=== PATIENT | female | born 1990 | race Caucasian/White ===

== ENCOUNTER 2016-10-22 15:38 | Inpatient (IN) | payer OTHER ==
[2016-10-22 16:39] VITALS: BMI 18.2
--- NOTE | 2016-10-22 18:35 | HP ---
COWS - Scale Resting Pulse: 2= MI 101-120 Sweatin= Chills/Flushing Restless Observation: 3= Extraneous Movement Pupil Size: 1= Pupils >than Normal Bone or Joint Aches: 2= Severe Diffuse Aches Runny Nose/ Eye Tearin= Runny Nose/Eyes GI Upset > 30mins: 3= Vomiting/Diarrhea Tremor Observation: 2= Slight Tremor Visible Yawning Observation: 1= 1-2x During Session Anxiety or Irritability: 2=Irritable/Anxious Goose Flesh Skin: 0=Smooth Skin COWS Score: 19 Admission [facility] Chief Complaint: withdrawal sx Allergies/Adverse Reactions: Allergies Allergy/AdvReac Type Severity Reaction Status Date / Time No Known Allergies Allergy Verified 10/22/16 16:56 History of Present Illness: 26 years old female with long history of opiate, nicotine dependence, denies medical issue has bipolar ii is admitted to detox Exam Limitations: No Limitations - Ebola screening Have you traveled outside of the country in the last 21 days: No Have you had contact with anyone from an Ebola affected area: No Have you been sick,other than usual withdrawal symptoms: No Do you have a fever: No - Review of Systems Constitutional: Chills, Changes in sleep, Weight Stable EENT: reports: No Symptoms Reported Respiratory: reports: No Symptoms reported Cardiac: reports: No Symptoms Reported GI: reports: Diarrhea, Nausea, Poor Appetite, Poor Fluid Intake, Vomiting, Abdominal cramping : reports: No Symptoms Reported Musculoskeletal: reports: Back Pain, Joint Pain, Muscle Pain, Neck Pain Integumentary: reports: Change in Color (both hands dorsum) Neuro: reports: Tremors Endocrine: reports: No Symptoms Reported Hematology: reports: No Symptoms Reported Psychiatric: reports: Judgement Intact, Orientated x3, Anxious, Depressed Other Systems: Reviewed and Negative Patient History - Patient Medical History Hx Anemia: No Hx Asthma: No Hx Chronic Obstructive Pulmonary Disease (COPD): No Hx Cancer: No Hx Cardiac Disorders: No Hx Congestive Heart Failure: No Hx Hypertension: No Hx Hypercholesterolemia: No Hx Pacemaker: No HX Cerebrovascular Accident: No Hx Seizures: No Hx Dementia: No Hx Diabetes: No Hx Gastrointestinal Disorders: No Hx Liver Disease: No Hx Genitourinary Disorders: No Hx Sexually Transmitted Disorders: No Hx Renal Disease (ESRD): No Hx Thyroid Disease: No Hx Human Immunodeficiency Virus (HIV): No Hx Hepatitis C: Yes (in 2012,TREATED) Hx Depression: No Hx Suicide Attempt: No Hx Bipolar Disorder: Yes Hx Schizophrenia: No - Patient Surgical History Past Surgical History: Yes Hx Neurologic Surgery: No Hx Cataract Extraction: No Hx Cardiac Surgery: No Hx Lung Surgery: No Hx Breast Surgery: No Hx Breast Biopsy: No Hx Abdominal Surgery: No Hx Appendectomy: No Hx Cholecystectomy: No Hx Genitourinary Surgery: No Hx Orthopedic Surgery: No Other Surgical History: Tonsillectomy at age 13 yrs. Anesthesia Reaction: No - PPD History Previous Implant?: Yes Documented Results: Negative w/o proof Implanted On Prior R Admission?: Yes Date: 09/02/14 Results: 0 MM PPD to be Administered?: Yes - Reproductive History Patient is a Female of Child Bearing Age (11 -55 yrs old): Yes Last Menstrual Period: 10/15/16 Patient : No - Smoking Cessation Smoking history: Current every day smoker Have you smoked in the past 12 months: Yes Aproximately how many cigarettes per day: 30 Cigars Per Day: 0 Hx Chewing Tobacco Use: No Initiated information on smoking cessation: Yes 'Breaking Loose' booklet given: 10/22/16 - Substance & Tx. History Hx Alcohol Use: No Hx Substance Use: Yes Substance Use Type: Cocaine, Marijuana, Opiates Hx Substance Use Treatment: Yes - Substances Abused Heroin Route: Injection Frequency: Daily Amount used: 10 BAGS Age of first use: 15 Date of Last Use: 10/19/16 Crack Route: Smoking Frequency: Daily Amount used: $200 Age of first use: 16 Date of Last Use: 10/22/16 Alprazolam (Xanax) Route: Oral Frequency: 3-6 times per week Amount used: 6MG Age of first use: 14 Date of Last Use: 10/22/16 Marijuana/Hashish Route: Smoking Frequency: Daily Amount used: 3.5GRAMS Age of first use: 12 Date of Last Use: 10/21/16 PERCOCETS Route: Oral Frequency: 1-3 times last 30 days Amount used: 2 10MG PILLS Age of first use: 13 Date of Last Use: 10/21/16 Family Disease History - Family Disease History Family History: Unremarkable Admission Physical Exam BHS - Vital Signs Vital Signs: Vital Signs - 24 hr 10/22/16 16:36 Temperature 96.4 F L Pulse Rate 105 H Respiratory 18 Rate Blood Pressure 144/93 - Physical General Appearance: Yes: Appropriately Dressed, Moderate Distress, Thin, Tremorous, Irritable, Sweating, Anxious HEENTM: Yes: Hearing grossly Normal, Normal ENT Inspection, Normocephalic, Normal Voice Respiratory: Yes: Chest Non-Tender, Lungs Clear, Normal Breath Sounds, No Respiratory Distress, No Accessory Muscle Use Neck: Yes: Supple, Trachea in good position Breast: Yes: Breasts Symetrical Cardiology: Yes: Regular Rhythm, S1, S2, Tachycardia Abdominal: Yes: Non Tender, Soft Genitourinary: Yes: Within Normal Limits Back: Yes: Normal Inspection Musculoskeletal: Yes: full range of Motion, Gait Steady, Back pain, Muscle Pain Extremities: Yes: Normal Range of Motion, Non-Tender, Tremors, Erythema (dorsum of both hands) Neurological: Yes: Fully Oriented, Alert, Motor Strength 5/5, Normal Response, Depressed Affect Integumentary: Yes: Warm, Track Martell (abscess) Lymphatic: Yes: Within Normal Limits - Diagnostic (1) Bipolar II disorder Current Visit: Yes Status: Suspected (2) Hepatitis C carrier Current Visit: Yes Status: Resolved Comment: treated (3) Nicotine dependence Current Visit: Yes Status: Acute Qualifiers: Nicotine product type: cigarettes Substance use status: in withdrawal Qualified Code(s): F17.213 - Nicotine dependence, cigarettes, with withdrawal (4) Opioid dependence with withdrawal Current Visit: Yes Status: Acute (5) Abscess Current Visit: Yes Status: Acute Cleared for Admission [facility] - Detox or Rehab [facility] Level of Care: Medically Managed Detox Regimen/Protocol: Methadone [facility] Breath Alcohol Content Breath Alcohol Content: 0 Urine Pregancy Test - Result Urine Test Results: Negative- NO Line Present Urine Drug Screen - Results Drug Screen Negative: No Urine Drug Screen Results: THC-Marijuana, TAHIR-Cocaine, OPI-Opiates, TCA- Tricyclic Antidepress, OXY-Oxycodone
[2016-10-22] MEDS ORDERED: guaiFENesin/D-METHORPHAN HB 10 ML UNIT-DOSE CUPS PO PRN (18:37)
[2016-10-22] MEDS ORDERED: MAGNESIUM CITRATE 300 ML BOTTLE PO PRN (18:37)
[2016-10-22] MEDS ORDERED: MAG HYDROX/AL HYDROX/SIMETH 30 ML UNIT-DOSE CUP PO PRN (18:37)
[2016-10-22] MEDS ORDERED: ACETAMINOPHEN 325 MG TABLET (FP) PO PRN (18:37)
[2016-10-22] MEDS ORDERED: METHADONE HCL 10 MG TABLET (FOR DETOX USE ONLY) PO ONE ×2 (18:37→23:00)
[2016-10-22] MEDS ORDERED: LOPERAMIDE HCL 2 MG CAPSULE PO PRN (18:37)
[2016-10-22] MEDS ORDERED: MENTHOL/PHENOL 1 EACH UD MM PRN (18:37)
[2016-10-22] MEDS ORDERED: IBUPROFEN 400 MG TABLET (FP) PO PRN (18:37)
[2016-10-22] MEDS ORDERED: P-EPHED 60MG/TRIPROLIDI 2.5MG TABLET PO PRN (18:37)
[2016-10-22] MEDS: CYCLOBENZAPRINE HCL 10 MG TABLET (FP) PO PRN (19:30)
[2016-10-22] MEDS: diazePAM 5 MG TABLET PO PRN (19:31)
[2016-10-22 22:34] LABS: URINE APPEARANCE CLEAR; URINE BILIRUBIN NEGATIVE (NEGATIVE); URINE BLOOD NEGATIVE (NEGATIVE); URINE COLOR YELLOW; URINE GLUCOSE (UA) NEGATIVE (NEGATIVE); URINE KETONE NEGATIVE (NEGATIVE); URINE LEUK ESTERASE NEGATIVE (NEGATIVE); URINE NITRITE NEGATIVE (NEGATIVE); URINE PROTEIN NEGATIVE (NEGATIVE); URINE UROBILINOGEN NEGATIVE E.U./dl (0.2-1.0)
[2016-10-22] MEDS: CLINDAMYCIN HCL 150 MG CAPSULE (FP) PO SCH (22:35)
[2016-10-22] MEDS: THIAMINE HCL 100 MG TABLET (FP) PO SCH (22:36)
[2016-10-22] MEDS: diphenhydrAMINE HCL 50 MG CAPSULE PO PRN (22:36)
[2016-10-23] MEDS: diphenhydrAMINE HCL 50 MG CAPSULE PO PRN (00:28)
[2016-10-23] MEDS: diazePAM 5 MG TABLET PO PRN ×5 (00:28→19:42)
[2016-10-23] MEDS: CYCLOBENZAPRINE HCL 10 MG TABLET (FP) PO PRN ×4 (04:14→22:31)
[2016-10-23] MEDS: CLINDAMYCIN HCL 150 MG CAPSULE (FP) PO SCH ×3 (07:55→22:33)
[2016-10-23] MEDS ORDERED: METHADONE HCL 10 MG TABLET (FOR DETOX USE ONLY) PO ONE (10:00)
--- NOTE | 2016-10-23 10:20 | CONSULT ---
[facility] Psychiatric Consult - Data Date of interview: 10/23/16 Admission source: [facility] Identifying data: Readmission to [facility] for this 26 y/o female seeking detox treatment on for heroin,cocaine (crack),benzodiazepine ( xanax) and marijuana dependence.Patient is single without children,domiciled, unemployed and supported on food stamps. Substance Abuse History: - Smoking Cessation. Smoking history: Current every day smoker. Have you smoked in the past 12 months: Yes. Aproximately how many cigarettes per day: 30. Cigars Per Day: 0. Hx Chewing Tobacco Use: No. Initiated information on smoking cessation: Yes. 'Breaking Loose' booklet given : 10/22/16. - Substance & Tx. History. Hx Alcohol Use: No. Hx Substance Use: Yes. Substance Use Type: Cocaine, Marijuana, Opiates. Hx Substance Use Treatment: Yes. - Substances Abused. Heroin. Route: Injection. Frequency : Daily. Amount used: 10 BAGS. Age of first use: 15. Date of Last Use: . Crack. Route: Smoking. Frequency: Daily. Amount used: $200. Age of first use: 16. Date of Last Use: 10/22/16. Alprazolam (Xanax). Route: Oral. Frequency: 3-6 times per week. Amount used: 6MG. Age of first use: 14. Date of Last Use: 10/22/16. Marijuana/Hashish. Route: Smoking. Frequency : Daily. Amount used: 3.5GRAMS. Age of first use: 12. Date of Last Use: 10/21. PERCOCETS. Route: Oral. Frequency: 1-3 times last 30 days. Amount used: 2 10MG PILLS. Age of first use: 13. Date of Last Use: 10/21/16. Confirmed by patient in this interview. Medical History: Hepatitis C and a history of tonsillectomy (age 13). Psychiatric History: No reported history of psychiatric hospitalizations.Diagnosed with Bipolar Disorder (age 15).Patient used to see a private psychiatrist,Dr Reyes,for medication management (last seen in 2014 as per self-report).Medications consisted of celexa 20 mg/day + seroquel 300 mg/hs + xanax 4 mg/day + ambien 10 mg/hs.Ms Hebert reports that she had relocated to [place] after her last visit to [facility].She indicates that she has sporadically continued OPD care until June 2016.Regimen was slightly modified to include seroquel,lexapro,klonopin and zolpidem (doses not recalled) .Patient requests these medications in this hospital course.Patient denies history of suicide attempts. Physical/Sexual Abuse/Trauma History: Patient denies. Additional Comment: Urine Drug Screen Results: THC-Marijuana, TAHIR-Cocaine, OPI- Opiates, TCA-Tricyclic Antidepressant, OXY-Oxycodone.Noted. Mental Status Exam - Mental Status Exam Alert and Oriented to: Time, Place, Person Cognitive Function: Good Patient Appearance: Well Groomed Mood: Anxious, Apprehensive, Hopeful Affect: Appropriate, Normal Range Patient Behavior: Fatigued, Appropriate, Cooperative Speech Pattern: Clear Voice Loudness: Normal Thought Process: Goal Oriented Thought Disorder: Not Present Hallucinations: Denies Suicidal Ideation: Denies Homicidal Ideation: Denies Insight/Judgement: Poor Sleep: Poorly, Difficulty falling asleep Appetite: Good Muscle strength/Tone: Normal Gait/Station: Normal Psychiatric Findings - Problem List (Guin 1, 2,3) (1) Opioid dependence with withdrawal Current Visit: Yes Status: Acute (2) Cocaine dependence, uncomplicated Current Visit: No Status: Chronic (3) Uncomplicated sedative, hypnotic or anxiolytic withdrawal Current Visit: No Status: Chronic (4) Nicotine dependence Current Visit: Yes Status: Acute Qualifiers: Nicotine product type: cigarettes Substance use status: in withdrawal Qualified Code(s): F17.213 - Nicotine dependence, cigarettes, with withdrawal (5) Cannabis dependence Current Visit: Yes Status: Acute (6) Substance induced mood disorder Current Visit: Yes Status: Acute (7) Bipolar II disorder Current Visit: Yes Status: Suspected Comment: History. (8) Hepatitis C carrier Current Visit: Yes Status: Resolved Comment: treated (9) Insomnia Current Visit: Yes Status: Acute - Initial Treatment Plan Initial Treatment Plan: Psychoeducation.Detoxification.Medications : lexapro 5 mg po daily + seroquel 50 mg po hs + zolpidem 5 mg po hs prn.Side effects/ benefits of these drugs are discussed with the patient.She is agreement with this careplan.Observation.
[2016-10-23 10:28] LABS: MCH 28.9 pg (25.7-33.7); MCHC 32.9 g/dl (32.0-36.0); MEAN CELL VOLUME 88.1 fl (80-96); MEAN PLT VOLUME 8.8 fl (7.5-11.1); PLATELET COUNT 373 K/MM3 (134-434); WHITE BLOOD COUNT 9.4 K/mm3 (4.0-10.0)
[2016-10-23 10:39] LABS: ALBUMIN 4.1 g/dl (3.4-5.0); ANION GAP 11 (8-16); CO2 24 mmol/L (21-32); GLUCOSE,RANDOM 73 mg/dL (74-106); SGOT/AST 10 U/L (15-37); SGPT/ALT 16 U/L (12-78)
[2016-10-23 10:42] LABS: ALK PHOS 61 U/L (45-117); BILIRUBIN,TOTAL 0.7 mg/dL (0.2-1.0); CALCIUM 9.7 mg/dL (8.5-10.1); TOT PROT 7.5 g/dl (6.4-8.2)
[2016-10-23] MEDS: NICOTINE 21 MG/24 HOURS TOPICAL PATCH TD SCH (10:52)
[2016-10-23] MEDS: PRENATAL VITAMINS W/ FOLIC ACID TABLET (FP) PO SCH (10:52)
[2016-10-23] MEDS: NICOTINE POLACRILEX 4 MG GUM BC PRN (10:53)
--- NOTE | 2016-10-23 12:49 | PN ---
BHS COWS - Scale Resting Pulse: 1= SD 81-100 Sweatin= Chills/Flushing Restless Observation: 3= Extraneous Movement Pupil Size: 1= Pupils >than Normal Bone or Joint Aches: 2= Severe Diffuse Aches Runny Nose/ Eye Tearin= Runny Nose/Eyes GI Upset > 30mins: 3= Vomiting/Diarrhea Tremor Observation of Outstretched Hands: 2= Slight Tremor Visible Yawning Observation: 1= 1-2x During Session Anxiety or Irritability: 2=Irritable/Anxious Goose Flesh Skin: 0=Smooth Skin COWS Score: 18 BHS Progress Note (SOAP) Subjective: ALERT,IRRITABLE,ANXIOUS,INTERRUPTED SLEEP,TREMOR,PAIN IN THE BODY AND BACK Objective: 10/23/16 12:46 Vital Signs Temperature 97.2 F L 10/23/16 10:30 Pulse Rate 91 H 10/23/16 10:30 Respiratory Rate 18 10/23/16 10:30 Blood Pressure 109/70 10/23/16 10:30 O2 Sat by Pulse Oximetry (%) EKG NSR 84/MIN Laboratory Last Values WBC 9.4 K/mm3 (4.0-10.0) 10/23/16 07:15 RBC 4.65 M/mm3 (3.60-5.2) 10/23/16 07:15 Hgb 13.5 GM/dL (10.7-15.3) 10/23/16 07:15 Hct 41.0 % (32.4-45.2) 10/23/16 07:15 MCV 88.1 fl (80-96) 10/23/16 07:15 MCHC 32.9 g/dl (32.0-36.0) 10/23/16 07:15 RDW 16.0 % (11.6-15.6) H 10/23/16 07:15 Plt Count 373 K/MM3 (134-434) 10/23/16 07:15 MPV 8.8 fl (7.5-11.1) 10/23/16 07:15 Sodium 137 mmol/L (136-145) 10/23/16 07:15 Potassium 4.3 mmol/L (3.5-5.1) 10/23/16 07:15 Chloride 102 mmol/L (98-107) 10/23/16 07:15 Carbon Dioxide 24 mmol/L (21-32) D 10/23/16 07:15 Anion Gap 11 (8-16) 10/23/16 07:15 BUN 12 mg/dL (7-18) D 10/23/16 07:15 Creatinine 1.0 mg/dL (0.55-1.02) D 10/23/16 07:15 Creat Clearance w eGFR > 60 (>60) 10/23/16 07:15 Random Glucose 73 mg/dL (74-106) L D 10/23/16 07:15 Calcium 9.7 mg/dL (8.5-10.1) 10/23/16 07:15 Total Bilirubin 0.7 mg/dL (0.2-1.0) D 10/23/16 07:15 AST 10 U/L (15-37) L 10/23/16 07:15 ALT 16 U/L (12-78) 10/23/16 07:15 Alkaline Phosphatase 61 U/L (45-117) 10/23/16 07:15 Total Protein 7.5 g/dl (6.4-8.2) 10/23/16 07:15 Albumin 4.1 g/dl (3.4-5.0) 10/23/16 07:15 Urine Color Yellow 10/22/16 22:00 Urine Appearance Clear 10/22/16 22:00 Urine pH 5.0 (5.0-8.0) 10/22/16 22:00 Ur Specific [place] 1.023 (1.001-1.035) 10/22/16 22:00 Urine Protein Negative (NEGATIVE) 10/22/16 22:00 Urine Glucose (UA) Negative (NEGATIVE) 10/22/16 22:00 Urine Ketones Negative (NEGATIVE) 10/22/16 22:00 Urine Blood Negative (NEGATIVE) 10/22/16 22:00 Urine Nitrite Negative (NEGATIVE) 10/22/16 22:00 Urine Bilirubin Negative (NEGATIVE) 10/22/16 22:00 Urine Urobilinogen Negative E.U./dl (0.2-1.0) 10/22/16 22:00 Ur Leukocyte Esterase Negative (NEGATIVE) 10/22/16 22:00 RPR Titer Nonreactive (NONREACTIVE) 10/23/16 07:15 Assessment: 10/23/16 12:48 WITHDRAWAL SYMPTOM Plan: CONTINUE DETOX
--- NOTE | 2016-10-23 13:23 | EKG ---
Test Reason : Blood Pressure : / mmHG Vent. Rate : 084 BPM Atrial Rate : 084 BPM P-R Int : 136 ms QRS Dur : 084 ms QT Int : 376 ms P-R-T Axes : 063 085 060 degrees QTc Int : 444 ms NORMAL SINUS RHYTHM BIATRIAL ENLARGEMENT ABNORMAL ECG WHEN COMPARED WITH ECG OF 23-AUG-2008 17:54, NO SIGNIFICANT CHANGE WAS FOUND Confirmed by BEN NOLAND MD ([id number]) on 10/23/2016 1:23:28 PM Referred By: Confirmed By:BEN NOLAND MD
[2016-10-23] MEDS: cloNIDine HCL 0.1 MG TABLET PO PRN (22:31)
[2016-10-23] MEDS: QUEtiapine FUMARATE 50 MG TABLET PO SCH (22:31)
[2016-10-23] MEDS: ZOLPIDEM TARTRATE 5 MG TABLET PO PRN (22:31)
[2016-10-23] MEDS: THIAMINE HCL 100 MG TABLET (FP) PO SCH (22:31)
[2016-10-24] MEDS: diazePAM 5 MG TABLET PO PRN ×4 (03:12→19:48)
[2016-10-24] MEDS: CLINDAMYCIN HCL 150 MG CAPSULE (FP) PO SCH ×3 (05:46→22:24)
[2016-10-24] MEDS: CYCLOBENZAPRINE HCL 10 MG TABLET (FP) PO PRN ×3 (05:47→22:24)
[2016-10-24] MEDS ORDERED: METHADONE HCL 5 MG TABLET (FOR DETOX USE ONLY) PO ONE (10:00)
[2016-10-24] MEDS: ESCITALOPRAM OXALATE 10 MG TABLET (FP) PO SCH (10:31)
[2016-10-24] MEDS: NICOTINE 21 MG/24 HOURS TOPICAL PATCH TD SCH (10:32)
[2016-10-24] MEDS: PRENATAL VITAMINS W/ FOLIC ACID TABLET (FP) PO SCH (10:32)
--- NOTE | 2016-10-24 12:40 | PN ---
BHS COWS - Scale Resting Pulse: 1= RI 81-100 Sweatin= Chills/Flushing Restless Observation: 3= Extraneous Movement Pupil Size: 1= Pupils >than Normal Bone or Joint Aches: 2= Severe Diffuse Aches Runny Nose/ Eye Tearin= Runny Nose/Eyes GI Upset > 30mins: 2= Nausea/Diarrhea Tremor Observation of Outstretched Hands: 2= Slight Tremor Visible Yawning Observation: 1= 1-2x During Session Anxiety or Irritability: 2=Irritable/Anxious Goose Flesh Skin: 0=Smooth Skin COWS Score: 17 BHS Progress Note (SOAP) Subjective: alert,irritable,anxious,tremor,pain in the body and back Objective: 10/24/16 12:39 Vital Signs Temperature 98.2 F 10/24/16 09:36 Pulse Rate 84 10/24/16 09:36 Respiratory Rate 18 10/24/16 09:36 Blood Pressure 120/64 10/24/16 09:36 O2 Sat by Pulse Oximetry (%) Assessment: 10/24/16 12:40 withdrawal symptom Plan: continue detox
[2016-10-24 14:07] LABS: HIV 1 & 2 AB NEGATIVE; HIV 1 AGp24 NEGATIVE
[2016-10-24] MEDS: MAGNESIUM HYDROX 2400MG/30ML ORAL SUSPENSION 30 ML CUP PO PRN (17:31)
[2016-10-24] MEDS: NICOTINE POLACRILEX 4 MG GUM BC PRN ×2 (17:31→22:26)
[2016-10-24] MEDS: ZOLPIDEM TARTRATE 5 MG TABLET PO PRN (22:24)
[2016-10-24] MEDS: QUEtiapine FUMARATE 50 MG TABLET PO SCH (22:24)
[2016-10-24] MEDS: THIAMINE HCL 100 MG TABLET (FP) PO SCH (22:24)
[2016-10-24] MEDS: cloNIDine HCL 0.1 MG TABLET PO PRN (22:24)
[2016-10-25] MEDS: diazePAM 5 MG TABLET PO PRN ×2 (05:08→14:00)
[2016-10-25] MEDS: CLINDAMYCIN HCL 150 MG CAPSULE (FP) PO SCH ×2 (06:08→14:42)
[2016-10-25] MEDS: CYCLOBENZAPRINE HCL 10 MG TABLET (FP) PO PRN ×2 (06:11→22:21)
[2016-10-25] MEDS: MAGNESIUM HYDROX 2400MG/30ML ORAL SUSPENSION 30 ML CUP PO PRN (06:14)
[2016-10-25] MEDS ORDERED: METHADONE HCL 5 MG TABLET (FOR DETOX USE ONLY) PO ONE (10:00)
[2016-10-25] MEDS: ESCITALOPRAM OXALATE 10 MG TABLET (FP) PO SCH (10:18)
[2016-10-25] MEDS: PRENATAL VITAMINS W/ FOLIC ACID TABLET (FP) PO SCH (10:19)
[2016-10-25] MEDS: NICOTINE 21 MG/24 HOURS TOPICAL PATCH TD SCH (10:21)
[2016-10-25] MEDS: NICOTINE POLACRILEX 4 MG GUM BC PRN ×2 (10:23→19:44)
--- NOTE | 2016-10-25 12:26 | PN ---
S Progress Note (SOAP) Subjective: ALERT,IRRITABLE,ANXIOUS,INTERRUPTED SLEEP,PAIN IN THE BODY AND BACK Objective: 10/25/16 12:25 Vital Signs Temperature 97.3 F L 10/25/16 10:00 Pulse Rate 83 10/25/16 10:00 Respiratory Rate 18 10/25/16 10:00 Blood Pressure 108/58 10/25/16 10:00 O2 Sat by Pulse Oximetry (%) Assessment: 10/25/16 12:25 WITHDRAWAL SYMPTOM Plan: CONTINUE DETOX
[2016-10-25 14:53] LABS: HIV 1 & 2 AB NEGATIVE; HIV 1 AGp24 NEGATIVE
[2016-10-25] MEDS: THIAMINE HCL 100 MG TABLET (FP) PO SCH (22:21)
[2016-10-25] MEDS: cloNIDine HCL 0.1 MG TABLET PO PRN (22:21)
[2016-10-25] MEDS: ZOLPIDEM TARTRATE 5 MG TABLET PO PRN (22:21)
[2016-10-25] MEDS: QUEtiapine FUMARATE 50 MG TABLET PO SCH (22:21)
[2016-10-26] MEDS: CYCLOBENZAPRINE HCL 10 MG TABLET (FP) PO PRN ×4 (04:36→22:26)
[2016-10-26] MEDS ORDERED: METHADONE HCL 10 MG TABLET (FOR DETOX USE ONLY) PO ONE (10:00)
[2016-10-26] MEDS: PRENATAL VITAMINS W/ FOLIC ACID TABLET (FP) PO SCH (10:41)
[2016-10-26] MEDS: ESCITALOPRAM OXALATE 10 MG TABLET (FP) PO SCH (10:41)
[2016-10-26] MEDS: NICOTINE 21 MG/24 HOURS TOPICAL PATCH TD SCH (10:43)
[2016-10-26] MEDS: cloNIDine HCL 0.1 MG TABLET PO PRN ×2 (10:45→22:26)
--- NOTE | 2016-10-26 13:09 | PN ---
BHS Progress Note (SOAP) Subjective: interrupted sleep, sweats Objective: 10/26/16 13:08 Vital Signs Temperature 96.2 F L 10/26/16 10:12 Pulse Rate 81 10/26/16 10:12 Respiratory Rate 18 10/26/16 10:12 Blood Pressure 106/61 10/26/16 10:12 O2 Sat by Pulse Oximetry (%) Laboratory Tests 10/22/16 10/23/16 10/23/16 22:00 07:15 07:15 WBC 9.4 RBC 4.65 Hgb 13.5 Hct 41.0 MCV 88.1 MCHC 32.9 RDW 16.0 H Plt Count 373 MPV 8.8 Sodium 137 Potassium 4.3 Chloride 102 Carbon Dioxide 24 D Anion Gap 11 BUN 12 D Creatinine 1.0 D Creat Clearance w eGFR > 60 Random Glucose 73 L D Calcium 9.7 Total Bilirubin 0.7 D AST 10 L ALT 16 Alkaline Phosphatase 61 Total Protein 7.5 Albumin 4.1 Urine Color Yellow Urine Appearance Clear Urine pH 5.0 Ur Specific [place] 1.023 Urine Protein Negative Urine Glucose (UA) Negative Urine Ketones Negative Urine Blood Negative Urine Nitrite Negative Urine Bilirubin Negative Urine Urobilinogen Negative Ur Leukocyte Esterase Negative RPR Titer HIV 1&2 Antibody Screen HIV P24 Antigen 10/23/16 10/24/16 07:15 06:00 WBC RBC Hgb Hct MCV MCHC RDW Plt Count MPV Sodium Potassium Chloride Carbon Dioxide Anion Gap BUN Creatinine Creat Clearance w eGFR Random Glucose Calcium Total Bilirubin AST ALT Alkaline Phosphatase Total Protein Albumin Urine Color Urine Appearance Urine pH Ur Specific [place] Urine Protein Urine Glucose (UA) Urine Ketones Urine Blood Urine Nitrite Urine Bilirubin Urine Urobilinogen Ur Leukocyte Esterase RPR Titer Nonreactive HIV 1&2 Antibody Screen Negative Negative HIV P24 Antigen Negative Negative pt aox3 in nad ambulating Assessment: 10/26/16 13:09 withdrawl sx's Plan: cont. detox increase fluids d/c in am
[2016-10-26] MEDS: NICOTINE POLACRILEX 4 MG GUM BC PRN (17:12)
[2016-10-26] MEDS: QUEtiapine FUMARATE 50 MG TABLET PO SCH (22:26)
[2016-10-26] MEDS: ZOLPIDEM TARTRATE 5 MG TABLET PO PRN (22:26)
[2016-10-26] MEDS: THIAMINE HCL 100 MG TABLET (FP) PO SCH (22:27)
[2016-10-27] MEDS: CYCLOBENZAPRINE HCL 10 MG TABLET (FP) PO PRN (05:48)
[2016-10-27] MEDS ORDERED: METHADONE HCL 5 MG TABLET (FOR DETOX USE ONLY) PO ONE (06:00)
[2016-10-27 06:13] VITALS: TEMP 97.7
--- NOTE | 2016-10-27 09:01 | DS ---
[facility] Detox Discharge Summary Admission Date: 10/22/16 Discharge Date: 10/27/16 - History Present History: Alcohol Dependence, Cocaine Dependence, Opioid Dependence, Sedative Dependence - Physical Exam Results Vital Signs: Vital Signs Temperature 97.7 F 10/27/16 06:00 Pulse Rate 64 10/27/16 06:00 Respiratory Rate 16 10/27/16 06:00 Blood Pressure 93/57 10/27/16 06:00 O2 Sat by Pulse Oximetry (%) - Treatment Hospital Course: Detox Protocol Followed, Detoxed Safely, Responded well, Discharged Condition Good, Rehab Referral Accepted - Medication Discharge Medications: Ambulatory Orders Escitalopram Oxalate [Lexapro -] 5 mg PO DAILY #30 tablet 10/23/16 Quetiapine Fumarate [Seroquel -] 50 mg PO HS #30 tablet 10/23/16 - Diagnosis (1) Abscess Current Visit: Yes Status: Acute (2) Cannabis dependence Current Visit: Yes Status: Chronic (3) Insomnia Current Visit: Yes Status: Acute (4) Nicotine dependence Current Visit: Yes Status: Chronic Qualifiers: Nicotine product type: cigarettes Substance use status: uncomplicated Qualified Code(s): F17.210 - Nicotine dependence, cigarettes, uncomplicated (5) Opioid dependence with withdrawal Current Visit: Yes Status: Chronic (6) Substance induced mood disorder Current Visit: Yes Status: Chronic (7) Bipolar II disorder Current Visit: Yes Status: Suspected (8) Hepatitis C carrier Current Visit: Yes Status: Resolved (9) Alcohol dependence with uncomplicated withdrawal Current Visit: Yes Status: Chronic (10) Cocaine dependence, uncomplicated Current Visit: Yes Status: Chronic (11) Uncomplicated sedative, hypnotic or anxiolytic withdrawal Current Visit: Yes Status: Chronic (12) Weight decreased Current Visit: No Status: Chronic (13) anxiety and depression Current Visit: No Status: Chronic - AMA Did Patient Leave Against Medical Advice: No
[2016-10-27] MEDS: PRENATAL VITAMINS W/ FOLIC ACID TABLET (FP) PO SCH (09:28)
[2016-10-27] MEDS: ESCITALOPRAM OXALATE 10 MG TABLET (FP) PO SCH (09:28)
[2016-10-27] MEDS: cloNIDine HCL 0.1 MG TABLET PO PRN (09:29)
[2016-10-27 10:24] VITALS: BP 128/72; PULSE 91
== END 2016-10-27 09:35 | disposition home or self-care (01) | DRG 773 ==
LOC: YASAS 15:38 → Y6N 17:52
PROVIDERS: ADMIT Internal Medicine; ATTEND Internal Medicine
PROC: HZ2ZZZZ Detoxification Services for Substance Abuse Treatment (ICD-10-PCS; principal; 2016-10-22)
DX: F11.23 Opioid dependence with withdrawal (principal); F13.230 Sedative, hypnotic or anxiolytic dependence with withdrawal, uncomplicated; F10.230 Alcohol dependence with withdrawal, uncomplicated; F14.20 Cocaine dependence, uncomplicated; F12.20 Cannabis dependence, uncomplicated; F17.210 Nicotine dependence, cigarettes, uncomplicated; F19.24 Other psychoactive substance dependence with psychoactive substance-induced mood disorder; F31.81 Bipolar II disorder; F41.8 Other specified anxiety disorders; G47.00 Insomnia, unspecified; B18.2 Chronic viral hepatitis C; R00.0 Tachycardia, unspecified; L02.91 Cutaneous abscess, unspecified; Z87.898 Personal history of other specified conditions
CPT/HCPCS: 36415; 80053; 81003; 85027; 86593; 87389; 93005; 93010

== ENCOUNTER 2017-06-29 13:59 | Inpatient (IN) | payer OTHER ==
[2017-06-29 17:30] VITALS: BMI 18.2
--- NOTE | 2017-06-29 18:56 | HP ---
COWS - Scale Resting Pulse: 2= [place] 101-120 Sweatin= Chills/Flushing Restless Observation: 3= Extraneous Movement Pupil Size: 0= Normal to Room Light Bone or Joint Aches: 2= Severe Diffuse Aches Runny Nose/ Eye Tearin= Runny Nose/Eyes GI Upset > 30mins: 2= Nausea/Diarrhea Tremor Observation: 2= Slight Tremor Visible Yawning Observation: 0= None Anxiety or Irritability: 2=Irritable/Anxious Goose Flesh Skin: 0=Smooth Skin COWS Score: 16 CIWA Score - CIWA Score Nausea/Vomitin-Mild Nausea/No Vomiting Muscle Tremors: 4-Moderate,w/Arms Extend Anxiety: 4-Mod. Anxious/Guarded Agitation: 4-Moderately Restless Paroxysmal Sweats: 1-Minimal Palms Moist Orientation: 0-Oriented Tacttile Disturbances: 0-None Auditory Disturbances: 0-None Visual Disturbances: 0-None Headache: 0-None Present CIWA-Ar Total Score: 14 Admission ROS S - HPI Chief Complaint: withdrawal sx Allergies/Adverse Reactions: Allergies Allergy/AdvReac Type Severity Reaction Status Date / Time No Known Allergies Allergy Verified 10/22/16 16:56 History of Present Illness: 26 years old female with long history of heroin xanax nicotine dependence has hypertension and bipolar ii is admitted to detox Exam Limitations: No Limitations - Ebola screening Have you traveled outside of the country in the last 21 days: No Have you had contact with anyone from an Ebola affected area: No Have you been sick,other than usual withdrawal symptoms: No Do you have a fever: No - Review of Systems Constitutional: Changes in sleep, Weight Stable EENT: reports: No Symptoms Reported Respiratory: reports: No Symptoms reported Cardiac: reports: No Symptoms Reported GI: reports: Nausea, Poor Fluid Intake, Abdominal cramping : reports: No Symptoms Reported Musculoskeletal: reports: Back Pain, Joint Pain, Muscle Pain, Neck Pain Integumentary: reports: Change in Color (both inner elbows iv heroin) Neuro: reports: Tremors Endocrine: reports: No Symptoms Reported Hematology: reports: No Symptoms Reported Psychiatric: reports: Judgement Intact, Orientated x3, Anxious, Depressed Other Systems: Reviewed and Negative Patient History - Patient Medical History Hx Anemia: No Hx Asthma: No Hx Chronic Obstructive Pulmonary Disease (COPD): No Hx Cancer: No Hx Cardiac Disorders: No Hx Congestive Heart Failure: No Hx Hypertension: No Hx Hypercholesterolemia: No Hx Pacemaker: No HX Cerebrovascular Accident: No Hx Seizures: No Hx Dementia: No Hx Diabetes: No Hx Gastrointestinal Disorders: No Hx Liver Disease: No Hx Genitourinary Disorders: No Hx Sexually Transmitted Disorders: No Hx Renal Disease (ESRD): No Hx Thyroid Disease: No Hx Human Immunodeficiency Virus (HIV): No Hx Hepatitis C: Yes (in 2011,TREATED) Hx Depression: No Hx Suicide Attempt: No Hx Bipolar Disorder: Yes Hx Schizophrenia: No - Patient Surgical History Past Surgical History: Yes Hx Neurologic Surgery: No Hx Cataract Extraction: No Hx Cardiac Surgery: No Hx Lung Surgery: No Hx Breast Surgery: No Hx Breast Biopsy: No Hx Abdominal Surgery: No Hx Appendectomy: No Hx Cholecystectomy: No Hx Genitourinary Surgery: No Hx Section: No Hx Orthopedic Surgery: No Hx Hysterectomy: No Other Surgical History: Tonsillectomy at age 13 yrs. Anesthesia Reaction: No - PPD History Previous Implant?: Yes Documented Results: Negative w/proof Implanted On Prior [facility] Admission?: Yes Date: 10/24/16 Results: 0 MM PPD to be Administered?: No - Reproductive History Patient is a Female of Child Bearing Age (11 -55 yrs old): Yes Last Menstrual Period: 01/27/17 Patient : No - Smoking Cessation Smoking history: Current every day smoker Have you smoked in the past 12 months: Yes Aproximately how many cigarettes per day: 30 Cigars Per Day: 0 Hx Chewing Tobacco Use: No Initiated information on smoking cessation: Yes 'Breaking Loose' booklet given: 06/29/17 - Substance & Tx. History Hx Alcohol Use: No Hx Substance Use: Yes Substance Use Type: Cocaine, Heroin, Marijuana, Tranquilizers Hx Substance Use Treatment: Yes (10/2016 [facility]) - Substances Abused Heroin Route: Injection Frequency: Daily Amount used: 40 bags Age of first use: 16 Date of Last Use: 06/29/17 Alprazolam (Xanax) Route: Oral Frequency: Daily Amount used: 10 mg Age of first use: 14 Date of Last Use: 06/29/17 Family Disease History - Family Disease History Family Disease History: Other: Mother (anxiety) Admission Physical Exam [facility] - Vital Signs Vital Signs: Vital Signs - 24 hr 06/29/17 17:19 Temperature 97.1 F L Pulse Rate 108 H Respiratory 18 Rate Blood Pressure 115/74 - Physical General Appearance: Yes: Appropriately Dressed, Mild Distress, Thin, Tremorous, Irritable, Sweating, Anxious HEENTM: Yes: Hearing grossly Normal, Normal ENT Inspection, Normocephalic, Normal Voice Respiratory: Yes: Chest Non-Tender, Lungs Clear, Normal Breath Sounds, No Respiratory Distress, No Accessory Muscle Use Neck: Yes: Supple, Trachea in good position Breast: Yes: Breasts Symetrical Cardiology: Yes: Regular Rhythm, S1, S2, Tachycardia Abdominal: Yes: Non Tender, Soft Genitourinary: Yes: Within Normal Limits Back: Yes: Normal Inspection Musculoskeletal: Yes: full range of Motion, Gait Steady, Back pain, Muscle Pain Extremities: Yes: Normal Inspection, Normal Range of Motion, Non-Tender, Tremors Neurological: Yes: Fully Oriented, Alert, Motor Strength 5/5, Normal Response, Depressed Affect Integumentary: Yes: Warm, Track Martell Lymphatic: Yes: Within Normal Limits - Diagnostic (1) Nicotine dependence Current Visit: Yes Status: Acute Qualifiers: Nicotine product type: cigarettes Substance use status: in withdrawal Qualified Code(s): F17.213 - Nicotine dependence, cigarettes, with withdrawal; F17.213 - Nicotine dependence, cigarettes, with withdrawal (2) Opioid dependence with withdrawal Current Visit: Yes Status: Acute (3) Bipolar II disorder Current Visit: Yes Status: Suspected Comment: History. (4) Sedative, hypnotic or anxiolytic dependence with withdrawal, uncomplicated Current Visit: Yes Status: Acute (5) Hepatitis C carrier Current Visit: Yes Status: Resolved Comment: treated Cleared for Admission [facility] - Detox or Rehab [facility] Level of Care: Medically Managed Detox Regimen/Protocol: Methadone/Valium [facility] Breath Alcohol Content Breath Alcohol Content: 0 Urine Pregancy Test - Result Urine Test Results: Negative- NO Line Present Urine Drug Screen - Results Drug Screen Negative: No Urine Drug Screen Results: THC-Marijuana, TAHIR-Cocaine, OPI-Opiates, BZO- Benzodiazepines
[2017-06-29] MEDS ORDERED: guaiFENesin/D-METHORPHAN HB 10 ML UNIT-DOSE CUPS PO PRN (19:06)
[2017-06-29] MEDS ORDERED: P-EPHED 60MG/TRIPROLIDI 2.5MG TABLET PO PRN (19:06)
[2017-06-29] MEDS ORDERED: LOPERAMIDE HCL 2 MG CAPSULE PO PRN (19:06)
[2017-06-29] MEDS ORDERED: MAGNESIUM CITRATE 300 ML BOTTLE PO PRN (19:06)
[2017-06-29] MEDS ORDERED: MAG HYDROX/AL HYDROX/SIMETH 30 ML UNIT-DOSE CUP PO PRN (19:06)
[2017-06-29] MEDS ORDERED: METHADONE HCL 10 MG TABLET (FOR DETOX USE ONLY) PO ONE ×2 (19:06→23:00)
[2017-06-29] MEDS ORDERED: diazePAM 5 MG TABLET PO ONE (19:06)
[2017-06-29] MEDS ORDERED: MENTHOL/PHENOL 1 EACH UD MM PRN (19:06)
[2017-06-29] MEDS ORDERED: IBUPROFEN 400 MG TABLET (FP) PO PRN (19:06)
[2017-06-29] MEDS ORDERED: ACETAMINOPHEN 325 MG TABLET (FP) PO PRN (19:06)
[2017-06-29] MEDS ORDERED: METHYL SALICYLATE/MENTHOL OINT 30 GM TUBE TP PRN (19:09)
[2017-06-29] MEDS ORDERED: cloNIDine HCL 0.1 MG TABLET PO PRN (19:10)
[2017-06-29] MEDS ORDERED: METHADONE HCL 10 MG TABLET (FOR DETOX USE ONLY) ONE (21:55)
[2017-06-29] MEDS: BACLOFEN 10 MG TABLET (FP) PO SCH (22:14)
[2017-06-29] MEDS: THIAMINE HCL 100 MG TABLET (FP) PO SCH (22:15)
[2017-06-29] MEDS: NICOTINE POLACRILEX 4 MG GUM BC PRN (22:19)
[2017-06-29] MEDS: diazePAM 5 MG TABLET PO SCH (23:12)
[2017-06-30 01:21] LABS: URINE APPEARANCE CLEAR; URINE BILIRUBIN NEGATIVE (NEGATIVE); URINE BLOOD NEGATIVE (NEGATIVE); URINE COLOR STRAW; URINE GLUCOSE (UA) NEGATIVE (NEGATIVE); URINE KETONE NEGATIVE (NEGATIVE); URINE NITRITE NEGATIVE (NEGATIVE); URINE PROTEIN NEGATIVE (NEGATIVE); URINE UROBILINOGEN NEGATIVE mg/dL (0.2-1.0)
[2017-06-30] MEDS: diazePAM 5 MG TABLET PO SCH ×3 (05:37→22:39)
[2017-06-30] MEDS: BACLOFEN 10 MG TABLET (FP) PO SCH ×3 (05:37→22:41)
[2017-06-30] MEDS: NICOTINE POLACRILEX 4 MG GUM BC PRN ×4 (05:38→22:42)
--- NOTE | 2017-06-30 08:29 | CONSULT ---
[facility] Psychiatric Consult - Data Date of interview: 06/30/17 Admission source: [facility] Identifying data: This is 26 years old female with no psychiatric hospitalization history intoxicated with: Alcohol, Opioids, Cocaine, Xanax and Nicotine. Patient carries Bipolar Disorder -II as per computer Substance Abuse History: Smoking history: Current every day smoker. Have you smoked in the past 12 months: Yes. Aproximately how many cigarettes per day: 30. Cigars Per Day: 0. Hx Chewing Tobacco Use: No. Initiated information on smoking cessation: Yes. 'Breaking Loose' booklet given: 06/29/17. - Substance & Tx. History. Hx Alcohol Use: No. Hx Substance Use: Yes. Substance Use Type : Cocaine, Heroin, Marijuana, Tranquilizers. Hx Substance Use Treatment: Yes ( [facility]). - Substances Abused. Heroin. Route: Injection. Frequency: Daily. Amount used: 40 bags. Age of first use: 16. Date of Last Use: 06/29/17. Alprazolam (Xanax). Route: Oral. Frequency: Daily. Amount used: 10 mg. Age of first use: 14. Date of Last Use: 06/29/17 Medical History: HepC+, Weight loss history, Abscess history Psychiatric History: Patiebt reporets history of anxiety and insomnia, reports taking prior to admission: Seroquel 300mg po bid. Lexapro 20mg poqd Physical/Sexual Abuse/Trauma History: Denies Additional Comment: Seroquel 300mg po bid. Lexapro 20mg poqd Mental Status Exam - Mental Status Exam Alert and Oriented to: Person Cognitive Function: Fair Patient Appearance: Well Groomed Mood: Anxious Affect: Mood Congruent Patient Behavior: Talkative, Cooperative Speech Pattern: Appropriate Voice Loudness: Normal Thought Process: Goal Oriented Thought Disorder: Being Controlled Hallucinations: Denies Suicidal Ideation: Denies Homicidal Ideation: Denies Insight/Judgement: Fair Sleep: Difficulty falling asleep Appetite: Weight loss Gait/Station: Normal Additional Comments: Seroquel 300mg po bid. Lexapro 20mg poqd Psychiatric Findings - Problem List ([place] 1, 2,3) (1) Nicotine dependence Current Visit: Yes Status: Acute Qualifiers: Nicotine product type: cigarettes Substance use status: in withdrawal Qualified Code(s): F17.213 - Nicotine dependence, cigarettes, with withdrawal; F17.213 - Nicotine dependence, cigarettes, with withdrawal (2) Opioid dependence with withdrawal Current Visit: Yes Status: Acute (3) Sedative, hypnotic or anxiolytic dependence with withdrawal, uncomplicated Current Visit: Yes Status: Acute (4) Bipolar II disorder Current Visit: Yes Status: Suspected Comment: History. (5) Alcohol dependence with uncomplicated withdrawal Current Visit: No Status: Chronic (6) Cannabis dependence Current Visit: No Status: Chronic (7) Cocaine dependence, uncomplicated Current Visit: No Status: Chronic (8) Substance induced mood disorder Current Visit: No Status: Chronic (9) Uncomplicated sedative, hypnotic or anxiolytic withdrawal Current Visit: No Status: Chronic (10) anxiety and depression Current Visit: No Status: Chronic - Initial Treatment Plan Initial Treatment Plan: Seroquel 200mg po bid. Lexapro 20mg poqd
[2017-06-30 09:36] LABS: URINE LEUK ESTERASE Negative (NEGATIVE)
[2017-06-30] MEDS ORDERED: METHADONE HCL 10 MG TABLET (FOR DETOX USE ONLY) PO SCH (10:00)
--- NOTE | 2017-06-30 10:10 | PN ---
[facility] CIWA - CIWA Score Nausea/Vomitin-No Nausea/No Vomiting Muscle Tremors: 4-Moderate,w/Arms Extend Anxiety: 3 Agitation: 4-Moderately Restless Paroxysmal Sweats: 3 Orientation: 0-Oriented Tacttile Disturbances: 0-None Auditory Disturbances: 0-None Visual Disturbances: 0-None Headache: 1-Very Mild CIWA-Ar Total Score: 15 [facility]HS COWS - Scale Resting Pulse: 0= [place] 80 or Below Sweatin=Flushed/Facial Moisture Restless Observation: 1= Difficult to Sit Still Pupil Size: 0= Normal to Room Light Bone or Joint Aches: 2= Severe Diffuse Aches Runny Nose/ Eye Tearin= Nasal Congestion GI Upset > 30mins: 1= Stomach Cramp Tremor Observation of Outstretched Hands: 2= Slight Tremor Visible Yawning Observation: 2= >3x During Session Anxiety or Irritability: 2=Irritable/Anxious Goose Flesh Skin: 3=Piloerection COWS Score: 16 S Progress Note (SOAP) Subjective: sweats chills agitation body aches interrupted sleep restless nausea muscle cramps Objective: 06/30/17 10:09 Vital Signs Temperature 97.5 F L 06/30/17 10:09 Pulse Rate 73 06/30/17 10:09 Respiratory Rate 18 06/30/17 10:09 Blood Pressure 105/79 06/30/17 10:09 O2 Sat by Pulse Oximetry (%) Laboratory Tests 06/29/17 22:43 Urine Color Straw Urine Appearance Clear Urine pH 8.0 D Ur Specific [place] 1.015 Urine Protein Negative Urine Glucose (UA) Negative Urine Ketones Negative Urine Blood Negative Urine Nitrite Negative Urine Bilirubin Negative Urine Urobilinogen Negative Ur Leukocyte Esterase Negative labs pending aaox3 ambulating no acute distress Assessment: 06/30/17 10:10 withdrawal sx Plan: continue detox increase fluids labs pending
[2017-06-30 10:11] LABS: MCH 28.4 pg (25.7-33.7); MEAN CELL VOLUME 86.1 fl (80-96); MEAN PLT VOLUME 8.7 fl (7.5-11.1); PLATELET COUNT 359 K/MM3 (134-434); RDW 16.1 % (11.6-15.6); WHITE BLOOD COUNT 8.8 K/mm3 (4.0-10.0)
[2017-06-30] MEDS: ESCITALOPRAM OXALATE 20 MG TABLET (FP) PO SCH (10:31)
[2017-06-30] MEDS: NICOTINE 21 MG/24 HOURS TOPICAL PATCH TD SCH (10:31)
[2017-06-30] MEDS: diazePAM 5 MG TABLET PO PRN ×3 (10:31→20:19)
[2017-06-30] MEDS: QUEtiapine FUMARATE 200 MG TABLET PO SCH ×2 (10:31→22:40)
[2017-06-30] MEDS: PRENATAL VITAMINS W/ FOLIC ACID TABLET (FP) PO SCH (10:31)
[2017-06-30 10:43] LABS: ALBUMIN 3.9 g/dl (3.4-5.0); ALK PHOS 71 U/L (45-117); ANION GAP 7 (8-16); BILIRUBIN,TOTAL 0.8 mg/dL (0.2-1.0); CALCIUM 9.2 mg/dL (8.5-10.1); CO2 26 mmol/L (21-32); CREATININE 0.8 mg/dL (0.55-1.02); GLUCOSE,RANDOM 88 mg/dL (74-106); SGOT/AST 10 U/L (15-37); SGPT/ALT 15 U/L (12-78); TOT PROT 7.6 g/dl (6.4-8.2)
--- NOTE | 2017-06-30 10:45 | EKG ---
Test Reason : Blood Pressure : / mmHG Vent. Rate : 062 BPM Atrial Rate : 062 BPM P-R Int : 154 ms QRS Dur : 094 ms QT Int : 426 ms P-R-T Axes : 059 080 061 degrees QTc Int : 432 ms SINUS RHYTHM WITH MARKED SINUS ARRHYTHMIA POSSIBLE LEFT ATRIAL ENLARGEMENT RSR' OR QR PATTERN IN V1 SUGGESTS RIGHT VENTRICULAR CONDUCTION DELAY BORDERLINE ECG WHEN COMPARED WITH ECG OF 22-OCT-2016 19:05, NO SIGNIFICANT CHANGE WAS FOUND Confirmed by BERNADINE CAPELLAN MD ([id number]) on 06/30/2017 10:44:56 AM Referred By: Larry Negron Confirmed By:BERNADINE CAPELLAN MD
[2017-06-30] MEDS: hydrOXYzine PAMOATE 50 MG CAPSULE (FP) PO PRN (12:14)
[2017-06-30 15:16] LABS: HIV 1 & 2 AB NEGATIVE; HIV 1 AGp24 NEGATIVE
[2017-06-30] MEDS: THIAMINE HCL 100 MG TABLET (FP) PO SCH (22:40)
[2017-06-30] MEDS: cloNIDine HCL 0.1 MG TABLET PO SCH (22:40)
[2017-06-30] MEDS: diphenhydrAMINE HCL 50 MG CAPSULE PO PRN (22:44)
[2017-06-30] MEDS: MAGNESIUM HYDROX 2400MG/30ML ORAL SUSPENSION 30 ML CUP PO PRN (23:36)
[2017-07-01] MEDS: diazePAM 5 MG TABLET PO PRN ×5 (00:51→19:14)
[2017-07-01] MEDS: BACLOFEN 10 MG TABLET (FP) PO SCH ×3 (05:28→22:12)
[2017-07-01] MEDS: NICOTINE POLACRILEX 4 MG GUM BC PRN ×5 (05:30→22:13)
[2017-07-01] MEDS: MAGNESIUM HYDROX 2400MG/30ML ORAL SUSPENSION 30 ML CUP PO PRN (05:49)
[2017-07-01] MEDS: hydrOXYzine PAMOATE 50 MG CAPSULE (FP) PO PRN ×2 (08:38→17:37)
[2017-07-01] MEDS: ESCITALOPRAM OXALATE 20 MG TABLET (FP) PO SCH (10:38)
[2017-07-01] MEDS: PRENATAL VITAMINS W/ FOLIC ACID TABLET (FP) PO SCH (10:38)
[2017-07-01] MEDS: QUEtiapine FUMARATE 200 MG TABLET PO SCH ×2 (10:38→22:11)
[2017-07-01] MEDS: METHADONE HCL 5 MG TABLET (FOR DETOX USE ONLY) PO SCH (10:39)
[2017-07-01] MEDS: NICOTINE 21 MG/24 HOURS TOPICAL PATCH TD SCH (10:40)
[2017-07-01] MEDS: cloNIDine HCL 0.1 MG TABLET PO SCH ×2 (10:40→22:12)
[2017-07-01] MEDS: POLYETHYLENE GLYCOL 3350 119 GM BTL PO SCH (10:40)
[2017-07-01] MEDS: diazePAM 5 MG TABLET PO SCH ×2 (10:41→22:11)
--- NOTE | 2017-07-01 10:59 | PN ---
[facility] CIWA - CIWA Score Nausea/Vomitin-Mild Nausea/No Vomiting Muscle Tremors: 3 Anxiety: 3 Agitation: 3 Paroxysmal Sweats: 3 Orientation: 0-Oriented Tacttile Disturbances: 1-Very Mild Itch/Numbness Auditory Disturbances: 0-None Visual Disturbances: 0-None Headache: 0-None Present CIWA-Ar Total Score: 14 S COWS - Scale Resting Pulse: 0= [place] 80 or Below Sweatin=Flushed/Facial Moisture Restless Observation: 1= Difficult to Sit Still Pupil Size: 1= Pupils >than Normal Bone or Joint Aches: 1= Mild Discomfort Runny Nose/ Eye Tearin= Nasal Congestion GI Upset > 30mins: 1= Stomach Cramp Tremor Observation of Outstretched Hands: 2= Slight Tremor Visible Yawning Observation: 0= None Anxiety or Irritability: 2=Irritable/Anxious Goose Flesh Skin: 0=Smooth Skin COWS Score: 11 S Progress Note (SOAP) Subjective: sweats, shakes, interrupted sleep, constipation Objective: 07/01/17 10:57 Vital Signs Temperature 97.5 F L 07/01/17 06:00 Pulse Rate 63 07/01/17 06:00 Respiratory Rate 16 07/01/17 06:00 Blood Pressure 104/68 07/01/17 06:00 O2 Sat by Pulse Oximetry (%) Laboratory Tests 06/29/17 06/30/17 06/30/17 22:43 07:00 07:00 WBC 8.8 RBC 4.63 Hgb 13.2 Hct 39.9 MCV 86.1 MCH 28.4 MCHC 33.0 RDW 16.1 H Plt Count 359 MPV 8.7 Sodium 140 Potassium 4.1 Chloride 107 Carbon Dioxide 26 Anion Gap 7 L BUN 10 Creatinine 0.8 Creat Clearance w eGFR > 60 Random Glucose 88 D Calcium 9.2 Total Bilirubin 0.8 AST 10 L ALT 15 Alkaline Phosphatase 71 Total Protein 7.6 Albumin 3.9 Urine Color Straw Urine Appearance Clear Urine pH 8.0 D Ur Specific [place] 1.015 Urine Protein Negative Urine Glucose (UA) Negative Urine Ketones Negative Urine Blood Negative Urine Nitrite Negative Urine Bilirubin Negative Urine Urobilinogen Negative Ur Leukocyte Esterase Negative RPR Titer HIV 1&2 Antibody Screen HIV P24 Antigen 06/30/17 06/30/17 07:00 07:00 WBC RBC Hgb Hct MCV MCH MCHC RDW Plt Count MPV Sodium Potassium Chloride Carbon Dioxide Anion Gap BUN Creatinine Creat Clearance w eGFR Random Glucose Calcium Total Bilirubin AST ALT Alkaline Phosphatase Total Protein Albumin Urine Color Urine Appearance Urine pH Ur Specific [place] Urine Protein Urine Glucose (UA) Urine Ketones Urine Blood Urine Nitrite Urine Bilirubin Urine Urobilinogen Ur Leukocyte Esterase RPR Titer Nonreactive HIV 1&2 Antibody Screen Negative HIV P24 Antigen Negative pt aox3 covered up in bed in nad Assessment: 07/01/17 10:58 withdrawal sx's Plan: cont. detox increase fluids miralax daily
[2017-07-01] MEDS: THIAMINE HCL 100 MG TABLET (FP) PO SCH (22:11)
[2017-07-01] MEDS: diphenhydrAMINE HCL 50 MG CAPSULE PO PRN (22:13)
[2017-07-02] MEDS: BACLOFEN 10 MG TABLET (FP) PO SCH ×3 (05:39→22:37)
[2017-07-02] MEDS: diazePAM 5 MG TABLET PO PRN ×4 (05:39→18:40)
[2017-07-02] MEDS: NICOTINE POLACRILEX 4 MG GUM BC PRN ×5 (05:41→22:40)
[2017-07-02] MEDS: hydrOXYzine PAMOATE 50 MG CAPSULE (FP) PO PRN ×2 (08:43→16:49)
[2017-07-02] MEDS: diazePAM 5 MG TABLET PO SCH ×2 (09:41→22:37)
[2017-07-02] MEDS: PRENATAL VITAMINS W/ FOLIC ACID TABLET (FP) PO SCH (10:23)
[2017-07-02] MEDS: ESCITALOPRAM OXALATE 20 MG TABLET (FP) PO SCH (10:23)
[2017-07-02] MEDS: QUEtiapine FUMARATE 200 MG TABLET PO SCH ×2 (10:23→22:37)
[2017-07-02] MEDS: cloNIDine HCL 0.1 MG TABLET PO SCH ×2 (10:23→22:37)
[2017-07-02] MEDS: METHADONE HCL 5 MG TABLET (FOR DETOX USE ONLY) PO SCH (10:23)
[2017-07-02] MEDS: POLYETHYLENE GLYCOL 3350 119 GM BTL PO SCH (10:24)
[2017-07-02] MEDS: NICOTINE 21 MG/24 HOURS TOPICAL PATCH TD SCH (10:24)
--- NOTE | 2017-07-02 13:32 | PN ---
[facility] Progress Note (SOAP) Subjective: ALERT,IRRITABLE,ANXIOUS,INTERRUPTED SLEEP,PAIN IN THE BODY Objective: 07/02/17 13:31 Vital Signs Temperature 96.6 F L 07/02/17 10:34 Pulse Rate 108 H 07/02/17 10:34 Respiratory Rate 16 07/02/17 10:34 Blood Pressure 143/79 07/02/17 10:34 O2 Sat by Pulse Oximetry (%) Laboratory Last Values WBC 8.8 K/mm3 (4.0-10.0) 06/30/17 07:00 RBC 4.63 M/mm3 (3.60-5.2) 06/30/17 07:00 Hgb 13.2 GM/dL (10.7-15.3) 06/30/17 07:00 Hct 39.9 % (32.4-45.2) 06/30/17 07:00 MCV 86.1 fl (80-96) 06/30/17 07:00 MCH 28.4 pg (25.7-33.7) 06/30/17 07:00 MCHC 33.0 g/dl (32.0-36.0) 06/30/17 07:00 RDW 16.1 % (11.6-15.6) H 06/30/17 07:00 Plt Count 359 K/MM3 (134-434) 06/30/17 07:00 MPV 8.7 fl (7.5-11.1) 06/30/17 07:00 Sodium 140 mmol/L (136-145) 06/30/17 07:00 Potassium 4.1 mmol/L (3.5-5.1) 06/30/17 07:00 Chloride 107 mmol/L (98-107) 06/30/17 07:00 Carbon Dioxide 26 mmol/L (21-32) 06/30/17 07:00 Anion Gap 7 (8-16) L 06/30/17 07:00 BUN 10 mg/dL (7-18) 06/30/17 07:00 Creatinine 0.8 mg/dL (0.55-1.02) 06/30/17 07:00 Creat Clearance w eGFR > 60 (>60) 06/30/17 07:00 Random Glucose 88 mg/dL (74-106) D 06/30/17 07:00 Calcium 9.2 mg/dL (8.5-10.1) 06/30/17 07:00 Total Bilirubin 0.8 mg/dL (0.2-1.0) 06/30/17 07:00 AST 10 U/L (15-37) L 06/30/17 07:00 ALT 15 U/L (12-78) 06/30/17 07:00 Alkaline Phosphatase 71 U/L (45-117) 06/30/17 07:00 Total Protein 7.6 g/dl (6.4-8.2) 06/30/17 07:00 Albumin 3.9 g/dl (3.4-5.0) 06/30/17 07:00 Urine Color Straw 06/29/17 22:43 Urine Appearance Clear 06/29/17 22:43 Urine pH 8.0 (5.0-8.0) D 06/29/17 22:43 Ur Specific [place] 1.015 (1.005-1.025) 06/29/17 22:43 Urine Protein Negative (NEGATIVE) 06/29/17 22:43 Urine Glucose (UA) Negative (NEGATIVE) 06/29/17 22:43 Urine Ketones Negative (NEGATIVE) 06/29/17 22:43 Urine Blood Negative (NEGATIVE) 06/29/17 22:43 Urine Nitrite Negative (NEGATIVE) 06/29/17 22:43 Urine Bilirubin Negative (NEGATIVE) 06/29/17 22:43 Urine Urobilinogen Negative mg/dL (0.2-1.0) 06/29/17 22:43 Ur Leukocyte Esterase Negative (NEGATIVE) 06/29/17 22:43 RPR Titer Nonreactive (NONREACTIVE) 06/30/17 07:00 HIV 1&2 Antibody Screen Negative 06/30/17 07:00 HIV P24 Antigen Negative 06/30/17 07:00 Assessment: 07/02/17 13:32 WITHDRAWAL SYMPTOM Plan: CONTINUE DETOX
--- NOTE | 2017-07-02 16:33 | PN ---
[facility] Progress Note Note: Psychiatry Attending's note : Approached by patient. Issue : insomnia. Ms Hebert is requesting ambien. Chart reviewed.Medications revisited. Dr Gonzalez's note : appreciated. Patient is perseverative,medication-seeking. Needy and self-entitled.Oblivious to boundaries. Expects immediate/constant attention from MD. Indirectly inquisitive about scripts for benzodiazepines. Firm limit setting : patient redirected. Informed of benefits of sleep hygiene. Ambien 5 mg po hs prn.Ordered. Risk of parasomnias : explained to patient. Discussed with nursing staff.
[2017-07-02] MEDS ORDERED: ZOLPIDEM TARTRATE 5 MG TABLET PO PRN (16:35)
[2017-07-02] MEDS: THIAMINE HCL 100 MG TABLET (FP) PO SCH (22:37)
[2017-07-02] MEDS ORDERED: SODIUM PHOSPHATE/NA BIPHOS 133 ML ENEMA PR ONE (23:36)
[2017-07-03] MEDS: hydrOXYzine PAMOATE 50 MG CAPSULE (FP) PO PRN ×4 (05:47→22:17)
[2017-07-03] MEDS: BACLOFEN 10 MG TABLET (FP) PO SCH ×3 (05:48→22:17)
[2017-07-03] MEDS: NICOTINE POLACRILEX 4 MG GUM BC PRN ×3 (05:48→17:00)
[2017-07-03] MEDS ORDERED: METHADONE HCL 10 MG TABLET (FOR DETOX USE ONLY) PO SCH (10:00)
[2017-07-03] MEDS ORDERED: diazePAM 5 MG TABLET PO SCH (10:00)
[2017-07-03] MEDS: cloNIDine HCL 0.1 MG TABLET PO SCH ×2 (10:18→22:17)
[2017-07-03] MEDS: QUEtiapine FUMARATE 200 MG TABLET PO SCH ×2 (10:18→22:17)
[2017-07-03] MEDS: ESCITALOPRAM OXALATE 20 MG TABLET (FP) PO SCH (10:18)
[2017-07-03] MEDS: PRENATAL VITAMINS W/ FOLIC ACID TABLET (FP) PO SCH (10:18)
[2017-07-03] MEDS: POLYETHYLENE GLYCOL 3350 119 GM BTL PO SCH (10:19)
[2017-07-03] MEDS: NICOTINE 21 MG/24 HOURS TOPICAL PATCH TD SCH (10:19)
[2017-07-03] MEDS ORDERED: SODIUM PHOSPHATE/NA BIPHOS 133 ML ENEMA PR ONE (12:15)
--- NOTE | 2017-07-03 13:42 | PN ---
S Progress Note (SOAP) Subjective: ALERT,IRRITABLE,ANXIOUS,INTERRUPTED SLEEP,CONSTIPATED Objective: 07/03/17 13:41 Vital Signs Temperature 97.0 F L 07/03/17 10:00 Pulse Rate 80 07/03/17 10:00 Respiratory Rate 18 07/03/17 10:00 Blood Pressure 106/76 07/03/17 10:00 O2 Sat by Pulse Oximetry (%) 07/03/17 13:41 Assessment: 07/03/17 13:41 WITHDRAWAL SYMPTOM Plan: CONTINUE DETOX,FLEET ENEMA,DISCHARGE IN AM AT 0700
[2017-07-03] MEDS ORDERED: BISACODYL 10 MG SUPP.RECT PR ONE (14:52)
[2017-07-03] MEDS: THIAMINE HCL 100 MG TABLET (FP) PO SCH (22:17)
[2017-07-04] MEDS: diphenhydrAMINE HCL 50 MG CAPSULE PO PRN (00:41)
[2017-07-04] MEDS: NICOTINE POLACRILEX 4 MG GUM BC PRN (00:42)
[2017-07-04] MEDS ORDERED: METHADONE HCL 5 MG TABLET (FOR DETOX USE ONLY) PO SCH (06:00)
[2017-07-04 06:18] VITALS: BP 100/54; PULSE 54; TEMP 97.2
[2017-07-04] MEDS: BACLOFEN 10 MG TABLET (FP) PO SCH (06:28)
[2017-07-04] MEDS: hydrOXYzine PAMOATE 50 MG CAPSULE (FP) PO PRN (06:31)
[2017-07-04] MEDS ORDERED: QUEtiapine FUMARATE 200 MG TABLET PO ONE (06:48)
[2017-07-04] MEDS ORDERED: ESCITALOPRAM OXALATE 20 MG TABLET (FP) PO ONE (06:49)
--- NOTE | 2017-07-04 08:11 | DS ---
[facility] Detox Discharge Summary Admission Date: 06/29/17 Discharge Date: 07/04/17 - History Present History: Opioid Dependence, Sedative Dependence Additional Comments: follow up with after care program as arrangement Pertinent Past History: hepatitis c nicotine dependence bipolar disorder - Physical Exam Results Vital Signs: Vital Signs Temperature 97.2 F L 07/04/17 06:17 Pulse Rate 54 L 07/04/17 06:17 Respiratory Rate 16 07/04/17 06:17 Blood Pressure 100/54 07/04/17 06:17 O2 Sat by Pulse Oximetry (%) Pertinent Admission Physical Exam Findings: withdrawal symptom - Treatment Hospital Course: Detox Protocol Followed, Detoxed Safely, Responded well, Discharged Condition Good Patient has Accepted a Rehab Referral to: declined - Medication Discharge Medications: Ambulatory Orders Escitalopram Oxalate [Lexapro -] 5 mg PO DAILY #30 tablet 10/23/16 Quetiapine Fumarate [Seroquel -] 50 mg PO HS #30 tablet 10/23/16 Escitalopram Oxalate [Lexapro -] 5 mg PO DAILY #30 tablet 10/27/16 Quetiapine Fumarate [Seroquel -] 50 mg PO HS #30 tablet 10/27/16 Escitalopram Oxalate [Lexapro -] 20 mg PO DAILY #30 tablet 06/30/17 Quetiapine Fumarate [Seroquel -] 200 mg PO BID #60 tab 06/30/17 - Diagnosis (1) Opioid dependence with withdrawal Status: Chronic (2) Cocaine dependence, uncomplicated Status: Chronic (3) Sedative, hypnotic or anxiolytic dependence with withdrawal, uncomplicated Status: Chronic (4) Hepatitis C Status: Acute (5) Bipolar disorder Status: Acute - AMA Did Patient Leave Against Medical Advice: No
== END 2017-07-04 07:10 | disposition home or self-care (01) | DRG 773 ==
LOC: YASAS 13:59 → Y6N 20:25
PROVIDERS: ADMIT Internal Medicine; ATTEND Internal Medicine
PROC: HZ2ZZZZ Detoxification Services for Substance Abuse Treatment (ICD-10-PCS; principal; 2017-06-29)
DX: F11.23 Opioid dependence with withdrawal (principal); F13.230 Sedative, hypnotic or anxiolytic dependence with withdrawal, uncomplicated; F10.230 Alcohol dependence with withdrawal, uncomplicated; F14.20 Cocaine dependence, uncomplicated; F17.210 Nicotine dependence, cigarettes, uncomplicated; F31.81 Bipolar II disorder; F19.24 Other psychoactive substance dependence with psychoactive substance-induced mood disorder; F41.8 Other specified anxiety disorders; B18.2 Chronic viral hepatitis C
CPT/HCPCS: 36415; 80053; 81003; 85027; 86593; 87389; 93005; 93010; J0475

== ENCOUNTER 2017-08-23 08:27 | Inpatient (IN) | payer OTHER ==
[2017-08-23 08:50] VITALS: BMI 18.2
--- NOTE | 2017-08-23 13:10 | HP ---
CIWA Score - CIWA Score Nausea/Vomitin-No Nausea/No Vomiting Muscle Tremors: 4-Moderate,w/Arms Extend Anxiety: 3 Agitation: 2 Paroxysmal Sweats: 3 Orientation: 0-Oriented Tacttile Disturbances: 0-None Auditory Disturbances: 0-None Visual Disturbances: 2-Mild Sensitivity Headache: 3-Moderate CIWA-Ar Total Score: 17 Admission ROS S - HPI Chief Complaint: "I need to get off of Xanax. I am going to stay for Detox and then for Rehab." Patient is here to Detox from Xanax. Allergies/Adverse Reactions: Allergies Allergy/AdvReac Type Severity Reaction Status Date / Time No Known Allergies Allergy Verified 08/23/17 10:42 History of Present Illness: Patient is a 27 YO female here to Detox from Xanax. Patient has been using Xanax since age 14; initially, Xanax was prescribed, but then stopped and then she began obtaining form the street. Patient is a client at [facility] Opioid Treatment Program MMTP Program (80 mg PO daily, Last Day medicated: today, 08/23). Exam Limitations: No Limitations - Ebola screening Have you traveled outside of the country in the last 21 days: No (N) Have you had contact with anyone from an Ebola affected area: No Have you been sick,other than usual withdrawal symptoms: No Do you have a fever: No - Review of Systems Constitutional: Chills, Diaphoresis, Fever, Malaise, Night Sweats, Changes in sleep EENT: reports: Nose Congestion, Sinus Pressure Respiratory: reports: No Symptoms reported Cardiac: reports: Palpitations GI: reports: Abdominal Distended, Constipated, Nausea, Vomiting : reports: No Symptoms Reported Musculoskeletal: reports: Back Pain, Joint Pain, Muscle Pain, Neck Pain, Joint Stiffness Integumentary: reports: No Symptoms Reported Neuro: reports: Headache, Tremors Endocrine: reports: No Symptoms Reported Hematology: reports: Anemia (Iron-Deficiency type (no current meds.).) Psychiatric: reports: Judgement Intact, Mood/Affect Appropiate, Orientated x3, Anxious (On meds.), Depressed (On meds.) Other Systems: Reviewed and Negative Patient History - Patient Medical History Hx Anemia: Yes (Iron-Deficiency type (no current meds.).) Hx Asthma: No Hx Chronic Obstructive Pulmonary Disease (COPD): No Hx Cancer: No Hx Cardiac Disorders: No Hx Congestive Heart Failure: No Hx Hypertension: No Hx Hypercholesterolemia: No Hx Pacemaker: No HX Cerebrovascular Accident: No Hx Seizures: No Hx Dementia: No Hx Diabetes: No Hx Gastrointestinal Disorders: No Hx Liver Disease: No Hx Genitourinary Disorders: No Hx Sexually Transmitted Disorders: No Hx Renal Disease (ESRD): No Hx Thyroid Disease: No Hx Human Immunodeficiency Virus (HIV): No (Last tested: 06/2017: NEGATIVE.) Hx Hepatitis C: Yes (in 2011,TREATED.) Hx Depression: Yes (On meds.) Hx Suicide Attempt: No (PATIENT DENIES CURRENT SI / HI.) Hx Bipolar Disorder: Yes (On meds.) Hx Schizophrenia: No Other Medical History: DENIES. - Patient Surgical History Past Surgical History: Yes Hx Neurologic Surgery: No Hx Cataract Extraction: No Hx Cardiac Surgery: No Hx Lung Surgery: No Hx Breast Surgery: No Hx Breast Biopsy: No Hx Abdominal Surgery: No Hx Appendectomy: No Hx Cholecystectomy: No Hx Genitourinary Surgery: No Hx Section: No Hx Orthopedic Surgery: No Hx Hysterectomy: No Other Surgical History: Tonsillectomy at age 13 yrs. Anesthesia Reaction: No - PPD History Previous Implant?: Yes Documented Results: Negative w/proof Implanted On Prior [facility] Admission?: Yes Date: 10/24/16 Results: 0 MM PPD to be Administered?: No - Reproductive History Patient is a Female of Child Bearing Age (11 -55 yrs old): Yes Last Menstrual Period: 01/17/17 LMP comment: Patient believes that Substance Use has caused Menses to temporarily cease. Patient : No - Smoking Cessation Smoking history: Current every day smoker Have you smoked in the past 12 months: Yes Aproximately how many cigarettes per day: 20 Cigars Per Day: 0 Hx Chewing Tobacco Use: No Initiated information on smoking cessation: Yes 'Breaking Loose' booklet given: 08/23/17 (GIVE ON UNIT.) - Substance & Tx. History Hx Alcohol Use: No Hx Substance Use: Yes Substance Use Type: Cocaine, Heroin, Marijuana, Opiates, Prescribed (MMTP, 80 MG PO DAILY.), Tranquilizers Hx Substance Use Treatment: Yes (Previous Detox admissions at [facility] (Last: 2016).) - Substances Abused Alprazolam (Xanax) Route: Oral Frequency: Daily Amount used: 12 MG Age of first use: 14 Date of Last Use: 08/23/17 Cocaine Route: Injection Frequency: Daily Amount used: 2 GRAMS Age of first use: 13 Date of Last Use: 08/22/17 Heroin Route: Injection Frequency: 3-6 times per week Amount used: 10 BAGS Age of first use: 15 Date of Last Use: 08/21/17 Marijuana/Hashish Route: Smoking Frequency: Daily Amount used: 3.5 GRAMS. Age of first use: 12 Date of Last Use: 08/23/17 Family Disease History - Family Disease History Family Disease History: CA: Grandparent (Uncertain about type.), Other: Mother ( anxiety) Admission Physical Exam S - Vital Signs Vital Signs: Vital Signs - 24 hr 08/23/17 08:47 Temperature 97.8 F Pulse Rate 90 Respiratory 18 Rate Blood Pressure 120/82 - Physical General Appearance: Yes: No Apparent Distress, Nourished, Appropriately Dressed , Tremorous, Anxious HEENTM: Yes: Hearing grossly Normal, Normocephalic, Normal Voice, BLANCA, Pharynx Normal Respiratory: Yes: Chest Non-Tender, Lungs Clear, No Respiratory Distress, No Accessory Muscle Use Neck: Yes: No masses,lesions,Nodules, Supple, Trachea in good position Breast: Yes: Breast Exam Deferred Cardiology: Yes: Regular Rhythm, Regular Rate, S1, S2 Abdominal: Yes: Normal Bowel Sounds, Non Tender, Flat, Soft Genitourinary: Yes: Within Normal Limits Back: Yes: Decreased Range of Motion Musculoskeletal: Yes: Gait Steady, Back pain, Joint Stiffness, Muscle Pain Extremities: Yes: Normal Capillary Refill, Tremors Neurological: Yes: Fully Oriented, Alert, Normal Mood/Affect, Normal Response Integumentary: Yes: Normal Color, Dry, Warm, Track Martell (Noted on Bilateral Forearms. No signs of infection noted at affected sites.) Lymphatic: Yes: Within Normal Limits - Diagnostic (1) History of hepatitis C Current Visit: Yes Status: Resolved Comment: Completed Treatment, 2011. (2) Cannabis dependence, uncomplicated Current Visit: Yes Status: Acute (3) Uncomplicated opioid dependence Current Visit: Yes Status: Chronic (4) Methadone maintenance therapy patient Current Visit: Yes Status: Chronic (5) Opioid dependence on agonist therapy Current Visit: Yes Status: Chronic (6) Bipolar disorder Current Visit: Yes Status: Chronic Qualifiers: Active/Remission status: remission status unspecified Qualified Code(s): F31.9 - Bipolar disorder, unspecified (7) Cocaine dependence, uncomplicated Current Visit: Yes Status: Acute (8) Nicotine dependence Current Visit: Yes Status: Chronic Qualifiers: Nicotine product type: cigarettes Substance use status: uncomplicated Qualified Code(s): F17.210 - Nicotine dependence, cigarettes, uncomplicated (9) Anxiety Current Visit: Yes Status: Chronic (10) Sedative, hypnotic or anxiolytic dependence with withdrawal, uncomplicated Current Visit: Yes Status: Acute (11) anxiety and depression Current Visit: Yes Status: Chronic Cleared for Admission S - Detox or Rehab [facility] Level of Care: Medically Managed Detox Regimen/Protocol: Valium S Breath Alcohol Content Breath Alcohol Content: 0 Urine Pregancy Test - Result Urine Test Results: Negative- NO Line Present Urine Drug Screen - Results Drug Screen Negative: No Urine Drug Screen Results: THC-Marijuana, TAHIR-Cocaine, OPI-Opiates, BZO- Benzodiazepines, MTD-Methadone, TCA-Tricyclic Antidepress
[2017-08-23] MEDS ORDERED: guaiFENesin/D-METHORPHAN HB 10 ML UNIT-DOSE CUPS PO PRN (13:48)
[2017-08-23] MEDS ORDERED: ACETAMINOPHEN 325 MG TABLET (FP) PO PRN (13:48)
[2017-08-23] MEDS ORDERED: MAG HYDROX/AL HYDROX/SIMETH 30 ML UNIT-DOSE CUP PO PRN (13:48)
[2017-08-23] MEDS ORDERED: MAGNESIUM CITRATE 300 ML BOTTLE PO PRN (13:48)
[2017-08-23] MEDS ORDERED: P-EPHED 60MG/TRIPROLIDI 2.5MG TABLET PO PRN (13:48)
[2017-08-23] MEDS ORDERED: LOPERAMIDE HCL 2 MG CAPSULE PO PRN (13:48)
[2017-08-23] MEDS ORDERED: IBUPROFEN 400 MG TABLET (FP) PO PRN (13:48)
[2017-08-23] MEDS ORDERED: diazePAM 5 MG TABLET PO ONE (15:00)
[2017-08-23] MEDS: cloNIDine HCL 0.1 MG TABLET PO PRN (15:17)
[2017-08-23] MEDS: BACITRACIN 0.9 GM PACKET TP SCH ×2 (15:18→22:04)
[2017-08-23] MEDS: BACLOFEN 10 MG TABLET (FP) PO PRN ×2 (15:24→22:09)
[2017-08-23] MEDS: NICOTINE 21 MG/24 HOURS TOPICAL PATCH TD SCH (15:45)
[2017-08-23 17:11] LABS: MCH 29.1 pg (25.7-33.7); MCHC 33.1 g/dl (32.0-36.0); MEAN CELL VOLUME 87.8 fl (80-96); MEAN PLT VOLUME 9.3 fl (7.5-11.1); PLATELET COUNT 372 K/MM3 (134-434); RDW 15.3 % (11.6-15.6); WHITE BLOOD COUNT 12.1 K/mm3 (4.0-10.0)
[2017-08-23] MEDS: NICOTINE POLACRILEX 2 MG GUM BC PRN ×2 (17:43→20:46)
[2017-08-23 18:06] LABS: ALBUMIN 4.5 g/dl (3.4-5.0); ANION GAP 11 (8-16); CALCIUM 9.8 mg/dL (8.5-10.1); CO2 27 mmol/L (21-32); GLUCOSE,RANDOM 66 mg/dL (74-106)
[2017-08-23 18:09] LABS: ALK PHOS 87 U/L (45-117); BILIRUBIN,TOTAL 0.5 mg/dL (0.2-1.0); CREATININE 0.8 mg/dL (0.55-1.02); SGOT/AST 16 U/L (15-37); SGPT/ALT 15 U/L (12-78); TOT PROT 8.5 g/dl (6.4-8.2)
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
[2017-08-23 19:17] LABS: URINE APPEARANCE CLOUDY; URINE BLOOD NEGATIVE (NEGATIVE); URINE COLOR AMBER; URINE GLUCOSE (UA) NEGATIVE (NEGATIVE); URINE KETONE NEGATIVE (NEGATIVE); URINE NITRITE NEGATIVE (NEGATIVE); URINE UROBILINOGEN NEGATIVE mg/dL (0.2-1.0)
[2017-08-23] MEDS: diazePAM 5 MG TABLET PO PRN (19:18)
[2017-08-23 19:55] LABS: URINE LEUK ESTERASE 1+ (NEGATIVE); URINE PROTEIN 1+ (NEGATIVE)
[2017-08-23] MEDS: GABAPENTIN 100 MG CAPSULE (FP) PO SCH (22:05)
[2017-08-23] MEDS: QUEtiapine FUMARATE 100 MG TABLET (FP) PO SCH (22:05)
[2017-08-23] MEDS: THIAMINE HCL 100 MG TABLET (FP) PO SCH (22:05)
[2017-08-23] MEDS: diazePAM 5 MG TABLET PO SCH (22:05)
[2017-08-23 22:53] LABS: URINE LEUK ESTERASE Negative (NEGATIVE)
[2017-08-23 23:10] LABS: URINE BACTERIA RARE /hpf (NONE SEEN); URINE MUCUS MANY; URINE RBC 5 /hpf (0-3); URINE WBC 4 /hpf (3-5)
[2017-08-24] MEDS: METHADONE HCL 40 MG DISPERSABLE TABLET PO SCH (06:01)
[2017-08-24] MEDS: GABAPENTIN 100 MG CAPSULE (FP) PO SCH ×3 (06:01→22:12)
[2017-08-24] MEDS: diazePAM 5 MG TABLET PO SCH ×3 (06:01→22:12)
[2017-08-24] MEDS: NICOTINE POLACRILEX 2 MG GUM BC PRN ×5 (06:05→22:15)
[2017-08-24] MEDS: BACLOFEN 10 MG TABLET (FP) PO PRN ×2 (06:05→18:45)
[2017-08-24] MEDS: MENTHOL/PHENOL 1 EACH UD MM PRN ×2 (06:11→10:27)
--- NOTE | 2017-08-24 09:57 | PN ---
S CIWA - CIWA Score Nausea/Vomitin Muscle Tremors: 2 Anxiety: 3 Agitation: 2 Paroxysmal Sweats: 3 Orientation: 0-Oriented Tacttile Disturbances: 2-Mild Itch/Numbness/Burn Auditory Disturbances: 0-None Visual Disturbances: 0-None Headache: 0-None Present CIWA-Ar Total Score: 14 [facility] Progress Note (SOAP) Subjective: interrupted sleep, sweats, shakes Objective: 08/24/17 09:57 Vital Signs Temperature 98.6 F 08/24/17 06:04 Pulse Rate 90 08/24/17 06:04 Respiratory Rate 20 08/24/17 06:04 Blood Pressure 102/56 08/24/17 06:04 O2 Sat by Pulse Oximetry (%) Laboratory Tests 08/23/17 08/23/17 08/23/17 14:30 14:30 16:00 WBC 12.1 H D RBC 4.51 Hgb 13.1 Hct 39.6 MCV 87.8 MCH 29.1 MCHC 33.1 RDW 15.3 Plt Count 372 MPV 9.3 Sodium 137 Potassium 4.2 Chloride 99 Carbon Dioxide 27 Anion Gap 11 BUN 11 Creatinine 0.8 Creat Clearance w eGFR > 60 Random Glucose 66 L D Calcium 9.8 Total Bilirubin 0.5 D AST 16 D ALT 15 Alkaline Phosphatase 87 D Total Protein 8.5 H Albumin 4.5 Urine Color Mer Urine Appearance Cloudy Urine pH 5.0 D Ur Specific [place] 1.043 H Urine Protein 1+ H Urine Glucose (UA) Negative Urine Ketones Negative Urine Blood Negative Urine Nitrite Negative Urine Bilirubin 2.0 Urine Urobilinogen Negative Ur Leukocyte Esterase Negative Urine WBC (Auto) 4 Urine RBC (Auto) 5 Ur Epithelial Cells Many Urine Bacteria Rare Urine Mucus Many pt aox3 in nad ambulating well Assessment: 08/24/17 09:57 withdrawal sx's abn wbc Plan: cont. detox increase fluids repeat cbc
--- NOTE | 2017-08-24 10:09 | EKG ---
Test Reason : Blood Pressure : / mmHG Vent. Rate : 072 BPM Atrial Rate : 072 BPM P-R Int : 156 ms QRS Dur : 092 ms QT Int : 408 ms P-R-T Axes : 061 079 065 degrees QTc Int : 446 ms NORMAL SINUS RHYTHM POSSIBLE LEFT ATRIAL ENLARGEMENT BORDERLINE ECG WHEN COMPARED WITH ECG OF 29-JUN-2017 21:22, NO SIGNIFICANT CHANGE WAS FOUND Confirmed by STEFANY BLACK, DARLIN ([id number]) on 08/24/2017 10:08:41 AM Referred By: Confirmed By:DARLIN MCCALL MD
[2017-08-24] MEDS: PRENATAL VITAMINS W/ FOLIC ACID TABLET (FP) PO SCH (10:22)
[2017-08-24] MEDS: diazePAM 5 MG TABLET PO PRN ×3 (10:22→18:45)
[2017-08-24] MEDS: cloNIDine HCL 0.1 MG TABLET PO PRN ×2 (10:23→22:13)
[2017-08-24] MEDS: NICOTINE 21 MG/24 HOURS TOPICAL PATCH TD SCH (10:23)
[2017-08-24] MEDS: ESCITALOPRAM OXALATE 20 MG TABLET (FP) PO SCH (10:23)
[2017-08-24] MEDS: BACITRACIN 0.9 GM PACKET TP SCH ×2 (10:23→22:11)
[2017-08-24] MEDS: QUEtiapine FUMARATE 100 MG TABLET (FP) PO SCH ×2 (10:24→22:12)
[2017-08-24 12:19] LABS: HIV 1 & 2 AB NEGATIVE; HIV 1 AGp24 NEGATIVE
[2017-08-24] MEDS: THIAMINE HCL 100 MG TABLET (FP) PO SCH (22:12)
[2017-08-25] MEDS: diazePAM 5 MG TABLET PO PRN ×4 (04:13→18:48)
[2017-08-25] MEDS: METHADONE HCL 40 MG DISPERSABLE TABLET PO SCH (05:12)
[2017-08-25] MEDS: GABAPENTIN 100 MG CAPSULE (FP) PO SCH ×3 (05:12→22:16)
[2017-08-25] MEDS: BACLOFEN 10 MG TABLET (FP) PO PRN ×3 (05:13→22:19)
[2017-08-25] MEDS: NICOTINE POLACRILEX 2 MG GUM BC PRN ×4 (07:04→22:19)
[2017-08-25 10:01] LABS: BASO % 0.8 % (0-2.0); EOS % 2.8 % (0-4.5); MCH 28.9 pg (25.7-33.7); MCHC 32.8 g/dl (32.0-36.0); MEAN CELL VOLUME 88.1 fl (80-96); MEAN PLT VOLUME 8.5 fl (7.5-11.1); NEUT % 42.7 % (42.8-82.8); PLATELET COUNT 304 K/MM3 (134-434); RDW 14.7 % (11.6-15.6); WHITE BLOOD COUNT 10.5 K/mm3 (4.0-10.0)
[2017-08-25] MEDS: QUEtiapine FUMARATE 100 MG TABLET (FP) PO SCH ×2 (10:04→22:16)
[2017-08-25] MEDS: ESCITALOPRAM OXALATE 20 MG TABLET (FP) PO SCH (10:04)
[2017-08-25] MEDS: PRENATAL VITAMINS W/ FOLIC ACID TABLET (FP) PO SCH (10:04)
[2017-08-25] MEDS: NICOTINE 21 MG/24 HOURS TOPICAL PATCH TD SCH (10:05)
[2017-08-25] MEDS: BACITRACIN 0.9 GM PACKET TP SCH ×2 (10:05→22:17)
[2017-08-25] MEDS: diazePAM 5 MG TABLET PO SCH ×2 (10:05→22:16)
[2017-08-25] MEDS: cloNIDine HCL 0.1 MG TABLET PO PRN ×2 (10:06→22:19)
--- NOTE | 2017-08-25 10:48 | PN ---
S CIWA - CIWA Score Nausea/Vomitin Muscle Tremors: 3 Anxiety: 3 Agitation: 3 Paroxysmal Sweats: 3 Orientation: 0-Oriented Tacttile Disturbances: 0-None Auditory Disturbances: 0-None Visual Disturbances: 0-None Headache: 0-None Present CIWA-Ar Total Score: 15 [facility] Progress Note (SOAP) Subjective: nausea, sweats, interrupted sleep, anxiety, tremors Objective: 08/25/17 10:47 Vital Signs - 24 hr 08/24/17 08/24/17 08/24/17 11:02 13:05 16:50 Temperature 97.9 F 98 F 98.2 F Pulse Rate 94 H 77 77 Respiratory 18 16 18 Rate Blood Pressure 128/78 97/60 135/72 08/24/17 08/25/17 08/25/17 22:03 00:30 03:30 Temperature 97.8 F Pulse Rate 57 L Respiratory 20 18 18 Rate Blood Pressure 124/67 08/25/17 08/25/17 06:18 09:20 Temperature 98.1 F 97.7 F Pulse Rate 78 95 H Respiratory 16 18 Rate Blood Pressure 105/53 143/78 Laboratory Tests 08/23/17 08/23/17 08/23/17 14:30 14:30 14:30 WBC 12.1 H D RBC 4.51 Hgb 13.1 Hct 39.6 MCV 87.8 MCH 29.1 MCHC 33.1 RDW 15.3 Plt Count 372 MPV 9.3 Neutrophils % Lymphocytes % Monocytes % Eosinophils % Basophils % Sodium 137 Potassium 4.2 Chloride 99 Carbon Dioxide 27 Anion Gap 11 BUN 11 Creatinine 0.8 Creat Clearance w eGFR > 60 Random Glucose 66 L D Calcium 9.8 Total Bilirubin 0.5 D AST 16 D ALT 15 Alkaline Phosphatase 87 D Total Protein 8.5 H Albumin 4.5 Urine Color Urine Appearance Urine pH Ur Specific [place] Urine Protein Urine Glucose (UA) Urine Ketones Urine Blood Urine Nitrite Urine Bilirubin Urine Urobilinogen Ur Leukocyte Esterase Urine WBC (Auto) Urine RBC (Auto) Ur Epithelial Cells Urine Bacteria Urine Mucus RPR Titer Nonreactive HIV 1&2 Antibody Screen HIV P24 Antigen 08/23/17 08/23/17 08/25/17 14:30 16:00 07:00 WBC 10.5 H RBC 3.95 Hgb 11.4 D Hct 34.8 MCV 88.1 MCH 28.9 MCHC 32.8 RDW 14.7 Plt Count 304 MPV 8.5 Neutrophils % 42.7 L Lymphocytes % 42.2 H Monocytes % 11.5 H Eosinophils % 2.8 Basophils % 0.8 Sodium Potassium Chloride Carbon Dioxide Anion Gap BUN Creatinine Creat Clearance w eGFR Random Glucose Calcium Total Bilirubin AST ALT Alkaline Phosphatase Total Protein Albumin Urine Color Mer Urine Appearance Cloudy Urine pH 5.0 D Ur Specific [place] 1.043 H Urine Protein 1+ H Urine Glucose (UA) Negative Urine Ketones Negative Urine Blood Negative Urine Nitrite Negative Urine Bilirubin 2.0 Urine Urobilinogen Negative Ur Leukocyte Esterase Negative Urine WBC (Auto) 4 Urine RBC (Auto) 5 Ur Epithelial Cells Many Urine Bacteria Rare Urine Mucus Many RPR Titer HIV 1&2 Antibody Screen Negative HIV P24 Antigen Negative Assessment: 08/25/17 10:48 withvenu sx - cont detox, fluids, encourage ambualtion
[2017-08-25] MEDS: MAGNESIUM HYDROX 2400MG/30ML ORAL SUSPENSION 30 ML CUP PO PRN (17:43)
[2017-08-25] MEDS: THIAMINE HCL 100 MG TABLET (FP) PO SCH (22:17)
[2017-08-26] MEDS: METHADONE HCL 40 MG DISPERSABLE TABLET PO SCH (05:06)
[2017-08-26] MEDS: GABAPENTIN 100 MG CAPSULE (FP) PO SCH ×3 (05:06→22:16)
[2017-08-26] MEDS: NICOTINE POLACRILEX 2 MG GUM BC PRN ×6 (06:12→22:18)
[2017-08-26] MEDS: BACLOFEN 10 MG TABLET (FP) PO PRN ×2 (06:19→22:16)
[2017-08-26] MEDS: diazePAM 5 MG TABLET PO PRN ×2 (06:19→10:22)
--- NOTE | 2017-08-26 08:42 | DS ---
[facility] Detox Discharge Summary Admission Date: 08/23/17 Discharge Date: 08/26/17 - History Present History: Alcohol Dependence, Cannabis Dependence, Cocaine Dependence, Opioid Dependence, Sedative Dependence, MMTP - Physical Exam Results Vital Signs: Vital Signs Temperature 97.7 F 08/26/17 06:00 Pulse Rate 69 08/26/17 06:00 Respiratory Rate 18 08/26/17 06:00 Blood Pressure 100/57 08/26/17 06:00 O2 Sat by Pulse Oximetry (%) - Treatment Hospital Course: Detox Protocol Followed, Detoxed Safely, Responded well, Discharged Condition Good, Rehab Referral Accepted - Medication Discharge Medications: Ambulatory Orders Escitalopram Oxalate [Lexapro -] 20 mg PO DAILY #30 tablet 06/30/17 Quetiapine Fumarate [Seroquel -] 200 mg PO BID #60 tab 06/30/17 Escitalopram Oxalate [Lexapro -] 20 mg PO DAILY #30 tablet 08/24/17 Gabapentin 100 mg PO TID #90 capsule 08/24/17 Quetiapine Fumarate [Seroquel] 100 mg PO BID #60 tablet 08/24/17 - Diagnosis (1) Anxiety Current Visit: Yes Status: Chronic (2) Cocaine dependence, uncomplicated Current Visit: Yes Status: Chronic (3) MDD (major depressive disorder) Current Visit: Yes Status: Acute (4) Methadone maintenance therapy patient Current Visit: Yes Status: Chronic (5) Opioid dependence on agonist therapy Current Visit: Yes Status: Acute (6) Sedative, hypnotic or anxiolytic dependence with withdrawal, uncomplicated Current Visit: Yes Status: Chronic (7) Substance induced mood disorder Current Visit: Yes Status: Acute (8) anxiety and depression Current Visit: Yes Status: Acute (9) Bipolar disorder Current Visit: Yes Status: Chronic Qualifiers: Active/Remission status: remission status unspecified Qualified Code(s): F31.9 - Bipolar disorder, unspecified (10) Nicotine dependence Current Visit: Yes Status: Chronic Qualifiers: Nicotine product type: cigarettes Substance use status: uncomplicated Qualified Code(s): F17.210 - Nicotine dependence, cigarettes, uncomplicated (11) Opioid dependence with withdrawal Current Visit: Yes Status: Chronic (12) History of hepatitis C Current Visit: Yes Status: Resolved (13) Hepatitis C Current Visit: No Status: Acute (14) Insomnia Current Visit: No Status: Acute (15) Alcohol dependence with uncomplicated withdrawal Current Visit: No Status: Chronic (16) Cannabis dependence Current Visit: No Status: Chronic (17) Cannabis dependence, uncomplicated Current Visit: No Status: Chronic (18) Weight decreased Current Visit: No Status: Chronic (19) Bipolar II disorder Current Visit: No Status: Suspected - AMA Did Patient Leave Against Medical Advice: No
--- NOTE | 2017-08-26 09:45 | PN ---
[facility] Progress Note Note: Psychiatric nurse practitioner: Seroquel to be titrated to patient's current medication dosage of 200mg BID. Pharmacy claims reviewed. Pt. is alert, visible and ambulating effectively and has not reported episodes of dizziness or syncope. Pt. has tolerated the detox protocol well in addition to the seroquel 100mg BID she has been receiving since admission. Medication to be increased this morning. Verbal consent given and patient agreeable with plan. Will continue to monitor patient.
[2017-08-26] MEDS: PRENATAL VITAMINS W/ FOLIC ACID TABLET (FP) PO SCH (10:22)
[2017-08-26] MEDS: ESCITALOPRAM OXALATE 20 MG TABLET (FP) PO SCH (10:22)
[2017-08-26] MEDS: NICOTINE 21 MG/24 HOURS TOPICAL PATCH TD SCH (10:22)
[2017-08-26] MEDS: cloNIDine HCL 0.1 MG TABLET PO PRN ×2 (10:22→22:16)
[2017-08-26] MEDS: QUEtiapine FUMARATE 200 MG TABLET PO SCH ×2 (10:22→22:16)
[2017-08-26] MEDS: diazePAM 5 MG TABLET PO SCH ×2 (10:23→22:16)
[2017-08-26] MEDS: BACITRACIN 0.9 GM PACKET TP SCH ×2 (10:24→22:16)
--- NOTE | 2017-08-26 10:30 | PN ---
[facility] Progress Note Note: pt was scheduled to go to [facility] today as an early discharge, however the bed was no longer available for this patient. pt will remain in our detox facility and will complete her detox regimen and if a bed is available today she will be going today other than that pt will have a scheduled discharge tomorrow.
--- NOTE | 2017-08-26 10:31 | PN ---
[facility] Progress Note (SOAP) Subjective: anxiety Objective: 08/26/17 10:30 Vital Signs Temperature 97.5 F L 08/26/17 09:56 Pulse Rate 62 08/26/17 09:56 Respiratory Rate 18 08/26/17 09:56 Blood Pressure 102/70 08/26/17 09:56 O2 Sat by Pulse Oximetry (%) aaox3 ambulating no acute distress Assessment: 08/26/17 10:31 mild withdrawal sx Plan: continue detox d/c in am
[2017-08-26] MEDS: MENTHOL/PHENOL 1 EACH UD MM PRN (14:33)
[2017-08-26] MEDS: MAGNESIUM HYDROX 2400MG/30ML ORAL SUSPENSION 30 ML CUP PO PRN (14:35)
[2017-08-26] MEDS: THIAMINE HCL 100 MG TABLET (FP) PO SCH (22:16)
[2017-08-27] MEDS: METHADONE HCL 40 MG DISPERSABLE TABLET PO SCH (05:06)
[2017-08-27] MEDS: GABAPENTIN 100 MG CAPSULE (FP) PO SCH (05:06)
[2017-08-27] MEDS: BACLOFEN 10 MG TABLET (FP) PO PRN (05:09)
[2017-08-27] MEDS: QUEtiapine FUMARATE 200 MG TABLET PO SCH (09:13)
[2017-08-27] MEDS: BACITRACIN 0.9 GM PACKET TP SCH (09:13)
[2017-08-27] MEDS: ESCITALOPRAM OXALATE 20 MG TABLET (FP) PO SCH (09:13)
[2017-08-27] MEDS: PRENATAL VITAMINS W/ FOLIC ACID TABLET (FP) PO SCH (09:13)
--- NOTE | 2017-08-27 09:46 | DS ---
[facility] Detox Discharge Summary Admission Date: 08/23/17 Discharge Date: 08/27/17 - History Present History: Sedative Dependence, MMTP Pertinent Past History: Mood disorder Hep C - Physical Exam Results Vital Signs: Vital Signs Temperature 97.7 F 08/27/17 05:59 Pulse Rate 68 08/27/17 05:59 Respiratory Rate 16 08/27/17 05:59 Blood Pressure 99/63 08/27/17 05:59 O2 Sat by Pulse Oximetry (%) Pertinent Admission Physical Exam Findings: Withdrawal sx, Laboratory Tests 08/23/17 08/23/17 08/23/17 14:30 14:30 14:30 WBC 12.1 H D RBC 4.51 Hgb 13.1 Hct 39.6 MCV 87.8 MCH 29.1 MCHC 33.1 RDW 15.3 Plt Count 372 MPV 9.3 Neutrophils % Lymphocytes % Monocytes % Eosinophils % Basophils % Sodium 137 Potassium 4.2 Chloride 99 Carbon Dioxide 27 Anion Gap 11 BUN 11 Creatinine 0.8 Creat Clearance w eGFR > 60 Random Glucose 66 L D Calcium 9.8 Total Bilirubin 0.5 D AST 16 D ALT 15 Alkaline Phosphatase 87 D Total Protein 8.5 H Albumin 4.5 Urine Color Urine Appearance Urine pH Ur Specific [place] Urine Protein Urine Glucose (UA) Urine Ketones Urine Blood Urine Nitrite Urine Bilirubin Urine Urobilinogen Ur Leukocyte Esterase Urine WBC (Auto) Urine RBC (Auto) Ur Epithelial Cells Urine Bacteria Urine Mucus RPR Titer Nonreactive HIV 1&2 Antibody Screen HIV P24 Antigen 08/23/17 08/23/17 08/25/17 14:30 16:00 07:00 WBC 10.5 H RBC 3.95 Hgb 11.4 D Hct 34.8 MCV 88.1 MCH 28.9 MCHC 32.8 RDW 14.7 Plt Count 304 MPV 8.5 Neutrophils % 42.7 L Lymphocytes % 42.2 H Monocytes % 11.5 H Eosinophils % 2.8 Basophils % 0.8 Sodium Potassium Chloride Carbon Dioxide Anion Gap BUN Creatinine Creat Clearance w eGFR Random Glucose Calcium Total Bilirubin AST ALT Alkaline Phosphatase Total Protein Albumin Urine Color Mer Urine Appearance Cloudy Urine pH 5.0 D Ur Specific [place] 1.043 H Urine Protein 1+ H Urine Glucose (UA) Negative Urine Ketones Negative Urine Blood Negative Urine Nitrite Negative Urine Bilirubin 2.0 Urine Urobilinogen Negative Ur Leukocyte Esterase Negative Urine WBC (Auto) 4 Urine RBC (Auto) 5 Ur Epithelial Cells Many Urine Bacteria Rare Urine Mucus Many RPR Titer HIV 1&2 Antibody Screen Negative HIV P24 Antigen Negative labs noted - Treatment Hospital Course: Detox Protocol Followed, Detoxed Safely, Responded well, Discharged Condition Good, Rehab Referral Accepted Patient has Accepted a Rehab Referral to: [facility] rehab 08/30/17 - Medication Discharge Medications: Ambulatory Orders Escitalopram Oxalate [Lexapro -] 20 mg PO DAILY #30 tablet 06/30/17 Quetiapine Fumarate [Seroquel -] 200 mg PO BID #60 tab 06/30/17 Escitalopram Oxalate [Lexapro -] 20 mg PO DAILY #30 tablet 08/26/17 Gabapentin 100 mg PO TID #90 capsule 08/26/17 Quetiapine Fumarate [Seroquel -] 200 mg PO BID #60 tablet 08/26/17 - Diagnosis (1) MDD (major depressive disorder) Current Visit: Yes Status: Acute (2) Opioid dependence on agonist therapy Current Visit: Yes Status: Acute (3) Substance induced mood disorder Current Visit: Yes Status: Acute (4) Cocaine dependence, uncomplicated Current Visit: Yes Status: Chronic (5) Nicotine dependence Current Visit: Yes Status: Chronic Qualifiers: Nicotine product type: cigarettes Substance use status: uncomplicated Qualified Code(s): F17.210 - Nicotine dependence, cigarettes, uncomplicated (6) Sedative, hypnotic or anxiolytic dependence with withdrawal, uncomplicated Current Visit: Yes Status: Chronic (7) Insomnia Current Visit: No Status: Acute - AMA Did Patient Leave Against Medical Advice: No
[2017-08-27] MEDS ORDERED: diazePAM 5 MG TABLET PO SCH (10:00)
[2017-08-27 11:13] VITALS: BP 105/63; PULSE 79; TEMP 98.1
== END 2017-08-27 09:30 | disposition home or self-care (01) | DRG 773 ==
LOC: YASAS 08:27 → Y6N 12:20
PROVIDERS: ADMIT Internal Medicine; ATTEND Internal Medicine
PROC: HZ2ZZZZ Detoxification Services for Substance Abuse Treatment (ICD-10-PCS; principal; 2017-08-23)
DX: F13.230 Sedative, hypnotic or anxiolytic dependence with withdrawal, uncomplicated (principal); F11.20 Opioid dependence, uncomplicated; F14.20 Cocaine dependence, uncomplicated; F17.210 Nicotine dependence, cigarettes, uncomplicated; F33.9 Major depressive disorder, recurrent, unspecified; F19.24 Other psychoactive substance dependence with psychoactive substance-induced mood disorder; F41.9 Anxiety disorder, unspecified; F31.81 Bipolar II disorder; G47.00 Insomnia, unspecified; B18.2 Chronic viral hepatitis C; D72.829 Elevated white blood cell count, unspecified
CPT/HCPCS: 36415; 80053; 81003; 81015; 85025; 85027; 86593; 87389; 93005; 93010; J0475

== ENCOUNTER 2018-01-23 20:00 | Inpatient (IN) | payer OTHER ==
--- NOTE | 2018-01-23 20:09 | PDOC ---
Rapid Medical Evaluation Time Seen by Provider: 01/23/18 20:06 Medical Evaluation: Allergies Allergy/AdvReac Type Severity Reaction Status Date / Time No Known Allergies Allergy Verified 08/23/17 10:42 01/23/18 20:06 27 year old female with left forearm abscess for 3 days from IVDU site. +Fevers and chills. History of sepsis from prior abscess requiring 10 day hospitalization in [place] x 3 yrs ago. V/s notable for HR 119. Alert, oriented, no distress. RRR, S1/S2, tachycardic, no murmurs. 3 x 3 cm abscess dorsal aspect left forearm with central necrotic pustule and surrounding erythema. Plan: Sepsis labs and peralta-culture CXR To Main ED for further evaluation
[2018-01-23] MEDS ORDERED: PIPERACILLIN/TAZOBACTAM 4.5 GM VIAL IVPB ONE (23:50)
[2018-01-23] MEDS ORDERED: VANCOMYCIN 1,000 MG in DEXTROSE 5%-WATER - 250 ML IVPB ONE (23:50)
--- NOTE | 2018-01-23 23:57 | PDOC ---
History of Present Illness - General Chief Complaint: Wound Stated Complaint: ABSCESS BOIL Time Seen by Provider: 01/23/18 20:06 History Source: Patient - History of Present Illness Initial Comments: 01/23/18 23:52 27 year old IVDA ( cocaine and methadone) female with left forearm abscess and cellulitis with streaking reports worsening edema and pain to the arm. patient was seen at [facility] yesterday and as per patient, partner tried to drain with " needle". patient reports that she shares her needle with her partner and is part of a needle exchange program. patient denies needle breaking or cracking in the wound. denies fever/. chills, chest pain NVD, abdominal pain. Past History - Past Medical History Allergies/Adverse Reactions: Allergies Allergy/AdvReac Type Severity Reaction Status Date / Time No Known Allergies Allergy Verified 01/23/18 20:07 Home Medications: Ambulatory Orders Dextroamphetamine/Amphetamine [Adderall Xr 30 mg Capsule] 40 mg PO DAILY Alprazolam [Xanax] 1 mg PO HS 01/24/18 Anemia: Yes (Iron-Deficiency type (no current meds.).) Asthma: No Cancer: No Cardiac Disorders: No CVA: No COPD: No CHF: No Dementia: No Diabetes: No GI Disorders: No Disorders: No HTN: No Hypercholesterolemia: No Kidney Stones: No Liver Disease: No Psychiatric Problems: Yes (BIPOLAR) Seizures: No Thyroid Disease: No Other medical history: Hep C, polysubstance abuse - Surgical History Abdominal Surgery: No Appendectomy: No Cardiac Surgery: No Cholecystectomy: No Lung Surgery: No Neurologic Surgery: No Orthopedic Surgery: No - Reproductive History PID: No - Suicide/Smoking/Psychosocial Hx Smoking Status: Yes Smoking History: Current every day smoker Have you smoked in the past 12 months: Yes Number of Cigarettes Smoked Daily: 20 Cigars Per Day: 0 Information on smoking cessation initiated: No 'Breaking Loose' booklet given: 08/23/17 (GIVE ON UNIT.) Hx Alcohol Use: No Drug/Substance Use Hx: Yes Substance Use Type: Cocaine, Heroin, Marijuana, Opiates, Prescribed (MMTP, 80 MG PO DAILY.), Tranquilizers Hx Substance Use Treatment: Yes (Previous Detox admissions at [facility] (Last: 2016).) Review of Systems - Review of Systems Able to Perform ROS?: Yes Is the patient limited Slovak proficient: No Constitutional: No: Symptoms Reported, See HPI, Chills, Diaphoresis, Fever, Loss of Appetite, Malaise, Night Sweats, Weakness, Weight Stable, Unintentional Wgt. Loss, Unexplained wgt Loss, Other Respiratory: No: Symptoms reported, See HPI, Cough, Orthopnea, Shortness of Breath, SOB with Exertion, SOB at Rest, Stridor, Wheezing, Productive cough, Hemoptysis, Other Cardiac (ROS): No: Symptoms Reported, See HPI, Chest Pain, Edema, Irregular Heart Rate, Lightheadedness, Palpitations, Syncope, Chest Tightness, Other Integumentary: Yes: Erythema (abscess to left forearm) *Physical Exam - Vital Signs Last Vital Signs Temp Pulse Resp BP Pulse Ox 98.6 F 122 H 24 114/76 96 01/23/18 20:07 01/23/18 20:07 01/23/18 20:07 01/23/18 20:07 01/23/18 20:07 - Physical Exam General Appearance: Yes: Mild Distress Extremity: positive: Other (Left forearm 3x 3 cm abscess with surrounding erythema and streaking, track torres to both arms. ) Moderate Sedation - Procedure Monitoring Vital Signs: Vital Signs Temp Pulse Resp BP Pulse Ox 98.6 F 122 H 24 114/76 96 01/23/18 20:07 01/23/18 20:07 01/23/18 20:07 01/23/18 20:07 01/23/18 20:07 ED Treatment Course - LABORATORY CBC & Chemistry Diagram: 01/25/18 06:26 01/25/18 06:26 - RADIOLOGY Radiology Studies Ordered: Category Date Time Status FOREARM- LEFT [RAD] Stat Radiology 01/23/18 23:48 Ordered Radiograph Interpretation: 01/24/18 02:03 no foreign body CHest xray : no infiltrate Progress Note - Progress Note Progress Note: A: cellulitis and abscess P: cbc cmp blood culture lactic acid IV antibiotics Medical Decision Making - Medical Decision Making 01/24/18 02:04 patient is not at bedside, no belongings noted. patient is without an IV. 01/24/18 02:28 patient returned requesting methadone. Strong Marijuana scent noted. 01/24/18 03:41 patient admitted under hospitalist service for further management of care. *DC/Admit/Observation/Transfer Diagnosis at time of Disposition: Cellulitis and abscess of upper arm and forearm - Discharge Dispostion Decision to Admit order: Yes - Referrals - Patient Instructions - Post Discharge Activity
[2018-01-24 00:54] LABS: URINE APPEARANCE CLOUDY; URINE BILIRUBIN NEGATIVE (<2.0 mg/dL); URINE COLOR AMBER; URINE GLUCOSE (UA) 3+ (NEGATIVE); URINE KETONE TRACE (NEGATIVE); URINE LEUK ESTERASE NEGATIVE (NEGATIVE); URINE NITRITE NEGATIVE (NEGATIVE)
[2018-01-24 00:56] LABS: URINE PROTEIN 1+ (NEGATIVE)
[2018-01-24 00:57] LABS: EPI CELLS MANY /HPF (FEW); URINE BACTERIA FEW /hpf (NONE SEEN); URINE HYALINE CAST 10 /lpf; URINE MUCUS MANY
[2018-01-24 01:23] LABS: BASO % 0.1 % (0-2.0); HEMATOCRIT 37.4 % (32.4-45.2); HEMOGLOBIN 12.6 GM/dL (10.7-15.3); MCHC 33.6 g/dl (32.0-36.0); MEAN CELL VOLUME 86.3 fl (80-96); MEAN PLT VOLUME 9.3 fl (7.5-11.1); MONO % 5.8 % (3.8-10.2); NEUT % 87.1 % (42.8-82.8); PLATELET COUNT 306 K/MM3 (134-434); RBC 4.33 M/mm3 (3.60-5.2); RDW 13.3 % (11.6-15.6)
[2018-01-24 01:42] LABS: INR 1.3 (0.82-1.09); PROTHROMBIN TIME (PATIENT) 14.7 SEC (9.7-13.0)
[2018-01-24 01:45] LABS: ACTIVATED PTT 38.1 SECONDS (26.9-34.4)
[2018-01-24 01:52] LABS: ALBUMIN 3.8 g/dl (3.4-5.0); ANION GAP 6 (8-16); BILIRUBIN,TOTAL 0.5 mg/dL (0.2-1.0); BLOOD UREA NITROGEN 13 mg/dL (7-18); CALCIUM 9.4 mg/dL (8.5-10.1); CHLORIDE 101 mmol/L (98-107); CO2 27 mmol/L (21-32); CREATININE 0.7 mg/dL (0.55-1.02); GLUCOSE,RANDOM 150 mg/dL (74-106); POTASSIUM 4.2 mmol/L (3.5-5.1); SGOT/AST 13 U/L (15-37); SGPT/ALT 16 U/L (12-78); SODIUM 134 mmol/L (136-145); TOT PROT 7.5 g/dl (6.4-8.2)
[2018-01-24 01:53] LABS: ALK PHOS 78 U/L (45-117)
[2018-01-24 01:55] LABS: VENOUS PC02 39.3 mmHg (38-52); VENOUS PH 7.44 (7.32-7.42)
[2018-01-24 02:03] LABS: PHENCYCLIDINE,URINE NEGATIVE ng/ml (CUTOFF=25); URINE BARBITURATES NEGATIVE ng/ml (CUTOFF=200)
[2018-01-24 02:04] LABS: COCAINE, UR POSITIVE ng/ml (CUTOFF=300); METHADONE, UR POSITIVE ng/ml (CUTOFF=300); OPIATES, URI POSITIVE ng/ml (CUTOFF=300); URINE AMPHETAMINES POSITIVE ng/ml (CUTOFF=500); URINE BENZODIAZEPINES POSITIVE ng/ml (CUTOFF=200)
[2018-01-24] MEDS ORDERED: PIPERACILLIN/TAZOB 4.5 GM 4.5 GM/100 ML BAG IVPB ONE (03:02)
[2018-01-24] MEDS ORDERED: VANCOMYCIN 1 GRAM (PRE-DOCKED) 1,000 MG/250 ML BAG IVPB ONE (03:42)
[2018-01-24] MEDS ORDERED: ACETAMINOPHEN 325 MG TABLET (FP) PO PRN (04:10)
--- NOTE | 2018-01-24 04:36 | HP ---
CHIEF COMPLAINT: redness and swelling left arm PCP: Janice Beal HISTORY OF PRESENT ILLNESS: This is a 27 year old female with past medical history of IVDA-cocaine and heroin, bipolar disorder who presented to the ED with redness and swelling to left arm. Pt reports she noticed the redness a few days ago. She went to [place] ED yesterday but left because she was waiting for 7 hours. She then went home and she and her partner attempted to pop the abscess with a needle. She reports a little dark colored fluid came out but not much. She states that she has been unable to make it to her methadone program due to the pain for the past 3 days ER course was notable for: (1) WBC 15.0 Recent Travel: pt denies PAST MEDICAL HISTORY: Hep C tx with interferon age 18, bipolar disorder, IVDA, methadone maintenance at [facility] PAST SURGICAL HISTORY: tonsillectomy age 13 Social History: Smokinppd x 10 years Alcohol: pt denies Drugs: marijuana; cocaine, last use 4 days ago; heroin, last use 2 days ago Family History: mother, father, brother and sister all alive and well Allergies No Known Allergies Allergy (Verified 01/23/18 20:07) HOME MEDICATIONS: 3 Medication Instructions Recorded Dextroamphetamine/Amphetamine 40 mg PO DAILY 01/23/18 [Adderall Xr 30 mg Capsule] Alprazolam [Xanax] 1 mg PO HS 01/24/18 REVIEW OF SYSTEMS CONSTITUTIONAL: Absent: fever, chills, diaphoresis, generalized weakness, malaise, loss of appetite, weight change HEENT: Absent: rhinorrhea, nasal congestion, throat pain, throat swelling, difficulty swallowing, mouth swelling, ear pain, eye pain, visual changes CARDIOVASCULAR: Absent: chest pain, syncope, palpitations, irregular heart rate, lightheadedness , peripheral edema RESPIRATORY: Absent: cough, shortness of breath, dyspnea with exertion, orthopnea, wheezing, stridor, hemoptysis GASTROINTESTINAL: Absent: abdominal pain, abdominal distension, nausea, vomiting, diarrhea, constipation, melena, hematochezia GENITOURINARY: Absent: dysuria, frequency, urgency, hesitancy, hematuria, flank pain, genital pain MUSCULOSKELETAL: Absent: myalgia, arthralgia, joint swelling, back pain, neck pain SKIN: Present: swelling and redness to left arm Absent: rash, itching, pallor HEMATOLOGIC/IMMUNOLOGIC: Absent: easy bleeding, easy bruising, lymphadenopathy, frequent infections ENDOCRINE: Absent: unexplained weight gain, unexplained weight loss, heat intolerance, cold intolerance NEUROLOGIC: Absent: headache, focal weakness or paresthesias, dizziness, unsteady gait, seizure, mental status changes, bladder or bowel incontinence PSYCHIATRIC: Absent: anxiety, depression, suicidal or homicidal ideation, hallucinations. PHYSICAL EXAMINATION Vital Signs - 24 hr 3 01/23/18 01/24/18 20:07 03:53 Temperature 98.6 F 97.8 F Pulse Rate 122 H Pulse Rate [ 69 Apical] Respiratory 24 18 Rate Blood Pressure 114/76 Blood Pressure 104/58 [Left Arm] O2 Sat by Pulse 96 99 Oximetry (%) GENERAL: Awake, alert, and fully oriented, in no acute distress. HEAD: Normal with no signs of trauma. EYES: Pupils equal, round and reactive to light, extraocular movements intact, sclera anicteric, conjunctiva clear. No lid lag. EARS, NOSE, THROAT: Ears normal, nares patent, oropharynx clear without exudates. Moist mucous membranes. NECK: Normal range of motion, supple without lymphadenopathy, JVD, or masses. LUNGS: Breath sounds equal, clear to auscultation bilaterally. No wheezes, and no crackles. No accessory muscle use. HEART: Regular rate and rhythm, normal S1 and S2 without murmur, rub or gallop. ABDOMEN: Soft, nontender, not distended, normoactive bowel sounds, no guarding, no rebound, no masses. No hepatomegaly or splenomegaly. MUSCULOSKELETAL: Normal range of motion at all joints. No bony deformities or tenderness. No CVA tenderness. UPPER EXTREMITIES: 2+ pulses, warm, well-perfused. No cyanosis. No clubbing. No peripheral edema. LOWER EXTREMITIES: 2+ pulses, warm, well-perfused. No calf tenderness. No peripheral edema. NEUROLOGICAL: Cranial nerves II-XII intact. Normal speech. Normal gait. PSYCHIATRIC: Cooperative. Good eye contact. Appropriate mood and affect. SKIN: Warm, dry, normal turgor, no rashes noted, normal capillary refill. swelling and erythema to left arm from mid upper arm distally to fingers. + abscess noted left forearm. Laboratory Results - last 24 hr 3 01/24/18 01/24/18 01/24/18 00:30 00:30 00:30 WBC 15.0 H D RBC 4.33 Hgb 12.6 D Hct 37.4 MCV 86.3 MCH 29.0 MCHC 33.6 RDW 13.3 Plt Count 306 MPV 9.3 Neutrophils % 87.1 H D Lymphocytes % 7.0 L D Monocytes % 5.8 Eosinophils % 0.0 D Basophils % 0.1 Nucleated RBC % 0 PT with INR 14.70 H INR 1.30 H PTT (Actin FS) 38.1 H VBG pH 7.44 H POC VBG pCO2 39.3 POC VBG pO2 173.0 H* Mixed VBG HCO3 26.3 H Sodium Potassium Chloride Carbon Dioxide Anion Gap BUN Creatinine Creat Clearance w eGFR Random Glucose Lactic Acid Calcium Total Bilirubin AST ALT Alkaline Phosphatase Troponin I Total Protein Albumin Urine Color Urine Appearance Urine pH Ur Specific [place] Urine Protein Urine Glucose (UA) Urine Ketones Urine Blood Urine Nitrite Urine Bilirubin Urine Urobilinogen Ur Leukocyte Esterase Urine WBC (Auto) Urine RBC (Auto) Ur Epithelial Cells Urine Bacteria Hyaline Casts Urine Mucus Urine HCG, Qual Opiates Screen Methadone Screen Barbiturate Screen Phencyclidine Screen Ur Amphetamines Screen MDMA (Ecstasy) Screen Benzodiazepines Screen Cocaine Screen U Marijuana (THC) Screen 3 01/24/18 01/24/18 01/24/18 01/24/18 00:30 00:30 00:30 03:28 WBC RBC Hgb Hct MCV MCH MCHC RDW Plt Count MPV Neutrophils % Lymphocytes % Monocytes % Eosinophils % Basophils % Nucleated RBC % PT with INR INR PTT (Actin FS) VBG pH POC VBG pCO2 POC VBG pO2 Mixed VBG HCO3 Sodium 134 L Potassium 4.2 Chloride 101 Carbon Dioxide 27 Anion Gap 6 L BUN 13 Creatinine 0.7 Creat Clearance w eGFR > 60 Random Glucose 150 H Lactic Acid 1.1 1.1 Calcium 9.4 Total Bilirubin 0.5 AST 13 L ALT 16 Alkaline Phosphatase 78 Troponin I < 0.02 Total Protein 7.5 Albumin 3.8 Urine Color Urine Appearance Urine pH Ur Specific [place] Urine Protein Urine Glucose (UA) Urine Ketones Urine Blood Urine Nitrite Urine Bilirubin Urine Urobilinogen Ur Leukocyte Esterase Urine WBC (Auto) Urine RBC (Auto) Ur Epithelial Cells Urine Bacteria Hyaline Casts Urine Mucus Urine HCG, Qual Opiates Screen Methadone Screen Barbiturate Screen Phencyclidine Screen Ur Amphetamines Screen MDMA (Ecstasy) Screen Benzodiazepines Screen Cocaine Screen U Marijuana (THC) Screen 3 01/24/18 01/24/18 01/24/18 00:42 00:42 00:42 WBC RBC Hgb Hct MCV MCH MCHC RDW Plt Count MPV Neutrophils % Lymphocytes % Monocytes % Eosinophils % Basophils % Nucleated RBC % PT with INR INR PTT (Actin FS) VBG pH POC VBG pCO2 POC VBG pO2 Mixed VBG HCO3 Sodium Potassium Chloride Carbon Dioxide Anion Gap BUN Creatinine Creat Clearance w eGFR Random Glucose Lactic Acid Calcium Total Bilirubin AST ALT Alkaline Phosphatase Troponin I Total Protein Albumin Urine Color Mer Urine Appearance Cloudy Urine pH 5.0 Ur Specific [place] 1.027 Urine Protein 1+ H Urine Glucose (UA) 3+ H Urine Ketones Trace H Urine Blood 1+ H Urine Nitrite Negative Urine Bilirubin Negative Urine Urobilinogen 2.0 H Ur Leukocyte Esterase Negative Urine WBC (Auto) 5 Urine RBC (Auto) 12 Ur Epithelial Cells Many Urine Bacteria Few Hyaline Casts 10 Urine Mucus Many Urine HCG, Qual Negative Opiates Screen Positive Methadone Screen Positive Barbiturate Screen Negative Phencyclidine Screen Negative Ur Amphetamines Screen Positive MDMA (Ecstasy) Screen Negative Benzodiazepines Screen Positive Cocaine Screen Positive U Marijuana (THC) Screen Positive Radiology Reports cxr, no obvious infiltrates or effusions, final read pending Left forearm, no obvious foreign body, final read pending ASSESSMENT/PLAN: 27yF with PMH IVDA, bipolar d/o, Hep C presented to the ED with swelling and redness to left forearm. Abscess/cellulitis to left forearm - given vanc and zosyn in ED - ID consult - surgical consult for possible I&D psych - h/o bipolar but on adderall and xanax, [employer] registry verified, same ordered opioid dependence - will need to verify methadone dose in AM, cont home methadone DVT PPX - heparin 5000u q8h FEN - tolerating po - BMP in am - regular diet as tolerated Dispo: pt currently requires further inpatient management of her emergent condition. Visit type - Emergency Visit Emergency Visit: Yes ED Registration Date: 01/23/18 Care time: The patient presented to the Emergency Department on the above date and was hospitalized for further evaluation of their emergent condition. - New Patient This patient is new to me today: Yes Date on this admission: 01/24/18 - Critical Care Critical Care patient: No Hospitalist Screening - Colonoscopy Questionnaire Colonoscopy Questionnaire: Colonoscopy Questionnaire - Patient: 50 - 75 years old and never had a screening colonoscopy: No History of colon or rectal polyps, or CA: No History of IBD, Crohn's disease or UC: No History of abdominal radiation therapy as a child: No - Relative: 1 with colon or rectal CA, or polyps at age 60 or younger: No Colon or rectal CA diagnosed at age 45 or younger: No Multiple relatives with colon or rectal CA: No - Outcome: Screening Result: Negative Screen
[2018-01-24] MEDS ORDERED: ACETAMINOPHEN 325 MG TABLET (FP) ONE (04:58)
[2018-01-24] MEDS ORDERED: ALPRAZolam 0.25 MG TABLET ONE (04:58)
[2018-01-24] MEDS ORDERED: IBUPROFEN 600 MG TABLET (FP) PO ONE (04:59)
[2018-01-24] MEDS ORDERED: HEPARIN NA (PORCINE) 5,000 UNITS/ML 1ML VIAL ONE (07:01)
[2018-01-24] MEDS: HEPARIN NA (PORCINE) 5,000 UNITS/ML 1ML VIAL SQ SCH ×3 (07:06→21:05)
[2018-01-24] MEDS ORDERED: KETOROLAC TROMETHAMINE 30 MG/1 ML VIAL ONE (09:26)
[2018-01-24] MEDS ORDERED: KETOROLAC TROMETHAMINE 30 MG/1 ML VIAL IVPUSH ONE (09:30)
[2018-01-24] MEDS ORDERED: PT OWN MED DRAWER 7, Y5N ONE (09:34)
--- NOTE | 2018-01-24 09:48 | PROC ---
Incision and Drainage Risks and Benefits Explained: Yes Consent on Chart: Yes Betadine cleansed: Yes Anesthesia: 1% Lidocaine Blade Size: 15 blade Irrigated with Normal Saline: Yes Iodinated Packin/2 in Plain packing: No (iodine) Sterile Dressing Applied: Yes - Remarks Remarks: Pt tolerated the procedure well. The skin was anethesized with 4ml lidociane and a 1.5 cm incision was made. Blunt dissection was completed with a clamp. 20ml purulent material was drained and with irrigation, necrotic fat was flushed out. The wound was placked and a dry dressing, kerlix was placed. A wound culture was sent.
--- NOTE | 2018-01-24 09:53 | PN ---
Progress Note, Physician History of Present Illness: 27 year old female with past medical history of IVDA-cocaine and heroin, bipolar disorder who presented to the ED with redness and swelling to left arm. Pt reports she noticed the redness a few days ago. She went to [place] ED yesterday but left because she was waiting for 7 hours. She then went home and she and her partner attempted to pop the abscess with a needle. She reports a little dark colored fluid came out but not much. She states that she has been unable to make it to her methadone program due to the pain for the past 3 days - Current Medication List Current Medications: Active Medications Acetaminophen (Tylenol -) 650 mg PO Q6H PRN PRN Reason: PAIN LEVEL 1-5 Alprazolam (Xanax -) 1 mg PO HS YUNIEL Heparin Sodium (Porcine) (Heparin -) 5,000 unit SQ TID [facility] Last Admin: 01/24/18 07:06 Dose: 5,000 unit Ibuprofen (Motrin -) 600 mg PO Q8H PRN PRN Reason: PAIN LEVEL 6-10 Non-Formulary Medication (Dextroamphetamine/Amphetamine [Adderall Xr 30 Mg Capsule]) 40 mg PO DAILY [facility] - Objective Vital Signs: Vital Signs Temperature 97.9 F 01/24/18 07:01 Pulse Rate 69 01/24/18 07:01 Respiratory Rate 18 01/24/18 07:01 Blood Pressure 131/45 01/24/18 07:01 O2 Sat by Pulse Oximetry (%) 97 01/24/18 07:01 Labs: CBC, BMP 01/24/18 00:30 01/24/18 00:30 INR, PTT INR 1.30 (0.82-1.09) H 01/24/18 00:30 Problem List - Problems (1) Cellulitis and abscess of upper arm and forearm Assessment/Plan: - given vanc and zosyn in ED - ID consult - surgical consult for possible I&D - tolerating po - BMP and cbcd in am - regular diet as tolerated Code(s): ILG0581 - (2) Opioid dependence on agonist therapy Assessment/Plan: opioid dependence - will need to verify methadone dose in AM, cont home methadone Code(s): F11.20 - OPIOID DEPENDENCE, UNCOMPLICATED (3) Bipolar disorder Assessment/Plan: - h/o bipolar but on adderall and xanax, [employer] registry verified, same ordered Code(s): F31.9 - BIPOLAR DISORDER, UNSPECIFIED Qualifiers: Active/Remission status: remission status unspecified Qualified Code(s): F31.9 - Bipolar disorder, unspecified
[2018-01-24] MEDS ORDERED: PATIENT'S OWN MEDICATION (NON-FORMULARY) (Dextroamphetamine/Amphetamine [Adderall Xr 30 Mg PO SCH (10:00)
--- NOTE | 2018-01-24 10:11 | CON.ID ---
Consult Consult Specialty:: infectious disease Referred by:: gerry Reason for Consultation:: arm abscess - History of Present Illness Chief Complaint: arm abscess History of Present Illness: 27 year old female active IVDU, does not share needles on methadone, active cocaine injuection use injects in arm and neck- missed in her arm and developed swelling and pain denies fevers and chills went to [facility] but left due to long wait time prior history of arm abscess many years ago given vancomycin and zosyn in ED abscess drained in ED by SUrgery and cultures sent - History Source History Provided By: Patient, Medical Record Limitations to Obtaining History: Clinical Condition (quite sleepy) - Past Medical History Hepatobiliary: Yes: Hepatitis C (reports treated in the past with interferon) ...LMP: 01/17/17 Additional Medical History: substance use- heroine and cocaine- on methodone - Past Surgical History Past Surgical History: Yes: Tonsillectomy - Alcohol/Substance Use Hx Alcohol Use: No - Smoking History Smoking history: Current every day smoker Have you smoked in the past 12 months: Yes Aproximately how many cigarettes per day: 20 - Social History Usual Living Arrangement: With Parent ADL: Independent Place of : [facility] Home Medications - Allergies Allergies/Adverse Reactions: Allergies Allergy/AdvReac Type Severity Reaction Status Date / Time No Known Allergies Allergy Verified 01/23/18 20:07 - Home Medications Home Medications: Ambulatory Orders Dextroamphetamine/Amphetamine [Adderall Xr 30 mg Capsule] 40 mg PO DAILY Alprazolam [Xanax] 1 mg PO HS 01/24/18 Family Disease History - Family Disease History Family Disease History: CA: Grandparent (Uncertain about type.), Other: Mother ( anxiety) Review of Systems - Review of Systems Constitutional: reports: No Symptoms Eyes: reports: No Symptoms HENT: reports: No Symptoms Neck: reports: No Symptoms Cardiovascular: reports: No Symptoms. denies: Chest Pain Respiratory: reports: No Symptoms. denies: Cough Gastrointestinal: reports: No Symptoms. denies: Abdominal Pain Physical Exam Vital Signs: Vital Signs Temperature 97.9 F 01/24/18 07:01 Pulse Rate 69 01/24/18 07:01 Respiratory Rate 18 01/24/18 07:01 Blood Pressure 131/45 01/24/18 07:01 O2 Sat by Pulse Oximetry (%) 97 01/24/18 07:01 Constitutional: Yes: Well Nourished, No Distress, Calm Eyes: Yes: Conjunctiva Clear HENT: No: Thrush Neck: Yes: Supple, Trachea Midline Cardiovascular: Yes: Regular Rate and Rhythm Respiratory: Yes: Regular, CTA Bilaterally Gastrointestinal: Yes: Normal Bowel Sounds, Soft Extremities: Yes: Other (dressing left arm) Psychiatric: Yes: Alert Labs: CBC, BMP 01/24/18 00:30 01/24/18 00:30 cultures pending Imaging - Results Chest X-ray: Report Reviewed, Image Reviewed Problem List - Problems (1) Cellulitis and abscess of upper arm and forearm Code(s): HAC1107 - (2) Hepatitis C Code(s): B19.20 - UNSPECIFIED VIRAL HEPATITIS C WITHOUT HEPATIC COMA (3) Injection of illicit drug within last 12 months Code(s): F19.90 - OTHER PSYCHOACTIVE SUBSTANCE USE, UNSPECIFIED, UNCOMPLICATED Assessment/Plan active IVDU abscess at injection site treated hep c (per patient) vancomycin/zosyn f/u cultures hiv testing (she is agreeable)
[2018-01-24] MEDS: PIPERACILLIN/TAZOB 3.375 GM 3.375 GM in DEXTROSE 5%-WATER - 50 ML IVPB SCH ×2 (12:34→18:00)
--- NOTE | 2018-01-24 13:35 | CONSULT ---
- Consultation REQUESTING PROVIDER: CONSULT REQUEST: We have been asked to surgically evaluate this patient for left FA abscess. PCP:Olivia Ho HISTORY OF PRESENT ILLNESS: The patient is a 27 yo female who presented to the ER for infection to her left forearm. She was using IV drugs and the area became infected. She is involved in a methadone program. She has noted the redness for approximately 4 days. She denies any fever/chills is having pain to the area. She went to the ER at [place] yesterday but left without being seen. She has had a similar abscess in the past on her right FA which has healed but she was admitted to the hospital with sepsis. PMHx: h/o Hep c, treated 9 years ago, IV drug abuse. PSHx: tonsillectomy Home Medications Medication Instructions Recorded Dextroamphetamine/Amphetamine 40 mg PO DAILY 01/23/18 [Adderall Xr 30 mg Capsule] Alprazolam [Xanax] 1 mg PO HS 01/24/18 Allergies Allergy/AdvReac Type Severity Reaction Status Date / Time No Known Allergies Allergy Verified 01/23/18 20:07 REVIEW OF SYSTEMS: CONSTITUTIONAL: Absent: fever, chills CARDIOVASCULAR: Absent: chest pain, syncope, palpitations, irregular heart rate RESPIRATORY: Absent: cough, shortness of breath SKIN: left forearm/hand swelling pain PHYSICAL EXAM: GENERAL: arousable, lethargic HEAD: Normal with no signs of trauma. EYES: sclera anicteric, conjunctiva clear. UE: left FA with swelling, mild erythema to the hand(palmar surface) extending on the dorsal/medial aspect to the elbow. 2x3 cm abscess, fluctuant 6 cm above the wrist. 1/2 cm eschar area in the middle of the abscess. Manager Global strength/ flexion/extension 4/5 limited due to pain symptoms. Vital Signs Temperature 97.9 F 01/24/18 07:01 Pulse Rate 69 01/24/18 07:01 Respiratory Rate 18 01/24/18 07:01 Blood Pressure 131/45 01/24/18 07:01 O2 Sat by Pulse Oximetry (%) 97 01/24/18 07:01 Lab Results WBC 15.0 K/mm3 (4.0-10.0) H D 01/24/18 00:30 RBC 4.33 M/mm3 (3.60-5.2) 01/24/18 00:30 Hgb 12.6 GM/dL (10.7-15.3) D 01/24/18 00:30 Hct 37.4 % (32.4-45.2) 01/24/18 00:30 MCV 86.3 fl (80-96) 01/24/18 00:30 MCHC 33.6 g/dl (32.0-36.0) 01/24/18 00:30 RDW 13.3 % (11.6-15.6) 01/24/18 00:30 Plt Count 306 K/MM3 (134-434) 01/24/18 00:30 Sodium 134 mmol/L (136-145) L 01/24/18 00:30 Potassium 4.2 mmol/L (3.5-5.1) 01/24/18 00:30 Chloride 101 mmol/L (98-107) 01/24/18 00:30 Carbon Dioxide 27 mmol/L (21-32) 01/24/18 00:30 Anion Gap 6 (8-16) L 01/24/18 00:30 BUN 13 mg/dL (7-18) 01/24/18 00:30 Creatinine 0.7 mg/dL (0.55-1.02) 01/24/18 00:30 Random Glucose 150 mg/dL (74-106) H 01/24/18 00:30 Calcium 9.4 mg/dL (8.5-10.1) 01/24/18 00:30 INR 1.30 (0.82-1.09) H 01/24/18 00:30 Microbiology blood cultre/urine culture pending. wound culture pending. Laboratory Tests 01/24/18 01/24/18 00:42 00:42 Urine HCG, Qual Negative Opiates Screen Positive Methadone Screen Positive Barbiturate Screen Negative Phencyclidine Screen Negative Ur Amphetamines Screen Positive MDMA (Ecstasy) Screen Negative Benzodiazepines Screen Positive Cocaine Screen Positive U Marijuana (THC) Screen Positive Problem List - Problems (1) Cellulitis and abscess of upper arm and forearm Assessment/Plan: Left FA abscess from IV drug abuse, s/p I&D today in the ER. See procedure note. Pt awaiting admission to the medical service. IV abx Zosyn/Vanco given. ID consult completed. Will await culture from abscess. Daily dressing changes and elevate left forearm to improve swelling. Tylenol/motrin for pain D/w Dr. Woods Code(s): [id number] -
[2018-01-24] MEDS: VANCOMYCIN 750 MG in DEXTROSE 5%-WATER - 250 ML IVPB SCH (14:48)
[2018-01-24] MEDS ORDERED: METHADONE HCL 5 MG TABLET (FOR DETOX USE ONLY) PO SCH (15:45)
--- NOTE | 2018-01-24 16:15 | EKG ---
Test Reason : Blood Pressure : / mmHG Vent. Rate : 070 BPM Atrial Rate : 070 BPM P-R Int : 148 ms QRS Dur : 098 ms QT Int : 408 ms P-R-T Axes : 071 083 068 degrees QTc Int : 440 ms NORMAL SINUS RHYTHM WITH SINUS ARRHYTHMIA BIATRIAL ENLARGEMENT RSR' patrtern in V1 and V2. ABNORMAL ECG WHEN COMPARED WITH ECG OF 23-AUG-2017 15:29, NO SIGNIFICANT CHANGE WAS FOUND Confirmed by MD Granger Daniel ([id number]) on 01/24/2018 4:15:17 PM Referred By: Confirmed By:Randal Granger MD
[2018-01-24] MEDS ORDERED: PIPERACILLIN/TAZOBACTAM 3.375 GM VIAL IVPB ONE (16:39)
[2018-01-24] MEDS ORDERED: METHADONE HCL 40 MG DISPERSABLE TABLET ONE (16:39)
[2018-01-24] MEDS ORDERED: DEXTROSE 5%-WATER - 50 ML IVPB ONE (16:39)
[2018-01-24] MEDS ORDERED: METHADONE HCL 10 MG TABLET ONE (16:39)
[2018-01-24] MEDS: METHADONE 80 MG, METHADONE 10 MG PO SCH (16:41)
[2018-01-24] MEDS: IBUPROFEN 600 MG TABLET (FP) PO PRN (17:59)
[2018-01-24] MEDS: NICOTINE 21 MG/24 HOURS TOPICAL PATCH TD SCH (18:44)
[2018-01-24] MEDS: ALPRAZolam 0.25 MG TABLET PO SCH (21:05)
[2018-01-25] MEDS ORDERED: DEXTROSE 5%-WATER - 50 ML IVPB ONE ×2 (03:14→08:45)
[2018-01-25] MEDS ORDERED: PIPERACILLIN/TAZOBACTAM 3.375 GM VIAL IVPB ONE ×2 (03:14→08:45)
[2018-01-25] MEDS: PIPERACILLIN/TAZOB 3.375 GM 3.375 GM in DEXTROSE 5%-WATER - 50 ML IVPB SCH ×2 (03:29→09:52)
[2018-01-25] MEDS: VANCOMYCIN 750 MG in DEXTROSE 5%-WATER - 250 ML IVPB SCH ×3 (04:05→18:18)
[2018-01-25] MEDS: IBUPROFEN 600 MG TABLET (FP) PO PRN (05:50)
[2018-01-25] MEDS ORDERED: METHADONE HCL 40 MG DISPERSABLE TABLET ONE (06:06)
[2018-01-25] MEDS ORDERED: METHADONE HCL 10 MG TABLET ONE (06:06)
[2018-01-25] MEDS: HEPARIN NA (PORCINE) 5,000 UNITS/ML 1ML VIAL SQ SCH ×3 (07:03→22:51)
[2018-01-25] MEDS: METHADONE 80 MG, METHADONE 10 MG PO SCH (07:03)
[2018-01-25 07:45] LABS: BASO % 0.3 % (0-2.0); EOS % 2.6 % (0-4.5); HEMATOCRIT 38.5 % (32.4-45.2); HEMOGLOBIN 12.9 GM/dL (10.7-15.3); LYMPH % 45.2 % (8-40); MCH 29.4 pg (25.7-33.7); MCHC 33.4 g/dl (32.0-36.0); MEAN PLT VOLUME 9.2 fl (7.5-11.1); MONO % 10.1 % (3.8-10.2); NEUT % 41.8 % (42.8-82.8); PLATELET COUNT 336 K/MM3 (134-434); RBC 4.37 M/mm3 (3.60-5.2); RDW 13.4 % (11.6-15.6); WHITE BLOOD COUNT 9.3 K/mm3 (4.0-10.0)
[2018-01-25 08:09] LABS: ANION GAP 7 (8-16); BLOOD UREA NITROGEN 12 mg/dL (7-18); CALCIUM 8.9 mg/dL (8.5-10.1); CHLORIDE 101 mmol/L (98-107); CO2 32 mmol/L (21-32); GLUCOSE,RANDOM 85 mg/dL (74-106); MAGNESIUM 2.2 mg/dL (1.8-2.4); POTASSIUM 3.8 mmol/L (3.5-5.1); SODIUM 140 mmol/L (136-145)
[2018-01-25 08:10] LABS: CREATININE 0.7 mg/dL (0.55-1.02); PHOSPHOROUS 4.1 mg/dL (2.5-4.9)
[2018-01-25] MEDS ORDERED: KETOROLAC TROMETHAMINE 30 MG/1 ML VIAL IVPUSH ONE (09:02)
[2018-01-25] MEDS: NICOTINE 21 MG/24 HOURS TOPICAL PATCH TD SCH (09:51)
--- NOTE | 2018-01-25 10:26 | PN ---
Progress Note, Physician Chief Complaint: AWAKE ALERT NURSE NOTIFIED ME THAT PATIENT IS VOMITING - Current Medication List Current Medications: Active Medications Acetaminophen (Tylenol -) 650 mg PO Q6H PRN PRN Reason: PAIN LEVEL 1-5 Alprazolam (Xanax -) 1 mg PO HS [facility] Last Admin: 01/24/18 21:05 Dose: 1 mg Heparin Sodium (Porcine) (Heparin -) 5,000 unit SQ TID [facility] Last Admin: 01/25/18 07:03 Dose: 5,000 unit Vancomycin HCl 750 mg/ (Dextrose) 250 mls @ 250 mls/hr IVPB Q12H [facility]; Protocol Last Admin: 01/25/18 04:05 Dose: 250 mls/hr Piperacillin Sod/Tazobactam (Sod 3.375 gm/ Dextrose) 50 mls @ 100 mls/hr IVPB Q8H-IV [facility]; Protocol Last Admin: 01/25/18 09:52 Dose: 100 mls/hr Ibuprofen (Motrin -) 600 mg PO Q8H PRN PRN Reason: PAIN LEVEL 6-10 Last Admin: 01/25/18 05:50 Dose: 600 mg Methadone HCl 80 mg/ Methadone (HCl 10 mg) 90 mg PO DAILY@0600 [facility] Last Admin: 01/25/18 07:03 Dose: 90 mg Nicotine (Nicoderm Patch -) 21 mg TD DAILY [facility] Last Admin: 01/25/18 09:51 Dose: 21 mg Non-Formulary Medication (Dextroamphetamine/Amphetamine [Adderall Xr 30 Mg Capsule]) 40 mg PO DAILY [facility] - Objective Vital Signs: Vital Signs Temperature 97.5 F L 01/25/18 06:54 Pulse Rate 66 01/25/18 06:54 Respiratory Rate 18 01/25/18 06:54 Blood Pressure 109/64 01/25/18 06:54 O2 Sat by Pulse Oximetry (%) 100 01/24/18 21:00 Constitutional: Yes: Moderate Distress Eyes: Yes: WNL HENT: Yes: WNL Neck: Yes: WNL Cardiovascular: Yes: WNL Respiratory: Yes: WNL Gastrointestinal: Yes: WNL Musculoskeletal: Yes: WNL Extremities: Yes: Other Edema: No Edema: LUE: 1+ Peripheral Pulses WNL: Yes Integumentary: Yes: WNL Wound/Incision: Yes: Clean/Dry, Dressing Dry and Intact Neurological: Yes: WNL ...Motor Strength: WNL Psychiatric: Yes: WNL Labs: CBC, BMP 01/25/18 06:26 01/25/18 06:26 INR, PTT INR 1.30 (0.82-1.09) H 01/24/18 00:30 Problem List - Problems (1) Cellulitis and abscess of upper arm and forearm Code(s): [id number] - (2) Injection of illicit drug within last 12 months Code(s): F19.90 - OTHER PSYCHOACTIVE SUBSTANCE USE, UNSPECIFIED, UNCOMPLICATED (3) Hepatitis C Code(s): B19.20 - UNSPECIFIED VIRAL HEPATITIS C WITHOUT HEPATIC COMA (4) Insomnia Code(s): G47.00 - INSOMNIA, UNSPECIFIED (5) MDD (major depressive disorder) Code(s): F32.9 - MAJOR DEPRESSIVE DISORDER, SINGLE EPISODE, UNSPECIFIED (6) Opioid dependence on agonist therapy Code(s): F11.20 - OPIOID DEPENDENCE, UNCOMPLICATED (7) Substance induced mood disorder Code(s): F19.94 - OTH PSYCHOACTIVE SUBSTANCE USE, UNSP W MOOD DISORDER (9) Alcohol dependence with uncomplicated withdrawal Code(s): F10.230 - ALCOHOL DEPENDENCE WITH WITHDRAWAL, UNCOMPLICATED (10) Anxiety Code(s): F41.9 - ANXIETY DISORDER, UNSPECIFIED (11) Bipolar disorder Code(s): F31.9 - BIPOLAR DISORDER, UNSPECIFIED Qualifiers: Active/Remission status: remission status unspecified Qualified Code(s): F31.9 - Bipolar disorder, unspecified Assessment/Plan IV ABX ECHO R/O ENDOCARDITIS CLEAR DIET KUB BEDSIDE ZOFRAN IV GI EVAL
[2018-01-25] MEDS ORDERED: MAGNESIUM HYDROX 2400MG/30ML ORAL SUSPENSION 30 ML CUP PO PRN (10:27)
--- NOTE | 2018-01-25 11:00 | PN ---
Progress Note (short form) - Note Progress Note: Pt seen with Dr. Woods this am and dressing changed. Her pain has improved, she is receiving her methadone. Vital Signs Period Temp Pulse Resp BP Sys/Mas Pulse Ox Last 24 Hr 97.5 F-97.6 F 53-66 16-18 98-110/51-64 100-100 GEN: A&0x3 Left hand/arm: Overall decreased swelling/redness. Dressing changed and some purulent drainage, irrigated with 30 cc NS and probed with sterile Q-tip. No pockets or further pus drained. Reapcked with iodoform, 4x4 gauze and kerlix. Chief Load Dispatcher strength 5/5 today with exam. CBC, BMP 01/25/18 06:26 01/25/18 06:26 Microbiology 01/24/18 09:10 Arm - Left Forearm Gram Stain - Final 01/24/18 09:10 Arm - Left Forearm Wound Culture - Preliminary Presumptive Mrsa (Pbp2a Pos) A/p: 27 yo female s/p Left Forearm abscess I&D, culture as above Local wound care ordered, continue to elevate Left hand IV abx as per ID, on Vanco/zosyn Afebrile with improved WBC Problem List - Problems (1) Cellulitis and abscess of upper arm and forearm Code(s): OBS3802 -
--- NOTE | 2018-01-25 13:55 | PN ---
Progress Note (short form) - Note Progress Note: feels better dressing change just done by surgery Vital Signs Period Temp Pulse Resp BP Sys/Mas Pulse Ox Last 24 Hr 97.5 F-97.9 F 53-66 16-18 98-110/51-67 100-100 cor-rrr lungs clear abd soft,nt ext dressing intact, less swellig of the left forearm +dressing CBC, BMP 01/25/18 06:26 01/25/18 06:26 Microbiology 01/24/18 00:40 Urine - Urine Clean Catch Urine Culture - Final Yeast Like Organism 01/24/18 09:10 Arm - Left Forearm Gram Stain - Final 01/24/18 09:10 Arm - Left Forearm Wound Culture - Preliminary Presumptive Mrsa (Pbp2a Pos) 01/24/18 00:30 Blood - Peripheral Venous Blood Culture - Preliminary NO GROWTH OBTAINED AFTER 24 HOURS, INCUBATION TO CONTINUE FOR 4 DAYS. 01/24/18 00:30 Blood - Peripheral Venous Blood Culture - Preliminary NO GROWTH OBTAINED AFTER 24 HOURS, INCUBATION TO CONTINUE FOR 4 DAYS. HIV negative a/p MRSA abscess continue vancomycin d/c zosyn contact isolation IVDU- noted Problem List - Problems (1) Cellulitis and abscess of upper arm and forearm Code(s): [id number] - (2) Hepatitis C Code(s): B19.20 - UNSPECIFIED VIRAL HEPATITIS C WITHOUT HEPATIC COMA (3) Injection of illicit drug within last 12 months Code(s): F19.90 - OTHER PSYCHOACTIVE SUBSTANCE USE, UNSPECIFIED, UNCOMPLICATED
[2018-01-25] MEDS ORDERED: PT OWN MED DRAWER 7, Y5N ONE (14:30)
[2018-01-25] MEDS: traMADol HCL 50 MG TABLET PO PRN (14:46)
[2018-01-25] MEDS: Methylnaltrexone Bromide 12 MG/0.6 ML KIT SQ SCH (14:49)
[2018-01-25] MEDS: POLYETHYLENE GLYCOL 3350 119 GM BTL PO SCH (14:50)
[2018-01-25] MEDS: ONDANSETRON 4 MG/2 ML VIAL IVPUSH PRN (16:40)
[2018-01-25] MEDS ORDERED: SODIUM CHLORIDE 1,000 ML IV STA ×2 (17:09→21:51)
--- NOTE | 2018-01-25 17:09 | PN ---
Progress Note (short form) - Note Progress Note: UPDATE: Pt's EKG shows sinus bradycardia at 39bpm AK interval 144. Normal axis, normal R wave progression. Inverted T-waves in leads V1-V2. No evidence of R heart strain by S1Q3T3. No ST elevations or depressions. QTc 410 --unchanged from previous done on admission with exception to now being bradycardic Continue to monitor VS; fluid bolus is running Asked to evaluate pt due to being inhouse and worried about HR of 40's Briefly 27yo F with history of IVDA and polysubstance abuse who was currently being treated by Dr. Ho for abscess/cellulitis of L for-arm. Pt reportedly had no disturbances up to this point and had a visitor in her room. Pt was given her Ultram and miralax cups when visitor left room. Pt began to vigorously vomit multiple episodes without noted blood. At this point pt's vitals were taken which revealed a HR of 40bpm with BP 121/71 and SpO2 of 95% on RA. Pt reports not feeling well without any precipitating symptoms. Pt endorses some malaise currently with nausea. She also endorses some chills at the present time. Denies CP/discomfort, SOB, lightheadedness. Pt's father at bedside currently (apparently different from previous visitor). PE: Gen: Laying in bed with head flat, pale HEENT: EOMI, MURALI, sclera anicteric, dry-moist mucosa LUNGS: CTA b/l CARDIAC: Bradycardic, regular rhythm, no murmurs ABD: Soft, Nt/ND EXT: no edema, warm, cap refill <2 A/P Likely bradycardia induced by vasovagal tone from vomiting --Rpt vitals consistent with 127/79 and HR 42bpm --Will get EKG and compare for any changes --Pt not on any B-blockers/CCBs --Questionable circumstances surrounding previous visitor --Being that pt is maintaining BP and saturation will close monitor --NS 1L bolus due to pallor and emesis Multidrug positivity on UTox likely to have some withdrawals causing emesis. Pt already on methadone and has Xanax continued so not at risk for opiate or benzo withdrawal
--- NOTE | 2018-01-25 17:20 | CON.GI ---
Consult Consult Specialty:: GI Reason for Consultation:: Nausea, vomiting x 1 day - History of Present Illness History of Present Illness: chart reviewed. Events, consults noted. GI called for new onset Nausea and vomiting (x 1 day) onset while inpatient. New medications include relistor, mirlax, tramadol. Report feeling cold, chills, sweats. Reports no diarrheal symptoms, dysphagia, odynophagia, or abdominal pain. Refused abdominal exam b/c "not feeling well". Pt's father at bedside. - History Source History Provided By: Patient, Family Member, Medical Record - Past Medical History Hepatobiliary: Yes: Hepatitis C (reports treated in the past with interferon) ...LMP: 01/17/17 ...: No Additional Medical History: substance use- heroine and cocaine- on methodone - Past Surgical History Past Surgical History: Yes: Tonsillectomy - Alcohol/Substance Use Hx Alcohol Use: No - Smoking History Smoking history: Current every day smoker Have you smoked in the past 12 months: Yes Aproximately how many cigarettes per day: 20 - Social History Usual Living Arrangement: With Parent ADL: Independent Home Medications - Allergies Allergies/Adverse Reactions: Allergies Allergy/AdvReac Type Severity Reaction Status Date / Time No Known Allergies Allergy Verified 01/23/18 20:07 - Home Medications Home Medications: Ambulatory Orders Dextroamphetamine/Amphetamine [Adderall Xr 30 mg Capsule] 40 mg PO DAILY Alprazolam [Xanax] 1 mg PO HS 01/24/18 Family Disease History - Family Disease History Family Disease History: CA: Grandparent (Uncertain about type.), Other: Mother ( anxiety) Review of Systems Findings/Remarks: as per HPI, H&P Physical Exam-GI Vital Signs: Vital Signs Temperature 97.9 F 01/25/18 13:20 Pulse Rate 61 01/25/18 13:20 Respiratory Rate 18 01/25/18 13:20 Blood Pressure 110/67 01/25/18 13:20 O2 Sat by Pulse Oximetry (%) 100 01/24/18 21:00 Constitutional: Yes: Anxious, Diaphoresis, Mild Distress, Pallor, Thin Eyes: Yes: Conjunctiva Clear HENT: Yes: Atraumatic Neck: Yes: Supple Neurological: Yes: Alert Labs: CBC, BMP 01/25/18 06:26 01/25/18 06:26 INR, PTT INR 1.30 (0.82-1.09) H 01/24/18 00:30 Laboratory Last Values WBC 9.3 K/mm3 (4.0-10.0) D 01/25/18 06:26 RBC 4.37 M/mm3 (3.60-5.2) 01/25/18 06:26 Hgb 12.9 GM/dL (10.7-15.3) 01/25/18 06:26 Hct 38.5 % (32.4-45.2) 01/25/18 06:26 MCV 88.0 fl (80-96) 01/25/18 06:26 MCH 29.4 pg (25.7-33.7) 01/25/18 06:26 MCHC 33.4 g/dl (32.0-36.0) 01/25/18 06:26 RDW 13.4 % (11.6-15.6) 01/25/18 06:26 Plt Count 336 K/MM3 (134-434) 01/25/18 06:26 MPV 9.2 fl (7.5-11.1) 01/25/18 06:26 Neutrophils % 41.8 % (42.8-82.8) L D 01/25/18 06:26 Lymphocytes % 45.2 % (8-40) H D 01/25/18 06:26 Monocytes % 10.1 % (3.8-10.2) 01/25/18 06:26 Eosinophils % 2.6 % (0-4.5) D 01/25/18 06:26 Basophils % 0.3 % (0-2.0) 01/25/18 06:26 Nucleated RBC % 0 % (0-0) 01/25/18 06:26 PT with INR 14.70 SEC (9.7-13.0) H 01/24/18 00:30 INR 1.30 (0.82-1.09) H 01/24/18 00:30 PTT (Actin FS) 38.1 SECONDS (26.9-34.4) H 01/24/18 00:30 VBG pH 7.44 (7.32-7.42) H 01/24/18 00:30 POC VBG pCO2 39.3 mmHg (38-52) 01/24/18 00:30 POC VBG pO2 173.0 mmHg (28-48) H* 01/24/18 00:30 Mixed VBG HCO3 26.3 meq/L (19-25) H 01/24/18 00:30 Sodium 140 mmol/L (136-145) 01/25/18 06:26 Potassium 3.8 mmol/L (3.5-5.1) 01/25/18 06:26 Chloride 101 mmol/L (98-107) 01/25/18 06:26 Carbon Dioxide 32 mmol/L (21-32) 01/25/18 06:26 Anion Gap 7 (8-16) L 01/25/18 06:26 BUN 12 mg/dL (7-18) 01/25/18 06:26 Creatinine 0.7 mg/dL (0.55-1.02) 01/25/18 06:26 Creat Clearance w eGFR > 60 (>60) 01/24/18 00:30 Random Glucose 85 mg/dL (74-106) 01/25/18 06:26 Lactic Acid 1.1 mmol/L (0.0-2.0) 01/24/18 03:28 Calcium 8.9 mg/dL (8.5-10.1) 01/25/18 06:26 Phosphorus 4.1 mg/dL (2.5-4.9) 01/25/18 06:26 Magnesium 2.2 mg/dL (1.8-2.4) 01/25/18 06:26 Total Bilirubin 0.5 mg/dL (0.2-1.0) 01/24/18 00:30 AST 13 U/L (15-37) L 01/24/18 00:30 ALT 16 U/L (12-78) 01/24/18 00:30 Alkaline Phosphatase 78 U/L (45-117) 01/24/18 00:30 Troponin I < 0.02 ng/ml (0.00-0.05) 01/24/18 00:30 Total Protein 7.5 g/dl (6.4-8.2) 01/24/18 00:30 Albumin 3.8 g/dl (3.4-5.0) 01/24/18 00:30 Urine Color Mer 01/24/18 00:42 Urine Appearance Cloudy 01/24/18 00:42 Urine pH 5.0 (5.0-8.0) 01/24/18 00:42 Ur Specific [place] 1.027 (1.001-1.035) 01/24/18 00:42 Urine Protein 1+ (NEGATIVE) H 01/24/18 00:42 Urine Glucose (UA) 3+ (NEGATIVE) H 01/24/18 00:42 Urine Ketones Trace (NEGATIVE) H 01/24/18 00: Urine Blood 1+ (NEGATIVE) H 01/24/18 00:42 Urine Nitrite Negative (NEGATIVE) 01/24/18 00: Urine Bilirubin Negative (<2.0 mg/dL) 01/24/18: Urine Urobilinogen 2.0 mg/dL (0.2-1.0) H 01/24/18 00:42 Ur Leukocyte Esterase Negative (NEGATIVE) 01/24/18 00:42 Urine WBC (Auto) 5 /hpf (3-5) 01/24/18 00: Urine RBC (Auto) 12 /hpf (0-3) 01/24/18 00: Ur Epithelial Cells Many /HPF (FEW) 01/24/18 00:42 Urine Bacteria Few /hpf (NONE SEEN) 01/24/18 00: Hyaline Casts 10 /lpf 01/24/18 00: Urine Mucus Many 01/24/18 00: Urine HCG, Qual Negative 01/24/18 00:42 Opiates Screen Positive ng/ml (MUIAFT=041) 01/24/18 00:42 Methadone Screen Positive ng/ml (FFUPTQ=854) 01/24/18 00:42 Barbiturate Screen Negative ng/ml (TYGLHY=209) 01/24/18 00:42 Phencyclidine Screen Negative ng/ml (CUTOFF=25) 01/24/18 00:42 Ur Amphetamines Screen Positive ng/ml (BENNFZ=229) 01/24/18 00:42 MDMA (Ecstasy) Screen Negative ng/ml (PBUMMS=075) 01/24/18 00:42 Benzodiazepines Screen Positive ng/ml (YTSPYC=622) 01/24/18 00:42 Cocaine Screen Positive ng/ml (DZIFJG=745) 01/24/18 00:42 U Marijuana (THC) Screen Positive ng/ml (CUTOFF=50) 01/24/18 00:42 HIV 1&2 Antibody Screen Negative 01/25/18 06:26 HIV P24 Antigen Negative 01/25/18 06:26 Imaging - Results X-ray: Report Reviewed Assessment/Plan Acute onset nausea and vomiting in a patient with hx of drug abuse, and recently drained abscess. ? substance withdrawal symptoms, reaction to new medications, ? sepsis. Doubt gastritis, pancreatitis, biliary involvement at this time. Recommend stopping ultram, relistor. Septic work up, drug screen. Clear liquid diet as tolerated. Antiemetic PRN. Will follow
[2018-01-25] MEDS: ALPRAZolam 0.25 MG TABLET PO SCH (22:51)
[2018-01-26] MEDS ORDERED: PT OWN MED DRAWER 7, Y5N ONE ×5 (01:28→19:05)
[2018-01-26] MEDS: VANCOMYCIN 750 MG in DEXTROSE 5%-WATER - 250 ML IVPB SCH (02:31)
[2018-01-26] MEDS ORDERED: METHADONE HCL 40 MG DISPERSABLE TABLET ONE (05:38)
[2018-01-26] MEDS ORDERED: METHADONE HCL 10 MG TABLET ONE (05:39)
[2018-01-26] MEDS: METHADONE 80 MG, METHADONE 10 MG PO SCH (05:41)
[2018-01-26] MEDS: HEPARIN NA (PORCINE) 5,000 UNITS/ML 1ML VIAL SQ SCH ×3 (05:48→21:41)
[2018-01-26] MEDS: ONDANSETRON 4 MG/2 ML VIAL IVPUSH PRN (06:48)
--- NOTE | 2018-01-26 08:10 | PN ---
Progress Note (short form) - Note Progress Note: surgery s/p I&D forearm 01/24/18 patient seen and examined at bedside. Patient states she vomited several times yesterday and was not able to keep down her medications. She also felt like she had chills but no fever was documented. She denies any C/P, SOB, or new/worsening symptoms. Vital Signs Temp 98.2 F 01/26/18 06:00 Pulse 40 L 01/26/18 06:00 Resp 18 01/26/18 06:00 BP 119/77 01/26/18 06:00 Pulse Ox 98 01/25/18 21:00 Intake & Output 01/25/18 01/25/18 01/26/18 11:59 23:59 11:59 Intake Total 2250 200 Output Total 400 Balance 2250 -200 Intake: IV 2000 Normal Saline - 1,000 ml 2000 @ 1000 mls/hr IV ASDIR STA Rx#:[id number] IVPB 250 Oral 200 Output: Emesis 400 Other: Voiding Method Toilet Toilet # Unmeasured Voids Void 1 Bowel Movement No CBC, BMP 01/25/18 06:26 01/25/18 06:26 PE: A&Ox3, NAD unlabored resp on RA Left forearm with no erythema or edema. Approximately 2.5x2.5cm wound over volar aspect of distal 3rd forearm, cristopher purulant d/c seen in wound site. Pressure applied over volar aspect just proximal to wound extending up to middle of forearm reveals copious purulant d/c expressed. This was repeated until minimal d/c expressed. tissue over area is dense but not fluctuance. no evidence of tracking erythema. Patient is able to activate the flexor tendons fully without limitation or restriction. NVID over left hand and fingers. wound site packed and clean dressing applied. <Mer Garcia - Last Filed: 01/26/18 08:11> - Note Progress Note: Attending Surgeon Seen and evaluated; concur w/ a/p as above; proximal are is indurated but not fluctuant; continue LWC and antibiotics; Dr. Lenny Manzano will foloow on 01/27/18 and then I will get further coverage for 01/28/18 on onward. Otoniel Woods MD FACS <Otoniel Woods - Last Filed: 01/26/18 11:24> Problem List - Problems (1) Cellulitis and abscess of upper arm and forearm Assessment/Plan: S/p I&D with purulant d/c expressed, but no evidence of tenosynovitis. 1) Continue IVABX per ID 2 Daily packing 3) Pain management per medicine, patient has been hypotensive and bradycardic but stable most likely 2/2 meds including methadone. 4) surgery to follow closely, will re-evaluate later today and make recommendations should a change in management be necessary. Evaluation and plan discussed with Dr Woods. Code(s): [id number] - <Mer Garcia. - Last Filed: 01/26/18 08:11>
[2018-01-26] MEDS: traMADol HCL 50 MG TABLET PO PRN ×2 (08:16→17:49)
[2018-01-26] MEDS: NICOTINE 21 MG/24 HOURS TOPICAL PATCH TD SCH (10:36)
[2018-01-26] MEDS: POLYETHYLENE GLYCOL 3350 119 GM BTL PO SCH (10:38)
[2018-01-26] MEDS: Methylnaltrexone Bromide 12 MG/0.6 ML KIT SQ SCH (10:39)
--- NOTE | 2018-01-26 11:31 | PN ---
Progress Note, Physician Chief Complaint: awake alert nausea and vomiting resolved - Current Medication List Current Medications: Active Medications Acetaminophen (Tylenol -) 650 mg PO Q6H PRN PRN Reason: PAIN LEVEL 1-5 Last Admin: 01/25/18 23:10 Dose: 650 mg Alprazolam (Xanax -) 1 mg PO HS [facility] Last Admin: 01/25/18 22:51 Dose: Not Given Heparin Sodium (Porcine) (Heparin -) 5,000 unit SQ TID [facility] Last Admin: 01/26/18 05:48 Dose: Not Given Vancomycin HCl 750 mg/ (Dextrose) 250 mls @ 250 mls/hr IVPB Q12H [facility]; Protocol Last Admin: 01/26/18 02:31 Dose: 250 mls/hr Ibuprofen (Motrin -) 600 mg PO Q8H PRN PRN Reason: PAIN LEVEL 6-10 Last Admin: 01/25/18 05:50 Dose: 600 mg Magnesium Hydroxide (Milk Of Magnesia -) 30 ml PO Q8H PRN PRN Reason: INDIGESTION Methadone HCl 80 mg/ Methadone (HCl 10 mg) 90 mg PO DAILY@0600 [facility] Last Admin: 01/26/18 05:41 Dose: 90 mg Methylnaltrexone [place] (Relistor -) 8 mg SQ DAILY [facility] Last Admin: 01/26/18 10:39 Dose: Not Given Nicotine (Nicoderm Patch -) 21 mg TD DAILY [facility] Last Admin: 01/26/18 10:36 Dose: 21 mg Non-Formulary Medication (Dextroamphetamine/Amphetamine [Adderall Xr 30 Mg Capsule]) 40 mg PO DAILY [facility] Ondansetron HCl (Zofran Injection) 4 mg IVPUSH Q6H PRN PRN Reason: NAUSEA AND/OR VOMITING Last Admin: 01/26/18 06:48 Dose: 4 mg Polyethylene Glycol (Miralax (For Daily Use) -) 17 gm PO DAILY [facility] Last Admin: 01/26/18 10:38 Dose: Not Given Tramadol HCl (Ultram -) 50 mg PO Q6H PRN PRN Reason: PAIN LEVEL 6-10 Last Admin: 01/26/18 08:16 Dose: 50 mg - Objective Vital Signs: Vital Signs Temperature 98.0 F 01/26/18 09:00 Pulse Rate 50 L 01/26/18 10:00 Respiratory Rate 18 01/26/18 09:00 Blood Pressure 92/52 01/26/18 09:00 O2 Sat by Pulse Oximetry (%) 98 01/25/18 21:00 Constitutional: Yes: Mild Distress Eyes: Yes: WNL HENT: Yes: WNL Neck: Yes: WNL Cardiovascular: Yes: WNL Respiratory: Yes: WNL Gastrointestinal: Yes: WNL Genitourinary: Yes: WNL Musculoskeletal: Yes: WNL Extremities: Yes: WNL Edema: No Peripheral Pulses WNL: Yes Integumentary: Yes: WNL, Pressure Ulcer Wound/Incision: Yes: Dressing Dry and Intact Neurological: Yes: WNL ...Motor Strength: WNL Psychiatric: Yes: WNL Labs: CBC, BMP 01/25/18 06:26 01/25/18 06:26 INR, PTT INR 1.30 (0.82-1.09) H 01/24/18 00:30 Problem List - Problems (1) Cellulitis and abscess of upper arm and forearm Code(s): [id number] - (2) Injection of illicit drug within last 12 months Code(s): F19.90 - OTHER PSYCHOACTIVE SUBSTANCE USE, UNSPECIFIED, UNCOMPLICATED (3) Hepatitis C Code(s): B19.20 - UNSPECIFIED VIRAL HEPATITIS C WITHOUT HEPATIC COMA (4) Insomnia Code(s): G47.00 - INSOMNIA, UNSPECIFIED (5) MDD (major depressive disorder) Code(s): F32.9 - MAJOR DEPRESSIVE DISORDER, SINGLE EPISODE, UNSPECIFIED (6) Opioid dependence on agonist therapy Code(s): F11.20 - OPIOID DEPENDENCE, UNCOMPLICATED (7) Substance induced mood disorder Code(s): F19.94 - OTH PSYCHOACTIVE SUBSTANCE USE, UNSP W MOOD DISORDER (9) Alcohol dependence with uncomplicated withdrawal Code(s): F10.230 - ALCOHOL DEPENDENCE WITH WITHDRAWAL, UNCOMPLICATED (10) Anxiety Code(s): F41.9 - ANXIETY DISORDER, UNSPECIFIED (11) Bipolar disorder Code(s): F31.9 - BIPOLAR DISORDER, UNSPECIFIED Qualifiers: Active/Remission status: remission status unspecified Qualified Code(s): F31.9 - Bipolar disorder, unspecified Assessment/Plan miguel for endocarditis rule out iv abx per id pain control oob to chair school social worker for detox admission
[2018-01-26 12:49] VITALS: BMI 18.8
--- NOTE | 2018-01-26 13:35 | PN ---
Progress Note, Physician Chief Complaint: ID NO complaints Vancomcyin History of Present Illness: Pt has no complaints. Denies fever, chills. - Current Medication List Current Medications: Active Medications Acetaminophen (Tylenol -) 650 mg PO Q6H PRN PRN Reason: PAIN LEVEL 1-5 Last Admin: 01/25/18 23:10 Dose: 650 mg Alprazolam (Xanax -) 1 mg PO HS [facility] Last Admin: 01/25/18 22:51 Dose: Not Given Heparin Sodium (Porcine) (Heparin -) 5,000 unit SQ TID [facility] Last Admin: 01/26/18 05:48 Dose: Not Given Vancomycin HCl 750 mg/ (Dextrose) 250 mls @ 250 mls/hr IVPB Q12H [facility]; Protocol Last Admin: 01/26/18 02:31 Dose: 250 mls/hr Ibuprofen (Motrin -) 600 mg PO Q8H PRN PRN Reason: PAIN LEVEL 6-10 Last Admin: 01/25/18 05:50 Dose: 600 mg Magnesium Hydroxide (Milk Of Magnesia -) 30 ml PO Q8H PRN PRN Reason: INDIGESTION Methadone HCl 80 mg/ Methadone (HCl 10 mg) 90 mg PO DAILY@0600 [facility] Last Admin: 01/26/18 05:41 Dose: 90 mg Methylnaltrexone [place] (Relistor -) 8 mg SQ DAILY [facility] Last Admin: 01/26/18 10:39 Dose: Not Given Nicotine (Nicoderm Patch -) 21 mg TD DAILY [facility] Last Admin: 01/26/18 10:36 Dose: 21 mg Non-Formulary Medication (Dextroamphetamine/Amphetamine [Adderall Xr 30 Mg Capsule]) 40 mg PO DAILY [facility] Ondansetron HCl (Zofran Injection) 4 mg IVPUSH Q6H PRN PRN Reason: NAUSEA AND/OR VOMITING Last Admin: 01/26/18 06:48 Dose: 4 mg Polyethylene Glycol (Miralax (For Daily Use) -) 17 gm PO DAILY [facility] Last Admin: 01/26/18 10:38 Dose: Not Given Tramadol HCl (Ultram -) 50 mg PO Q6H PRN PRN Reason: PAIN LEVEL 6-10 Last Admin: 01/26/18 08:16 Dose: 50 mg - Objective Vital Signs: Vital Signs Temperature 98.0 F 01/26/18 09:00 Pulse Rate 50 L 01/26/18 10:00 Respiratory Rate 18 01/26/18 09:00 Blood Pressure 92/52 01/26/18 09:00 O2 Sat by Pulse Oximetry (%) 98 01/25/18 21:00 Constitutional: Yes: No Distress, Thin Extremities: Yes: Other (Left arm looked at with drain and surrounding induration min erythema tenderness) Wound/Incision: Yes: Clean/Dry, Other (Surrounding erythema, induration and mildly tender to palpation. Packed with dressing, wrapped in dry gauze.) Labs: CBC, BMP 01/25/18 06:26 01/25/18 06:26 INR, PTT INR 1.30 (0.82-1.09) H 01/24/18 00:30 Assessment/Plan Laboratory Tests 01/25/18 01/25/18 01/25/18 06:26 06:26 16:24 WBC 9.3 D Hct 38.5 Plt Count 336 Vancomycin Pre-Dose 7.043 HIV 1&2 Antibody Screen Negative HIV P24 Antigen Negative Assessment SSTI MRSA IVDA doing well Plan Increase Vancomycin but can be discharged Kim BLACK
--- NOTE | 2018-01-26 14:36 | PN ---
Progress Note, Physician History of Present Illness: Clinically much better. Denies nausea, abdominal pain, vomiting, diarrhea. Appears comfortable. - Current Medication List Current Medications: Active Medications Acetaminophen (Tylenol -) 650 mg PO Q6H PRN PRN Reason: PAIN LEVEL 1-5 Last Admin: 01/25/18 23:10 Dose: 650 mg Alprazolam (Xanax -) 1 mg PO HS [facility] Last Admin: 01/25/18 22:51 Dose: Not Given Heparin Sodium (Porcine) (Heparin -) 5,000 unit SQ TID [facility] Last Admin: 01/26/18 13:51 Dose: 5,000 unit Vancomycin HCl 1,000 mg/ (Dextrose) 250 mls @ 166.667 mls/hr IVPB Q12H [facility]; Protocol Ibuprofen (Motrin -) 600 mg PO Q8H PRN PRN Reason: PAIN LEVEL 6-10 Last Admin: 01/25/18 05:50 Dose: 600 mg Magnesium Hydroxide (Milk Of Magnesia -) 30 ml PO Q8H PRN PRN Reason: INDIGESTION Methadone HCl 80 mg/ Methadone (HCl 10 mg) 90 mg PO DAILY@0600 [facility] Last Admin: 01/26/18 05:41 Dose: 90 mg Methylnaltrexone [place] (Relistor -) 8 mg SQ DAILY [facility] Last Admin: 01/26/18 10:39 Dose: Not Given Nicotine (Nicoderm Patch -) 21 mg TD DAILY [facility] Last Admin: 01/26/18 10:36 Dose: 21 mg Non-Formulary Medication (Dextroamphetamine/Amphetamine [Adderall Xr 30 Mg Capsule]) 40 mg PO DAILY [facility] Ondansetron HCl (Zofran Injection) 4 mg IVPUSH Q6H PRN PRN Reason: NAUSEA AND/OR VOMITING Last Admin: 01/26/18 06:48 Dose: 4 mg Polyethylene Glycol (Miralax (For Daily Use) -) 17 gm PO DAILY [facility] Last Admin: 01/26/18 10:38 Dose: Not Given Tramadol HCl (Ultram -) 50 mg PO Q6H PRN PRN Reason: PAIN LEVEL 6-10 Last Admin: 01/26/18 08:16 Dose: 50 mg - Objective Vital Signs: Vital Signs Temperature 98.0 F 01/26/18 13:57 Pulse Rate 59 L 01/26/18 13:57 Respiratory Rate 18 01/26/18 13:57 Blood Pressure 98/53 01/26/18 13:57 O2 Sat by Pulse Oximetry (%) 98 01/26/18 08:00 Constitutional: Yes: No Distress, Calm Eyes: Yes: Conjunctiva Clear HENT: Yes: Atraumatic Neck: Yes: Supple Cardiovascular: Yes: Regular Rate and Rhythm Respiratory: Yes: Regular Gastrointestinal: Yes: Normal Bowel Sounds, Soft. No: Distention, Tenderness, Tenderness, Epigastrium, Tenderness, Rebound, Vomiting Neurological: Yes: Alert, Oriented. No: Tremors Labs: CBC, BMP 01/25/18 06:26 01/25/18 06:26 INR, PTT INR 1.30 (0.82-1.09) H 01/24/18 00:30 Laboratory Last Values WBC 9.3 K/mm3 (4.0-10.0) D 01/25/18 06:26 RBC 4.37 M/mm3 (3.60-5.2) 01/25/18 06:26 Hgb 12.9 GM/dL (10.7-15.3) 01/25/18 06:26 Hct 38.5 % (32.4-45.2) 01/25/18 06:26 MCV 88.0 fl (80-96) 01/25/18 06:26 MCH 29.4 pg (25.7-33.7) 01/25/18 06:26 MCHC 33.4 g/dl (32.0-36.0) 01/25/18 06:26 RDW 13.4 % (11.6-15.6) 01/25/18 06:26 Plt Count 336 K/MM3 (134-434) 01/25/18 06:26 MPV 9.2 fl (7.5-11.1) 01/25/18 06:26 Neutrophils % 41.8 % (42.8-82.8) L D 01/25/18 06:26 Lymphocytes % 45.2 % (8-40) H D 01/25/18 06:26 Monocytes % 10.1 % (3.8-10.2) 01/25/18 06:26 Eosinophils % 2.6 % (0-4.5) D 01/25/18 06:26 Basophils % 0.3 % (0-2.0) 01/25/18 06:26 Nucleated RBC % 0 % (0-0) 01/25/18 06:26 PT with INR 14.70 SEC (9.7-13.0) H 01/24/18 00:30 INR 1.30 (0.82-1.09) H 01/24/18 00:30 PTT (Actin FS) 38.1 SECONDS (26.9-34.4) H 01/24/18 00:30 VBG pH 7.44 (7.32-7.42) H 01/24/18 00:30 POC VBG pCO2 39.3 mmHg (38-52) 01/24/18 00:30 POC VBG pO2 173.0 mmHg (28-48) H* 01/24/18 00:30 Mixed VBG HCO3 26.3 meq/L (19-25) H 01/24/18 00:30 Sodium 140 mmol/L (136-145) 01/25/18 06:26 Potassium 3.8 mmol/L (3.5-5.1) 01/25/18 06:26 Chloride 101 mmol/L (98-107) 01/25/18 06:26 Carbon Dioxide 32 mmol/L (21-32) 01/25/18 06:26 Anion Gap 7 (8-16) L 01/25/18 06:26 BUN 12 mg/dL (7-18) 01/25/18 06:26 Creatinine 0.7 mg/dL (0.55-1.02) 01/25/18 06:26 Creat Clearance w eGFR > 60 (>60) 01/24/18 00:30 Random Glucose 85 mg/dL (74-106) 01/25/18 06:26 Lactic Acid 1.1 mmol/L (0.0-2.0) 01/24/18 03:28 Calcium 8.9 mg/dL (8.5-10.1) 01/25/18 06:26 Phosphorus 4.1 mg/dL (2.5-4.9) 01/25/18 06:26 Magnesium 2.2 mg/dL (1.8-2.4) 01/25/18 06:26 Total Bilirubin 0.5 mg/dL (0.2-1.0) 01/24/18 00:30 AST 13 U/L (15-37) L 01/24/18 00:30 ALT 16 U/L (12-78) 01/24/18 00:30 Alkaline Phosphatase 78 U/L (45-117) 01/24/18 00:30 Troponin I < 0.02 ng/ml (0.00-0.05) 01/24/18 00:30 Total Protein 7.5 g/dl (6.4-8.2) 01/24/18 00:30 Albumin 3.8 g/dl (3.4-5.0) 01/24/18 00:30 Urine Color Mer 01/24/18 00:42 Urine Appearance Cloudy 01/24/18 00:42 Urine pH 5.0 (5.0-8.0) 01/24/18 00:42 Ur Specific [place] 1.027 (1.001-1.035) 01/24/18 00:42 Urine Protein 1+ (NEGATIVE) H 01/24/18 00:42 Urine Glucose (UA) 3+ (NEGATIVE) H 01/24/18 00:42 Urine Ketones Trace (NEGATIVE) H 01/24/18 00:42 Urine Blood 1+ (NEGATIVE) H 01/24/18 00:42 Urine Nitrite Negative (NEGATIVE) 01/24/18 00:42 Urine Bilirubin Negative (<2.0 mg/dL) 01/24/18 00: Urine Urobilinogen 2.0 mg/dL (0.2-1.0) H 01/24/18 00:42 Ur Leukocyte Esterase Negative (NEGATIVE) 01/24/18 00:42 Urine WBC (Auto) 5 /hpf (3-5) 01/24/18 00:42 Urine RBC (Auto) 12 /hpf (0-3) 01/24/18 00:42 Ur Epithelial Cells Many /HPF (FEW) 01/24/18 00:42 Urine Bacteria Few /hpf (NONE SEEN) 01/24/18 00:42 Hyaline Casts 10 /lpf 01/24/18 00:42 Urine Mucus Many 01/24/18 00:42 Urine HCG, Qual Negative 01/24/18 00:42 Vancomycin Pre-Dose 7.043 ug/ml (5.0-10.0) 01/25/18 16:24 Opiates Screen Positive ng/ml (RYLFEC=605) 01/24/18 00:42 Methadone Screen Positive ng/ml (SPQAUU=960) 01/24/18 00:42 Barbiturate Screen Negative ng/ml (FHSLNT=248) 01/24/18 00:42 Phencyclidine Screen Negative ng/ml (CUTOFF=25) 01/24/18 00:42 Ur Amphetamines Screen Positive ng/ml (OFQBSM=384) 01/24/18 00:42 MDMA (Ecstasy) Screen Negative ng/ml (GDXSFV=376) 01/24/18 00:42 Benzodiazepines Screen Positive ng/ml (MFMPFB=465) 01/24/18 00:42 Cocaine Screen Positive ng/ml (FKIDBC=419) 01/24/18 00:42 U Marijuana (THC) Screen Positive ng/ml (CUTOFF=50) 01/24/18 00:42 HIV 1&2 Antibody Screen Negative 01/25/18 06:26 HIV P24 Antigen Negative 01/25/18 06:26 Problem List - Problems (1) Hepatitis C Code(s): B19.20 - UNSPECIFIED VIRAL HEPATITIS C WITHOUT HEPATIC COMA (2) Nausea and vomiting Code(s): R11.2 - NAUSEA WITH VOMITING, UNSPECIFIED Assessment/Plan Clinically improved. History of hep C with essentially normal liver chemistries. Ongoing substance abuse. Continue current care. Substance abuse rehab. Follow with GI when clean for at least 6 months for HCV treatment
[2018-01-26] MEDS: VANCOMYCIN 1,000 MG in DEXTROSE 5%-WATER - 250 ML IVPB SCH (15:50)
--- NOTE | 2018-01-26 16:32 | EKG ---
Test Reason : Blood Pressure : / mmHG Vent. Rate : 039 BPM Atrial Rate : 039 BPM P-R Int : 144 ms QRS Dur : 092 ms QT Int : 510 ms P-R-T Axes : 058 068 052 degrees QTc Int : 410 ms MARKED SINUS BRADYCARDIA CANNOT RULE OUT ANTERIOR INFARCT , AGE UNDETERMINED ABNORMAL ECG WHEN COMPARED WITH ECG OF 24-JAN-2018 01:02, VENT. RATE HAS DECREASED BY 31 BPM Confirmed by MARILIA BLACK, BERNADINE ([id number]) on 01/26/2018 4:32:02 PM Referred By: Confirmed By:BERNADINE CAPELLAN MD
--- NOTE | 2018-01-26 17:09 | CON.CARD ---
Consult Consult Specialty:: Cardiology Referred by:: Dr. Ho Reason for Consultation:: Asked to evaluate and perform KENN - History of Present Illness Chief Complaint: MRSA abscess History of Present Illness: 27 year old female with past medical history of IVDA-cocaine and heroin, bipolar disorder admitted with MRSA arm abscess. pt had a transthoracic echo that could not rule out endocarditis. - History Source History Provided By: Patient Limitations to Obtaining History: No Limitations - Past Medical History Hepatobiliary: Yes: Hepatitis C (reports treated in the past with interferon) ...LMP: 01/17/17 ...: No Additional Medical History: substance use- heroine and cocaine- on methodone - Past Surgical History Past Surgical History: Yes: Tonsillectomy - Alcohol/Substance Use Hx Alcohol Use: No - Smoking History Smoking history: Current every day smoker Have you smoked in the past 12 months: Yes Aproximately how many cigarettes per day: 20 - Social History Usual Living Arrangement: With Parent ADL: Independent Home Medications - Allergies Allergies/Adverse Reactions: Allergies Allergy/AdvReac Type Severity Reaction Status Date / Time No Known Allergies Allergy Verified 01/23/18 20:07 - Home Medications Home Medications: Ambulatory Orders Dextroamphetamine/Amphetamine [Adderall Xr 30 mg Capsule] 40 mg PO DAILY Alprazolam [Xanax] 1 mg PO HS 01/24/18 Family Disease History - Family Disease History Family Disease History: CA: Grandparent (Uncertain about type.), Other: Mother ( anxiety) Review of Systems - Review of Systems Constitutional: denies: No Symptoms, Chills, Diaphoresis, Fever, Lethargy, Loss of Appetite, Malaise, Night Sweats, Unintentional Wgt. Loss, Weakness, Other Eyes: denies: No Symptoms, Blind Spots, Blurred Vision, Double Vision, Eye Pain , Floaters, Photophobia, Recent Change in Vision, Other HENT: denies: No Symptoms, Difficult Swallowing, Ear Discharge, Ear Pain, Epistaxis, Gingival Bleeding, Hearing Loss, Mouth Swelling, Nasal Congestion, Ocular Prosthesis, Throat Pain, Toothache, Ringing in Ears, Other Neck: denies: No Symptoms, Decreased ROM, Lumps, Pain on Movement, Stiffness, Swollen Glands, Tenderness, Other Cardiovascular: denies: No Symptoms, Chest Pain, Edema, Palpitations, Shortness of Breath, Other Respiratory: denies: No Symptoms, Cough, Exercise Intolerance, Hemoptysis, Orthopnea, PND, Snoring, SOB, SOB on Exertion, Wheezing, Other Gastrointestinal: denies: No Symptoms, Abdominal Pain, Bloating, Constipation, Diarrhea, Dysphagia, Indigestion, Melena, Nausea, Rectal Bleeding, Vomiting, Vomiting Blood, Other Genitourinary: denies: No Symptoms, Burning, Discharge, Dysuria, Flank Pain, Frequency, Hematuria, Incontinence, Lesions, Menses, Pain, Testicular Mass, Testicular Pain, Testicular Swelling, Urgency, Vaginal Bleeding, Other Breasts: denies: No Symptoms Reported, See HPI, Breast Implants, Discharge from Nipple, Lumps, Pain, Skin Changes, Other Musculoskeletal: denies: No Symptoms, Back Pain, Crepitus, Decreased ROM, Extremity Pain, Joint Pain, Joint Swelling, Muscle Pain, Muscle Cramps, Muscle Weakness, Other Integumentary: denies: No Symptoms, Blister, Bruising, Change in Color, Eczema, Erythema, Incision, Lesions, Lump, Pallor, Pruritis, Rash, Wound, Other Neurological: denies: No Symptoms, Change in LOC, Change in Speech, Confusion, Dizziness, Headache, Incoordination, Numbness, Parasthesia, Pre-Existing Deficit , Seizure, Syncope, Tremors, Unsteady Gait, Weakness, Other Endocrine: denies: No Symptoms, Excessive Sweating, Flushing, Increased Hunger, Increased Thirst, Intolerance to Cold, Intolerance to Heat, Unexplained Weight Gain, Unexplained Weight Loss, Other Hematology/Lymphatic: denies: No Symptoms, Easily Bruised, Excessive Bleeding, Swollen Glands, Other Psychiatric: denies: No Symptoms, Altered Sleep Pattern, Anxiety, Depression, Hallucinations, Panic, Paranoia, Suicidal, Other Vital Signs: Vital Signs Temperature 98.0 F 01/26/18 13:57 Pulse Rate 59 L 01/26/18 13:57 Respiratory Rate 18 01/26/18 13:57 Blood Pressure 98/53 01/26/18 13:57 O2 Sat by Pulse Oximetry (%) 98 01/26/18 08:00 Constitutional: Yes: Well Nourished, No Distress, Calm Eyes: Yes: WNL, Conjunctiva Clear, EOM Intact, PERRL HENT: Yes: WNL, Atraumatic, Normocephalic Neck: Yes: WNL, Supple, Trachea Midline Respiratory: Yes: WNL, Regular, CTA Bilaterally Gastrointestinal: Yes: WNL, Normal Bowel Sounds, Soft. No: Distention, Tenderness Cardiovascular: Yes: Regular Rate and Rhythm. No: Bradycardia, Tachycardia, Pulse Irregular, Gallop, Rub, Varicosities JVD: No Carotid Bruit: No Heart Sounds: Yes: S1, S2. No: Split S2, S3, S4, Clicks, Gallop, Rub, Bruit Murmur: No: Systolic Murmur, Diastolic Murmur Musculoskeletal: Yes: WNL Extremities: Yes: WNL Edema: No Peripheral Pulses WNL: Yes Peripheral Pulses: 2+ Left Doralis Pedis, 2+ Right Dorsalis Pedis Integumentary: Yes: Other (dressing in place) Neurological: Yes: Alert, Oriented Psychiatric: Yes: Alert, Oriented - Other Data Labs, Other Data: CBC, BMP 01/25/18 06:26 01/25/18 06:26 INR, PTT INR 1.30 (0.82-1.09) H 01/24/18 00:30 ekg-nsr, biatrial enlargement no sig st abnl, normal intervals Echo: Report Reviewed Imaging - Results Chest X-ray: Report Reviewed, Image Reviewed EKG: Report Reviewed, Image Reviewed Other: Report Reviewed, Image Reviewed Assessment/Plan R/o endocarditis -unlikely, blood cultures negative, but pt with IVDU and MRSA skin lesion -2d echo could not rule out vegetation -discussed risks benefits alternatives of KENN with pt and she agrees to proceed -keep npo except meds after midnight -was unable to book the case for tomorrow am as endoscopy was closed at this time but will plan for am
[2018-01-26] MEDS: ALPRAZolam 0.25 MG TABLET PO SCH (21:41)
[2018-01-27] MEDS: VANCOMYCIN 1,000 MG in DEXTROSE 5%-WATER - 250 ML IVPB SCH ×2 (02:33→15:00)
[2018-01-27] MEDS ORDERED: METHADONE HCL 40 MG DISPERSABLE TABLET ONE (06:00)
[2018-01-27] MEDS ORDERED: METHADONE HCL 10 MG TABLET ONE (06:01)
[2018-01-27] MEDS: METHADONE 80 MG, METHADONE 10 MG PO SCH (06:27)
[2018-01-27] MEDS: HEPARIN NA (PORCINE) 5,000 UNITS/ML 1ML VIAL SQ SCH ×3 (06:28→21:20)
[2018-01-27] MEDS: ONDANSETRON 4 MG/2 ML VIAL IVPUSH PRN (06:53)
[2018-01-27 07:58] LABS: HEMATOCRIT 36.1 % (32.4-45.2); HEMOGLOBIN 12.1 GM/dL (10.7-15.3); MCHC 33.6 g/dl (32.0-36.0); MEAN CELL VOLUME 86.2 fl (80-96); MEAN PLT VOLUME 8.2 fl (7.5-11.1); PLATELET COUNT 439 K/MM3 (134-434); RBC 4.18 M/mm3 (3.60-5.2); RDW 13.1 % (11.6-15.6); WHITE BLOOD COUNT 8.9 K/mm3 (4.0-10.0)
[2018-01-27 08:05] LABS: ALBUMIN 3.4 g/dl (3.4-5.0); ANION GAP 8 (8-16); BLOOD UREA NITROGEN 4 mg/dL (7-18); CHLORIDE 105 mmol/L (98-107); CO2 28 mmol/L (21-32); GLUCOSE,RANDOM 116 mg/dL (74-106); POTASSIUM 3.4 mmol/L (3.5-5.1); SGOT/AST 11 U/L (15-37); SGPT/ALT 16 U/L (12-78); SODIUM 141 mmol/L (136-145)
[2018-01-27 08:08] LABS: ALK PHOS 61 U/L (45-117); BILIRUBIN,TOTAL 0.5 mg/dL (0.2-1.0); CREATININE 0.6 mg/dL (0.55-1.02); TOT PROT 6.7 g/dl (6.4-8.2)
--- NOTE | 2018-01-27 08:13 | PN ---
Progress Note (short form) - Note Progress Note: surgery s/p I&D forearm 01/24/18 patient seen and examined at bedside. Of note: The Patient admits to injecting at site over several weeks and opened the abscess at home with a needle but has not injected the site for a while. Patient states she has continue to vomit when she takes her methadone. She states the pain is local over the volar aspect of the forearm and she denies any new or worsening symptoms including CP, SOB, Fever or chills. Vital Signs Temp 98.4 F 01/27/18 06:00 Pulse 50 L 01/27/18 06:00 Resp 18 01/27/18 06:00 BP 124/79 01/27/18 06:00 Pulse Ox 100 01/26/18 21:00 Intake & Output 01/26/18 01/26/18 01/27/18 11:59 23:59 11:59 Intake Total 200 650 650 Output Total 400 400 Balance -200 650 250 Weight 124 lb Intake: IVPB 250 250 Oral 200 400 400 Output: Emesis 400 400 Other: Voiding Method Toilet Toilet # Unmeasured Voids Void 1 1 Bowel Movement No Height 5 ft 8 in Body Mass Index (BMI) 18.8 CBC, BMP 01/27/18 07:25 01/27/18 07:25 A&Ox3, NAD unlabored resp on RA Left forearm with no erythema edema or indurration. Slight peticial rash noted over volar forearm extending over biceps. Approximately 2.5x2.5cm wound over volar aspect of distal 3rd forearm, cristopher purulant d/c seen in wound site. Pressure applied over volar aspect just proximal to wound extending up to middle of forearm reveals @ 30cc of purulant d/c expressed. This was repeated until minimal d/c expressed produces significantly less d/c than yesterdays exam. tissue over area is dense but not fluctuance. no evidence of tracking erythema. Patient is able to activate the flexor tendons fully without limitation or restriction. NVID over left hand and fingers. wound site packed and clean dressing applied. Problem List - Problems (1) Cellulitis and abscess of upper arm and forearm Assessment/Plan: S/p I&D with purulant d/c expressed, but no evidence of tenosynovitis. 1) NPO for OR I&D today with Dr Reaves 2) Continue IVABX per ID 3) pain management Evaluation and plan discussed with Dr Woods and Dr Reaves (covering for Peggy) Code(s): [id number] -
[2018-01-27] MEDS ORDERED: LIDOCAINE VISCOUS 2% ORAL/TOP 20 ML UNIT-DOSE CUP ONE (08:52)
[2018-01-27] MEDS ORDERED: PROPOFOL 20 ML ONE ×5 (08:52→15:38)
--- NOTE | 2018-01-27 09:44 | PN ---
Progress Note (short form) - Note Progress Note: KENN performed today with anesthesia. Final report to follow. Pt tolerated procedure well without complications. There is no echocardiographic evidence of endocarditis. No vegetations seen. Keep NPO for 2 hours post procedure then check gag reflex. If gag reflex positive can resume previous diet. No additional inpatient cardiac work up planned at this time. Of note pt sinus carlotta 40s prior to procedure, HR increased to 60s during procedure. Bradycardia likely related to opiate use, heroine and methadone as well as nausea and vomiting and likely increased vagal tone. Please call with any additional questions.
[2018-01-27] MEDS ORDERED: POTASSIUM CHLORIDE TABS 10 MEQ TABLET.ER (FP) PO ONE ×3 (10:03→17:15)
--- NOTE | 2018-01-27 10:06 | PN ---
Progress Note, Physician Chief Complaint: S/P KENN , NEGATIVE FOR VEGETATIONS STILL HAS PUS FROM WOUND - Current Medication List Current Medications: Active Medications Acetaminophen (Tylenol -) 650 mg PO Q6H PRN PRN Reason: PAIN LEVEL 1-5 Last Admin: 01/25/18 23:10 Dose: 650 mg Alprazolam (Xanax -) 1 mg PO HS [facility] Last Admin: 01/26/18 21:41 Dose: 1 mg Heparin Sodium (Porcine) (Heparin -) 5,000 unit SQ TID [facility] Last Admin: 01/27/18 06:28 Dose: Not Given Vancomycin HCl 1,000 mg/ (Dextrose) 250 mls @ 166.667 mls/hr IVPB Q12H [facility]; Protocol Last Admin: 01/27/18 02:33 Dose: 166.667 mls/hr Ibuprofen (Motrin -) 600 mg PO Q8H PRN PRN Reason: PAIN LEVEL 6-10 Last Admin: 01/25/18 05:50 Dose: 600 mg Magnesium Hydroxide (Milk Of Magnesia -) 30 ml PO Q8H PRN PRN Reason: INDIGESTION Methadone HCl 80 mg/ Methadone (HCl 10 mg) 90 mg PO DAILY@0600 [facility] Last Admin: 01/27/18 06:27 Dose: 90 mg Methylnaltrexone [place] (Relistor -) 8 mg SQ DAILY [facility] Last Admin: 01/26/18 10:39 Dose: Not Given Nicotine (Nicoderm Patch -) 21 mg TD DAILY [facility] Last Admin: 01/26/18 10:36 Dose: 21 mg Non-Formulary Medication (Dextroamphetamine/Amphetamine [Adderall Xr 30 Mg Capsule]) 40 mg PO DAILY [facility] Ondansetron HCl (Zofran Injection) 4 mg IVPUSH Q6H PRN PRN Reason: NAUSEA AND/OR VOMITING Last Admin: 01/27/18 06:53 Dose: 4 mg Polyethylene Glycol (Miralax (For Daily Use) -) 17 gm PO DAILY [facility] Last Admin: 01/26/18 10:38 Dose: Not Given Tramadol HCl (Ultram -) 50 mg PO Q6H PRN PRN Reason: PAIN LEVEL 6-10 Last Admin: 01/26/18 17:49 Dose: 50 mg - Objective Vital Signs: Vital Signs Temperature 97.9 F 01/27/18 09:42 Pulse Rate 48 L 01/27/18 09:42 Respiratory Rate 20 01/27/18 09:42 Blood Pressure 109/62 01/27/18 09:42 O2 Sat by Pulse Oximetry (%) 98 01/27/18 09:42 Constitutional: Yes: Mild Distress Eyes: Yes: WNL HENT: Yes: WNL Neck: Yes: WNL Cardiovascular: Yes: WNL Respiratory: Yes: WNL Gastrointestinal: Yes: WNL Genitourinary: Yes: WNL Musculoskeletal: Yes: Other Extremities: Yes: Other Edema: No Peripheral Pulses WNL: Yes Integumentary: Yes: Other Wound/Incision: Yes: Draining (UPPER EXTREMITY WOUND) Neurological: Yes: WNL ...Motor Strength: WNL Psychiatric: Yes: Other Labs: CBC, BMP 01/27/18 07:25 01/27/18 07:25 INR, PTT INR 1.30 (0.82-1.09) H 01/24/18 00:30 Problem List - Problems (1) Cellulitis and abscess of upper arm and forearm Code(s): [id number] - (2) Injection of illicit drug within last 12 months Code(s): F19.90 - OTHER PSYCHOACTIVE SUBSTANCE USE, UNSPECIFIED, UNCOMPLICATED (3) Hepatitis C Code(s): B19.20 - UNSPECIFIED VIRAL HEPATITIS C WITHOUT HEPATIC COMA (4) Insomnia Code(s): G47.00 - INSOMNIA, UNSPECIFIED (5) MDD (major depressive disorder) Code(s): F32.9 - MAJOR DEPRESSIVE DISORDER, SINGLE EPISODE, UNSPECIFIED (6) Opioid dependence on agonist therapy Code(s): F11.20 - OPIOID DEPENDENCE, UNCOMPLICATED (7) Substance induced mood disorder Code(s): F19.94 - OTH PSYCHOACTIVE SUBSTANCE USE, UNSP W MOOD DISORDER (9) Alcohol dependence with uncomplicated withdrawal Code(s): F10.230 - ALCOHOL DEPENDENCE WITH WITHDRAWAL, UNCOMPLICATED (10) Anxiety Code(s): F41.9 - ANXIETY DISORDER, UNSPECIFIED (11) Bipolar disorder Code(s): F31.9 - BIPOLAR DISORDER, UNSPECIFIED Qualifiers: Active/Remission status: remission status unspecified Qualified Code(s): F31.9 - Bipolar disorder, unspecified Assessment/Plan KENN NEGATIVE FOR VEGETATIONS IV ABX PER ID ON VANCO OOB TO CHAIR SURGERY F/U WOUND INFECTION
--- NOTE | 2018-01-27 10:09 | CONSULT ---
Consult Consult Specialty:: hand and microsurgery Referred by:: Peggy Reason for Consultation:: more extensive abscess forearm - History of Present Illness Chief Complaint: abscess forearm History of Present Illness: 27 yo RHD female PMH IVDA-cocaine and heroin, bipolar disorder who presented to the ED with redness and swelling to left arm. Pt reports she noticed the redness a few days ago. She went to [place] ED yesterday but left because she was waiting for 7 hours. She then went home and she and her partner attempted to pop the abscess with a needle. She reports a little dark colored fluid came out but not much. She states that she has been unable to make it to her methadone program due to the pain for the past 3 days, She has ne ID at the bedside on 01/24 but it has been persistently indurated and draining purulent drainage. we were asked to asssess - History Source History Provided By: Patient, Medical Record Limitations to Obtaining History: No Limitations - Past Medical History Hepatobiliary: Yes: Hepatitis C (reports treated in the past with interferon) ...LMP: 01/17/17 ...: No Additional Medical History: substance use- heroine and cocaine- on methodone - Past Surgical History Past Surgical History: Yes: Tonsillectomy - Alcohol/Substance Use Hx Alcohol Use: No - Smoking History Smoking history: Current every day smoker Have you smoked in the past 12 months: Yes Aproximately how many cigarettes per day: 20 - Social History Usual Living Arrangement: With Parent ADL: Independent Place of : [facility] History of Recent Travel: No Home Medications - Allergies Allergies/Adverse Reactions: Allergies Allergy/AdvReac Type Severity Reaction Status Date / Time No Known Allergies Allergy Verified 01/23/18 20:07 - Home Medications Home Medications: Ambulatory Orders Dextroamphetamine/Amphetamine [Adderall Xr 30 mg Capsule] 40 mg PO DAILY Alprazolam [Xanax] 1 mg PO HS 01/24/18 Family Disease History - Family Disease History Family Disease History: CA: Grandparent (Uncertain about type.), Other: Mother ( anxiety) Review of Systems - Review of Systems Constitutional: denies: Chills, Fever Eyes: denies: Blurred Vision, Recent Change in Vision HENT: denies: Difficult Swallowing, Throat Pain Neck: denies: Pain on Movement, Tenderness Cardiovascular: denies: Chest Pain, Palpitations Respiratory: denies: Cough, SOB Gastrointestinal: denies: Abdominal Pain, Constipation, Diarrhea Breasts: reports: No Symptoms Reported. denies: Pain Musculoskeletal: denies: Muscle Pain, Muscle Weakness Integumentary: denies: Erythema, Lesions, Rash Neurological: denies: Seizure, Syncope Endocrine: denies: Unexplained Weight Gain, Unexplained Weight Loss Hematology/Lymphatic: denies: Easily Bruised, Excessive Bleeding Psychiatric: denies: Altered Sleep Pattern, Anxiety Physical Exam Vital Signs: Vital Signs Temperature 97.9 F 01/27/18 09:42 Pulse Rate 48 L 01/27/18 09:42 Respiratory Rate 20 01/27/18 09:42 Blood Pressure 109/62 01/27/18 09:42 O2 Sat by Pulse Oximetry (%) 98 01/27/18 09:42 Vital Signs Period Temp Pulse Resp BP Sys/Mas Pulse Ox Last 24 Hr 97.9 F-98.6 F 44-67 17-20 98-124/53-79 98-100 Constitutional: Yes: Well Nourished, No Distress, Calm Eyes: Yes: Conjunctiva Clear, EOM Intact HENT: Yes: Atraumatic, Normocephalic Neck: Yes: Supple, Trachea Midline Cardiovascular: Yes: Regular Rate and Rhythm, S1, S2 Respiratory: Yes: Regular, CTA Bilaterally Gastrointestinal: Yes: Normal Bowel Sounds, Soft. No: Tenderness ...Rectal Exam: Yes: Deferred Renal/: No: CVA Tenderness - Left, CVA Tenderness - Right Musculoskeletal: No: Muscle Pain, Muscle Weakness Extremities: No: Cool, Cyanosis Edema: Yes Edema: LUE: Trace Integumentary: Yes: Erythema, Incision (left volar forearm) Wound/Incision: Yes: Draining, Reddened, Unapproximated ([id number] volar ulnar aspect distal one third of forearm over FCU, purulent drainge), Other ( indurated) Neurological: Yes: Alert, Oriented Psychiatric: Yes: Alert, Oriented Labs: CBC, BMP 01/27/18 07:25 01/27/18 07:25 Imaging - Results X-ray: Report Reviewed (soft tissue swelling no FB seen), Image Reviewed Problem List - Problems (1) Abscess of forearm, left Assessment/Plan: 27 yo female IVDU with persistently draining left forearm abscess, possible infected thrombophlebitis NPO and IVF hydration IV antibiotics elevation of left arm physical therapy evaluation Discussed with patient risks, benefits and alternatives of irrigation and debridement of left forearm abscess, possible excision of infected thrombophlebitis, including but not limited to bleeding, infection, injury to adjacent structures, leak or injury, intraabdominal abscess, need for further procedures, ; alternatives include antibiotics, delayed or no surgery - risks of this include failure of nonoperative therapy, perforation, sepsis, recurrence, . Patient desires to proceed with operation - will take to OR for above. Informed consent signed for same. Thank you for the opportunity to participate in the care of this patient. Code(s): L02.414 - CUTANEOUS ABSCESS OF LEFT UPPER LIMB (2) Injection of illicit drug within last 12 months Code(s): F19.90 - OTHER PSYCHOACTIVE SUBSTANCE USE, UNSPECIFIED, UNCOMPLICATED (3) Hepatitis C Code(s): B19.20 - UNSPECIFIED VIRAL HEPATITIS C WITHOUT HEPATIC COMA (4) Opioid dependence on agonist therapy Code(s): F11.20 - OPIOID DEPENDENCE, UNCOMPLICATED (5) Substance induced mood disorder Code(s): F19.94 - OTH PSYCHOACTIVE SUBSTANCE USE, UNSP W MOOD DISORDER (6) Opioid dependence with withdrawal Code(s): F11.23 - OPIOID DEPENDENCE WITH WITHDRAWAL (7) Bipolar II disorder Code(s): F31.81 - BIPOLAR II DISORDER
[2018-01-27] MEDS: POLYETHYLENE GLYCOL 3350 119 GM BTL PO SCH (12:31)
[2018-01-27] MEDS ORDERED: PT OWN MED DRAWER 7, Y5N ONE ×2 (12:42→14:57)
[2018-01-27] MEDS: NICOTINE 21 MG/24 HOURS TOPICAL PATCH TD SCH (12:44)
[2018-01-27] MEDS: Methylnaltrexone Bromide 12 MG/0.6 ML KIT SQ SCH (12:45)
[2018-01-27] MEDS ORDERED: fentaNYL CITRATE 250 MCG/5 ML VIAL ONE ×2 (15:38→15:58)
[2018-01-27] MEDS ORDERED: SUCCINYLCHOLINE CHLORIDE 200 MG/10 ML VIAL ONE (15:38)
[2018-01-27] MEDS ORDERED: MIDAZOLAM HCL 2 MG/2 ML SINGLE DOSE VIAL ONE ×2 (15:38)
[2018-01-27] MEDS ORDERED: BUPIVACAINE HCL/PF 0.5% (5MG/ML) 10 ML VIAL ONE (15:38)
[2018-01-27] MEDS ORDERED: LIDOCAINE HCL/PF 2% SDV 5ML VIAL ONE (15:40)
[2018-01-27] MEDS ORDERED: ceFAZolin SODIUM 1 GM VIAL IVPB ONE (15:55)
[2018-01-27] MEDS ORDERED: DEXAMETHASONE SOD PHOSPHATE 4 MG/1 ML VIAL ONE (15:57)
[2018-01-27] MEDS ORDERED: ceFAZolin SODIUM 1 GM VIAL ONE (16:04)
[2018-01-27] MEDS ORDERED: BUPIVACAINE HCL/PF 0.5% (5MG/ML) 10 ML VIAL IJ ONE ×2 (16:06)
--- NOTE | 2018-01-27 16:40 | OP ---
Operative Note - Note: Operative Date: 01/27/18 Pre-Operative Diagnosis: left volar forearm abscess Operation: Incison and drainage of left forearm abscess and ligation of infected thombophlebitis Findings: distal third of the left volar forearm has an abscess and infected thrombosed superfical vein over lying ulnar nerve. It was ligated. culture was sent. Post-Operative Diagnosis: Same as Pre-op Surgeon: Wali Reaves Anesthesiologist/CARE TRANSPORT NURSE: Dinesh Rodriguez Anesthesia: General, Local (0.5% marcaine ) Specimens Removed: none Estimated Blood Loss (mls): 2 Instrument used (Debridements only): scapple and littler scissors Fluid Volume Replaced (mls): 800 Operative Report Dictated: Yes
[2018-01-27] MEDS ORDERED: MAGNESIUM HYDROX 2400MG/30ML ORAL SUSPENSION 30 ML CUP PO PRN (17:01)
[2018-01-27] MEDS ORDERED: ACETAMINOPHEN 325 MG TABLET (FP) PO PRN (17:01)
[2018-01-27] MEDS ORDERED: morphine CARPU-JECT 2 MG/1 ML DISP.SYRIN IVPUSH ONE (20:00)
[2018-01-27] MEDS: ALPRAZolam 0.25 MG TABLET PO SCH (21:19)
[2018-01-28] MEDS: LACTATED RINGERS SOLUTION 1,000 ML IV SCH ×2 (00:34→17:00)
[2018-01-28] MEDS ORDERED: VANCOMYCIN 1,000 MG in DEXTROSE 5%-WATER - 250 ML IVPB SCH (03:00)
[2018-01-28] MEDS ORDERED: PT OWN MED DRAWER 7, Y5N ONE ×3 (05:47→11:26)
[2018-01-28] MEDS: VANCOMYCIN 1,000 MG in DEXTROSE 5%-WATER - 250 ML IVPB SCH ×2 (05:52→17:29)
[2018-01-28] MEDS: ONDANSETRON 4 MG/2 ML VIAL IVPUSH PRN (05:53)
[2018-01-28] MEDS: HEPARIN NA (PORCINE) 5,000 UNITS/ML 1ML VIAL SQ SCH ×3 (06:14→21:31)
[2018-01-28] MEDS ORDERED: METHADONE HCL 10 MG TABLET ONE (06:26)
[2018-01-28] MEDS ORDERED: METHADONE HCL 40 MG DISPERSABLE TABLET ONE (06:26)
[2018-01-28] MEDS: METHADONE 80 MG, METHADONE 10 MG PO SCH (06:41)
--- NOTE | 2018-01-28 09:36 | PN ---
Progress Note, Physician Chief Complaint: left forearm abscess History of Present Illness: 27 yo RHD female PMH IVDA-cocaine and heroin, bipolar disorder who presented to the ED with redness and swelling to left arm. Pt reports she noticed the redness a few days ago. she was stable overnight. complains of pain in the arm. - Current Medication List Current Medications: Active Medications Acetaminophen (Tylenol -) 650 mg PO Q6H PRN PRN Reason: FEVER Alprazolam (Xanax -) 1 mg PO HS [facility] Last Admin: 01/27/18 21:19 Dose: 1 mg Heparin Sodium (Porcine) (Heparin -) 5,000 unit SQ TID [facility] Last Admin: 01/28/18 06:14 Dose: Not Given Lactated Ringer's (Lactated Ringers Solution) 1,000 mls @ 75 mls/hr IV ASDIR [facility] Last Admin: 01/28/18 00:34 Dose: 75 mls/hr Vancomycin HCl 1,000 mg/ (Dextrose) 250 mls @ 166.667 mls/hr IVPB BID@0600, 1800 [facility]; Protocol Last Admin: 01/28/18 05:52 Dose: 166.667 mls/hr Ibuprofen (Motrin -) 600 mg PO Q8H PRN PRN Reason: PAIN LEVEL 1 - 3 Ketorolac Tromethamine (Toradol Injection -) 30 mg IVPUSH Q6H PRN PRN Reason: PAIN LEVEL 7 - 10 Stop: 02/01/18 18:02 Magnesium Hydroxide (Milk Of Magnesia -) 30 ml PO Q8H PRN PRN Reason: INDIGESTION Methadone HCl 80 mg/ Methadone (HCl 10 mg) 90 mg PO DAILY@0600 [facility] Last Admin: 01/28/18 06:41 Dose: 90 mg Methylnaltrexone [place] (Relistor -) 8 mg SQ DAILY [facility] Nicotine (Nicoderm Patch -) 21 mg TD DAILY [facility] Ondansetron HCl (Zofran Injection) 4 mg IVPUSH Q6H PRN PRN Reason: NAUSEA AND/OR VOMITING Last Admin: 01/28/18 05:53 Dose: 4 mg Polyethylene Glycol (Miralax (For Daily Use) -) 17 gm PO DAILY [facility] Tramadol HCl (Ultram -) 50 mg PO Q6H PRN PRN Reason: PAIN LEVEL 4 - 6 - Objective Vital Signs: Vital Signs Temperature 98.3 F 05/26/18 06:00 Pulse Rate 50 L 01/28/18 06:00 Respiratory Rate 18 01/28/18 06:00 Blood Pressure 105/67 01/28/18 06:00 O2 Sat by Pulse Oximetry (%) 100 01/27/18 21:00 Vital Signs Period Temp Pulse Resp BP Sys/Mas Pulse Ox Last 24 Hr 97.8 F-98.3 F 32-78 14-20 100-145/56-84 96-100 Constitutional: Yes: Well Nourished, No Distress, Calm Eyes: Yes: Conjunctiva Clear, EOM Intact HENT: Yes: Atraumatic, Normocephalic Neck: Yes: Supple, Trachea Midline Cardiovascular: Yes: Regular Rate and Rhythm, S1, S2 Respiratory: Yes: Regular, CTA Bilaterally Gastrointestinal: Yes: Normal Bowel Sounds, Soft. No: Tenderness ...Rectal Exam: Yes: Deferred Genitourinary: No: CVA Tenderness - Left, CVA Tenderness - Right Extremities: No: Cool, Cyanosis Edema: No Peripheral Pulses WNL: Yes Wound/Incision: Yes: Dressing Removed, Unapproximated (3.5cmX1.5cmX2.0cm left volar distal 1/3 forearm brunners incision over FCU). No: Draining, Reddened, Bleeding Neurological: Yes: Alert, Oriented Psychiatric: Yes: Alert, Oriented Labs: CBC, BMP 01/27/18 07:25 01/27/18 07:25 INR, PTT INR 1.30 (0.82-1.09) H 01/24/18 00:30 Problem List - Problems (1) Abscess of forearm, left Assessment/Plan: 27 yo female IVDU with persistently draining left forearm abscess, possible infected thrombophlebitis POD#1 s/p debridement and ligation of infected thrombophlebitis. Diet as tolerated Analgesia per primary team ONLY Daily Dressing: Left Forearm Wound Measurement: 3.5cmX1.5cmX2.0cm left volar distal forearm brunners incision over FCU Dressing Instructions: 09/08" iodoform packing, 4X4 gauze, kerlex wrap and tape IV antibiotics per ID f/u cultures D/C planning with VNS Code(s): L02.414 - CUTANEOUS ABSCESS OF LEFT UPPER LIMB (2) Injection of illicit drug within last 12 months Code(s): F19.90 - OTHER PSYCHOACTIVE SUBSTANCE USE, UNSPECIFIED, UNCOMPLICATED (3) Hepatitis C Code(s): B19.20 - UNSPECIFIED VIRAL HEPATITIS C WITHOUT HEPATIC COMA (4) Opioid dependence on agonist therapy Code(s): F11.20 - OPIOID DEPENDENCE, UNCOMPLICATED (5) Substance induced mood disorder Code(s): F19.94 - OTH PSYCHOACTIVE SUBSTANCE USE, UNSP W MOOD DISORDER (6) Opioid dependence with withdrawal Code(s): F11.23 - OPIOID DEPENDENCE WITH WITHDRAWAL (7) Bipolar II disorder Code(s): F31.81 - BIPOLAR II DISORDER
--- NOTE | 2018-01-28 09:46 | OP ---
DATE OF OPERATION: 01/27/2018 PREOPERATIVE DIAGNOSIS: Left volar forearm abscess. POSTOPERATIVE DIAGNOSIS: Left volar forearm abscess. PROCEDURE: Incision and drainage of left forearm abscess and ligation of infected thrombophlebitis. ATTENDING SURGEON: Wali Reaves MD DIRECTOR OF PUPIL PERSONNEL PROGRAM: No one. ANESTHESIOLOGIST: Dinesh Rodriguez MD ANESTHESIA TYPE: General with local, local consisting of 0.5% Marcaine, a total of 10 mL in area block fashion. ESTIMATED BLOOD LOSS: 2 mL. TOURNIQUET PRESSURE: 250 mmHg. TOURNIQUET TIME: 28 minutes. INSTRUMENTS USED FOR DEBRIDEMENT: Scalpel and Littler scissors. INTRAVENOUS FLUID ADMINISTERED: Crystalloid, 1800 mL. SPECIMEN REMOVED: A culture and sensitivity left forearm abscess. BRIEF FINDINGS: Patient has distal 1/3 volar forearm abscess measuring approximately 3 x 2 cm with induration, milky pus. The abscess is infected, thrombosed superficial vein overlying the ulnar nerve which was ligated. Culture was sent for evaluation. INDICATIONS: Patient is a 27-year-old female with history of IV drug use by injection. She had an incision and drainage on January 24, 2018, in the emergency department, which was suboptimal. Over the days while being cared for, she was noted to be persistently draining large amount of purulent material. She was counseled regarding the need for additional evaluation of the wound and possible ligation and debridement of infected thrombophlebitis. She signed informed consent after being explained the risks, benefits, and alternatives to surgical procedure proposed, and she was taken for the procedure. DESCRIPTION OF PROCEDURE: The patient was brought to the operating room, placed in supine position on the operating table with the left arm extended 90 degrees perpendicular to the bodys axis. On the lower extremity, SCDs were placed to compression. Patient was induced with general anesthesia and LMA was passed by Anesthesia without event. Patient received intravenous antibiotics and was on schedule and had a steady state with antibiotics. The left arm was prepped and draped into a standard surgical field blocking the volar aspect of the distal arm. At this point, we proceeded with a formal time-out identifying the operative site and procedure, and with all parties in agreement, we began first with a Brunners incision and extension on the initial abscess opening, which was extended both proximally and distally towards the wrist. It was on the ulnar border in the distal third of the forearm. The arm was exsanguinated at this point. At which point, we inflated the tourniquet to a pressure of 250 mmHg. We began first with a 15-blade scalpel to incise the extension markings. It was incised and carefully dissected with the Littler scissors to the superficial venous plane. Care was taken to identify small venous branches. They were ligated using 3-0 Vicryl ties. Once complete, the field was divided. It was clear that the tract of purulence tracked just above the ulnar nerve and the flexor carpi ulnaris. It was identified, the sheath was opened, and the FCU retracted laterally, ulnarly out of the field. We then proceeded with identification of the pocket of pus and the ligation of the vein which appeared to be traumatized on its volar aspect and appeared to be purulent material draining. A culture was sent from this specimen. We then proceeded with thorough irrigation of the site with approximately 0.5 L of sterile irrigation fluid. Once ligated, the vein itself was debrided from the field. The flexor carpi ulnaris was returned to its anatomic position. Additional superficial branches were controlled with cautery. Once clear, the potential face that was created was packed with 0.25 inch Iodoform packing proximally and distally until the cavity was tightly packed. The tourniquet was relieved, and hemostasis was observed. The additional dressings, gauze padding, Lottie wrap, Kerlix, and Coban were placed to allow for adequate drainage overnight. The patient was awoken from general anesthesia having tolerate the procedure well. Counts were correct postoperatively. She was extubated in the operating room and stable throughout the procedure. She returned to recovery in stable condition, as well. MD CHANEL Pickett/[id number]
[2018-01-28] MEDS: NICOTINE 21 MG/24 HOURS TOPICAL PATCH TD SCH (10:21)
[2018-01-28] MEDS: POLYETHYLENE GLYCOL 3350 119 GM BTL PO SCH (10:25)
[2018-01-28] MEDS: Methylnaltrexone Bromide 12 MG/0.6 ML KIT SQ SCH (10:32)
[2018-01-28] MEDS: traMADol HCL 50 MG TABLET PO PRN ×2 (10:46→21:31)
[2018-01-28] MEDS: KETOROLAC TROMETHAMINE 30 MG/1 ML VIAL IVPUSH PRN ×2 (10:49→18:06)
--- NOTE | 2018-01-28 11:21 | PN ---
Progress Note (short form) - Note Progress Note: feels better s/p operative debridement yesterday with Dr Reaves Vital Signs Period Temp Pulse Resp BP Sys/Mas Pulse Ox Last 24 Hr 97.8 F-98.3 F 46-78 14-20 100-134/56-84 96-100 cor-rrr lungs clear abd soft,nt ext- less swelling of the arm, no purulence wound packing removed and replaced by surgeon CBC, BMP 01/27/18 07:25 01/27/18 07:25 Active Medications Acetaminophen (Tylenol -) 650 mg PO Q6H PRN PRN Reason: FEVER Alprazolam (Xanax -) 1 mg PO HS [facility] Last Admin: 01/27/18 21:19 Dose: 1 mg Heparin Sodium (Porcine) (Heparin -) 5,000 unit SQ TID [facility] Last Admin: 01/28/18 06:14 Dose: Not Given Lactated Ringer's (Lactated Ringers Solution) 1,000 mls @ 75 mls/hr IV ASDIR [facility] Last Admin: 01/28/18 00:34 Dose: 75 mls/hr Vancomycin HCl 1,000 mg/ (Dextrose) 250 mls @ 166.667 mls/hr IVPB BID@0600, 1800 [facility]; Protocol Last Admin: 01/28/18 05:52 Dose: 166.667 mls/hr Ibuprofen (Motrin -) 600 mg PO Q8H PRN PRN Reason: PAIN LEVEL 1 - 3 Ketorolac Tromethamine (Toradol Injection -) 30 mg IVPUSH Q6H PRN PRN Reason: PAIN LEVEL 7 - 10 Stop: 02/01/18 18:02 Last Admin: 01/28/18 10:49 Dose: 30 mg Magnesium Hydroxide (Milk Of Magnesia -) 30 ml PO Q8H PRN PRN Reason: INDIGESTION Methadone HCl 80 mg/ Methadone (HCl 10 mg) 90 mg PO DAILY@0600 [facility] Last Admin: 01/28/18 06:41 Dose: 90 mg Methylnaltrexone [place] (Relistor -) 8 mg SQ DAILY [facility] Last Admin: 01/28/18 10:32 Dose: Not Given Nicotine (Nicoderm Patch -) 21 mg TD DAILY [facility] Last Admin: 01/28/18 10:21 Dose: 21 mg Ondansetron HCl (Zofran Injection) 4 mg IVPUSH Q6H PRN PRN Reason: NAUSEA AND/OR VOMITING Last Admin: 01/28/18 05:53 Dose: 4 mg Polyethylene Glycol (Miralax (For Daily Use) -) 17 gm PO DAILY [facility] Last Admin: 01/28/18 10:25 Dose: Not Given Tramadol HCl (Ultram -) 50 mg PO Q6H PRN PRN Reason: PAIN LEVEL 4 - 6 Last Admin: 01/28/18 10:46 Dose: 50 mg Microbiology 01/24/18 00:30 Blood - Peripheral Venous Blood Culture - Preliminary NO GROWTH OBTAINED AFTER 96 HOURS, INCUBATION TO CONTINUE FOR 1 DAYS. 01/24/18 00:30 Blood - Peripheral Venous Blood Culture - Preliminary NO GROWTH OBTAINED AFTER 96 HOURS, INCUBATION TO CONTINUE FOR 1 DAYS. 01/24/18 09:10 Arm - Left Forearm Gram Stain - Final 01/24/18 09:10 Arm - Left Forearm Wound Culture - Final S Aureus 01/24/18 00:40 Urine - Urine Clean Catch Urine Culture - Final Yeast Like Organism HIV negative a/p MRSA abscess continue vancomycin another 24-48 hours- then po clindamycin 450 tid for another 10 days will need wound care arranged as she needs packing of the arm wound contact isolation will add starla WAYNE- noted Problem List - Problems (1) Cellulitis and abscess of upper arm and forearm Code(s): [id number] - (2) Hepatitis C Code(s): B19.20 - UNSPECIFIED VIRAL HEPATITIS C WITHOUT HEPATIC COMA (3) Injection of illicit drug within last 12 months Code(s): F19.90 - OTHER PSYCHOACTIVE SUBSTANCE USE, UNSPECIFIED, UNCOMPLICATED
--- NOTE | 2018-01-28 11:49 | PN ---
Progress Note (short form) - Note Progress Note: Anesthesiology Post-op 27 y.o. woman POD #1 s/p KENN and I&D with vein ligation of left forearm, both under GA. Pt. is doing well this morning. No ON issues. VSS. No apparent anesthesia- related issues. 27 y.o. with stable post-operative course. Continue post-op management as per primary team.
--- NOTE | 2018-01-28 17:03 | PN ---
Physical Exam: SUBJECTIVE: Patient seen and examined. Complaining of pain to left forearm. OBJECTIVE: Vital Signs Period Temp Pulse Resp BP Sys/Mas Pulse Ox Last 24 Hr 97.4 F-98.3 F 50-78 14-20 100-119/56-84 96-100 GENERAL: The patient is awake, alert, and fully oriented, in no acute distress. LUNGS: Breath sounds equal, clear to auscultation bilaterally, no wheezes, no crackles, no accessory muscle use. HEART: Regular rate and rhythm, S1, S2 ABDOMEN: Soft, nontender, nondistended RIGHT UPPER EXTREMITY: Surgical dressing c/d/i; fingers are pink, warm, dry, full flexion, intact sensory NEUROLOGICAL: Cranial nerves II through XII grossly intact. Normal speech, gait not observed. Active Medications Generic Name Dose Route Start Last Admin Trade Name Freq PRN Reason Stop Dose Admin Acetaminophen 650 mg 01/27/18 17:01 01/28/18 15:10 Tylenol - PO 650 mg Q6H PRN Administration FEVER Alprazolam 1 mg 01/27/18 22:00 01/27/18 21:19 Xanax - PO 1 mg HS [facility] Administration Heparin Sodium (Porcine) 5,000 unit 01/27/18 22:00 01/28/18 14:51 Heparin - SQ 5,000 unit TID [facility] Administration Lactated Ringer's 1,000 mls @ 75 mls/hr 01/27/18 17:00 01/28/18 00:34 Lactated Ringers Solution IV 75 mls/hr ASDIR [facility] Administration Vancomycin HCl 1,000 mg/ 250 mls @ 166.667 mls/hr 01/28/18 06:00 01/28/18 05: 52 Dextrose IVPB 166.667 mls/hr BID@0600,1800 [facility] Administration Protocol Ibuprofen 600 mg 01/27/18 17:01 Motrin - PO Q8H PRN PAIN LEVEL 1 - 3 Ketorolac Tromethamine 30 mg 01/27/18 18:03 01/28/18 10:49 Toradol Injection - IVPUSH 02/01/18 18:02 30 mg Q6H PRN Administration PAIN LEVEL 7 - 10 Lactobacillus Acidophilus 1 tab 01/29/18 10:00 Bacid - PO DAILY [facility] Magnesium Hydroxide 30 ml 01/27/18 17:01 Milk Of Magnesia - PO Q8H PRN INDIGESTION Methadone HCl 80 mg/ Methadone 90 mg 01/28/18 06:00 01/28/18 06:41 HCl 10 mg PO 90 mg DAILY@0600 [facility] Administration Methylnaltrexone [place] 8 mg 01/28/18 10:00 01/28/18 10:32 Relistor - SQ Not Given DAILY [facility] Nicotine 21 mg 01/28/18 10:00 01/28/18 10:21 Nicoderm Patch - TD 21 mg DAILY [facility] Administration Ondansetron HCl 4 mg 01/27/18 17:01 01/28/18 05:53 Zofran Injection IVPUSH 4 mg Q6H PRN Administration NAUSEA AND/OR VOMITING Polyethylene Glycol 17 gm 01/28/18 10:00 01/28/18 10:25 Miralax (For Daily Use) - PO Not Given DAILY [facility] Tramadol HCl 50 mg 01/27/18 17:01 01/28/18 10:46 Ultram - PO 50 mg Q6H PRN Administration PAIN LEVEL 4 - 6 ASSESSMENT/PLAN Left forearm MRSA cellulitis with abscess --abscess I&D'd 01/24 --subsequently developed infected thrombophlebitis which was I&D'd 01/27 --KENN negative for vegetations --afebrile, leukocytosis has resolved --continue Vanc another 24 to 48 hours Hypokalemia --repleted Dispo: on discharge prescribe clindamycin PO 450mg TID x 10 days; will need wound care, does not want to come to Wound clinic, wants VNS. Full code. Visit type - Emergency Visit Emergency Visit: Yes ED Registration Date: 01/24/18 Care time: The patient presented to the Emergency Department on the above date and was hospitalized for further evaluation of their emergent condition. - New Patient This patient is new to me today: Yes Date on this admission: 01/28/18 - Critical Care Critical Care patient: No
[2018-01-28] MEDS ORDERED: POTASSIUM CHLORIDE TABS 20 MEQ TABLET.ER (FP) PO ONE (17:15)
[2018-01-28] MEDS: ALPRAZolam 0.25 MG TABLET PO SCH (21:32)
[2018-01-29] MEDS: ONDANSETRON 4 MG/2 ML VIAL IVPUSH PRN (05:15)
[2018-01-29] MEDS: VANCOMYCIN 1,000 MG in DEXTROSE 5%-WATER - 250 ML IVPB SCH (05:15)
[2018-01-29] MEDS: HEPARIN NA (PORCINE) 5,000 UNITS/ML 1ML VIAL SQ SCH ×3 (05:23→22:24)
[2018-01-29] MEDS ORDERED: METHADONE HCL 40 MG DISPERSABLE TABLET ONE (05:46)
[2018-01-29] MEDS ORDERED: METHADONE HCL 10 MG TABLET ONE (05:46)
[2018-01-29] MEDS: METHADONE 80 MG, METHADONE 10 MG PO SCH (06:30)
[2018-01-29 09:34] LABS: BASO % 0.6 % (0-2.0); EOS % 2.9 % (0-4.5); HEMATOCRIT 32.2 % (32.4-45.2); HEMOGLOBIN 10.7 GM/dL (10.7-15.3); LYMPH % 46.4 % (8-40); MCH 29.1 pg (25.7-33.7); MCHC 33.3 g/dl (32.0-36.0); MEAN CELL VOLUME 87.3 fl (80-96); MONO % 8.8 % (3.8-10.2); NEUT % 41.3 % (42.8-82.8); PLATELET COUNT 385 K/MM3 (134-434); RBC 3.69 M/mm3 (3.60-5.2); RDW 13.1 % (11.6-15.6); WHITE BLOOD COUNT 8.3 K/mm3 (4.0-10.0)
[2018-01-29] MEDS ORDERED: PT OWN MED DRAWER 7, Y5N ONE ×2 (09:49→23:10)
[2018-01-29] MEDS: NICOTINE 21 MG/24 HOURS TOPICAL PATCH TD SCH (09:51)
[2018-01-29] MEDS: LACTOBACILLUS ACIDOPHILUS 1 TABLET PO SCH (09:51)
[2018-01-29] MEDS: traMADol HCL 50 MG TABLET PO PRN ×2 (09:52→17:37)
[2018-01-29 10:09] LABS: CHLORIDE 106 mmol/L (98-107); POTASSIUM 4.2 mmol/L (3.5-5.1); SODIUM 141 mmol/L (136-145)
[2018-01-29 10:34] LABS: ALBUMIN 2.5 g/dl (3.4-5.0); ALK PHOS 38 U/L (45-117); ANION GAP 9 (8-16); BILIRUBIN,TOTAL 0.4 mg/dL (0.2-1.0); BLOOD UREA NITROGEN 4 mg/dL (7-18); CO2 26 mmol/L (21-32); CREATININE 0.5 mg/dL (0.55-1.02); GLUCOSE,RANDOM 71 mg/dL (74-106); MAGNESIUM 1.6 mg/dL (1.8-2.4); SGOT/AST 8 U/L (15-37); SGPT/ALT 12 U/L (12-78); TOT PROT 5.1 g/dl (6.4-8.2)
[2018-01-29] MEDS: Methylnaltrexone Bromide 12 MG/0.6 ML KIT SQ SCH (11:00)
[2018-01-29] MEDS: POLYETHYLENE GLYCOL 3350 119 GM BTL PO SCH (11:00)
--- NOTE | 2018-01-29 11:39 | PN ---
Progress Note, Physician Chief Complaint: left forearm abscess History of Present Illness: 27 yo RHD female PMH IVDA-cocaine and heroin, bipolar disorder who presented to the ED with redness and swelling to left arm. Pt reports she noticed the redness a few days ago. she was stable overnight. complains of pain in the arm. - Current Medication List Current Medications: Active Medications Acetaminophen (Tylenol -) 650 mg PO Q6H PRN PRN Reason: FEVER Last Admin: 01/28/18 15:10 Dose: 650 mg Alprazolam (Xanax -) 1 mg PO HS [facility] Last Admin: 01/28/18 21:32 Dose: 1 mg Heparin Sodium (Porcine) (Heparin -) 5,000 unit SQ TID [facility] Last Admin: 01/29/18 05:23 Dose: Not Given Lactated Ringer's (Lactated Ringers Solution) 1,000 mls @ 75 mls/hr IV ASDIR [facility] Last Admin: 01/28/18 17:00 Dose: 75 mls/hr Vancomycin HCl 1,000 mg/ (Dextrose) 250 mls @ 166.667 mls/hr IVPB BID@0600, 1800 [facility]; Protocol Last Admin: 01/29/18 05:15 Dose: 166.667 mls/hr Ibuprofen (Motrin -) 600 mg PO Q8H PRN PRN Reason: PAIN LEVEL 1 - 3 Ketorolac Tromethamine (Toradol Injection -) 30 mg IVPUSH Q6H PRN PRN Reason: PAIN LEVEL 7 - 10 Stop: 02/01/18 18:02 Last Admin: 01/28/18 18:06 Dose: 30 mg Lactobacillus Acidophilus (Bacid -) 1 tab PO DAILY [facility] Last Admin: 01/29/18 09:51 Dose: 1 tab Magnesium Hydroxide (Milk Of Magnesia -) 30 ml PO Q8H PRN PRN Reason: INDIGESTION Methadone HCl 80 mg/ Methadone (HCl 10 mg) 90 mg PO DAILY@0600 [facility] Last Admin: 01/29/18 06:30 Dose: 90 mg Methylnaltrexone [place] (Relistor -) 8 mg SQ DAILY [facility] Last Admin: 01/28/18 10:32 Dose: Not Given Nicotine (Nicoderm Patch -) 21 mg TD DAILY [facility] Last Admin: 01/29/18 09:51 Dose: 21 mg Ondansetron HCl (Zofran Injection) 4 mg IVPUSH Q6H PRN PRN Reason: NAUSEA AND/OR VOMITING Last Admin: 01/29/18 05:15 Dose: 4 mg Polyethylene Glycol (Miralax (For Daily Use) -) 17 gm PO DAILY [facility] Last Admin: 01/28/18 10:25 Dose: Not Given Tramadol HCl (Ultram -) 50 mg PO Q6H PRN PRN Reason: PAIN LEVEL 4 - 6 Last Admin: 01/29/18 09:52 Dose: 50 mg - Objective Vital Signs: Vital Signs Temperature 98.1 F 01/29/18 09:27 Pulse Rate 57 L 01/29/18 09:27 Respiratory Rate 20 01/29/18 09:27 Blood Pressure 116/70 01/29/18 09:27 O2 Sat by Pulse Oximetry (%) 99 01/28/18 21:00 Vital Signs Period Temp Pulse Resp BP Sys/Mas Pulse Ox Last 24 Hr 97.4 F-98.1 F 48-75 17-22 109-122/66-72 99 Constitutional: Yes: Well Nourished, No Distress, Calm Eyes: Yes: Conjunctiva Clear, EOM Intact HENT: Yes: Atraumatic, Normocephalic Neck: Yes: Supple, Trachea Midline Cardiovascular: Yes: Regular Rate and Rhythm, S1, S2 Respiratory: Yes: Regular, CTA Bilaterally Gastrointestinal: Yes: Normal Bowel Sounds, Soft. No: Tenderness ...Rectal Exam: Yes: Deferred Genitourinary: No: CVA Tenderness - Left, CVA Tenderness - Right Musculoskeletal: No: Muscle Pain, Muscle Weakness Extremities: No: Cool, Cyanosis Edema: Yes Edema: LUE: Trace Peripheral Pulses WNL: Yes Peripheral Pulses: Left Radial: 2+, Right Radial: 2+ Integumentary: No: Jaundice, Rash Wound/Incision: Yes: Unapproximated Neurological: Yes: Alert, Oriented Psychiatric: Yes: Alert, Oriented Labs: CBC, BMP 01/29/18 08:53 01/29/18 08:53 INR, PTT INR 1.30 (0.82-1.09) H 01/24/18 00:30 Microbiology 01/27/18 16:26 Abscess Gram Stain - Final 01/27/18 16:26 Abscess Wound Culture - Preliminary Presumptive Mrsa (Pbp2a Pos) 01/24/18 00:30 Blood - Peripheral Venous Blood Culture - Final NO GROWTH AFTER 5 DAYS INCUBATION 01/24/18 00:30 Blood - Peripheral Venous Blood Culture - Final NO GROWTH AFTER 5 DAYS INCUBATION 01/24/18 09:10 Arm - Left Forearm Gram Stain - Final 01/24/18 09:10 Arm - Left Forearm Wound Culture - Final Mr Carson Aureus 01/24/18 00:40 Urine - Urine Clean Catch Urine Culture - Final Yeast Like Organism Problem List - Problems (1) Abscess of forearm, left Assessment/Plan: 27 yo female IVDU with persistently draining left forearm abscess, possible infected thrombophlebitis POD#2 s/p debridement and ligation of infected thrombophlebitis. Diet as tolerated Analgesia per primary team ONLY Daily Dressing: Left Forearm Wound Measurement: 3.5cmX1.5cmX2.0cm left volar distal forearm brunners incision over FCU Dressing Instructions: 1/4" iodoform packing, 4X4 gauze, kerlex wrap and tape IV antibiotics per ID f/u cultures D/C planning with VNS Code(s): L02.414 - CUTANEOUS ABSCESS OF LEFT UPPER LIMB (2) Injection of illicit drug within last 12 months Code(s): F19.90 - OTHER PSYCHOACTIVE SUBSTANCE USE, UNSPECIFIED, UNCOMPLICATED (3) Hepatitis C Code(s): B19.20 - UNSPECIFIED VIRAL HEPATITIS C WITHOUT HEPATIC COMA Qualifiers: Viral hepatitis chronicity: unspecified Hepatic coma status: without hepatic coma Qualified Code(s): B19.20 - Unspecified viral hepatitis C without hepatic coma (4) Opioid dependence on agonist therapy Code(s): F11.20 - OPIOID DEPENDENCE, UNCOMPLICATED (5) Substance induced mood disorder Code(s): F19.94 - OTH PSYCHOACTIVE SUBSTANCE USE, UNSP W MOOD DISORDER (6) Opioid dependence with withdrawal Code(s): F11.23 - OPIOID DEPENDENCE WITH WITHDRAWAL (7) Bipolar II disorder Code(s): F31.81 - BIPOLAR II DISORDER
[2018-01-29] MEDS: KETOROLAC TROMETHAMINE 30 MG/1 ML VIAL IVPUSH PRN (12:18)
--- NOTE | 2018-01-29 16:06 | PN ---
Physical Exam: SUBJECTIVE: Patient seen and examined. Mother present. OBJECTIVE: Vital Signs Period Temp Pulse Resp BP Sys/Mas Pulse Ox Last 24 Hr 98.1 F-98.1 F 48-75 17-22 113-135/68-72 99 GENERAL: The patient is awake, alert, and fully oriented, in no acute distress. LUNGS: Breath sounds equal, clear to auscultation bilaterally, no wheezes, no crackles, no accessory muscle use. HEART: Regular rate and rhythm, S1, S2 ABDOMEN: Soft, nontender, nondistended RIGHT UPPER EXTREMITY: Surgical dressing c/d/i, changed earlier today by Dr. Reaves; fingers are pink, warm, dry, full flexion, intact sensory NEUROLOGICAL: Cranial nerves II through XII grossly intact. Normal speech, gait not observed. Laboratory Results - last 24 hr 01/29/18 01/29/18 08:53 08:53 WBC 8.3 RBC 3.69 Hgb 10.7 D Hct 32.2 L MCV 87.3 MCH 29.1 MCHC 33.3 RDW 13.1 Plt Count 385 MPV 8.0 Neutrophils % 41.3 L Lymphocytes % 46.4 H Monocytes % 8.8 Eosinophils % 2.9 Basophils % 0.6 Nucleated RBC % 0 Sodium 141 Potassium 4.2 Chloride 106 Carbon Dioxide 26 Anion Gap 9 BUN 4 L Creatinine 0.5 L Creat Clearance w eGFR > 60 Random Glucose 71 L Calcium 8.0 L Magnesium 1.6 L Total Bilirubin 0.4 AST 8 L ALT 12 Alkaline Phosphatase 38 L Total Protein 5.1 L Albumin 2.5 L Active Medications Generic Name Dose Route Start Last Admin Trade Name Nirmalq PRN Reason Stop Dose Admin Acetaminophen 650 mg 01/27/18 17:01 01/28/18 15:10 Tylenol - PO 650 mg Q6H PRN Administration FEVER Alprazolam 1 mg 01/27/18 22:00 01/28/18 21:32 Xanax - PO 1 mg HS [facility] Administration Heparin Sodium (Porcine) 5,000 unit 01/27/18 22:00 01/29/18 14:25 Heparin - SQ 5,000 unit TID [facility] Administration Lactated Ringer's 1,000 mls @ 75 mls/hr 01/27/18 17:00 01/28/18 17:00 Lactated Ringers Solution IV 75 mls/hr ASDIR [facility] Administration Vancomycin HCl 1,000 mg/ 250 mls @ 166.667 mls/hr 01/28/18 06:00 01/29/18 05: 15 Dextrose IVPB 166.667 mls/hr BID@0600,1800 [facility] Administration Protocol Ibuprofen 600 mg 01/27/18 17:01 Motrin - PO Q8H PRN PAIN LEVEL 1 - 3 Ketorolac Tromethamine 30 mg 01/27/18 18:03 01/29/18 12:18 Toradol Injection - IVPUSH 02/01/18 18:02 30 mg Q6H PRN Administration PAIN LEVEL 7 - 10 Lactobacillus Acidophilus 1 tab 01/29/18 10:00 01/29/18 09:51 Bacid - PO 1 tab DAILY [facility] Administration Magnesium Hydroxide 30 ml 01/27/18 17:01 Milk Of Magnesia - PO Q8H PRN INDIGESTION Methadone HCl 80 mg/ Methadone 90 mg 01/28/18 06:00 01/29/18 06:30 HCl 10 mg PO 90 mg DAILY@0600 [facility] Administration Methylnaltrexone [place] 8 mg 01/28/18 10:00 01/29/18 11:00 Relistor - SQ Not Given DAILY [facility] Nicotine 21 mg 01/28/18 10:00 01/29/18 09:51 Nicoderm Patch - TD 21 mg DAILY [facility] Administration Ondansetron HCl 4 mg 01/27/18 17:01 01/29/18 05:15 Zofran Injection IVPUSH 4 mg Q6H PRN Administration NAUSEA AND/OR VOMITING Polyethylene Glycol 17 gm 01/28/18 10:00 01/29/18 11:00 Miralax (For Daily Use) - PO Not Given DAILY [facility] Tramadol HCl 50 mg 01/27/18 17:01 01/29/18 09:52 Ultram - PO 50 mg Q6H PRN Administration PAIN LEVEL 4 - 6 ASSESSMENT/PLAN: Left forearm MRSA cellulitis with abscess --abscess I&D'd 01/24 --subsequently developed infected thrombophlebitis which was I&D'd 01/27 --KENN negative for vegetations --afebrile, leukocytosis has resolved --transitioned today to PO clinda --will need daily dressing changes: On discharge prescribe clindamycin PO 450mg TID to complete 10 days of clinda treatment. Will need daily dressing changes as follows: Left Forearm Wound Measurement: 3.5cmX1.5cmX2.0cm left volar distal forearm brunners incision over FCU Dressing Instructions: 09/08" iodoform packing, 4X4 gauze, kerlex wrap and tape Will need to confirm with Dr. Reaves when he wants to see the patient. Visit type - Emergency Visit Emergency Visit: Yes ED Registration Date: 01/24/18 Care time: The patient presented to the Emergency Department on the above date and was hospitalized for further evaluation of their emergent condition. - New Patient This patient is new to me today: No - Critical Care Critical Care patient: No
[2018-01-29] MEDS: CLINDAMYCIN HCL 150 MG CAPSULE (FP) PO SCH (22:24)
[2018-01-29] MEDS: ALPRAZolam 0.25 MG TABLET PO SCH (22:25)
[2018-01-29] MEDS: METOCLOPRAMIDE HCL 10 MG TABLET (FP) PO SCH (22:25)
[2018-01-29] MEDS: MICONAZOLE NITRATE 2% VAGINAL CREAM 45 GM TUBE VG SCH (22:25)
[2018-01-29] MEDS: IBUPROFEN 600 MG TABLET (FP) PO PRN (22:26)
[2018-01-30] MEDS: HEPARIN NA (PORCINE) 5,000 UNITS/ML 1ML VIAL SQ SCH ×3 (05:26→21:26)
[2018-01-30] MEDS ORDERED: METHADONE HCL 10 MG TABLET ONE (05:59)
[2018-01-30] MEDS ORDERED: METHADONE HCL 40 MG DISPERSABLE TABLET ONE (05:59)
[2018-01-30] MEDS: METHADONE 80 MG, METHADONE 10 MG PO SCH (06:20)
[2018-01-30] MEDS: CLINDAMYCIN HCL 150 MG CAPSULE (FP) PO SCH ×3 (06:21→21:25)
[2018-01-30] MEDS: METOCLOPRAMIDE HCL 10 MG TABLET (FP) PO SCH ×4 (06:21→21:25)
[2018-01-30] MEDS: traMADol HCL 50 MG TABLET PO PRN ×2 (08:31→17:10)
[2018-01-30] MEDS: LACTOBACILLUS ACIDOPHILUS 1 TABLET PO SCH (09:56)
[2018-01-30] MEDS: NICOTINE 21 MG/24 HOURS TOPICAL PATCH TD SCH (09:57)
[2018-01-30] MEDS: Methylnaltrexone Bromide 12 MG/0.6 ML KIT SQ SCH ×2 (09:57→10:01)
[2018-01-30] MEDS: POLYETHYLENE GLYCOL 3350 119 GM BTL PO SCH (09:57)
[2018-01-30] MEDS ORDERED: PT OWN MED DRAWER 7, Y5N ONE (09:59)
--- NOTE | 2018-01-30 10:51 | PN ---
Progress Note, Physician Chief Complaint: AWAKE ALERT C/O 8/10 PAIN EVEN WITH TRAMADOL LEFT ARM DRESSING TO BE CHANGED AND CLEANED TODAY BY DR LYNNE SURGERY +APPETITE NO BM TODAY - Current Medication List Current Medications: Active Medications Acetaminophen (Tylenol -) 650 mg PO Q6H PRN PRN Reason: FEVER Last Admin: 01/28/18 15:10 Dose: 650 mg Alprazolam (Xanax -) 1 mg PO [facility] Last Admin: 01/29/18 22:25 Dose: 1 mg Clindamycin HCl (Cleocin -) 450 mg PO TID [facility] Last Admin: 01/30/18 06:21 Dose: 450 mg Heparin Sodium (Porcine) (Heparin -) 5,000 unit SQ TID [facility] Last Admin: 01/30/18 05:26 Dose: Not Given Ibuprofen (Motrin -) 600 mg PO Q8H PRN PRN Reason: PAIN LEVEL 1 - 3 Last Admin: 01/29/18 22:26 Dose: 600 mg Ketorolac Tromethamine (Toradol) 20 mg PO ONCE ONE Stop: 01/30/18 10:43 Lactobacillus Acidophilus (Bacid -) 1 tab PO DAILY [facility] Last Admin: 01/30/18 09:56 Dose: 1 tab Magnesium Hydroxide (Milk Of Magnesia -) 30 ml PO Q8H PRN PRN Reason: INDIGESTION Methadone HCl 80 mg/ Methadone (HCl 10 mg) 90 mg PO DAILY@0600 [facility] Last Admin: 01/30/18 06:20 Dose: 90 mg Methylnaltrexone [place] (Relistor -) 8 mg SQ DAILY [facility] Last Admin: 01/30/18 10:01 Dose: 8 mg Metoclopramide HCl (Reglan -) 10 mg PO [facility] Last Admin: 01/30/18 06:21 Dose: 10 mg Miconazole Nitrate (Monistat-7 Vaginal Cream -) 1 applic VG [facility] Stop: 02/04/18 22:01 Last Admin: 01/29/18 22:25 Dose: 1 applic Nicotine (Nicoderm Patch -) 21 mg TD DAILY [facility] Last Admin: 01/30/18 09:57 Dose: 21 mg Polyethylene Glycol (Miralax (For Daily Use) -) 17 gm PO DAILY [facility] Last Admin: 01/30/18 09:57 Dose: Not Given Tramadol HCl (Ultram -) 50 mg PO Q6H PRN PRN Reason: PAIN LEVEL 4 - 6 Last Admin: 01/30/18 08:31 Dose: 50 mg - Objective Vital Signs: Vital Signs Temperature 98.0 F 01/30/18 08:42 Pulse Rate 63 01/30/18 08:42 Respiratory Rate 18 01/30/18 08:42 Blood Pressure 131/65 01/30/18 08:42 O2 Sat by Pulse Oximetry (%) 99 01/30/18 09:00 Constitutional: Yes: Mild Distress Eyes: Yes: WNL HENT: Yes: WNL Neck: Yes: WNL Cardiovascular: Yes: WNL Respiratory: Yes: WNL Gastrointestinal: Yes: WNL Genitourinary: Yes: WNL Musculoskeletal: Yes: Muscle Pain Extremities: Yes: Other Edema: No Peripheral Pulses WNL: Yes Integumentary: Yes: Other Wound/Incision: Yes: Dressing Dry and Intact (LEFT ARM) Neurological: Yes: WNL ...Motor Strength: LUE Psychiatric: Yes: Agitated Labs: CBC, BMP 01/29/18 08:53 01/29/18 08:53 INR, PTT INR 1.30 (0.82-1.09) H 01/24/18 00:30 Problem List - Problems (1) Cellulitis and abscess of upper arm and forearm Code(s): [id number] - (2) Injection of illicit drug within last 12 months Code(s): F19.90 - OTHER PSYCHOACTIVE SUBSTANCE USE, UNSPECIFIED, UNCOMPLICATED (3) Hepatitis C Code(s): B19.20 - UNSPECIFIED VIRAL HEPATITIS C WITHOUT HEPATIC COMA Qualifiers: Viral hepatitis chronicity: unspecified Hepatic coma status: without hepatic coma Qualified Code(s): B19.20 - Unspecified viral hepatitis C without hepatic coma (4) Insomnia Code(s): G47.00 - INSOMNIA, UNSPECIFIED (5) MDD (major depressive disorder) Code(s): F32.9 - MAJOR DEPRESSIVE DISORDER, SINGLE EPISODE, UNSPECIFIED (6) Opioid dependence on agonist therapy Code(s): F11.20 - OPIOID DEPENDENCE, UNCOMPLICATED (7) Substance induced mood disorder Code(s): F19.94 - OTH PSYCHOACTIVE SUBSTANCE USE, UNSP W MOOD DISORDER (9) Alcohol dependence with uncomplicated withdrawal Code(s): F10.230 - ALCOHOL DEPENDENCE WITH WITHDRAWAL, UNCOMPLICATED (10) Anxiety Code(s): F41.9 - ANXIETY DISORDER, UNSPECIFIED (11) Bipolar disorder Code(s): F31.9 - BIPOLAR DISORDER, UNSPECIFIED Qualifiers: Active/Remission status: remission status unspecified Qualified Code(s): F31.9 - Bipolar disorder, unspecified Assessment/Plan S/P I AND D LEFT ARM SURGERY FOR DRESSING CHANGE TODAY WILL GIVE 1 X ORDER OF OXYCODONE 5G PO 1 HOUR BEFORE DRESSING CHANGE FOR COMFORT CONTINUE TRAMADOL/TORADOL/TYLENOL ALL PRN NEEDED FOR PAIN HERE ON OUT DURING THERAPY. PO CLINDAMYCIN FOR ABX COVERAGE IF ID NEEDS THIS CHANGED TO IV DOSES WILL ORDER INTERVENTIONAL RADIOLOGY FOR IV ACCESS TOMORROW
--- NOTE | 2018-01-30 11:15 | PN ---
Progress Note, Physician Chief Complaint: left forearm abscess History of Present Illness: 27 yo RHD female PMH IVDA-cocaine and heroin, bipolar disorder who presented to the ED with redness and swelling to left arm. Pt reports she noticed the redness a few days ago. she was stable overnight. complains of pain in the arm. Pain has improved everyday. - Current Medication List Current Medications: Active Medications Acetaminophen (Tylenol -) 650 mg PO Q6H PRN PRN Reason: FEVER Last Admin: 01/28/18 15:10 Dose: 650 mg Alprazolam (Xanax -) 1 mg PO [facility] Last Admin: 01/29/18 22:25 Dose: 1 mg Clindamycin HCl (Cleocin -) 450 mg PO TID [facility] Last Admin: 01/30/18 06:21 Dose: 450 mg Docusate Sodium (Colace -) 300 mg PO [facility] Heparin Sodium (Porcine) (Heparin -) 5,000 unit SQ TID [facility] Last Admin: 01/30/18 05:26 Dose: Not Given Ibuprofen (Motrin -) 600 mg PO Q8H PRN PRN Reason: PAIN LEVEL 1 - 3 Last Admin: 01/29/18 22:26 Dose: 600 mg Ketorolac Tromethamine (Toradol) 20 mg PO ONCE ONE Stop: 01/30/18 10:43 Lactobacillus Acidophilus (Bacid -) 1 tab PO DAILY [facility] Last Admin: 01/30/18 09:56 Dose: 1 tab Magnesium Hydroxide (Milk Of Magnesia -) 30 ml PO Q8H PRN PRN Reason: INDIGESTION Methadone HCl 80 mg/ Methadone (HCl 10 mg) 90 mg PO DAILY@0600 [facility] Last Admin: 01/30/18 06:20 Dose: 90 mg Methylnaltrexone [place] (Relistor -) 8 mg SQ DAILY [facility] Last Admin: 01/30/18 10:01 Dose: 8 mg Metoclopramide HCl (Reglan -) 10 mg PO ACHS [facility] Last Admin: 01/30/18 06:21 Dose: 10 mg Miconazole Nitrate (Monistat-7 Vaginal Cream -) 1 applic VG [facility] Stop: 02/04/18 22:01 Last Admin: 01/29/18 22:25 Dose: 1 applic Nicotine (Nicoderm Patch -) 21 mg TD DAILY [facility] Last Admin: 01/30/18 09:57 Dose: 21 mg Oxycodone HCl (Roxicodone -) 5 mg PO ONCE ONE Stop: 01/30/18 10:48 Polyethylene Glycol (Miralax (For Daily Use) -) 17 gm PO DAILY [facility] Last Admin: 01/30/18 09:57 Dose: Not Given Tramadol HCl (Ultram -) 50 mg PO Q6H PRN PRN Reason: PAIN LEVEL 4 - 6 Last Admin: 01/30/18 08:31 Dose: 50 mg - Objective Vital Signs: Vital Signs Temperature 98.0 F 01/30/18 08:42 Pulse Rate 63 01/30/18 08:42 Respiratory Rate 18 01/30/18 08:42 Blood Pressure 131/65 01/30/18 08:42 O2 Sat by Pulse Oximetry (%) 99 01/30/18 09:00 Vital Signs Period Temp Pulse Resp BP Sys/Mas Pulse Ox Last 24 Hr 98.0 F-98.5 F 45-63 17-20 107-135/59-92 99-99 Intake & Output 01/29/18 01/30/18 01/30/18 23:59 07:59 15:59 Intake Total 600 200 Balance 600 200 Intake: IV 300 Lactated Ringers Solution 300 1,000 ml @ 75 mls/hr IV ASDIR [facility] Rx#:[id number] Oral 300 200 Other: Voiding Method Toilet Toilet # Unmeasured Voids Void 2 1 Constitutional: Yes: Well Nourished, No Distress, Calm Eyes: Yes: Conjunctiva Clear, EOM Intact HENT: Yes: Atraumatic, Normocephalic Neck: Yes: Supple, Trachea Midline Cardiovascular: Yes: Regular Rate and Rhythm, S1, S2 Respiratory: Yes: Regular, CTA Bilaterally Gastrointestinal: Yes: Normal Bowel Sounds, Soft. No: Tenderness ...Rectal Exam: Yes: Deferred Genitourinary: No: CVA Tenderness - Left, CVA Tenderness - Right Musculoskeletal: No: Muscle Pain, Muscle Weakness Extremities: No: Cool, Cyanosis Edema: Yes Edema: LUE: Trace Peripheral Pulses: Left Radial: 2+, Right Radial: 2+, Left Doralis Pedis: 2+, Right Dorsalis Pedis: 2+ Wound/Incision: Yes: Clean/Dry, Dressing Removed, Unapproximated Neurological: Yes: Alert, Oriented Psychiatric: Yes: Alert, Oriented Labs: CBC, BMP 01/29/18 08:53 01/29/18 08:53 INR, PTT INR 1.30 (0.82-1.09) H 01/24/18 00:30 Problem List - Problems (1) Abscess of forearm, left Assessment/Plan: 27 yo female IVDU with persistently draining left forearm abscess, possible infected thrombophlebitis POD#3 s/p debridement and ligation of infected thrombophlebitis. Diet as tolerated Analgesia per primary team ONLY Daily Dressing: Left Forearm Wound Measurement: 3.5cmX1.5cmX2.0cm left volar distal forearm brunners incision over FCU Dressing Instructions: 1/4" iodoform packing, 4X4 gauze, kerlex wrap and tape IV antibiotics per ID f/u cultures D/C planning with VNS or Wound care Code(s): L02.414 - CUTANEOUS ABSCESS OF LEFT UPPER LIMB (2) Injection of illicit drug within last 12 months Code(s): F19.90 - OTHER PSYCHOACTIVE SUBSTANCE USE, UNSPECIFIED, UNCOMPLICATED (3) Hepatitis C Code(s): B19.20 - UNSPECIFIED VIRAL HEPATITIS C WITHOUT HEPATIC COMA Qualifiers: Viral hepatitis chronicity: unspecified Hepatic coma status: without hepatic coma Qualified Code(s): B19.20 - Unspecified viral hepatitis C without hepatic coma (4) Opioid dependence on agonist therapy Code(s): F11.20 - OPIOID DEPENDENCE, UNCOMPLICATED (5) Substance induced mood disorder Code(s): F19.94 - OTH PSYCHOACTIVE SUBSTANCE USE, UNSP W MOOD DISORDER (6) Opioid dependence with withdrawal Code(s): F11.23 - OPIOID DEPENDENCE WITH WITHDRAWAL (7) Bipolar II disorder Code(s): F31.81 - BIPOLAR II DISORDER
[2018-01-30] MEDS ORDERED: oxyCODONE HCL 5 MG TABLET PO ONE (12:00)
[2018-01-30] MEDS ORDERED: KETOROLAC TROMETHAMINE 10 MG TABLET PO ONE (12:00)
[2018-01-30 18:47] VITALS: BP 124/75; PULSE 52; TEMP 98
[2018-01-30] MEDS: IBUPROFEN 600 MG TABLET (FP) PO PRN (21:25)
[2018-01-30] MEDS: ALPRAZolam 0.25 MG TABLET PO SCH (21:25)
[2018-01-30] MEDS: MICONAZOLE NITRATE 2% VAGINAL CREAM 45 GM TUBE VG SCH (21:26)
[2018-01-30] MEDS ORDERED: DOCUSATE SODIUM 100 MG CAPSULE (FP) PO SCH (22:00)
== END 2018-01-30 23:32 | disposition home or self-care (01) | DRG 951 ==
LOC: JER 20:00 → JERBED 01-24 03:32 → J5S 01-24 16:00
PROVIDERS: ADMIT Internal Medicine; ATTEND Family Medicine
PROC: 0H9EXZX Drainage of Left Lower Arm Skin, External Approach, Diagnostic (ICD-10-PCS; 2018-01-24)
PROC: 3E1038Z Irrigation of Skin and Mucous Membranes using Irrigating Substance, Percutaneous Approach (ICD-10-PCS; 2018-01-24)
PROC: HZ2ZZZZ Detoxification Services for Substance Abuse Treatment (ICD-10-PCS; 2018-01-25)
PROC: HZ81ZZZ Medication Management for Substance Abuse Treatment, Methadone Maintenance (ICD-10-PCS; 2018-01-25)
PROC: 0H9CXZX Drainage of Left Upper Arm Skin, External Approach, Diagnostic (ICD-10-PCS; 2018-01-27)
PROC: 3E1038Z Irrigation of Skin and Mucous Membranes using Irrigating Substance, Percutaneous Approach (ICD-10-PCS; 2018-01-27)
PROC: 05LY0ZZ Occlusion of Upper Vein, Open Approach (ICD-10-PCS; principal; 2018-01-27 09:00)
DX: L03.114 Cellulitis of left upper limb (principal); L02.414 Cutaneous abscess of left upper limb; I80.8 Phlebitis and thrombophlebitis of other sites; F14.10 Cocaine abuse, uncomplicated; F11.23 Opioid dependence with withdrawal; F12.10 Cannabis abuse, uncomplicated; D50.9 Iron deficiency anemia, unspecified; F17.210 Nicotine dependence, cigarettes, uncomplicated; G47.00 Insomnia, unspecified; B95.62 Methicillin resistant Staphylococcus aureus infection as the cause of diseases classified elsewhere; F10.230 Alcohol dependence with withdrawal, uncomplicated; F41.9 Anxiety disorder, unspecified; R00.1 Bradycardia, unspecified; F31.81 Bipolar II disorder; E87.6 Hypokalemia; R11.2 Nausea with vomiting, unspecified; Z86.19 Personal history of other infectious and parasitic diseases
CPT/HCPCS: 36415; 71046-TC-FY; 73090-TC-LT-FY; 74018-TC-FY; 80048; 80053; 80307; 81003; 81015; 82803; 83605; 83735; 84100; 84484; 84703; 85025; 85027; 85610; 85730; 87040; 87070; 87086; 87186; 87205; 87389; 93005; 93010; 93306-TC; 93312; 93325; 94010; 94760; 99283-25; G0480; J1644; J7030

== ENCOUNTER 2018-01-31 10:48 | Emergency (ER) | payer OTHER ==
[2018-01-31 11:04] VITALS: BMI 19.4
[2018-01-31] MEDS ORDERED: CLINDAMYCIN HCL 300 MG CAPSULE PO ONE (12:18)
--- NOTE | 2018-01-31 12:20 | PDOC ---
History of Present Illness - General Chief Complaint: Wound Stated Complaint: REVISIT s/p AMA YESTERDAY Time Seen by Provider: 01/31/18 12:08 History Source: Patient - History of Present Illness Timing/Duration: other Associated Symptoms: denies: fever/chills, malaise, nausea/vomiting Past History - Past Medical History Allergies/Adverse Reactions: Allergies Allergy/AdvReac Type Severity Reaction Status Date / Time No Known Allergies Allergy Verified 01/31/18 10:58 Home Medications: Ambulatory Orders Dextroamphetamine/Amphetamine [Adderall Xr 30 mg Capsule] 40 mg PO DAILY Alprazolam [Xanax] 1 mg PO HS 01/24/18 Sulfamethoxazole/Trimethoprim [Bactrim Ds -] 1 tab PO BID #14 tablet 01/31/18 Anemia: Yes (Iron-Deficiency type (no current meds.).) Asthma: No Cancer: No Cardiac Disorders: No CVA: No COPD: No CHF: No Dementia: No Diabetes: No GI Disorders: No Disorders: No HTN: No Hypercholesterolemia: No Kidney Stones: No Liver Disease: No Psychiatric Problems: Yes (BIPOLAR, ivdu heroin and coccain, on methadone) Seizures: No Thyroid Disease: No - Surgical History Abdominal Surgery: No Appendectomy: No Cardiac Surgery: No Cholecystectomy: No Lung Surgery: No Neurologic Surgery: No Orthopedic Surgery: No - Reproductive History PID: No - Suicide/Smoking/Psychosocial Hx Smoking Status: Yes Smoking History: Current every day smoker Have you smoked in the past 12 months: Yes Number of Cigarettes Smoked Daily: 20 Cigars Per Day: 0 Information on smoking cessation initiated: Yes 'Breaking Loose' booklet given: 08/23/17 (GIVE ON UNIT.) Hx Alcohol Use: No Drug/Substance Use Hx: Yes (heroin and coccain) Substance Use Type: None Hx Substance Use Treatment: Yes (Previous Detox admissions at [facility] (Last: 2016).) Review of Systems - Review of Systems Constitutional: No: Chills, Fever, Malaise Integumentary: No: Erythema *Physical Exam - Vital Signs Last Vital Signs Temp Pulse Resp BP Pulse Ox 98.7 F 107 H 18 114/70 01/31/18 11:01 01/31/18 11:01 01/31/18 11:01 01/31/18 11:01 - Physical Exam General Appearance: Yes: Appropriately Dressed. No: Apparent Distress HEENT: positive: Normal Voice Neck: positive: Supple Respiratory/Chest: negative: Respiratory Distress Extremity: positive: Other (well lilliam wound to distal L forearm w/ both sutures and packing in place, no erythema or discharge) Integumentary: positive: Dry, Warm Neurologic: positive: Fully Oriented, Alert, Normal Mood/Affect ED Treatment Course - LABORATORY CBC & Chemistry Diagram: 01/31/18 12:23 01/31/18 12:23 Medical Decision Making - Medical Decision Making 01/31/18 12:19 7-year-old female, history of anxiety, bipolar, IV drug abuse-cocaine and heroine, here for re-evaluation after signing out AMA last night after being admitted for infectious thrombophlebitis to left upper extremity. Status post debridement and ligation by Dr. Reaves or surgery and after being on IV Vanco and Zosyn was transitioned to po Clinda (MRSA on wound cx-sen to clinda), mostly due to difficulty finding vein per patient. States she left last night because of her anxiety and states staff was not giving her her xanax in a timely fashion. Left without prescription for antibiotics and prior to arrangements for VNS wound care. No worsening pain, fever, chills, nausea or vomiting. Has gotten her methadone this am. Pt states she does not feel well so decided to return today. Patient well-appearing with mild tachycardia at triage, wound to left upper extremity well-appearing with both sutures and packing in place. No erythema, streaking or active discharge at this time. Will check labs and continue po antibiotics. Will contact surgery to discuss recommendations/dispo 01/31/18 12:[address] Reaves who agrees that if wound well-appearing and no fever or leukocytosis, that patient can be discharged with Clinda. Recommends that I contact case management to discuss setting up VNS for wound care 01/31/18 13:50 Wbc 12.8, was 8, 2 days ago while hospitalized and was 15 on 01/24 when patient was initially admitted. Discussed with Dr. Sauer who states as wound well- appearing and patient stable with no fever, can be discharged on bactrim. Rpt vitals w/ HR of 65, T of 97,7 and BP of 109/67 as technical spec. Paged pillowcase sewer to assist with setting up VNS, pending call back 01/31/18 14:55 Pt states she went upstairs to arrange setting up her own VNS and now has appointment on per patient. Requesting discharge at this time. Pt to call Dr. Reaves did set up wound check/packing removal this week. Strict return precautions given *DC/Admit/Observation/Transfer Diagnosis at time of Disposition: Visit for wound check - Discharge Dispostion Disposition: HOME Condition at time of disposition: Good - Prescriptions Prescriptions: Sulfamethoxazole/Trimethoprim [Bactrim Ds -] 1 tab PO BID #14 tablet - Referrals Referrals: Olivia Ho MD [Primary Care Provider] - Wali Reaves MD [Staff Physician] - - Patient Instructions Additional Instructions: Please take antibiotics as directed. If symptoms worsen, such as worsening pain, redness, discharge or fever, return to ER immediately. Please call Dr. Flores today to make a follow-up appointment for wound check this week. Please follow up on for your appointment to set up VNS wound care - Post Discharge Activity
[2018-01-31] MEDS ORDERED: CLINDAMYCIN HCL 150 MG CAPSULE (FP) ONE (12:24)
[2018-01-31] MEDS ORDERED: CLINDAMYCIN HCL 150 MG CAPSULE (FP) PO ONE (12:27)
[2018-01-31 12:39] LABS: BASO % 0.7 % (0-2.0); EOS % 1.2 % (0-4.5); HEMATOCRIT 36.2 % (32.4-45.2); LYMPH % 29.8 % (8-40); MCH 28.8 pg (25.7-33.7); MCHC 33.2 g/dl (32.0-36.0); MEAN CELL VOLUME 86.9 fl (80-96); MEAN PLT VOLUME 7.5 fl (7.5-11.1); MONO % 8.5 % (3.8-10.2); NEUT % 59.8 % (42.8-82.8); PLATELET COUNT 514 K/MM3 (134-434); RBC 4.17 M/mm3 (3.60-5.2); RDW 13.2 % (11.6-15.6); WHITE BLOOD COUNT 12.8 K/mm3 (4.0-10.0)
[2018-01-31 13:03] LABS: ALBUMIN 3.7 g/dl (3.4-5.0); ANION GAP 6 (8-16); BILIRUBIN,TOTAL 0.5 mg/dL (0.2-1.0); BLOOD UREA NITROGEN 5 mg/dL (7-18); CALCIUM 8.8 mg/dL (8.5-10.1); CHLORIDE 104 mmol/L (98-107); CO2 29 mmol/L (21-32); CREATININE 0.8 mg/dL (0.55-1.02); GLUCOSE,RANDOM 79 mg/dL (74-106); POTASSIUM 4.3 mmol/L (3.5-5.1); SGOT/AST 17 U/L (15-37); SGPT/ALT 20 U/L (12-78); SODIUM 139 mmol/L (136-145); TOT PROT 6.9 g/dl (6.4-8.2)
[2018-01-31 13:04] LABS: ALK PHOS 55 U/L (45-117)
[2018-01-31 15:07] VITALS: BP 118/68; PULSE 97; TEMP 98.2
== END 2018-01-31 15:07 | disposition home or self-care (01) ==
LOC: JER 10:48
DX: Z48.817 Encounter for surgical aftercare following surgery on the skin and subcutaneous tissue (principal)
CPT/HCPCS: 36415; 80053; 85025; 99284-25

== ENCOUNTER 2019-02-21 10:52 | Emergency (ER) | payer OTHER | END 2019-02-21 17:04 | disposition home or self-care (01) | LOC: JERFT 10:52 → JER 17:04 ==

== ENCOUNTER 2019-03-21 21:27 | Emergency (ER) | payer OTHER ==
--- NOTE | 2019-03-21 21:34 | PDOC ---
Rapid Medical Evaluation Chief Complaint: Revisit,Wound Recheck Time Seen by Provider: 03/21/19 21:31 Medical Evaluation: Allergies Allergy/AdvReac Type Severity Reaction Status Date / Time No Known Allergies Allergy Verified 02/21/19 13:44 03/21/19 21:31 I have performed a brief in-person evaluation of this patient. The patient presents with a chief complaint of: multiple abscess - been IVDA for many years, states swelling and infected x 3 days Pertinent physical exam findings: multiple sites of inflammation and swelling to left forearm at injection sites I have ordered the following: nothing The patient will proceed to the ED for further evaluation.
[2019-03-21 21:35] VITALS: BMI 17.4
--- NOTE | 2019-03-22 00:14 | PDOC ---
History of Present Illness - General Chief Complaint: Wound Stated Complaint: BUMP ON LT ARM Time Seen by Provider: 03/21/19 21:31 - History of Present Illness Initial Comments: Lakeisha Hebert is a 28yo woman with a PMH of IVDA who presents with two areas of swelling, erythema, and pain on her proximal flexor left forearm. She also notes an area that appears black on the proximal thenar eminence with underlying erythema. The erythema has been present for 2-3 days. Ms Hebert appears to be intoxicated and is slurring her words; however, she states that she has not injected any drugs since yesterday and implies that the wounds first started at that time. She reports that she has had similar abscesses multiple times in the past. She denies any fevers, chills, spreading erythema, red streaks up her arms, or other systemic symtpoms. Past History - Past Medical History Allergies/Adverse Reactions: Allergies Allergy/AdvReac Type Severity Reaction Status Date / Time No Known Allergies Allergy Verified 03/21/19 21:38 Home Medications: Ambulatory Orders Dextroamphetamine/Amphetamine [Adderall Xr 30 mg Capsule] 40 mg PO DAILY Alprazolam [Xanax] 2 mg PO BID 01/24/18 Albuterol 0.083% Nebulizer Bernice [Ventolin 0.083% Nebulizer Soln -] 1 neb NEB Q4H PRN #30 vial 02/21/19 Methadone (Detox) [Dolophine -] 90 mg PO DAILY 02/21/19 Clindamycin [Cleocin -] 300 mg PO Q6HPO #40 capsule 03/22/19 Anemia: Yes (Iron-Deficiency type (no current meds.).) Asthma: No Cancer: No Cardiac Disorders: No CVA: No COPD: No CHF: No Dementia: No Diabetes: No GI Disorders: No Disorders: No HTN: No Hypercholesterolemia: No Kidney Stones: No Liver Disease: No Psychiatric Problems: Yes (BIPOLAR, ivdu heroin and coccain, on methadone) Seizures: No Thyroid Disease: No - Surgical History Abdominal Surgery: No Appendectomy: No Cardiac Surgery: No Cholecystectomy: No Lung Surgery: No Neurologic Surgery: No Orthopedic Surgery: No - Reproductive History PID: No - Immunization History Immunization Up to Date: No - Suicide/Smoking/Psychosocial Hx Smoking Status: Yes Smoking History: Current every day smoker Have you smoked in the past 12 months: Yes Number of Cigarettes Smoked Daily: 20 Cigars Per Day: 0 Information on smoking cessation initiated: Yes 'Breaking Loose' booklet given: 08/23/17 (GIVE ON UNIT.) Hx Alcohol Use: No Drug/Substance Use Hx: Yes (WEEK AGO) Substance Use Type: None Hx Substance Use Treatment: Yes (Previous Detox admissions at [facility] (Last: 2016).) Review of Systems - Review of Systems Comments:: General: No fevers, no chills, no weight or appetite change, no malaise HEENT: No changes in vision, no changes in hearing, no congestion, no sore throat CV: No chest pain, no palpitations, no LE edema Pulm: No SOB, no cough, no wheezing GI: No nausea or vomiting, no change in bowel habits, no melena : No frequency, no urgency, no dysuria Musc: No back pain, no joint swelling, no recent injury Skin: No rash, no lesions, no erythema Endo: No excessive thirst, no heat/cold intolerance Heme: No unusual bruising or bleeding, no swollen glands Neuro: No syncope, no numbness/tingling, no focal weakness Vasc: No claudication Psych: No recent change in mood, no SI or HI *Physical Exam - Vital Signs Last Vital Signs Temp Pulse Resp BP Pulse Ox 97.4 F L 58 L 18 151/85 98 03/21/19 21:31 03/21/19 21:31 03/21/19 21:31 03/21/19 21:31 03/21/19 21:31 - Physical Exam Comments: General: Extremely thin, stumbling gait, slurred speech. Appears intoxicated HEENT: EOMI, MMM, normal neck ROM Cards: RRR, no murmur appreciated Pulm: Comfortable on room air Ext: LUE w/ two areas of erythema and induration, questionable fluctuance, on proximal flexor surface of forearm. Both approx 2cm in diameter, well circumscribed. Erythematous indurated area on L thenar eminence w/ black linear abrasion or excoriation overlying, no fluctance appreciated. Multiple well healed incisions c/w previous I&D on b/l UE Neuro: Awake, responsive, slurring speech, stumbling/ataxic gait, CN grossly intact ED Treatment Course - RADIOLOGY Radiology Studies Ordered: Category Date Time Status FOREARM- LEFT [RAD] Stat Radiology 03/21/19 23:55 Ordered HAND- LEFT [RAD] Stat Radiology 03/21/19 23:55 Ordered Medical Decision Making - Medical Decision Making 03/21/19 23:56 Lakeisha Hebert is a 28yo woman with a PMH of IVDA who presents with three apparent abscesses on her LUE after injecting cocaine 2-3 days ago. She denies systemic symptoms and does not appear to have any spreading erythema or fever. - Xray of L forearm and hand to evaluate for foreign material including broken needle tips - Will need I&D of abscess 03/22/19 01:35 - Bedside US completed to evaluate abscesses v cellulitis on proximal forearm. No clear fluid collections appreciated, but proximal area of erythema drained several CC's of purulent fluid from initial puncture site during US exam due to pressure from probe - Area was anesthetized w/ 2cc of 1% lidocaine, and a 1cm incision was made into both areas of erythema on the forearm. The proximal area drainaned another ~1cc of thick purulent material. The distal area was incised on both medial and lateral sides without any purulent drainage. - Pressure was held on the wounds until adequate hemostasis was achieved, and the wounds were dressed with dry gauze - Pt will be given initial dose of clindamycin here prior to discharge - Patient and aunt (at bedside) were given detailed instructions on wound care, warm compresses, antibiotics, follow up, and return precautions. They both state understanding. - Offered rehab, Pt has no interest in rehab at this time. - Plan to d/c home with wound check in 48hrs Discussed with Dr Blount. Gaby Crowley PGY2 *DC/Admit/Observation/Transfer Diagnosis at time of Disposition: Abscess of forearm, left, Intravenous drug abuse - Discharge Dispostion Disposition: HOME Condition at time of disposition: Stable Decision to Admit order: No - Prescriptions Prescriptions: Clindamycin [Cleocin -] 300 mg PO Q6HPO #40 capsule - Referrals Referrals: [facility] [place] [facility] [[place] Group] - Patient Instructions Printed Discharge Instructions: DI for Skin Abscess Additional Instructions: Discharge Instructions: You were seen in the emergency department for an abscess on your left forearm. You had xrays to ensure there was no foreign material in the wound. You had pus expressed from one of the forearm abscesses, but the other could not be drained. Home Care and Follow Up: - You have been prescribed an antibiotic called clindamycin. This should be taken every 6 hours (4 times daily) for 10 days. Please complete the entire prescription to prevent continued infection - Apply warm compresses to your wounds, especially the hand and forearm wound that were not drained. The warm compress may be applied for 15-20 minutes as often as tolerated. This will help the wounds open and drain. - Keep your wounds covered in dry gauze as long as they are draining. You may continue to keep them covered with a bandage even after the drainage stops to help keep them clean if you choose to do so. - You will need to return to the ED for a check of your wounds in 48 hours - Follow up with your regular doctor in a week to recheck your wounds. If you need to establish care, you can call the [facility] clinic to schedule an apopintment. - Seek imediate medical care if you notice any worsening of your symptoms, the abscesses grow larger, you are unable to move your thumb or have pain with thumb movement, you have red streaking up your arm, you develop fever to 101F or you have any other medical emergency. - Post Discharge Activity
--- NOTE | 2019-03-22 01:25 | PDOC ---
Documentation entered by Randal Gifford SCRIBE, acting as scribe for Gabriela Blount DO. Gabriela Blount DO: This documentation has been prepared by the Batla ortega Daniel, SCRIBE, under my direction and personally reviewed by me in its entirety. I confirm that the documentation accurately reflects all work , treatment, procedures, and medical decision making performed by me. Attending Attestation - Resident Resident Name: Gaby Crowley - ED Attending Attestation I have performed the following: I have examined & evaluated the patient, The case was reviewed & discussed with the resident, I agree w/resident's findings & plan - HPI HPI: 03/22/19 01:23 28-year-old female with history of polysubstance abuse now with left arm pain and swelling after injecting drugs. - Physicial Exam PE: 03/22/19 01:24 agree with residents exam - Medical Decision Making 03/22/19 01:24 28-year-old female with arm swelling X-ray shows no obvious foreign body Exam consistent with multiple abscesses Incision and drainage completed by the emergency medicine resident Patient given clindamycin with continued outpatient dosing Plan for follow-up for wound check in 48 hours
[2019-03-22] MEDS ORDERED: CLINDAMYCIN HCL 150 MG CAPSULE (FP) PO ONE (01:39)
[2019-03-22] MEDS ORDERED: CLINDAMYCIN HCL 150 MG CAPSULE (FP) ONE (02:04)
[2019-03-22 02:21] VITALS: BP 125/89; PULSE 56; TEMP 98.6
== END 2019-03-22 02:21 | disposition home or self-care (01) ==
LOC: JER 21:27
PROC: 0H9CXZZ Drainage of Left Upper Arm Skin, External Approach (ICD-10-PCS; principal; 2019-03-21)
DX: L02.414 Cutaneous abscess of left upper limb (principal); F15.10 Other stimulant abuse, uncomplicated; F17.210 Nicotine dependence, cigarettes, uncomplicated; F31.9 Bipolar disorder, unspecified
CPT/HCPCS: 73090-TC-LT-FY; 73130-TC-LT-FY; 99281-25

== ENCOUNTER 2019-03-22 17:12 | Observation (INO) | payer OTHER ==
--- NOTE | 2019-03-22 17:14 | PDOC ---
History of Present Illness - General Stated Complaint: SLURRED SPEECH Time Seen by Provider: 03/22/19 17:13 - History of Present Illness Initial Comments: 03/22/19 18:02 HPI: 28 y/o F hx of HepC s/p medical treatment and IVDU who recently presented to [facility] last night for left forearm abscesses s/p bedside I&D now presenting for continued slurred speech and dizziness with unsteadiness. She reports Tuesday she used PCP with IV heroine and cocaine and developed general tonic clonic activity which had caused her to fall from a standing position. The activity was new for her. She continued to use IVD Tu and Tue and the slurred speech and dizziness continued, however, she has not used any IVD today and was concerned because the slurred speech and difficulty with word finding persisted longer than it ever has before. She reports multiple falls since Tuesday with unclear head trauma. She reports feeling slow and having a hard time getting words out. She also has blurred vision which she reports has persisted longer than it normally does. Patient denies fever, chills, chest pain, SOB, n/v, abd pain, headache PMHx: as noted above ROS: as noted SHx: smokes 2cigs/day; denies alcohol; reports IV heroine and cocaine use as well as PCP use Allergies: NKDA Past History - Past Medical History Allergies/Adverse Reactions: Allergies Allergy/AdvReac Type Severity Reaction Status Date / Time No Known Allergies Allergy Verified 03/22/19 17:13 Home Medications: Ambulatory Orders Dextroamphetamine/Amphetamine [Adderall Xr 30 mg Capsule] 40 mg PO DAILY Alprazolam [Xanax] 2 mg PO BID 01/24/18 Methadone (Detox) [Dolophine -] 90 mg PO DAILY 02/21/19 Clindamycin [Cleocin -] 600 mg PO Q6H 03/22/19 Anemia: Yes (Iron-Deficiency type (no current meds.).) Asthma: No Cancer: No Cardiac Disorders: No CVA: No COPD: No CHF: No Dementia: No Diabetes: No GI Disorders: No Disorders: No HTN: No Hypercholesterolemia: No Kidney Stones: No Liver Disease: No Psychiatric Problems: Yes (BIPOLAR, ivdu heroin and coccain, on methadone) Seizures: No Thyroid Disease: No - Surgical History Abdominal Surgery: No Appendectomy: No Cardiac Surgery: No Cholecystectomy: No Lung Surgery: No Neurologic Surgery: No Orthopedic Surgery: No - Reproductive History PID: No - Immunization History Immunization Up to Date: No - Suicide/Smoking/Psychosocial Hx Smoking Status: Yes Smoking History: Current every day smoker Have you smoked in the past 12 months: Yes Number of Cigarettes Smoked Daily: 20 Cigars Per Day: 0 'Breaking Loose' booklet given: 08/23/17 (GIVE ON UNIT.) Hx Alcohol Use: No Drug/Substance Use Hx: Yes (WEEK AGO) Substance Use Type: None Hx Substance Use Treatment: Yes (Previous Detox admissions at [facility] (Last: 2016).) Review of Systems - Review of Systems Comments:: 03/22/19 18:14 GENERAL/CONSTITUTIONAL: No fever or chills. HEAD, EYES, EARS, NOSE AND THROAT: +blurred vision. No ear pain or discharge. No sore throat. CARDIOVASCULAR: +palpitations. No chest pain or shortness of breath RESPIRATORY: No SOB, cough, wheezing, or hemoptysis. GASTROINTESTINAL: No nausea, vomiting, diarrhea or constipation. GENITOURINARY: No dysuria, frequency, or change in urination. MUSCULOSKELETAL: No joint or muscle swelling or pain. No neck or back pain. SKIN: +rash NEUROLOGIC: +dizziness, slurred speech, lightheadedness, seizure. ENDOCRINE: No increased thirst. No abnormal weight change HEMATOLOGIC/LYMPHATIC: No anemia, easy bleeding, or history of blood clots. ALLERGIC/IMMUNOLOGIC: No hives or skin allergy. *Physical Exam - Physical Exam Comments: 03/22/19 18:16 NIHSS: 3 for ataxia and 2 extremities and 1 for slurred speech; see separate NIHSS note PE: GENERAL: Awake, alert, and fully oriented, in no acute distress HEAD: No signs of trauma, normocephalic, atraumatic EYES: pupils equally constricted and equally reactive to light, EOMI, BL horizontal nystagmus, sclera anicteric, conjunctiva clear ENT: Auricles normal inspection, hearing grossly normal, nares patent, oropharynx clear without exudates. Moist mucosa NECK: Normal ROM, supple, no lymphadenopathy, JVD, or masses LUNGS: No distress, speaks full sentences, clear to auscultation bilaterally HEART: Regular rate and rhythm, normal S1 and S2, no murmurs, rubs or gallops, peripheral pulses normal and equal bilaterally. ABDOMEN: Soft, nontender, normoactive bowel sounds. No guarding, no rebound. No masses EXTREMITIES : left arm s/p I&D, healing well, nontender NEUROLOGICAL: Cranial nerves II through XII grossly intact. Dysarthric speech, unstable gait and unable to walk heel in front of toe. BL dysmetria present as well as dysdiadochokinesia. 5/5 str present throughout, sensation intact SKIN: Warm, Dry, normal turgor, no rashes or lesions noted ED Treatment Course - LABORATORY CBC & Chemistry Diagram: 03/23/19 06:57 03/23/19 06:57 Medical Decision Making - Medical Decision Making 03/22/19 18:30 28 y/o F hx of HepC s/p medical treatment and IVDU who recently presented to [facility] last night for left forearm abscesses s/p bedside I&D now presenting for continued slurred speech and dizziness with unsteadiness. On exam, she was found to have an NIHSS 3 however, with findings of dysarthria, dysmetria, dysdiadochokinesia, and unstable gait, there is concern for cerebellar stroke. Other DDx includes intoxication given significant history of use as well as use of IV cocaine and heroin in conjunction with PCP which she normally doesnt do together -CVA stroke order set: CT head, full set of labs -patient will be monitored in the ED until results return -patient will require admission for further evaluation and neurological monitoring 03/22/19 18:46 CT head with no acute intracranial abnormality 03/22/19 19:08 Patient amenable to admission Will require neuro consult in the AM for further eval or possible cerebellar stroke Ordered MRI brain noncon, MRA head noncon, and MRA neck noncon for further imaging given negative CT 03/22/19 20:38 EKG: NSR, no ST elevation or depression. Nrml intervals CXR: no acute cardiopulmonary processes labs unremarkable Utox pending Pending bed availability *DC/Admit/Observation/Transfer Diagnosis at time of Disposition: Slurred speech, Dizziness - Discharge Dispostion Disposition: AGAINST MEDICAL ADVICE Condition at time of disposition: Stable Decision to Admit order: Yes - Referrals - Patient Instructions - Post Discharge Activity
[2019-03-22] MEDS ORDERED: SODIUM CHLORIDE 1,000 ML IV SCH (18:00)
--- NOTE | 2019-03-22 18:06 | PDOC ---
Attending Attestation - Resident Resident Name: Justyn Rogers - ED Attending Attestation I have performed the following: I have examined & evaluated the patient, The case was reviewed & discussed with the resident, I agree w/resident's findings & plan, Exceptions are as noted - HPI HPI: 03/22/19 18:33 28-year-old female with history of hepatitis C status post treatment, current polysubstance abuser with IV drug abuse. Presents to the emergency department first her speech and gait instability. 4 days ago, the patient had injected PCP , heroin and cocaine in her left upper extremity. During the middle of injection , the patient had a witnessed general tonic-clonic movement but returned to baseline. Patient was intoxicated at that time and noted to have slurring his speech. Since then, the patient has continued to inject drugs daily. She had noted that she was having gait instability and slurring his speech and dizziness but initially thought this was secondary to intoxication. Yesterday, the patient visited [facility] and had an incision and drainage performed and was prescribed clindamycin. However, patient did not use any drugs today and she still notices that she has slurring of speech, dizziness, gait instability and arrived to the ER for further evaluation. Patient denies headache, vomiting, chest pain or shortness of breath. Denies recent illnesses, fevers, chills. Patient reports that her left hand is getting better. - Physicial Exam PE: 03/22/19 18:35 GENERAL: Awake, alert, and fully oriented, in no acute distress HEAD: No signs of trauma EYES: PERRLA, EOMI, sclera anicteric, conjunctiva clear ENT: Auricles normal inspection, hearing grossly normal, nares patent, NECK: Normal ROM, supple, LUNGS: Breath sounds equal, clear to auscultation bilaterally. No wheezes, and no crackles HEART: Regular rate and rhythm, normal S1 and S2, no murmurs, rubs or gallops ABDOMEN: Soft, nontender, No guarding, no rebound. No masses EXTREMITIES: Normal range of motion, no edema. No clubbing or cyanosis. No cords, erythema, or tenderness NEUROLOGICAL: Cranial nerves II through XII intact. +slurred speech appreciated. +dysmetria L side. +abnormal rapid alternative movement on LUE. Heel to rollins normal bilaterally. No pronator drift. Leans on gait movement. Sensation and strength intact in all extremities. SKIN: Warm, Dry, normal turgor, no rashes or lesions noted. - Medical Decision Making 03/22/19 18:38 Vital Signs Temp Pulse Resp BP Pulse Ox 98.1 F 89 18 134/91 99 03/22/19 17:12 03/22/19 17:12 03/22/19 17:12 03/22/19 17:12 03/22/19 17:12 The patient is a IV drug user with symptoms concerning for cerebellar stroke. I am concerned as the patient should require head CT and likely MRI of the brain. Patient has high risk given her drug use. We'll obtain labs and admit the patient to the hospital with neuro consultation. Patient should continue taking her clindamycin for her left hand which is improving. 03/22/19 18:57 CBC, BMP 03/22/19 18:15 CT head with no acute findings. Pt should be admitted to the hospital. Pt signed out to oncoming ED attending Dr. Huang for further management and disposition. Heart Score/ECG Review #1 ECG reviewed & interpreted by me at: 18:35 03/22/19 18:38 NSR 69, no std/rolly, normal axis, normal intervals, QTC 484 msec NIH Stroke Scale - Last Known Well Date/Time & Onset Date Last Known Well: 03/19/19 - Initial Evaluation Level of consciousness: Alert Ask patient the month and their age: Answers both correctly Ask patient to open & close eyes; make fist and let go: Obeys both correctly Best gaze (horizontal eye movement): Normal Visual field testing: No visual field loss Facial paresis (Show teeth/raise eyebrows/close eyes tight): Normal symmetrical movement Motor Function: Left Arm: Normal Motor Function: Right Arm: Normal (extends arm 90 (or 45) degrees for 10 seconds without drift Motor Function: Left Leg: Normal (extends leg 30 degrees for 5 seconds without drift) Motor Function: Right Leg: Normal (extends leg 30 degrees for 5 seconds without drift) Limb Ataxia: Present in two limbs Sensory(Use pinprick test arms,legs,trunk,face/side to side): Normal Best language (Describe picture, name items, read sentences): No Aphasia Dysarthria (read several words): Mild to moderate slurring of words Extinction and Inattention: No abnormality - Total Score NIH Stroke Scale Score: 3
--- NOTE | 2019-03-22 18:26 | PDOC ---
NIH Stroke Scale - Initial Evaluation Level of consciousness: Alert Ask patient the month and their age: Answers both correctly Ask patient to open & close eyes; make fist and let go: Obeys both correctly Best gaze (horizontal eye movement): Normal Visual field testing: No visual field loss Facial paresis (Show teeth/raise eyebrows/close eyes tight): Normal symmetrical movement Motor Function: Left Arm: Normal Motor Function: Right Arm: Normal (extends arm 90 (or 45) degrees for 10 seconds without drift Motor Function: Left Leg: Normal (extends leg 30 degrees for 5 seconds without drift) Motor Function: Right Leg: Normal (extends leg 30 degrees for 5 seconds without drift) Limb Ataxia: Present in two limbs Sensory(Use pinprick test arms,legs,trunk,face/side to side): Normal Best language (Describe picture, name items, read sentences): No Aphasia Dysarthria (read several words): Mild to moderate slurring of words Extinction and Inattention: No abnormality - Total Score NIH Stroke Scale Score: 3
[2019-03-22 18:31] LABS: BASO % 0.8 % (0-2.0); EOS % 1.8 % (0-4.5); HEMATOCRIT 37.2 % (32.4-45.2); HEMOGLOBIN 12.2 GM/dl (10.7-15.3); LYMPH % 30.1 % (8-40); MCH 29.4 pg (25.7-33.7); MCHC 32.7 g/dl (32.0-36.0); MEAN CELL VOLUME 89.7 fl (80-96); MEAN PLT VOLUME 8.9 fl (7.5-11.1); MONO % 6.4 % (3.8-10.2); NEUT % 60.9 % (42.8-82.8); PLATELET COUNT 332 K/MM3 (134-434); RBC 4.15 M/mm3 (3.60-5.2); RDW 14.4 % (11.6-15.6); WHITE BLOOD COUNT 7.5 K/mm3 (4.0-10.8)
[2019-03-22 18:55] LABS: TRIGLYCERIDES 99 mg/dl (0-150)
[2019-03-22 18:57] LABS: ALBUMIN 4.1 g/dl (3.4-5.0); BILIRUBIN,TOTAL 0.7 mg/dl (0.2-1); CREATININE 0.8 mg/dl (0.55-1.3); POTASSIUM 4.2 mmol/L (3.5-5.1); TOT PROT 7.1 g/dl (6.4-8.2)
[2019-03-22 19:12] LABS: INR 1.29 (0.82-1.09); PROTHROMBIN TIME (PATIENT) 14.4 SEC (10.2-13.0)
--- NOTE | 2019-03-22 19:16 | PDOC ---
*Physical Exam - Vital Signs Last Vital Signs Temp Pulse Resp BP Pulse Ox 98.1 F 89 18 134/91 99 03/22/19 17:12 03/22/19 17:12 03/22/19 17:12 03/22/19 17:12 03/22/19 17:12 ED Treatment Course - LABORATORY CBC & Chemistry Diagram: 03/22/19 18:15 03/22/19 18:15 - ADDITIONAL ORDERS Additional order review: Laboratory Results 03/22/19 03/22/19 03/22/19 18:15 18:15 18:15 PT with INR 14.4 H INR 1.29 H Sodium Potassium Chloride Carbon Dioxide Anion Gap BUN Creatinine Est GFR (CKD-EPI)AfAm Est GFR (CKD-EPI)NonAf Random Glucose Calcium Total Bilirubin AST ALT Alkaline Phosphatase Creatine Kinase 61 Troponin I < 0.03 Total Protein Albumin Triglycerides Cholesterol Total LDL Cholesterol HDL Cholesterol 03/22/19 03/22/19 18:15 18:15 PT with INR INR Sodium 141 Potassium 4.2 Chloride 102 Carbon Dioxide 32 Anion Gap 7 L BUN 8.0 Creatinine 0.8 Est GFR (CKD-EPI)AfAm 116.28 Est GFR (CKD-EPI)NonAf 100.33 Random Glucose 105 Calcium 10.0 Total Bilirubin 0.7 AST 25 ALT 13 Alkaline Phosphatase 52 Creatine Kinase Troponin I Total Protein 7.1 Albumin 4.1 Triglycerides 99 Cholesterol 156 Total LDL Cholesterol 78 HDL Cholesterol 58 03/22/19 18:15 RBC 4.15 MCV 89.7 MCHC 32.7 RDW 14.4 D MPV 8.9 Neutrophils % 60.9 Lymphocytes % 30.1 Monocytes % 6.4 Eosinophils % 1.8 Basophils % 0.8 Progress Note - Progress Note Progress Note: Care of this patient received from Dr. Momin. Patient being admitted for persistent dysarthria/dysmetria for further neurologic consultation and MRI to rule out CVA. Neuro consult was obtained by Dr. Rogers (discussed case with Dr. Abernathy who will see the patient in the morning) Patient remained stable and was transferred to med/surg bed here at [facility] *DC/Admit/Observation/Transfer Diagnosis at time of Disposition: Slurred speech, Dizziness - Discharge Dispostion Condition at time of disposition: Stable - Referrals - Patient Instructions - Post Discharge Activity
[2019-03-22 21:07] LABS: URINE BARBITURATES NEGATIVE ng/ml (CUTOFF=200)
[2019-03-22 21:14] LABS: URINE AMPHETAMINES POSITIVE ng/ml (CUTOFF=500); URINE BENZODIAZEPINES POSITIVE ng/ml (CUTOFF=200)
[2019-03-22 21:15] LABS: COCAINE, UR POSITIVE ng/ml (CUTOFF=300); OPIATES, URI POSITIVE ng/ml (CUTOFF=300)
[2019-03-22 21:16] LABS: METHADONE, UR POSITIVE ng/ml (CUTOFF=300); PHENCYCLIDINE,URINE POSITIVE ng/ml (CUTOFF=25)
--- NOTE | 2019-03-22 22:10 | HP ---
Admitting History and Physical - Admission Chief Complaint: Slurred speech and Dizzyness History of Present Illness: 28 yrs old F Homeless H/O Hep C (treated with interferon in 2007) ADHD Depression anxiety, PSA active Heroine, PCP and IV Cocaine, H/O Sepsis with MRSA few years ago as per patient on Tuesday evening she smoked PCP and she was injecting IV Cocaine mixed with Heroine in Left fore arm had a seizure that was observed by her partner , sheslept after seizure in am felt Dizzy and slurred speech, today she was helping her grand mother and her family member noticed that her speech is slurred and she has difficulty in finding words and feeling dizzy so came to Ed for evaluation as per patient since seizure she has difficulty in finding words denies any head ache, blurring of vision chest pain , yesterday bvisited [facility] with Left UE abscess at the site of injection site, patient was discharged on clindamycin after I andD, no c/o fever, chills, nausea, vomiting hallucination or delusion, calm and cooperative i the ED Ct head normal, Neurology consulted recommended hospitalization for further management and evaluation. History Source: Patient - Past Medical History Hepatobiliary: Yes: Hepatitis C (reports treated in the past with interferon) ...LMP: 01/17/17 Infectious Disease: Yes: Other (Sepsis) Psych: Yes: Addictions, Anxiety, Depression, Other (ADHD) Dermatology: Yes: Cellulitis - Past Surgical History Past Surgical History: Yes: Tonsillectomy - Smoking History Smoking history: Current every day smoker Have you smoked in the past 12 months: Yes Aproximately how many cigarettes per day: 20 - Alcohol/Substance Use Hx Alcohol Use: No History of Substance Use: reports: Cocaine, Heroin, Marijuana, Prescription - Social History Usual Living Arrangement: Yes: Alone ADL: Independent History of Recent Travel: No Home Medications - Allergies Allergies/Adverse Reactions: Allergies Allergy/AdvReac Type Severity Reaction Status Date / Time No Known Allergies Allergy Verified 03/22/19 17:13 - Home Medications Home Medications: Ambulatory Orders Dextroamphetamine/Amphetamine [Adderall Xr 30 mg Capsule] 40 mg PO DAILY Alprazolam [Xanax] 2 mg PO BID 01/24/18 Methadone (Detox) [Dolophine -] 90 mg PO DAILY 02/21/19 Clindamycin [Cleocin -] 600 mg PO Q6H 03/22/19 Family Disease History - Family Disease History Family Disease History: CA: Grandparent (Uncertain about type.), Other: Mother ( anxiety) Review of Systems - Review of Systems Constitutional: denies: Chills, Diaphoresis, Fever Eyes: reports: Blurred Vision. denies: Blind Spots, Double Vision, Eye Pain, Photophobia HENT: denies: Difficult Swallowing, Ear Discharge, Ear Pain, Epistaxis, Gingival Bleeding, Hearing Loss, Mouth Swelling Neck: denies: Decreased ROM, Lumps, Pain on Movement, Stiffness Cardiovascular: denies: Chest Pain, Edema, Palpitations, Shortness of Breath Respiratory: denies: Cough, Exercise Intolerance, Hemoptysis, Orthopnea Gastrointestinal: denies: Abdominal Pain, Bloating, Constipation, Diarrhea Genitourinary: denies: Burning, Discharge, Dysuria Musculoskeletal: denies: Back Pain, Crepitus Integumentary: reports: Incision, Wound Neurological: reports: Change in Speech, Dizziness, Incoordination. denies: Change in LOC, Confusion Endocrine: denies: Unexplained Weight Loss Hematology/Lymphatic: denies: Easily Bruised Physical Examination Vital Signs: Vital Signs Temperature 97.8 F 03/22/19 20:13 Pulse Rate 61 03/22/19 20:13 Respiratory Rate 16 03/22/19 20:13 Blood Pressure 101/60 03/22/19 20:13 O2 Sat by Pulse Oximetry (%) 99 03/22/19 20:13 Constitutional: Yes: No Distress, Calm Eyes: Yes: Conjunctiva Clear, EOM Intact HENT: Yes: Atraumatic, Normocephalic Neck: Yes: Supple, Trachea Midline Cardiovascular: Yes: Regular Rate and Rhythm, S1, S2. No: Tachycardia, JVD Respiratory: Yes: Regular, CTA Bilaterally Gastrointestinal: Yes: Normal Bowel Sounds, Soft Edema: No Peripheral Pulses: Left Doralis Pedis: 2+, Right Dorsalis Pedis: 2+ Integumentary: Yes: Bruising, Erythema, Other (Left UE injection raina with thrombophlenbitis) Neurological: Yes: Alert, Oriented, Cran Nerves II-XII Intact ...Motor Strength: WNL, LUE, LLE, RUE Psychiatric: Yes: Alert, Oriented. No: Agitated, Suicidal Ideation Labs: CBC, BMP 03/22/19 18:15 03/22/19 18:15 CBC,CMP WBC 7.5 K/mm3 (4.0-10.8) 03/22/19 18:15 RBC 4.15 M/mm3 (3.60-5.2) 03/22/19 18:15 Hgb 12.2 GM/dl (10.7-15.3) 03/22/19 18:15 Hct 37.2 % (32.4-45.2) 03/22/19 18:15 MCV 89.7 fl (80-96) 03/22/19 18:15 MCH 29.4 pg (25.7-33.7) 03/22/19 18:15 MCHC 32.7 g/dl (32.0-36.0) 03/22/19 18:15 RDW 14.4 % (11.6-15.6) D 03/22/19 18:15 Plt Count 332 K/MM3 (134-434) 03/22/19 18:15 MPV 8.9 fl (7.5-11.1) 03/22/19 18:15 Absolute Neuts (auto) 4.5 K/mm3 03/22/19 18:15 Neutrophils % 60.9 % (42.8-82.8) 03/22/19 18:15 Lymphocytes % 30.1 % (8-40) 03/22/19 18:15 Monocytes % 6.4 % (3.8-10.2) 03/22/19 18:15 Eosinophils % 1.8 % (0-4.5) 03/22/19 18:15 Basophils % 0.8 % (0-2.0) 19 18:15 Sodium 141 mmol/L (136-145) 19 18:15 Potassium 4.2 mmol/L (3.5-5.1) 03/22/19 18:15 Chloride 102 mmol/L (98-107) 03/22/19 18:15 Carbon Dioxide 32 mmol/L (21-32) 03/22/19 18:15 Anion Gap 7 MMOL/L (8-16) L 03/22/19 18:15 BUN 8.0 mg/dl (7-18) 03/22/19 18:15 Creatinine 0.8 mg/dl (0.55-1.3) 03/22/19 18:15 Est GFR (CKD-EPI)AfAm 116.28 03/22/19 18:15 Est GFR (CKD-EPI)NonAf 100.33 03/22/19 18:15 Random Glucose 105 mg/dl (74-106) 03/22/19 18:15 Calcium 10.0 mg/dl (8.5-10) 03/22/19 18:15 Total Bilirubin 0.7 mg/dl (0.2-1) 03/22/19 18:15 AST 25 U/L (15-37) 03/22/19 18:15 ALT 13 U/L (13-61) 03/22/19 18:15 Alkaline Phosphatase 52 U/L (45-117) 03/22/19 18:15 Creatine Kinase 61 U/L (26-192) 03/22/19 18:15 Troponin I < 0.03 ng/ml (0.00-0.05) 03/22/19 18:15 Total Protein 7.1 g/dl (6.4-8.2) 03/22/19 18:15 Albumin 4.1 g/dl (3.4-5.0) 03/22/19 18:15 Triglycerides 99 mg/dl (0-150) 03/22/19 18:15 Cholesterol 156 mg/dl (50-200) 03/22/19 18:15 Total LDL Cholesterol 78 mg/dL (5-100) 03/22/19 18:15 HDL Cholesterol 58 mg/dl (40-60) 03/22/19 18:15 Laboratory Results - last 24 hr U Tox : Opiate + Methadone + Marijuna + Amphetamine + Cocaine + PCP + Benzodiazepine + Imaging - Results Chest X-ray: Report Reviewed (No acute changes) Cat Scan: Report Reviewed (Head normal) EKG: Report Reviewed (69 NSR [place] [address] t changes) Problem List - Problems (1) Slurred speech Assessment/Plan: Can be due to Poly substance abuse but can be Cocaine induced CVA , speech nad swallow, no psychotropic drugs, PT evaluation, Neurology consult, Neurocheck, Lorazepalm IV PRN for seizures and agitation, F/U MRI MRA Brain , ECHo Cardio gram, IV Hydration Code(s): R47.81 - SLURRED SPEECH (2) Abscess of forearm, left Assessment/Plan: Cont Clindamycine MRSA screening Code(s): L02.414 - CUTANEOUS ABSCESS OF LEFT UPPER LIMB (3) Hepatitis C Assessment/Plan: Treated normal LFTs Code(s): B19.20 - UNSPECIFIED VIRAL HEPATITIS C WITHOUT HEPATIC COMA Qualifiers: Viral hepatitis chronicity: unspecified Hepatic coma status: without hepatic coma Qualified Code(s): B19.20 - Unspecified viral hepatitis C without hepatic coma (4) anxiety and depression Assessment/Plan: will observe for withdrawal Lorazepam PRN Call his Psychiatrist in am to confirm meds (5) Thrombophlebitis arm Assessment/Plan: Left arm , Motrin PRN Cold compresses Code(s): I80.8 - PHLEBITIS AND THROMBOPHLEBITIS OF OTHER SITES (6) Methadone maintenance therapy patient Assessment/Plan: Confirm dose from [facility] patient claims she is on 90 mg Daily Code(s): F11.20 - OPIOID DEPENDENCE, UNCOMPLICATED (7) ADHD Assessment/Plan: Hold [employer] stimulant observe clinically Code(s): F90.9 - ATTENTION-DEFICIT HYPERACTIVITY DISORDER, UNSPECIFIED TYPE
[2019-03-22] MEDS ORDERED: IBUPROFEN 200 MG TABLET PO PRN (22:29)
[2019-03-22] MEDS ORDERED: LORazepam 2 MG/ML SDV VIAL IVPUSH PRN (22:31)
[2019-03-22] MEDS ORDERED: CLINDAMYCIN HCL 300 MG CAPSULE PO SCH (22:45)
[2019-03-22] MEDS ORDERED: CLINDAMYCIN HCL 150 MG CAPSULE (FP) PO SCH (22:46)
[2019-03-22] MEDS: CLINDAMYCIN HCL 150 MG CAPSULE (FP) PO SCH (23:04)
[2019-03-22 23:51] VITALS: BMI 17.3
[2019-03-23] MEDS: CLINDAMYCIN HCL 150 MG CAPSULE (FP) PO SCH (05:56)
[2019-03-23 06:14] VITALS: BP 129/78; PULSE 51; TEMP 97.7
[2019-03-23 07:27] LABS: BASO % 0.6 % (0-2.0); EOS % 3.7 % (0-4.5); HEMATOCRIT 32.9 % (32.4-45.2); HEMOGLOBIN 10.9 GM/dl (10.7-15.3); LYMPH % 53.5 % (8-40); MCHC 33.2 g/dl (32.0-36.0); MEAN CELL VOLUME 90.5 fl (80-96); MONO % 9.8 % (3.8-10.2); NEUT % 32.4 % (42.8-82.8); PLATELET COUNT 274 K/MM3 (134-434); RBC 3.63 M/mm3 (3.60-5.2); RDW 14.4 % (11.6-15.6); WHITE BLOOD COUNT 7.1 K/mm3 (4.0-10.8)
[2019-03-23 08:08] LABS: ALBUMIN 3.4 g/dl (3.4-5.0); BILIRUBIN,TOTAL 0.4 mg/dl (0.2-1); CALCIUM 9.4 mg/dl (8.5-10); CREATININE 0.6 mg/dl (0.55-1.3); POTASSIUM 4.7 mmol/L (3.5-5.1); TOT PROT 6.1 g/dl (6.4-8.2)
--- NOTE | 2019-03-23 10:50 | DS ---
Physical Exam: Date of Admission:03/22/19 Date Left Against Medical Advice: 03/23/19 Advised patient signed out AMA at 7:20am. Not seen or examined. Minutes to complete discharge: 5 Discharge Summary Reason For Visit: EPISODIC ATAXIA WITH SLURRED SPEECH Condition: Stable - Instructions Disposition: AGAINST MEDICAL ADVICE - Home Medications Comprehensive Discharge Medication List: Ambulatory Orders Dextroamphetamine/Amphetamine [Adderall Xr 30 mg Capsule] 40 mg PO DAILY Alprazolam [Xanax] 2 mg PO BID 01/24/18 Methadone (Detox) [Dolophine -] 90 mg PO DAILY 02/21/19 Clindamycin [Cleocin -] 600 mg PO Q6H 03/22/19 This patient is new to me today: Yes Date on this admission: 03/23/19 Emergency Visit: Yes ED Registration Date: 03/22/19 Care time: The patient presented to the Emergency Department on the above date and was hospitalized for further evaluation of their emergent condition. Critical Care patient: No - Discharge Referral Referred to [facility] Med P.C.: No
--- NOTE | 2019-03-23 12:35 | EKG ---
Test Reason : Blood Pressure : / mmHG Vent. Rate : 069 BPM Atrial Rate : 069 BPM P-R Int : 142 ms QRS Dur : 088 ms QT Int : 452 ms P-R-T Axes : 058 067 052 degrees QTc Int : 484 ms NORMAL SINUS RHYTHM POSSIBLE LEFT ATRIAL ENLARGEMENT PROLONGED QT INCOMPLETE RBBB ABNORMAL ECG Confirmed by JOCELYNE GOLD MD ([id number]) on 03/23/2019 12:35:26 PM Referred By: DR BOUCHER Confirmed By:JOCELYNE GOLD MD
== END 2019-03-23 07:46 | disposition left against medical advice (07) ==
LOC: FER 17:12 → FM/S 20:57 → INTOOBSV 20:57
PROVIDERS: ADMIT Internal Medicine; ATTEND Nurse Practitioner Acute Care
PROC: 3E0337Z Introduction of Electrolytic and Water Balance Substance into Peripheral Vein, Percutaneous Approach (ICD-10-PCS; principal; 2019-03-22)
DX: R27.0 Ataxia, unspecified (principal); R47.81 Slurred speech; R42 Dizziness and giddiness; F11.20 Opioid dependence, uncomplicated; F17.210 Nicotine dependence, cigarettes, uncomplicated; L02.414 Cutaneous abscess of left upper limb; B19.20 Unspecified viral hepatitis C without hepatic coma; F41.9 Anxiety disorder, unspecified; F32.9 Major depressive disorder, single episode, unspecified; I80.8 Phlebitis and thrombophlebitis of other sites; F90.9 Attention-deficit hyperactivity disorder, unspecified type
CPT/HCPCS: 36415; 70450-TC; 71045-TC-FY; 80053; 80307; 81003; 81025; 82465; 82550; 83718; 83721; 83735; 84443; 84478; 84484; 84703; 85025; 85610; 86850; 86900; 86901; 93005; 99285-25; G0378; J7030

== ENCOUNTER 2019-04-06 14:21 | Emergency (ER) | payer OTHER ==
--- NOTE | 2019-04-06 14:24 | PDOC ---
Rapid Medical Evaluation Medical Evaluation: Allergies Allergy/AdvReac Type Severity Reaction Status Date / Time No Known Allergies Allergy Verified 03/22/19 17:13 I have performed a brief in-person evaluation of this patient. The patient presents with a chief complaint of: hx of Hep C (treated with interferon in 2007) ADHD Depression anxiety, PSA active Heroine, PCP and IV Cocaine, H/O Sepsis with MRSA presents for f/u for ?abscesses drained along B/L forearms; states it was not fully an abscess at that time but she was placed on Clindamycin, which she finished; patient states has not used IV drugs for 1 week Pertinent physical exam findings: No fluctuance, swelling or abscess noted along B/L forearms I have ordered the following: Nothing The patient will proceed to the ED for further evaluation. 04/06/19 14:23
[2019-04-06 14:28] VITALS: BP 103/67; PULSE 68; TEMP 97.7; BMI 17.3
--- NOTE | 2019-04-06 14:59 | PDOC ---
Suture Removal/Wound Check HPI - History of Present Illness Chief Complaint: Revisit,Wound Recheck Stated Complaint: REVISIT Time Seen by Provider: 04/06/19 14:29 History Source: Yes: Patient Exam Limitations: Yes: No Limitations Treated at: [facility] Date of Last ED visit: 03/22/19 - Previous ED Treatment Type of procedure performed on last visit: Yes: I&D of Abscess Past History - Past Medical History Allergies/Adverse Reactions: Allergies Allergy/AdvReac Type Severity Reaction Status Date / Time No Known Allergies Allergy Verified 04/06/19 14:28 Home Medications: Ambulatory Orders Dextroamphetamine/Amphetamine [Adderall Xr 30 mg Capsule] 40 mg PO DAILY Alprazolam [Xanax] 2 mg PO BID 01/24/18 Methadone (Detox) [Dolophine -] 90 mg PO DAILY 02/21/19 Clindamycin [Cleocin -] 600 mg PO Q6H 03/22/19 Anemia: Yes (Iron-Deficiency type (no current meds.).) Asthma: No Cancer: No Cardiac Disorders: No CVA: No COPD: No CHF: No Dementia: No Diabetes: No GI Disorders: No Disorders: No HTN: No Hypercholesterolemia: No Kidney Stones: No Liver Disease: No Psychiatric Problems: Yes (BIPOLAR, ivdu heroin and coccain, on methadone) Seizures: No Thyroid Disease: No - Surgical History Abdominal Surgery: No Appendectomy: No Cardiac Surgery: No Cholecystectomy: No Lung Surgery: No Neurologic Surgery: No Orthopedic Surgery: No - Reproductive History PID: No - Immunization History Immunization Up to Date: No - Suicide/Smoking/Psychosocial Hx Smoking Status: Yes Smoking History: Current every day smoker Have you smoked in the past 12 months: Yes Number of Cigarettes Smoked Daily: 20 Cigars Per Day: 0 Information on smoking cessation initiated: No 'Breaking Loose' booklet given: 08/23/17 (GIVE ON UNIT.) Hx Alcohol Use: Yes Drug/Substance Use Hx: Yes (IVDU HEROIN, SMOKE DUST) Substance Use Type: None Hx Substance Use Treatment: Yes (Previous Detox admissions at [facility] (Last: 2016).) Suture Removal/Wound Check PE - Physical Exam Laceration/Wound Check Symptoms: reports: None. denies: Fever, Chills, Redness , Discharge, Numbness, Weakness Location of Laceration/Wound: bilateral: Forearm (b/l plantar forearms) Pain Radiation: None *Review of Systems - Review of Systems Able to Perform ROS?: Yes Constitutional: No: Fever, Weakness HEENTM: No: Symptoms Reported Respiratory: No: Symptoms reported Cardiac (ROS): No: Symptoms Reported ABD/GI: No: Symptoms Reported Musculoskeletal: No: Symptoms Reported, Muscle Pain (b/l forearms) Integumentary: Yes: Symptoms Reported, See HPI, Lumps (b/l plantar aspect of forearms) Neurological: No: Symptoms reported, Tingling, Weakness All Other Systems: Reviewed and Negative *Physical Exam - Vital Signs Last Vital Signs Temp Pulse Resp BP Pulse Ox 97.7 F 68 14 103/67 99 04/06/19 14:23 04/06/19 14:23 04/06/19 14:23 04/06/19 14:23 04/06/19 14:23 - Physical Exam Comments: 04/06/19 15:08 GENERAL: Well developed, well nourished. Awake and alert. No acute distress. PULMONARY: No evidence of respiratory distress. MUSCULOSKELETAL : No tenderness to the plantar aspect of bilateral forearms overall multiple areas of hard indurations to proximal aspects of bilateral forearms. No skin erythema. No increased warmth or abscesses to bilateral forearms no new injury wounds to bilateral forearms. Small area of 1 cm swelling to radial aspect of the MCP joint of left thumb with small well- healing superficial wound to skin of MCP of left thumb. No bony deformities SKIN: Warm and dry. Normal capillary refill. No skin erythema or increased warmth. No open wounds. No abscesses to lateral forearms. No new entry wounds to bilateral forearms or injection wounds NEUROLOGICAL: Alert, awake, appropriate. No motor deficits in the lower extremities. Gait is normal without ataxia. PSYCHIATRIC: Cooperative. Good eye contact. Appropriate mood and affect. General Appearance: Yes: Nourished, Appropriately Dressed. No: Apparent Distress Medical Decision Making - Medical Decision Making 04/06/19 15:14 Patient with history of IV drug abuse present for wound check status post presenting 2 weeks ago with multiple abscesses to bilateral forearms requiring incision and drainage. Patient is status post clindamycin antibiotics. Patient was advised to follow-up in 48 hours for wound check by followed up 2 weeks instead. Exam significant for well-healed in duration to proximal plantar aspect of bilateral forearms with no skin erythema or evidence of infection. Small wound to radial aspect of the MCP of left thumb which is well healing patient advised to apply bacitracin to wound to left thumb twice a day on to healed and follow- up with PCP and patient stable for discharge *DC/Admit/Observation/Transfer Diagnosis at time of Disposition: Cellulitis and abscess of upper arm and forearm, Wound check, abscess - Discharge Dispostion Disposition: HOME Condition at time of disposition: Stable Decision to Admit order: No - Referrals - Patient Instructions Printed Discharge Instructions: How to Care for a Surgical Wound Additional Instructions: No evidence of wound infection at this time. continue with bacitracin on wound twice a day as discussed. Follow-up with primary care - Post Discharge Activity
== END 2019-04-06 15:11 | disposition home or self-care (01) ==
LOC: JERFT 14:21
DX: Z48.817 Encounter for surgical aftercare following surgery on the skin and subcutaneous tissue (principal); L03.114 Cellulitis of left upper limb; L03.113 Cellulitis of right upper limb
CPT/HCPCS: 99281-25

== ENCOUNTER 2019-08-07 11:21 | Emergency (ER) | payer OTHER ==
[2019-08-07 11:42] VITALS: BP 111/75; PULSE 66; TEMP 98.4; BMI 17.8
[2019-08-07] MEDS ORDERED: ACETAMINOPHEN 325 MG TABLET (FP) PO ONE (11:59)
[2019-08-07] MEDS ORDERED: ACETAMINOPHEN 325 MG TABLET (FP) ONE (12:01)
--- NOTE | 2019-08-07 12:08 | PDOC ---
History of Present Illness - General Chief Complaint: Injury Stated Complaint: RT ANKLE PAIN Time Seen by Provider: 08/07/19 11:42 History Source: Patient Exam Limitations: No Limitations - History of Present Illness Initial Comments: 08/07/19 12:02 Lakeisha Hebert is a 28F with PMH polysubstance abuse on methadone, bipolar depression and anxiety on Xanax, Effexor, and Seroquel, multiple hospitalizations related to IVDA, presents today with ankle injury after a fall. 2 days ago patient was walking down the stairs at 3AM to use the restroom at home when she slipped and rolled her right ankle. Denies LOC, head injury, or other injury to her head/arms/torso. Denies intoxication, seizure-like activity , headache, syncope as etiology of fall, says it is purely mechanical. Since then has had pain in her right ankle, able to ambulate with a limp and bear weight toe-touch, has been icing the ankle, wrapping in RJ bandages, and using Aleve with some relief. Denies numbness/tingling in the leg. No prior MSK injuries to R leg. Denies any alcohol or drug use, has been taking methadone and psychiatric medications without issues. Smokes 1ppd, would like to quit. Past History - Past Medical History Allergies/Adverse Reactions: Allergies Allergy/AdvReac Type Severity Reaction Status Date / Time No Known Allergies Allergy Verified 08/07/19 11:22 Home Medications: Ambulatory Orders Alprazolam [Xanax] 2 mg PO BID 01/24/18 Methadone (Detox) [Dolophine -] 90 mg PO DAILY 02/21/19 Dextroamphetamine/Amphetamine [Adderall 10 mg Tablet] 20 mg PO DAILY 08/07/19 Dextroamphetamine/Amphetamine [Adderall Xr 20 mg Capsule] 30 mg PO DAILY Venlafaxine HCl [Effexor -] 225 mg PO BID 08/07/19 Anemia: Yes (Iron-Deficiency type (no current meds.).) Asthma: No Cancer: No Cardiac Disorders: No CVA: No COPD: No CHF: No Dementia: No Diabetes: No GI Disorders: No Disorders: No HTN: No Hypercholesterolemia: No Kidney Stones: No Liver Disease: No Psychiatric Problems: Yes (BIPOLAR, ivdu heroin and coccain, on methadone) Seizures: No Thyroid Disease: No - Surgical History Abdominal Surgery: No Appendectomy: No Cardiac Surgery: No Cholecystectomy: No Lung Surgery: No Neurologic Surgery: No Orthopedic Surgery: No - Reproductive History PID: No - Immunization History Immunization Up to Date: No - Psycho Social/Smoking Cessation Hx Smoking Status: Yes Smoking History: Never smoked Have you smoked in the past 12 months: No Number of Cigarettes Smoked Daily: 20 Cigars Per Day: 0 Information on smoking cessation initiated: No 'Breaking Loose' booklet given: 08/23/17 (GIVE ON UNIT.) Hx Alcohol Use: No Drug/Substance Use Hx: Yes Substance Use Type: None Hx Substance Use Treatment: Yes (Previous Detox admissions at [facility] (Last: 2016).) Review of Systems - Review of Systems Able to Perform ROS?: Yes Constitutional: No: Symptoms Reported HEENTM: No: Symptoms Reported Respiratory: Yes: Symptoms reported Cardiac (ROS): No: Symptoms Reported ABD/GI: No: Symptoms Reported : No: Symptoms Reported Musculoskeletal: Yes: Joint Pain, Joint Swelling (R ankle). No: Back Pain, Muscle Pain, Muscle Weakness, Neck Pain, Joint Stiffness Integumentary: Yes: Flushing (R ankle) Neurological: No: Symptoms reported Psychiatric: Yes: Depression Endocrine: No: Symptoms Reported Hematologic/Lymphatic: No: Symptoms Reported All Other Systems: Reviewed and Negative *Physical Exam - Vital Signs Last Vital Signs Temp Pulse Resp BP Pulse Ox 98.4 F 66 20 111/75 100 08/07/19 11:21 08/07/19 11:21 08/07/19 11:21 08/07/19 11:21 08/07/19 11:21 - Physical Exam General Appearance: Yes: Nourished, Appropriately Dressed, Thin. No: Apparent Distress HEENT: positive: EOMI, BLANCA, Normal Voice, Symmetrical, Pharynx Normal, Hearing Grossly Normal, Other (normocephalic atraumatic). negative: Scleral Icterus (R) , Scleral Icterus (L), Pharyngeal Erythema, Tonsillar Exudate, Tonsillar Erythema Neck: positive: Supple. negative: Tender, Lymphadenopathy (R), Lymphadenopathy (L), Tender midline Respiratory/Chest: positive: Lungs Clear, Normal Breath Sounds. negative: Chest Tender, Respiratory Distress, Accessory Muscle Use, Crackles, Rales, Rhonchi, Stridor, Wheezing Cardiovascular: positive: Regular Rhythm, Regular Rate Gastrointestinal/Abdominal: positive: Normal Bowel Sounds, Flat, Soft. negative : Tender, Organomegaly, Guarding, Rebound Musculoskeletal: positive: Normal Inspection. negative: CVA Tenderness, Vertebral Tenderness Extremity: positive: Normal Capillary Refill, Normal Range of Motion, Tender, Pelvis Stable, Swelling, Erythema, Other (RLE: tenderness to palpation of R lateral malleolus and R midfoot above metatarsals and R distal tibia, full ROM to ankle with pain on movement, DP present 2+, sensation intact to LT, 5/5 motor at toes and ankle, erythema and swelling noted to R ankle and foot, R knee exam normal. LLE: normal inspection, neurovascular intact, sensation intact to LT, motor 5/5. Observed ambulating with limp, able to bear weight on R ankle.). negative: Normal Inspection, Coldness, Cyanosis Integumentary: positive: Normal Color, Dry, Warm, Erythema, Swelling. negative : Cyanotic, Cold Neurologic: positive: Fully Oriented, Alert, Normal Mood/Affect, Normal Response , Motor Strength 5/5 ED Treatment Course - RADIOLOGY Radiology Studies Ordered: Category Date Time Status ANKLE & FOOT-RIGHT* [RAD] Stat Radiology 08/07/19 11:57 Ordered Medical Decision Making - Medical Decision Making 08/07/19 12:02 Lakeisha Hebert is a 28F with PMH polysubstance abuse on methadone, bipolar depression and anxiety on Xanax, Effexor, and Seroquel, multiple hospitalizations related to IVDA, presents today with ankle injury after a fall. Presentation and exam are consistent with either a sprained ankle vs. ankle fracture given point tenderness to lateral malleolus as well as midfoot at the level of the metatarsals consistent with a Reese fracture. Getting X-ray of right foot and ankle, giving PO Tylenol for pain control. 08/07/19 13:55 X-rays show no evidence of fracture to the tibia or foot, no evidence of dislocation or deformity. Diagnosed with ankle sprain. Patient's foot dressed in an RJ bandage with an ankle stirrup and given a cane to ambulate with instructions on use. Stable to be discharged home with orthopedic f/u. Instructed on RICE therapy for pain control and healing of ankle sprain. Discharge - Discharge Information Problems reviewed: Yes Clinical Impression/Diagnosis: Ankle injury Qualifiers: Encounter type: initial encounter Laterality: right Qualified Code(s): S99.911A - Unspecified injury of right ankle, initial encounter Condition: Stable Disposition: HOME - Admission No - Follow up/Referral Referrals: Otoniel Cary MD [Staff Physician] - Robbie Holguin DO [Staff Physician] - - Patient Discharge Instructions Patient Printed Discharge Instructions: DI for Ankle Sprain Additional Instructions: Today you were evaluated for an ankle injury. We gave you Tylenol for the pain. Your X-rays do not show any evidence of a broken bone, so your injury is likely just a muscle sprain. Please remember to ice your foot and rest it from any strenuous activities. We placed your foot in a cast iwht RJ bandages. Please keep it on at all times except for showering to make sure your ankle stays stable and your injury does not worsen. We have provided a referral to see an orthopedic surgeon for follow- up. In terms of Chantix, please follow-up with your primary care doctor, who can better monitor and prescribe this medication for you and keep track of your goals. Please follow-up with your primary doctor in the next 3 days for further care. If you experience headache, numbness/tingling in your foot, become unable to walk, or have any other new or concerning symptoms, please return to the emergency room. - Post Discharge Activity
--- NOTE | 2019-08-07 12:43 | PDOC ---
Attending Attestation - Resident Resident Name: Jorge Sanchez - ED Attending Attestation I have performed the following: I have examined & evaluated the patient, The case was reviewed & discussed with the resident, I agree w/resident's findings & plan - HPI HPI: 08/07/19 12:40 28 yrs old F Homeless H/O Hep C (treated with interferon in 2007) ADHD Depression anxiety, PSA active Heroine, PCP and IV Cocaine, H/O Sepsis with MRSA few years ago presenting with right ankle pain s/p trip and fall while walking down the stairs to use the restroom ~2 days ago at approx 3am. she stated she slipped and rolled her ankle as she fell. Denies LOC, head injury, or other injury to her head/arms/torso. Denies intoxication, seizure-like activity, headache, syncope as etiology of fall, says it is purely mechanical. Since then has had pain in her right ankle, able to ambulate with a limp and bear weight toe-touch, has been icing the ankle, wrapping in RJ bandages, and using Aleve with some relief, last used this morning. Denies numbness/tingling in the leg. - Physicial Exam PE: 08/07/19 12:41 physical exam General: NAD, well appearing Vascular: 2+ DP pulses symmetric and equal. MSK: notable for soft compartments, Cap refill <2 sec. Proximal and distal strength 5/5, manager report strength 5/5 - equal and symmetric. Plantar flexion and dorsiflexion 5/5. FROM. Sensation grossly intact to light touch. No calf tenderness. no prox fibular tenderness, no laxity at knee jt, no tenderness. 2+ DP pulses bilaterally. +right lateral malleolus and posterior malleolar TTP, no joint laxity, no deformity. Neuro: alert, no focal neurologic deficits Skin: color normal color, warm and well perfused. Cap refill <2 sec. no ecchymosis or skin discoloration. 08/07/19 12:59 08/07/19 12:59 - Medical Decision Making 08/07/19 12:42 Vital Signs Temp Pulse Resp BP Pulse Ox 98.4 F 66 20 111/75 100 08/07/19 11:21 08/07/19 11:21 08/07/19 11:21 08/07/19 11:21 08/07/19 11:21 ddx fracture, contusion, sprain. VS reviewed, wnl analgesia here. Xray right foot/ankle - normal joint space alignment, no acute fx or dislocation. no e/o lisfranc. no tib-fib fx. mortise is preserved and symmetric. Discussed results with patient. air cast for ankle sprain. Rest ice and elevation. Pain control with OTC meds including motrin/tylenol as needed every 6 hours; no narcotics needed. Ortho followup provided. Crutches to assist with ambulation, WBAT. return precautions provided, f/u PMD/ortho. expect sx to improve over next 3-5 days. 08/07/19 12:43 08/07/19 12:43
== END 2019-08-07 13:10 | disposition home or self-care (01) ==
LOC: FER 11:21
PROC: 2W3RX1Z Immobilization of Left Lower Leg using Splint (ICD-10-PCS; principal; 2019-08-07)
DX: S99.911A Unspecified injury of right ankle, initial encounter (principal); W10.9XXA Fall (on) (from) unspecified stairs and steps, initial encounter; Y93.89 Activity, other specified; Y92.89 Other specified places as the place of occurrence of the external cause; F31.9 Bipolar disorder, unspecified; F41.9 Anxiety disorder, unspecified; F19.10 Other psychoactive substance abuse, uncomplicated; D64.9 Anemia, unspecified
CPT/HCPCS: 73610-TC-RT-FY; 73630-TC-RT-FY; 99281-25

== ENCOUNTER 2020-05-06 17:26 | Emergency (ER) | payer OTHER ==
--- NOTE | 2020-05-06 17:33 | PDOC ---
History of Present Illness - General Chief Complaint: Pain Stated Complaint: GROWTH UNDER LEFT AXILLA - History of Present Illness Initial Comments: HPI: 29yo F with PMH of polysubstance abuse on methadone, bipolar depression and anxiety on Xanax, Effexor, and Seroquel, multiple hospitalizations related to IVDA, presents today with mass under her left axilla. Patient reports shaving her armpits about five days ago. Noticed irritation under her left axilla about four days ago and redness/swelling/tendernes about three days ago. Presents today because the pain has worsened. Denies any drainage or bleeding. Has a history of MRSA and has had prior abscesses drained previously. No recent antibiotic use. Denies fever or chills. PCP: none ROS: Constitutional: no fever, no chills HEENT: no throat pain, no dysphagia Cardiovascular: no chest pain, no palpitations Respiratory: no cough, no shortness of breath Gastrointestinal: no abdominal pain, no nausea Genitourinary: no dysuria, no hematuria Musculoskeletal: no myalgia, no arthralgia Skin: no rash, +lesion Neurologic: no headache, no weakness Psych: no agitation, no anxiety PE: General: Awake, alert, and fully oriented, in no acute distress Head: No signs of trauma Eyes: EOMI, sclera anicteric ENT: Moist mucus membranes Neck: Normal ROM, supple Lungs: Lungs clear, Normal breath sounds Cardio: Regular rhythm, S1 and S2 present Abdomen: Soft, nontender Extremities: Normal range of motion, Distal pulses present Skin: 3cm x 1 cm area of erythema, warmth, induration, tenderness coming to a head without any discharge located under the left axilla Neurologic: Cranial nerves II through XII grossly intact. Normal speech ED Course/MDM: DDX including but not limited to abscess, cellulitis, lymphadenopathy Exam consistent with abscess Will perform I&D 05/06/20 18:03 I&D performed with yellow discharge; please see procedure section Patient tolerated procedure well and endorsed improvement in L. axilla pain Referral to primary care Return precautions Stable for discharge 05/08/20 12:32 Past History - Medical History Allergies/Adverse Reactions: Allergies Allergy/AdvReac Type Severity Reaction Status Date / Time No Known Allergies Allergy Verified 05/06/20 17:27 Home Medications: Ambulatory Orders Alprazolam [Xanax] 2 mg PO TID 05/06/20 Bupropion HCl [Wellbutrin Sr] 150 mg PO DAILY 05/06/20 Dextroamphetamine/Amphetamine [Adderall 10 mg Tablet] 20 mg PO DAILY 05/06/20 Dextroamphetamine/Amphetamine [Adderall Xr 30 mg Capsule] 30 mg PO DAILY 05/06/20 Quetiapine Fumarate [Seroquel -] 100 mg PO HS 05/06/20 Anemia: Yes (Iron-Deficiency type (no current meds.).) Asthma: No Cancer: No Cardiac Disorders: No CVA: No COPD: No CHF: No Dementia: No Diabetes: No GI Disorders: No Disorders: No HTN: No Hypercholesterolemia: No Kidney Stones: No Liver Disease: No Psychiatric Problems: Yes (BIPOLAR, ivdu heroin and coccain, on methadone) Seizures: No Thyroid Disease: No - Surgical History Abdominal Surgery: No Appendectomy: No Cardiac Surgery: No Cholecystectomy: No Lung Surgery: No Neurologic Surgery: No Orthopedic Surgery: No - Reproductive History PID: No - Immunization History Immunization Up to Date: No - Psycho-Social/Smoking History Smoking Status: Yes Smoking History: Never smoked Have you smoked in the past 12 months: No Number of Cigarettes Smoked Daily: 20 Cigars Per Day: 0 'Breaking Loose' booklet given: 08/23/17 (GIVE ON UNIT.) Procedures - Incision and Drainage I&D Site: Left: Axilla Betadine cleansed: Yes Anesthesia: 1% Lidocaine Volume(ml): 3 Blade Size: 11 Plain Packing: No Dressing: Yes Discharge - Discharge Information Problems reviewed: Yes Clinical Impression/Diagnosis: Abscess Condition: Stable Disposition: HOME - Follow up/Referral Referrals: [facility] [place] [facility] [place] [Provider Group] - Patient Discharge Instructions Patient Printed Discharge Instructions: DI for Incision and Drainage of a Skin Abscess Additional Instructions: You came to the emergency department for an abscess. The abscess was drained. Keep the area clean. You can cover with area with gauze to absorb the residual drainage. Warm soaks will help facilitate ongoing drainage You can shower or bathe The area should be re-evaluated in two to three days. Reevaluation can be performed by your primary healthcare marketer. You have been referred to the [facility]. Call and make an appointment at the number provided. Your care is not complete until you follow up. Seek medical attention if any of the following occur: Fever or chills Reaccumulation of pus in the area Increased pain or redness Red streaks Increased swelling If you think you are having an emergency, call for emergency medical services or present to the emergency department right away. - Post Discharge Activity
[2020-05-06 17:44] VITALS: BP 100/70; PULSE 68; TEMP 98; BMI 18.2
--- NOTE | 2020-05-06 18:37 | PDOC ---
Attending Attestation - Resident Resident Name: Ara Graham - ED Attending Attestation I have performed the following: I have examined & evaluated the patient, The case was reviewed & discussed with the resident, I agree w/resident's findings & plan, Exceptions are as noted - HPI HPI: 29 yo F history polysubstance abuse on methadone, bipolar disorder, anxiety, prior MRSA presents with L axillary abscess. She states she shaves, and that the razor rests blade down in the shower, may be remaining wet. The area has developed swelling, redness, and exquisite tenderness over the past 3 days. No drainage. Denies fever. - Physicial Exam PE: GENERAL: Awake, alert, and fully oriented, in no acute distress HEAD: No signs of trauma EYES: PERRLA, EOMI, sclera anicteric, conjunctiva clear EXTREMITIES: Normal range of motion, no edema. No clubbing or cyanosis. No cords, erythema, or tenderness NEUROLOGICAL: Cranial nerves II through XII grossly intact. Normal speech, normal gait. Motor and sensation intact SKIN: Warm, dry, normal turgor, no rashes. +Fluctuant lesion to the L axilla, with two heads. +Erythema and warmth, however, minimal surrounding cellulitis. - Medical Decision Making As it was very superficial, abscess was drained in the ED. Will not give abx as there is minimal cellulitis, not indicated. Recommended changing her razor more frequently and not leaving it in a wet environment to avoid similar problems in the future. Discharge - Discharge Information Problems reviewed: Yes Clinical Impression/Diagnosis: Abscess Condition: Stable Disposition: HOME - Follow up/Referral Referrals: [facility] [place] [facility] at [place] [Provider Group] - Patient Discharge Instructions Patient Printed Discharge Instructions: DI for Incision and Drainage of a Skin Abscess Additional Instructions: You came to the emergency department for an abscess. The abscess was drained. Keep the area clean. You can cover with area with gauze to absorb the residual drainage. Warm soaks will help facilitate ongoing drainage You can shower or bathe The area should be re-evaluated in two to three days. Reevaluation can be performed by your primary career development associate. You have been referred to the [facility]. Call and make an appointment at the number provided. Your care is not complete until you follow up. Seek medical attention if any of the following occur: Fever or chills Reaccumulation of pus in the area Increased pain or redness Red streaks Increased swelling If you think you are having an emergency, call for emergency medical services or present to the emergency department right away. - Post Discharge Activity
== END 2020-05-06 18:47 | disposition home or self-care (01) ==
LOC: FER 17:26
PROC: 0X9500Z Drainage of Left Axilla with Drainage Device, Open Approach (ICD-10-PCS; principal; 2020-05-06)
DX: L02.412 Cutaneous abscess of left axilla (principal)
CPT/HCPCS: 99284-25

== ENCOUNTER 2020-07-27 13:40 | Inpatient (IN) | payer OTHER ==
[2020-07-27] MEDS ORDERED: ACETAMINOPHEN 1000 MG/100 ML VIAL (NON FORMULARY) IVPB ONE (14:01)
[2020-07-27] MEDS ORDERED: LACTATED RINGERS SOLUTION 1000 ML INFUS.BAG IV STA (14:04)
[2020-07-27 14:24] LABS: HCG,QUALITATIVE URINE Negative
[2020-07-27 14:27] LABS: URINE COLOR YELLOW
[2020-07-27 14:28] LABS: URINE APPEARANCE SL CLOUDY; URINE BILIRUBIN NEGATIVE (NEGATIVE); URINE GLUCOSE (UA) NEGATIVE (NEGATIVE); URINE KETONE NEGATIVE (NEGATIVE)
[2020-07-27 14:29] LABS: URINE LEUK ESTERASE 1+ (NEGATIVE); URINE NITRITE NEGATIVE (NEGATIVE); URINE PROTEIN NEGATIVE (NEGATIVE); URINE RBC 2.-5 /hpf (0-4); URINE UROBILINOGEN 1 (0.2-1.0)
[2020-07-27 14:30] LABS: EPI CELLS FEW /HPF; URINE BACTERIA FEW /hpf (NEGATIVE)
[2020-07-27 14:31] LABS: AMORP URATES 3+ /hpf (NONE SEEN); EPITHELIAL CELLS FEW /hpf
[2020-07-27] MEDS ORDERED: ACETAMINOPHEN INJECTION 100 ML IVPB ONE (14:32)
[2020-07-27] MEDS ORDERED: VANCOMYCIN 1,000 MG in DEXTROSE 5%-WATER - 250 ML IVPB ONE (14:56)
[2020-07-27] MEDS ORDERED: VANCOMYCIN 1,000 MG VIAL (RESTRICTED TO ID ONLY) ONE (15:05)
[2020-07-27 15:19] LABS: BASO % 0.3 % (0-2.0); EOS % 2.7 % (0-4.5); HEMATOCRIT 35.1 % (32.4-45.2); HEMOGLOBIN 11.5 GM/dl (10.7-15.3); MCH 28.7 pg (25.7-33.7); MCHC 32.8 g/dl (32.0-36.0); MEAN CELL VOLUME 87.6 fl (80-96); MEAN PLT VOLUME 8.3 fl (7.5-11.1); MONO % 10.6 % (3.8-10.2); NEUT % 64.4 % (42.8-82.8); PLATELET COUNT 413 K/MM3 (134-434); RDW 14.8 % (11.6-15.6); WHITE BLOOD COUNT 12.9 K/mm3 (4.0-10.8)
[2020-07-27 15:30] LABS: BILIRUBIN,TOTAL 0.7 mg/dl (0.2-1); CALCIUM 9.5 mg/dl (8.5-10); CREATININE 0.6 mg/dl (0.55-1.3); POTASSIUM 4.1 mmol/L (3.5-5.1); TOT PROT 7.1 g/dl (6.4-8.2)
[2020-07-27] MEDS ORDERED: dilTIAZem HCL 30 MG TABLET PO ONE (15:39)
[2020-07-27] MEDS ORDERED: IBUPROFEN 400 MG TABLET (FP) PO ONE ×2 (19:09)
[2020-07-27 21:15] VITALS: BMI 17.8
[2020-07-27] MEDS: ALPRAZolam 1 MG TABLET PO PRN (21:40)
[2020-07-28] MEDS ORDERED: VANCOMYCIN 1 GRAM (PRE-DOCKED) 1,000 MG/250 ML BAG IVPB SCH (03:00)
[2020-07-28] MEDS ORDERED: METHADONE HCL 10 MG TABLET PO SCH (06:45)
[2020-07-28] MEDS ORDERED: METHADONE HCL 40 MG DISPERSABLE TABLET ONE (06:59)
[2020-07-28] MEDS ORDERED: METHADONE HCL 10 MG TABLET ONE (06:59)
[2020-07-28] MEDS ORDERED: PATIENT'S OWN MEDICATION (NON-FORMULARY) (Dextroamphetamine/Amphetamine [Adderall Xr 30 Mg PO SCH (07:00)
[2020-07-28] MEDS ORDERED: METHADONE HCL 5 MG TABLET ONE (07:00)
[2020-07-28] MEDS: METHADONE 80 MG, METHADONE 20 MG, METHADONE 5 MG PO SCH (07:01)
[2020-07-28 07:57] LABS: BASO % 0.4 % (0-2.0); EOS % 4.6 % (0-4.5); HEMATOCRIT 32.1 % (32.4-45.2); HEMOGLOBIN 10.7 GM/dl (10.7-15.3); LYMPH % 24.3 % (8-40); MCH 29.3 pg (25.7-33.7); MCHC 33.3 g/dl (32.0-36.0); MEAN CELL VOLUME 88.1 fl (80-96); MEAN PLT VOLUME 8.5 fl (7.5-11.1); MONO % 10.9 % (3.8-10.2); NEUT % 59.8 % (42.8-82.8); PLATELET COUNT 319 K/MM3 (134-434); RBC 3.64 M/mm3 (3.60-5.2); RDW 14.8 % (11.6-15.6); WHITE BLOOD COUNT 10.8 K/mm3 (4.0-10.8)
[2020-07-28 08:01] LABS: ALBUMIN 3.4 g/dl (3.4-5.0); BILIRUBIN,TOTAL 0.7 mg/dl (0.2-1); CREATININE 0.6 mg/dl (0.55-1.3); POTASSIUM 4.3 mmol/L (3.5-5.1)
[2020-07-28] MEDS ORDERED: ENOXAPARIN NA (PORCINE) 40 MG/0.4 ML DISP.SYRIN SQ SCH (10:00)
[2020-07-28] MEDS ORDERED: PIPERACILLIN/TAZOBACTAM 3.375 GM VIAL IVPB ONE ×2 (13:10→18:35)
[2020-07-28] MEDS ORDERED: DEXTROSE 5%-WATER - 50 ML IVPB ONE ×2 (13:10→18:36)
[2020-07-28] MEDS: PIPERACILLIN/TAZOB 3.375 GM 3.375 GM in DEXTROSE 5%-WATER - 50 ML IVPB SCH ×2 (13:15→18:42)
[2020-07-28] MEDS ORDERED: PATIENT'S OWN MEDICATION (NON-FORMULARY) (Dextroamphetamine/Amphetamine [Adderall Xr 20 Mg PO SCH (15:00)
[2020-07-28] MEDS ORDERED: VANCOMYCIN 1 GRAM (PRE-DOCKED) 1 GM/250 ML BAG IVPB SCH (15:00)
[2020-07-28] MEDS: CLINDAMYCIN 600MG PREMIX IVPB 600 MG/50 ML BAG IVPB SCH ×2 (15:26→23:00)
[2020-07-28] MEDS: ALPRAZolam 1 MG TABLET PO PRN ×2 (15:26→23:01)
[2020-07-28] MEDS: ACETAMINOPHEN 325 MG TABLET (FP) PO PRN (15:26)
[2020-07-28] MEDS ORDERED: CLINDAMYCIN 600MG PREMIX IVPB 600 MG/50 ML BAG IVPB SCH (18:00)
[2020-07-28] MEDS: QUEtiapine FUMARATE 100 MG TABLET (FP) PO SCH (23:00)
[2020-07-29] MEDS ORDERED: DEXTROSE 5%-WATER - 50 ML IVPB ONE ×3 (00:48→18:17)
[2020-07-29] MEDS ORDERED: PIPERACILLIN/TAZOBACTAM 3.375 GM VIAL IVPB ONE ×3 (00:48→18:17)
[2020-07-29] MEDS: PIPERACILLIN/TAZOB 3.375 GM 3.375 GM in DEXTROSE 5%-WATER - 50 ML IVPB SCH ×3 (01:20→18:35)
[2020-07-29] MEDS ORDERED: METHADONE HCL 40 MG DISPERSABLE TABLET ONE (05:57)
[2020-07-29] MEDS ORDERED: METHADONE HCL 10 MG TABLET ONE (05:57)
[2020-07-29] MEDS ORDERED: METHADONE HCL 5 MG TABLET ONE (05:58)
[2020-07-29] MEDS: CLINDAMYCIN 600MG PREMIX IVPB 600 MG/50 ML BAG IVPB SCH ×3 (06:23→22:51)
[2020-07-29] MEDS: METHADONE 80 MG, METHADONE 20 MG, METHADONE 5 MG PO SCH (06:25)
[2020-07-29 09:03] LABS: BASO % 0.6 % (0-2.0); EOS % 4.8 % (0-4.5); HEMATOCRIT 34.3 % (32.4-45.2); HEMOGLOBIN 11.2 GM/dl (10.7-15.3); LYMPH % 28.6 % (8-40); MCH 28.8 pg (25.7-33.7); MCHC 32.7 g/dl (32.0-36.0); MEAN CELL VOLUME 88.1 fl (80-96); MEAN PLT VOLUME 8.3 fl (7.5-11.1); MONO % 8.9 % (3.8-10.2); NEUT % 57.1 % (42.8-82.8); PLATELET COUNT 362 K/MM3 (134-434); RDW 14.6 % (11.6-15.6); WHITE BLOOD COUNT 9.3 K/mm3 (4.0-10.8)
[2020-07-29] MEDS: ALPRAZolam 1 MG TABLET PO PRN ×2 (09:58→21:10)
[2020-07-29] MEDS: ACETAMINOPHEN 325 MG TABLET (FP) PO PRN ×2 (10:02→21:10)
[2020-07-29] MEDS: ENOXAPARIN NA (PORCINE) 40 MG/0.4 ML DISP.SYRIN SQ SCH (14:34)
[2020-07-29] MEDS: QUEtiapine FUMARATE 100 MG TABLET (FP) PO SCH (21:10)
[2020-07-30] MEDS ORDERED: PIPERACILLIN/TAZOBACTAM 3.375 GM VIAL IVPB ONE ×2 (01:10→09:27)
[2020-07-30] MEDS ORDERED: DEXTROSE 5%-WATER - 50 ML IVPB ONE ×2 (01:11→09:27)
[2020-07-30] MEDS: PIPERACILLIN/TAZOB 3.375 GM 3.375 GM in DEXTROSE 5%-WATER - 50 ML IVPB SCH ×3 (02:27→17:59)
[2020-07-30] MEDS ORDERED: METHADONE HCL 40 MG DISPERSABLE TABLET ONE (05:15)
[2020-07-30] MEDS ORDERED: METHADONE HCL 5 MG TABLET ONE (05:16)
[2020-07-30] MEDS ORDERED: METHADONE HCL 10 MG TABLET ONE (05:16)
[2020-07-30] MEDS: METHADONE 80 MG, METHADONE 20 MG, METHADONE 5 MG PO SCH (05:41)
[2020-07-30] MEDS: CLINDAMYCIN 600MG PREMIX IVPB 600 MG/50 ML BAG IVPB SCH ×2 (06:16→15:50)
[2020-07-30 07:57] LABS: ALBUMIN 3.2 g/dl (3.4-5.0); BILIRUBIN,TOTAL 0.5 mg/dl (0.2-1); CALCIUM 8.9 mg/dl (8.5-10); CREATININE 0.6 mg/dl (0.55-1.3); MAGNESIUM 1.8 mg/dL (1.8-2.4); POTASSIUM 3.9 mmol/L (3.5-5.1)
[2020-07-30 08:00] LABS: HEMATOCRIT 31.6 % (32.4-45.2); HEMOGLOBIN 10.4 GM/dl (10.7-15.3); MEAN CELL VOLUME 87.7 fl (80-96); MEAN PLT VOLUME 8.4 fl (7.5-11.1); PLATELET COUNT 350 K/MM3 (134-434); RDW 14.6 % (11.6-15.6); WHITE BLOOD COUNT 9.8 K/mm3 (4.0-10.8)
[2020-07-30] MEDS: ALPRAZolam 1 MG TABLET PO PRN ×2 (09:37→21:02)
[2020-07-30] MEDS: ACETAMINOPHEN 325 MG TABLET (FP) PO PRN (09:37)
[2020-07-30] MEDS: ENOXAPARIN NA (PORCINE) 40 MG/0.4 ML DISP.SYRIN SQ SCH (09:39)
[2020-07-30] MEDS ORDERED: AMOX TR/POT CLAV 875MG/125MG TABLETS (FP) PO ONE (17:49)
[2020-07-30] MEDS ORDERED: CLINDAMYCIN HCL 150 MG CAPSULE (FP) PO ONE (17:50)
[2020-07-30] MEDS: QUEtiapine FUMARATE 100 MG TABLET (FP) PO SCH (21:01)
[2020-07-30 21:45] VITALS: BP 112/70; PULSE 92; TEMP 99
== END 2020-07-30 22:45 | disposition short-term general hospital (02) | DRG 383 ==
LOC: FER 13:40 → FM/S 19:25
PROVIDERS: ADMIT Internal Medicine; ATTEND Nurse Practitioner Acute Care
DX: L03.211 Cellulitis of face (principal); D72.829 Elevated white blood cell count, unspecified; F19.10 Other psychoactive substance abuse, uncomplicated; H00.015 Hordeolum externum left lower eyelid; F14.20 Cocaine dependence, uncomplicated; F41.9 Anxiety disorder, unspecified; F31.9 Bipolar disorder, unspecified; L02.01 Cutaneous abscess of face; F11.20 Opioid dependence, uncomplicated; F17.210 Nicotine dependence, cigarettes, uncomplicated
CPT/HCPCS: 36415; 70486-TC; 70491-TC; 80053; 81003; 81015; 83735; 84703; 85025; 85027; 86850; 86900; 86901; 87040; 93005; 99285-25; C9803; J0131; Q9967; U0003

== ENCOUNTER 2020-09-11 14:50 | Inpatient (IN) | payer OTHER ==
[2020-09-11 15:57] VITALS: BMI 17.8
[2020-09-11] MEDS ORDERED: MAG HYDROX/AL HYDROX/SIMETH 30 ML UNIT-DOSE CUP PO PRN (16:31)
[2020-09-11] MEDS ORDERED: MAGNESIUM HYDROX 2400MG/30ML ORAL SUSPENSION 30 ML CUP PO PRN (16:31)
[2020-09-11] MEDS ORDERED: MENTHOL/PHENOL 1 EACH UD MM PRN (16:31)
[2020-09-11] MEDS ORDERED: BISMUTH SUBSALICYLATE 524 MG/30 ML PO PRN (16:31)
[2020-09-11] MEDS ORDERED: IBUPROFEN 400 MG TABLET (FP) PO PRN (16:31)
[2020-09-11] MEDS ORDERED: ONDANSETRON *ODT* 4 MG TABLET SL PRN (16:31)
[2020-09-11] MEDS ORDERED: ACETAMINOPHEN 325 MG TABLET (FP) PO PRN ×2 (16:31)
[2020-09-11] MEDS ORDERED: MAGNESIUM CITRATE 300 ML BOTTLE PO PRN (16:31)
[2020-09-11] MEDS ORDERED: NICOTINE POLACRILEX 2 MG GUM BUC PRN (16:31)
[2020-09-11] MEDS: METHOCARBAMOL 500 MG TABLET PO PRN (17:34)
[2020-09-11] MEDS: diazePAM 5 MG TABLET PO SCH ×2 (17:36→22:22)
[2020-09-11] MEDS: hydrOXYzine PAMOATE 25 MG CAPSULE (FP) PO SCH ×2 (17:38→22:22)
[2020-09-11] MEDS: MELATONIN 5 MG TABLETS PO SCH (22:22)
[2020-09-11] MEDS: THIAMINE HCL 100 MG TABLET (FP) PO SCH (22:22)
[2020-09-12] MEDS: diazePAM 5 MG TABLET PO SCH ×4 (05:51→22:22)
[2020-09-12] MEDS: hydrOXYzine PAMOATE 25 MG CAPSULE (FP) PO SCH ×5 (05:51→22:22)
[2020-09-12] MEDS: METHOCARBAMOL 500 MG TABLET PO PRN (05:51)
[2020-09-12] MEDS ORDERED: methaDONE HCL 10 MG TABLET PO SCH (08:15)
[2020-09-12] MEDS ORDERED: methaDONE HCL 10 MG TABLET ONE (08:47)
[2020-09-12] MEDS ORDERED: methaDONE HCL 40 MG DISPERSABLE TABLET ONE (08:48)
[2020-09-12] MEDS: diazePAM 5 MG TABLET PO PRN ×2 (08:52→13:06)
[2020-09-12] MEDS: PRENATAL VITAMINS W/ FOLIC ACID TABLET (FP) PO SCH (10:25)
[2020-09-12] MEDS: NICOTINE 14 MG/24 HOURS TOPICAL PATCH TD SCH (10:26)
[2020-09-12 11:45] LABS: HEMATOCRIT 36.1 % (32.4-45.2); HEMOGLOBIN 12.1 GM/dL (10.7-15.3); MCH 29.6 pg (25.7-33.7); MCHC 33.4 g/dl (32.0-36.0); MEAN CELL VOLUME 88.5 fl (80-96); MEAN PLT VOLUME 9.1 fl (7.5-11.1); PLATELET COUNT 364 K/MM3 (134-434); RBC 4.08 M/mm3 (3.60-5.2); RDW 15.8 % (11.6-15.6); WHITE BLOOD COUNT 5.8 K/mm3 (4.0-10.0)
[2020-09-12 11:56] LABS: BLOOD UREA NITROGEN 11.9 mg/dL (7-18)
[2020-09-12 11:57] LABS: ALBUMIN 3.7 g/dl (3.4-5.0); CALCIUM 9.2 mg/dL (8.5-10.1)
[2020-09-12 12:01] LABS: CREATININE 0.7 mg/dL (0.55-1.3)
[2020-09-12 12:02] LABS: BILIRUBIN,TOTAL 0.4 mg/dL (0.2-1); TOT PROT 6.8 g/dl (6.4-8.2)
[2020-09-12] MEDS: BACLOFEN 10 MG TABLET (FP) PO PRN (19:12)
[2020-09-12] MEDS: MELATONIN 5 MG TABLETS PO SCH (22:22)
[2020-09-12] MEDS: THIAMINE HCL 100 MG TABLET (FP) PO SCH (22:22)
[2020-09-12] MEDS: QUEtiapine FUMARATE 100 MG TABLET (FP) PO SCH (22:23)
[2020-09-13] MEDS ORDERED: methaDONE HCL 10 MG TABLET ONE (03:14)
[2020-09-13] MEDS ORDERED: methaDONE HCL 40 MG DISPERSABLE TABLET ONE (03:14)
[2020-09-13] MEDS: diazePAM 5 MG TABLET PO SCH ×3 (05:41→22:02)
[2020-09-13] MEDS: hydrOXYzine PAMOATE 25 MG CAPSULE (FP) PO SCH ×5 (05:41→22:21)
[2020-09-13] MEDS: BACLOFEN 10 MG TABLET (FP) PO PRN ×2 (05:41→22:02)
[2020-09-13] MEDS: diazePAM 5 MG TABLET PO PRN ×2 (09:08→17:31)
[2020-09-13] MEDS: NICOTINE 14 MG/24 HOURS TOPICAL PATCH TD SCH (10:17)
[2020-09-13] MEDS: PRENATAL VITAMINS W/ FOLIC ACID TABLET (FP) PO SCH (10:18)
[2020-09-13] MEDS: BACITRACIN 0.9 GM PACKET TP SCH ×2 (11:04→22:02)
[2020-09-13] MEDS: DOCUSATE SODIUM 100 MG CAPSULE (FP) PO SCH ×2 (13:32→22:02)
[2020-09-13] MEDS ORDERED: MASKS NR ONE (15:56)
[2020-09-13] MEDS: MELATONIN 5 MG TABLETS PO SCH (22:02)
[2020-09-13] MEDS: THIAMINE HCL 100 MG TABLET (FP) PO SCH (22:02)
[2020-09-13] MEDS: QUEtiapine FUMARATE 100 MG TABLET (FP) PO SCH (22:02)
[2020-09-14] MEDS ORDERED: methaDONE HCL 10 MG TABLET ONE (04:50)
[2020-09-14] MEDS ORDERED: methaDONE HCL 40 MG DISPERSABLE TABLET ONE (04:51)
[2020-09-14] MEDS: DOCUSATE SODIUM 100 MG CAPSULE (FP) PO SCH ×3 (05:39→22:07)
[2020-09-14] MEDS: diazePAM 5 MG TABLET PO SCH ×2 (05:39→17:16)
[2020-09-14] MEDS: hydrOXYzine PAMOATE 25 MG CAPSULE (FP) PO SCH ×5 (05:42→22:21)
[2020-09-14] MEDS: diazePAM 5 MG TABLET PO PRN ×2 (09:05→15:21)
[2020-09-14] MEDS: BACLOFEN 10 MG TABLET (FP) PO PRN ×3 (09:05→22:07)
[2020-09-14] MEDS: BACITRACIN 0.9 GM PACKET TP SCH ×2 (09:08→22:07)
[2020-09-14] MEDS: PRENATAL VITAMINS W/ FOLIC ACID TABLET (FP) PO SCH (09:08)
[2020-09-14] MEDS: NICOTINE 14 MG/24 HOURS TOPICAL PATCH TD SCH (09:08)
[2020-09-14] MEDS ORDERED: COLLOIDAL OATMEAL 1 BAR EACH TP PRN (10:39)
[2020-09-14] MEDS: MELATONIN 5 MG TABLETS PO SCH (22:07)
[2020-09-14] MEDS: QUEtiapine FUMARATE 100 MG TABLET (FP) PO SCH (22:08)
[2020-09-14] MEDS: THIAMINE HCL 100 MG TABLET (FP) PO SCH (22:08)
[2020-09-15] MEDS ORDERED: methaDONE HCL 40 MG DISPERSABLE TABLET ONE (04:22)
[2020-09-15] MEDS ORDERED: methaDONE HCL 10 MG TABLET ONE (04:22)
[2020-09-15] MEDS: DOCUSATE SODIUM 100 MG CAPSULE (FP) PO SCH (05:15)
[2020-09-15] MEDS: hydrOXYzine PAMOATE 25 MG CAPSULE (FP) PO SCH (05:15)
[2020-09-15] MEDS ORDERED: diazePAM 5 MG TABLET PO ONE (06:00)
[2020-09-15] MEDS: BACLOFEN 10 MG TABLET (FP) PO PRN (06:05)
[2020-09-15 06:14] VITALS: TEMP 97.1
[2020-09-15 09:14] VITALS: BP 127/69; PULSE 58
== END 2020-09-15 10:25 | disposition home or self-care (01) | DRG 773 ==
LOC: YASAS 14:50 → Y6N 15:51
PROVIDERS: ADMIT Allergy & Immunology; ATTEND Allergy & Immunology
PROC: HZ2ZZZZ Detoxification Services for Substance Abuse Treatment (ICD-10-PCS; principal; 2020-09-11)
DX: F13.230 Sedative, hypnotic or anxiolytic dependence with withdrawal, uncomplicated (principal); F11.20 Opioid dependence, uncomplicated; F14.20 Cocaine dependence, uncomplicated; F12.20 Cannabis dependence, uncomplicated; F15.10 Other stimulant abuse, uncomplicated; F17.213 Nicotine dependence, cigarettes, with withdrawal; F19.280 Other psychoactive substance dependence with psychoactive substance-induced anxiety disorder; F19.282 Other psychoactive substance dependence with psychoactive substance-induced sleep disorder; F19.24 Other psychoactive substance dependence with psychoactive substance-induced mood disorder; F41.9 Anxiety disorder, unspecified; F43.10 Post-traumatic stress disorder, unspecified; F90.9 Attention-deficit hyperactivity disorder, unspecified type; B19.20 Unspecified viral hepatitis C without hepatic coma; Z62.810 Personal history of physical and sexual abuse in childhood; R63.4 Abnormal weight loss; Z68.1 Body mass index [BMI] 19.9 or less, adult; Z91.410 Personal history of adult physical and sexual abuse; Z22.322 Carrier or suspected carrier of Methicillin resistant Staphylococcus aureus
CPT/HCPCS: 36415; 80053; 85027; 86780; C9803; J0475; U0003

== ENCOUNTER 2021-05-10 19:30 | Emergency (ER) | payer OTHER ==
[2021-05-10 20:04] VITALS: BP 112/72; PULSE 97; TEMP 98.6; BMI 19.8
[2021-05-10] MEDS ORDERED: CLINDAMYCIN HCL 150 MG CAPSULE (FP) PO ONE (20:50)
[2021-05-10] MEDS ORDERED: CLINDAMYCIN HCL 300 MG CAPSULE PO ONE (20:50)
[2021-05-10] MEDS ORDERED: CLINDAMYCIN HCL 150 MG CAPSULE (FP) ONE (20:56)
[2021-05-10] MEDS ORDERED: ACETAMINOPHEN 325 MG TABLET (FP) PO ONE (21:00)
[2021-05-10] MEDS ORDERED: ACETAMINOPHEN 325 MG TABLET (FP) ONE (21:01)
== END 2021-05-10 21:26 | disposition home or self-care (01) ==
LOC: JER 19:30
DX: L02.01 Cutaneous abscess of face (principal)
CPT/HCPCS: 99283-25

== ENCOUNTER 2022-01-07 17:29 | Inpatient (IN) | payer OTHER ==
[2022-01-07 17:44] VITALS: BMI 18.2
[2022-01-07] MEDS ORDERED: VANCOMYCIN 1 GM in D5W (PRE-DOCKED) 1,000 MG/250 ML IVPB ONE (20:24)
[2022-01-07] MEDS ORDERED: PIPERACILLIN/TAZOB 4.5 GM 4.5 GM in DEXTROSE 5%-WATER 100 ML IVPB ONE (20:24)
[2022-01-07] MEDS ORDERED: LACTATED RINGERS SOLUTION 1000 ML INFUS.BAG IV ONE (20:24)
[2022-01-07] MEDS ORDERED: ACETAMINOPHEN 1000 MG/100 ML BAG IVPB ONE (20:25)
[2022-01-07] MEDS ORDERED: PIPERACILLIN/TAZOB 4.5 GM 4.5 GM/100 ML BAG IVPB ONE (21:06)
[2022-01-07] MEDS ORDERED: ACETAMINOPHEN INJECTION 100 ML IVPB ONE (21:06)
[2022-01-07] MEDS ORDERED: VANCOMYCIN 1 GRAM (PRE-DOCKED) 1,000 MG/250 ML BAG IVPB ONE (22:03)
[2022-01-07 22:04] LABS: BASO % 0.8 % (0-2.0); EOS % 4.8 % (0-4.5); HEMATOCRIT 37.5 % (32.4-45.2); HEMOGLOBIN 12.5 GM/dL (10.7-15.3); LYMPH % 55.1 % (8-40); MCH 29.2 pg (25.7-33.7); MCHC 33.3 g/dl (32.0-36.0); MEAN CELL VOLUME 87.7 fl (80-96); MEAN PLT VOLUME 8.6 fl (7.5-11.1); MONO % 7.8 % (3.8-10.2); NEUT % 31.5 % (42.8-82.8); PLATELET COUNT 296 10^3/uL (134-434); RBC 4.28 M/mm3 (3.60-5.2); RDW 13.7 % (11.6-15.6); WHITE BLOOD COUNT 6.5 K/mm3 (4.0-10.0)
[2022-01-07 22:25] LABS: CALCIUM 9.9 mg/dL (8.5-10.1)
[2022-01-07 22:26] LABS: ALBUMIN 4.3 g/dl (3.4-5.0); BLOOD UREA NITROGEN 9.5 mg/dL (7-18)
[2022-01-07 22:29] LABS: CREATININE 0.7 mg/dL (0.55-1.3)
[2022-01-07 22:30] LABS: BILIRUBIN,TOTAL 0.4 mg/dL (0.2-1)
[2022-01-07 22:31] LABS: TOT PROT 7.7 g/dl (6.4-8.2)
[2022-01-07 22:36] LABS: MAGNESIUM 2.4 mg/dL (1.8-2.4)
[2022-01-07] MEDS ORDERED: ACETAMINOPHEN 325 MG TABLET (FP) PO PRN (23:54)
[2022-01-08 09:26] LABS: BASO % 0.9 % (0-2.0); EOS % 5.9 % (0-4.5); HEMATOCRIT 31.3 % (32.4-45.2); HEMOGLOBIN 10.5 GM/dL (10.7-15.3); LYMPH % 57.9 % (8-40); MCH 29.4 pg (25.7-33.7); MCHC 33.6 g/dl (32.0-36.0); MEAN CELL VOLUME 87.6 fl (80-96); MEAN PLT VOLUME 9.1 fl (7.5-11.1); MONO % 8.7 % (3.8-10.2); NEUT % 26.6 % (42.8-82.8); PLATELET COUNT 253 10^3/uL (134-434); RBC 3.58 M/mm3 (3.60-5.2); RDW 13.8 % (11.6-15.6)
[2022-01-08] MEDS ORDERED: methaDONE HCL 10 MG TABLET PO ONE (09:52)
[2022-01-08 09:59] LABS: CREATININE 0.6 mg/dL (0.55-1.3)
[2022-01-08 10:00] LABS: BILIRUBIN,TOTAL 0.4 mg/dL (0.2-1); BLOOD UREA NITROGEN 6.9 mg/dL (7-18); CALCIUM 9.2 mg/dL (8.5-10.1); MAGNESIUM 2.2 mg/dL (1.8-2.4); TOT PROT 6.1 g/dl (6.4-8.2)
[2022-01-08] MEDS ORDERED: VANCOMYCIN 1 GM in D5W (PRE-DOCKED) 1,000 MG/250 ML IVPB SCH (10:00)
[2022-01-08 10:03] LABS: ALBUMIN 3.4 g/dl (3.4-5.0)
[2022-01-08] MEDS ORDERED: PIPERACILLIN/TAZOBACTAM 3.375 GM VIAL IVPB ONE ×2 (10:34→17:08)
[2022-01-08] MEDS ORDERED: DEXTROSE 5%-WATER - 50 ML IVPB ONE ×2 (10:34→17:09)
[2022-01-08] MEDS: ENOXAPARIN NA (PORCINE) 40 MG/0.4 ML DISP.SYRIN SQ SCH (10:59)
[2022-01-08] MEDS: PIPERACILLIN/TAZOB 3.375 GM 3.375 GM in DEXTROSE 5%-WATER - 50 ML IVPB SCH ×2 (10:59→17:43)
[2022-01-08] MEDS: VANCOMYCIN/WATER FOR INJ (PEG) 1,000 MG/200 ML BAG IVPB SCH ×2 (11:34→21:47)
[2022-01-08] MEDS: NICOTINE 7 MG/24 HOURS TOPICAL PATCH TD SCH (11:34)
[2022-01-08] MEDS: ALPRAZolam 1 MG TABLET PO PRN (21:47)
[2022-01-08] MEDS ORDERED: ALPRAZolam 1 MG TABLET PO PRN (22:00)
[2022-01-09] MEDS ORDERED: PIPERACILLIN/TAZOBACTAM 3.375 GM VIAL IVPB ONE ×4 (01:14→22:59)
[2022-01-09] MEDS ORDERED: DEXTROSE 5%-WATER - 50 ML IVPB ONE ×4 (01:14→23:00)
[2022-01-09] MEDS: PIPERACILLIN/TAZOB 3.375 GM 3.375 GM in DEXTROSE 5%-WATER - 50 ML IVPB SCH ×3 (01:33→18:08)
[2022-01-09] MEDS: ENOXAPARIN NA (PORCINE) 40 MG/0.4 ML DISP.SYRIN SQ SCH (09:34)
[2022-01-09] MEDS: methaDONE HCL 10 MG TABLET PO SCH (09:34)
[2022-01-09] MEDS: VENLAFAXINE HCL 150 MG E.R. CAPSULE PO SCH (09:35)
[2022-01-09] MEDS: NICOTINE 7 MG/24 HOURS TOPICAL PATCH TD SCH (09:36)
[2022-01-09] MEDS ORDERED: PATIENT'S OWN MEDICATION (NON-FORMULARY) (Dextroamphetamine/Amphetamine [Adderall Xr 30 Mg PO SCH (10:00)
[2022-01-09 10:03] LABS: HEMATOCRIT 31.9 % (32.4-45.2); HEMOGLOBIN 10.7 GM/dL (10.7-15.3); LYMPH % 42.9 % (8-40); MCH 29.5 pg (25.7-33.7); MCHC 33.6 g/dl (32.0-36.0); MEAN CELL VOLUME 87.8 fl (80-96); MONO % 7.6 % (3.8-10.2); NEUT % 44.5 % (42.8-82.8); PLATELET COUNT 262 10^3/uL (134-434); RBC 3.63 M/mm3 (3.60-5.2); RDW 14.1 % (11.6-15.6); WHITE BLOOD COUNT 6.3 K/mm3 (4.0-10.0)
[2022-01-09 10:35] LABS: BLOOD UREA NITROGEN 10.4 mg/dL (7-18); CALCIUM 9.1 mg/dL (8.5-10.1)
[2022-01-09 10:39] LABS: CREATININE 0.8 mg/dL (0.55-1.3)
[2022-01-09] MEDS: ALPRAZolam 1 MG TABLET PO PRN ×2 (11:07→21:24)
[2022-01-09] MEDS: VANCOMYCIN/WATER FOR INJ (PEG) 1,000 MG/200 ML BAG IVPB SCH (13:11)
[2022-01-09] MEDS ORDERED: PATIENT'S OWN MEDICATION (NON-FORMULARY) (Dextroamphetamine/Amphetamine [Adderall Xr 20 Mg PO SCH (14:00)
[2022-01-10] MEDS: VANCOMYCIN/WATER FOR INJ (PEG) 1,000 MG/200 ML BAG IVPB SCH ×2 (00:05→12:24)
[2022-01-10] MEDS: PIPERACILLIN/TAZOB 3.375 GM 3.375 GM in DEXTROSE 5%-WATER - 50 ML IVPB SCH ×3 (01:05→19:16)
[2022-01-10] MEDS: methaDONE HCL 10 MG TABLET PO SCH (05:23)
[2022-01-10 09:24] LABS: BASO % 0.6 % (0-2.0); EOS % 1.8 % (0-4.5); HEMATOCRIT 33.7 % (32.4-45.2); HEMOGLOBIN 11.4 GM/dL (10.7-15.3); LYMPH % 18.5 % (8-40); MCH 29.5 pg (25.7-33.7); MCHC 33.8 g/dl (32.0-36.0); MEAN CELL VOLUME 87.4 fl (80-96); MEAN PLT VOLUME 8.7 fl (7.5-11.1); MONO % 8.1 % (3.8-10.2); PLATELET COUNT 281 10^3/uL (134-434); RBC 3.86 M/mm3 (3.60-5.2); RDW 13.7 % (11.6-15.6); WHITE BLOOD COUNT 5.8 K/mm3 (4.0-10.0)
[2022-01-10 09:37] LABS: ALBUMIN 3.6 g/dl (3.4-5.0); BLOOD UREA NITROGEN 8.5 mg/dL (7-18)
[2022-01-10 09:38] LABS: PHOSPHOROUS 3.2 mg/dL (2.5-4.9)
[2022-01-10 09:39] LABS: CALCIUM 9.1 mg/dL (8.5-10.1); CREATININE 0.7 mg/dL (0.55-1.3)
[2022-01-10 09:40] LABS: BILIRUBIN,TOTAL 0.4 mg/dL (0.2-1); TOT PROT 6.8 g/dl (6.4-8.2)
[2022-01-10] MEDS ORDERED: DEXTROSE 5%-WATER - 50 ML IVPB ONE (10:29)
[2022-01-10] MEDS ORDERED: PIPERACILLIN/TAZOBACTAM 3.375 GM VIAL IVPB ONE (10:29)
[2022-01-10] MEDS: ENOXAPARIN NA (PORCINE) 40 MG/0.4 ML DISP.SYRIN SQ SCH (10:55)
[2022-01-10] MEDS: NICOTINE 7 MG/24 HOURS TOPICAL PATCH TD SCH (10:56)
[2022-01-10] MEDS: ALPRAZolam 1 MG TABLET PO PRN (10:56)
[2022-01-10] MEDS: VENLAFAXINE HCL 150 MG E.R. CAPSULE PO SCH (10:57)
[2022-01-10] MEDS ORDERED: SODIUM CHLORIDE 1,000 ML IV STA (11:56)
[2022-01-10 15:21] VITALS: BP 106/63; PULSE 86; TEMP 98
== END 2022-01-10 19:22 | disposition home or self-care (01) | DRG 383 ==
LOC: JER 17:29 → JERBED 23:27 → J8W 01-08 02:26
PROVIDERS: ADMIT Internal Medicine; ATTEND Internal Medicine
PROC: 0H9EXZZ Drainage of Left Lower Arm Skin, External Approach (ICD-10-PCS; principal; 2022-01-07)
DX: L02.414 Cutaneous abscess of left upper limb (principal); F11.20 Opioid dependence, uncomplicated; F14.20 Cocaine dependence, uncomplicated; F19.10 Other psychoactive substance abuse, uncomplicated; F31.9 Bipolar disorder, unspecified; F90.9 Attention-deficit hyperactivity disorder, unspecified type; F17.210 Nicotine dependence, cigarettes, uncomplicated; R00.0 Tachycardia, unspecified; F41.8 Other specified anxiety disorders; D64.9 Anemia, unspecified; G47.00 Insomnia, unspecified; Z86.14 Personal history of Methicillin resistant Staphylococcus aureus infection
CPT/HCPCS: 36415; 71045-TC-FY; 80048; 80053; 83735; 84100; 84703; 85025; 87040; 87070; 87205; 93005; 93010; 97116-GP; 97161-GP; 99285-25; C9803-CS; G0480; U0003; U0005

== ENCOUNTER 2022-10-04 10:43 | Emergency (ER) | payer OTHER ==
[2022-10-04 10:55] VITALS: TEMP 97.3; BMI 16.7
[2022-10-04 12:41] LABS: EOS % 2.8 % (0-4.5); HEMATOCRIT 33.2 % (32.4-45.2); HEMOGLOBIN 11.1 GM/dL (10.7-15.3); LYMPH % 51.2 % (8-40); MCH 29.5 pg (25.7-33.7); MCHC 33.3 g/dl (32.0-36.0); MEAN CELL VOLUME 88.5 fl (80-96); MEAN PLT VOLUME 8.5 fl (7.5-11.1); MONO % 11.2 % (3.8-10.2); NEUT % 33.8 % (42.8-82.8); PLATELET COUNT 341 10^3/uL (134-434); RBC 3.75 M/mm3 (3.60-5.2); RDW 13.9 % (11.6-15.6); WHITE BLOOD COUNT 7.1 K/mm3 (4.0-10.0)
[2022-10-04 12:59] LABS: CALCIUM 9.5 mg/dL (8.5-10.1)
[2022-10-04 13:00] LABS: ALBUMIN 3.6 g/dl (3.4-5.0)
[2022-10-04 13:03] LABS: CREATININE 0.6 mg/dL (0.55-1.3)
[2022-10-04 13:04] LABS: TOT PROT 6.6 g/dl (6.4-8.2)
[2022-10-04 13:06] LABS: BILIRUBIN,TOTAL 0.4 mg/dL (0.2-1)
[2022-10-04] MEDS ORDERED: NALOXONE HCL 0.4 MG/ML VIAL ONE (14:36)
[2022-10-04] MEDS ORDERED: NALOXONE HCL 0.4 MG/ML VIAL IVPUSH ONE (14:45)
[2022-10-04 14:51] VITALS: BP 120/79; PULSE 61; RESP 14
[2022-10-04] MEDS ORDERED: SODIUM CHLORIDE 0.9% 500 ML INFUS.BAG IV ONE (15:07)
== END 2022-10-04 17:37 | disposition home or self-care (01) ==
LOC: JER 10:43
PROC: 3E023GC Introduction of Other Therapeutic Substance into Muscle, Percutaneous Approach (ICD-10-PCS; principal; 2022-10-04)
DX: F19.90 Other psychoactive substance use, unspecified, uncomplicated (principal)
CPT/HCPCS: 36415; 80053; 84484; 84703; 85025; 93005; 93010; 99284-25

== ENCOUNTER 2023-01-09 20:11 | Inpatient (IN) | payer OTHER ==
[2023-01-09] MEDS ORDERED: SODIUM CHLORIDE 0.9% 500 ML INFUS.BAG IV ONE ×2 (21:10→22:04)
[2023-01-09 21:38] LABS: BASO % 0.5 % (0-2.0); HEMATOCRIT 28.3 % (32.4-45.2); HEMOGLOBIN 9.6 GM/dL (10.7-15.3); LYMPH % 48.7 % (8-40); MCH 28.7 pg (25.7-33.7); MEAN CELL VOLUME 84.4 fl (80-96); MEAN PLT VOLUME 7.6 fl (7.5-11.1); MONO % 11.2 % (3.8-10.2); NEUT % 37.6 % (42.8-82.8); PLATELET COUNT 350 10^3/uL (134-434); RBC 3.36 M/mm3 (3.60-5.2); RDW 14.1 % (11.6-15.6); WHITE BLOOD COUNT 5.5 K/mm3 (4.0-10.0)
[2023-01-09 21:46] LABS: CHLORIDE 106 mmol/L (98-107); POTASSIUM 4.5 mmol/L (3.5-5.1); SODIUM 139 mmol/L (136-145)
[2023-01-09 21:48] LABS: ALBUMIN 3.5 g/dl (3.4-5.0); ANION GAP 4 MMOL/L (8-16); BLOOD UREA NITROGEN 12.8 mg/dL (7-18); CALCIUM 9.4 mg/dL (8.5-10.1); CO2 29 mmol/L (21-32); GLUCOSE,RANDOM 78 mg/dL (74-106)
[2023-01-09 21:51] LABS: SGOT/AST 17 U/L (15-37); SGPT/ALT 18 U/L (13-61)
[2023-01-09 21:53] LABS: BILIRUBIN,TOTAL 0.4 mg/dL (0.2-1); CREATININE 0.7 mg/dL (0.55-1.3); TOT PROT 6.9 g/dl (6.4-8.2)
[2023-01-09 21:54] LABS: ALK PHOS 60 U/L (45-117)
[2023-01-09 22:08] LABS: VENOUS BASE EXCESS -1.3 mmol/L (-2-2); VENOUS O2 SATURATION 76.2 % (70-80); VENOUS PCO2 50.7 mmHg (38-52); VENOUS PH 7.316 (7.310-7.410)
[2023-01-09] MEDS ORDERED: NALOXONE HCL 0.4 MG/ML VIAL IVPUSH ONE (23:44)
[2023-01-09] MEDS ORDERED: NALOXONE HCL 0.4 MG/ML VIAL ONE ×2 (23:44→23:47)
[2023-01-10 00:05] LABS: BASO % 0.5 % (0-2.0); EOS % 1.8 % (0-4.5); HEMOGLOBIN 9.3 GM/dL (10.7-15.3); LYMPH % 54.7 % (8-40); MCH 28.5 pg (25.7-33.7); MCHC 33.3 g/dl (32.0-36.0); MEAN CELL VOLUME 85.5 fl (80-96); MEAN PLT VOLUME 7.5 fl (7.5-11.1); MONO % 12.7 % (3.8-10.2); NEUT % 30.3 % (42.8-82.8); PLATELET COUNT 300 10^3/uL (134-434); RBC 3.27 M/mm3 (3.60-5.2); RDW 14.2 % (11.6-15.6); WHITE BLOOD COUNT 6.6 K/mm3 (4.0-10.0)
[2023-01-10] MEDS ORDERED: ONDANSETRON 4 MG/2 ML VIAL IVPUSH ONE (00:07)
[2023-01-10] MEDS ORDERED: cloNIDine HCL 0.1 MG TABLET PO ONE (00:07)
[2023-01-10] MEDS ORDERED: cloNIDine HCL 0.1 MG TABLET ONE (00:09)
[2023-01-10] MEDS ORDERED: ONDANSETRON 4 MG/2 ML VIAL ONE (00:09)
[2023-01-10] MEDS ORDERED: METOCLOPRAMIDE HCL INJECTION 10 MG/2 ML VIAL IVPUSH ONE (02:37)
[2023-01-10] MEDS ORDERED: METOCLOPRAMIDE HCL INJECTION 10 MG/2 ML VIAL ONE (02:44)
[2023-01-10 02:58] LABS: PH,URINE 6.5 (5.0-8.0); URINE APPEARANCE CLEAR; URINE BILIRUBIN NEGATIVE (NEGATIVE); URINE COLOR YELLOW; URINE GLUCOSE (UA) NEGATIVE (NEGATIVE); URINE KETONE NEGATIVE (NEGATIVE); URINE LEUK ESTERASE NEGATIVE (NEGATIVE); URINE NITRITE NEGATIVE (NEGATIVE); URINE PROTEIN NEGATIVE (NEGATIVE); URINE UROBILINOGEN 0.2 mg/dL (0.2-1.0)
[2023-01-10 03:04] LABS: OPIATES, URI NEGATIVE (NEGATIVE); PHENCYCLIDINE,URINE NEGATIVE (NEGATIVE); URINE BARBITURATES NEGATIVE (NEGATIVE)
[2023-01-10 03:07] LABS: COCAINE, UR POSITIVE (NEGATIVE); METHADONE, UR POSITIVE (NEGATIVE); URINE AMPHETAMINES POSITIVE (NEGATIVE); URINE BENZODIAZEPINES POSITIVE (NEGATIVE)
[2023-01-10] MEDS ORDERED: TRIMETHOBENZAMIDE HCL 200MG/2ML INJ IM PRN (04:40)
[2023-01-10] MEDS ORDERED: NALOXONE HCL 0.4 MG/ML VIAL IVPUSH PRN (04:52)
[2023-01-10] MEDS: SODIUM CHLORIDE 1,000 ML IV SCH ×2 (05:30→10:52)
[2023-01-10 05:59] LABS: BASO % 0.7 % (0-2.0); EOS % 0.7 % (0-4.5); HEMATOCRIT 29.7 % (32.4-45.2); HEMOGLOBIN 10.3 GM/dL (10.7-15.3); MCH 29.6 pg (25.7-33.7); MCHC 34.5 g/dl (32.0-36.0); MEAN CELL VOLUME 85.6 fl (80-96); MEAN PLT VOLUME 8.1 fl (7.5-11.1); MONO % 5.2 % (3.8-10.2); NEUT % 72.4 % (42.8-82.8); PLATELET COUNT 334 10^3/uL (134-434); RBC 3.47 M/mm3 (3.60-5.2); RDW 13.9 % (11.6-15.6); WHITE BLOOD COUNT 8.4 K/mm3 (4.0-10.0)
[2023-01-10 06:19] LABS: POTASSIUM 4.4 mmol/L (3.5-5.1)
[2023-01-10 06:22] LABS: BLOOD UREA NITROGEN 12.4 mg/dL (7-18); CALCIUM 8.3 mg/dL (8.5-10.1)
[2023-01-10 06:24] LABS: ALBUMIN 3.1 g/dl (3.4-5.0)
[2023-01-10 06:25] LABS: CREATININE 0.5 mg/dL (0.55-1.3); PHOSPHOROUS 2.6 mg/dL (2.5-4.9)
[2023-01-10 06:26] LABS: BILIRUBIN,TOTAL 0.4 mg/dL (0.2-1)
[2023-01-10 06:27] LABS: TOT PROT 6.1 g/dl (6.4-8.2)
[2023-01-10] MEDS ORDERED: NALOXONE HCL 0.4 MG/ML VIAL ONE (09:36)
[2023-01-10] MEDS ORDERED: ENOXAPARIN NA (PORCINE) 40 MG/0.4 ML DISP.SYRIN SQ ONE (09:52)
[2023-01-10] MEDS: ENOXAPARIN NA (PORCINE) 40 MG/0.4 ML DISP.SYRIN SQ SCH (10:56)
[2023-01-10] MEDS ORDERED: THIAMINE HCL 200 MG/2 ML VIAL ONE (12:41)
[2023-01-10] MEDS ORDERED: THIAMINE HCL 200 MG/2 ML VIAL IVPB ONE (12:45)
[2023-01-10] MEDS ORDERED: VANCOMYCIN/WATER FOR INJ (PEG) 1 GM/200 ML BAG IVPB ONE (13:00)
[2023-01-10] MEDS ORDERED: VANCOMYCIN/WATER FOR INJ (PEG) 1,000 MG/200 ML BAG IVPB ONE (13:05)
[2023-01-10] MEDS ORDERED: DEXTROSE 5%-0.45% SALINE 1,000 ML IV SCH (15:00)
[2023-01-11] MEDS: VANCOMYCIN/WATER FOR INJ (PEG) 1,000 MG/200 ML BAG IVPB SCH ×2 (02:35→17:00)
[2023-01-11] MEDS: LORazepam 2 MG/ML SDV VIAL IVPUSH PRN ×3 (04:40→13:41)
[2023-01-11 07:13] LABS: HEMATOCRIT 32.3 % (32.4-45.2); MCHC 34.1 g/dl (32.0-36.0); MEAN PLT VOLUME 8.8 fl (7.5-11.1); PLATELET COUNT 377 10^3/uL (134-434); RDW 14.2 % (11.6-15.6); WHITE BLOOD COUNT 6.6 K/mm3 (4.0-10.0)
[2023-01-11 07:26] LABS: POTASSIUM 3.8 mmol/L (3.5-5.1)
[2023-01-11 07:29] LABS: CALCIUM 8.2 mg/dL (8.5-10.1)
[2023-01-11 07:30] LABS: BLOOD UREA NITROGEN 6.4 mg/dL (7-18); MAGNESIUM 1.8 mg/dL (1.8-2.4)
[2023-01-11 07:33] LABS: CREATININE 0.5 mg/dL (0.55-1.3); PHOSPHOROUS 2.1 mg/dL (2.5-4.9)
[2023-01-11 07:34] LABS: BILIRUBIN,TOTAL 0.4 mg/dL (0.2-1)
[2023-01-11] MEDS ORDERED: NAPH,MB-DB/K PH,MBDB POWDER PACKET PO ONE (08:37)
[2023-01-11] MEDS: ENOXAPARIN NA (PORCINE) 40 MG/0.4 ML DISP.SYRIN SQ SCH (09:35)
[2023-01-11] MEDS ORDERED: LORazepam 1 MG TABLET PO PRN (14:32)
[2023-01-11] MEDS ORDERED: methaDONE HCL 10 MG TABLET PO SCH (14:45)
[2023-01-11] MEDS ORDERED: methaDONE HCL 40 MG DISPERSABLE TABLET PO ONE (20:19)
[2023-01-11 23:41] VITALS: BMI 20.3
[2023-01-12] MEDS ORDERED: TRIMETHOBENZAMIDE HCL 200MG/2ML INJ IM PRN (00:18)
[2023-01-12] MEDS ORDERED: NALOXONE HCL 0.4 MG/ML VIAL IVPUSH PRN (00:18)
[2023-01-12] MEDS ORDERED: LORazepam 1 MG TABLET PO PRN (00:18)
[2023-01-12] MEDS: VANCOMYCIN/WATER FOR INJ (PEG) 1,000 MG/200 ML BAG IVPB SCH ×3 (02:00→17:59)
[2023-01-12] MEDS ORDERED: methaDONE HCL 10 MG TABLET PO SCH ×2 (06:00→17:05)
[2023-01-12] MEDS: ENOXAPARIN NA (PORCINE) 40 MG/0.4 ML DISP.SYRIN SQ SCH (11:03)
[2023-01-12] MEDS ORDERED: ALPRAZolam 1 MG TABLET PO ONE (12:45)
[2023-01-12] MEDS ORDERED: methaDONE HCL 10 MG TABLET PO ONE ×2 (13:45→18:00)
[2023-01-12] MEDS ORDERED: MELATONIN 5 MG TABLETS PO ONE (21:02)
[2023-01-12] MEDS: NAPH,MB-DB/K PH,MBDB POWDER PACKET PO SCH (21:52)
[2023-01-12] MEDS: ALPRAZolam 1 MG TABLET PO PRN (22:11)
[2023-01-13] MEDS: VANCOMYCIN/WATER FOR INJ (PEG) 1,000 MG/200 ML BAG IVPB SCH ×2 (02:11→14:17)
[2023-01-13] MEDS ORDERED: methaDONE 40 MG, methaDONE 10 MG PO SCH (06:00)
[2023-01-13] MEDS: ALPRAZolam 1 MG TABLET PO PRN ×2 (06:43→22:34)
[2023-01-13 09:24] LABS: BASO % 0.3 % (0-2.0); EOS % 0.3 % (0-4.5); HEMATOCRIT 33.6 % (32.4-45.2); HEMOGLOBIN 11.6 GM/dL (10.7-15.3); LYMPH % 22.7 % (8-40); MCH 29.1 pg (25.7-33.7); MCHC 34.6 g/dl (32.0-36.0); MEAN CELL VOLUME 84.2 fl (80-96); MEAN PLT VOLUME 8.6 fl (7.5-11.1); MONO % 6.7 % (3.8-10.2); PLATELET COUNT 392 10^3/uL (134-434); RBC 3.99 M/mm3 (3.60-5.2); WHITE BLOOD COUNT 8.5 K/mm3 (4.0-10.0)
[2023-01-13 09:42] LABS: POTASSIUM 3.9 mmol/L (3.5-5.1)
[2023-01-13 09:51] LABS: ALBUMIN 3.1 g/dl (3.4-5.0); CALCIUM 8.8 mg/dL (8.5-10.1)
[2023-01-13 09:52] LABS: BLOOD UREA NITROGEN 8.4 mg/dL (7-18); MAGNESIUM 1.6 mg/dL (1.8-2.4)
[2023-01-13 09:55] LABS: CREATININE 0.5 mg/dL (0.55-1.3)
[2023-01-13 09:56] LABS: BILIRUBIN,TOTAL 0.5 mg/dL (0.2-1); TOT PROT 6.4 g/dl (6.4-8.2)
[2023-01-13] MEDS: ENOXAPARIN NA (PORCINE) 40 MG/0.4 ML DISP.SYRIN SQ SCH (11:08)
[2023-01-13] MEDS: FOLIC ACID 1 MG TABLET (FP) PO SCH (11:08)
[2023-01-13] MEDS: THIAMINE HCL 100 MG TABLET (FP) PO SCH (11:08)
[2023-01-13] MEDS: NAPH,MB-DB/K PH,MBDB POWDER PACKET PO SCH ×2 (11:09→22:34)
[2023-01-13] MEDS ORDERED: methaDONE HCL 10 MG TABLET PO ONE ×2 (12:41→16:15)
[2023-01-13] MEDS ORDERED: MAGNESIUM OXIDE 400 MG TABLET (FP) PO ONE (16:24)
[2023-01-13 18:59] LABS: N-TERMINAL BNP 282.5 pg/ml (5-125)
[2023-01-13] MEDS: NICOTINE 21 MG/24 HOURS TOPICAL PATCH TD SCH (20:22)
[2023-01-13] MEDS ORDERED: MELATONIN 1 MG TABLET PO SCH (22:00)
[2023-01-13] MEDS ORDERED: MELATONIN 5 MG TABLETS PO ONE (22:53)
[2023-01-14] MEDS: VANCOMYCIN/WATER FOR INJ (PEG) 1,000 MG/200 ML BAG IVPB SCH (02:46)
[2023-01-14] MEDS ORDERED: methaDONE HCL 40 MG DISPERSABLE TABLET PO SCH (06:00)
[2023-01-14] MEDS: ALPRAZolam 1 MG TABLET PO PRN (07:40)
[2023-01-14 08:53] LABS: BASO % 0.7 % (0-2.0); EOS % 2.6 % (0-4.5); HEMATOCRIT 31.8 % (32.4-45.2); LYMPH % 50.3 % (8-40); MCHC 34.5 g/dl (32.0-36.0); MEAN PLT VOLUME 8.6 fl (7.5-11.1); MONO % 6.9 % (3.8-10.2); NEUT % 39.5 % (42.8-82.8); PLATELET COUNT 368 10^3/uL (134-434); RBC 3.79 M/mm3 (3.60-5.2); RDW 13.8 % (11.6-15.6); WHITE BLOOD COUNT 6.4 K/mm3 (4.0-10.0)
[2023-01-14 09:16] LABS: POTASSIUM 3.7 mmol/L (3.5-5.1)
[2023-01-14 09:17] VITALS: BP 96/54; PULSE 66; RESP 20; TEMP 98
[2023-01-14 09:18] LABS: CALCIUM 8.9 mg/dL (8.5-10.1)
[2023-01-14] MEDS: NAPH,MB-DB/K PH,MBDB POWDER PACKET PO SCH (09:18)
[2023-01-14] MEDS: ENOXAPARIN NA (PORCINE) 40 MG/0.4 ML DISP.SYRIN SQ SCH (09:18)
[2023-01-14] MEDS: NICOTINE 21 MG/24 HOURS TOPICAL PATCH TD SCH (09:18)
[2023-01-14] MEDS: FOLIC ACID 1 MG TABLET (FP) PO SCH (09:18)
[2023-01-14] MEDS: THIAMINE HCL 100 MG TABLET (FP) PO SCH (09:18)
[2023-01-14 09:19] LABS: ALBUMIN 3.2 g/dl (3.4-5.0); BLOOD UREA NITROGEN 5.3 mg/dL (7-18)
[2023-01-14 09:22] LABS: CREATININE 0.6 mg/dL (0.55-1.3)
[2023-01-14 09:24] LABS: BILIRUBIN,TOTAL 0.4 mg/dL (0.2-1); TOT PROT 6.1 g/dl (6.4-8.2)
[2023-01-14] MEDS ORDERED: ACETAMINOPHEN 325 MG TABLET (FP) PO PRN (11:04)
[2023-01-14] MEDS ORDERED: VENLAFAXINE HCL 150 MG E.R. CAPSULE PO ONE (12:31)
[2023-01-14] MEDS ORDERED: cloNIDine HCL 0.1 MG TABLET PO ONE (12:32)
[2023-01-14] MEDS ORDERED: PATIENT'S OWN MEDICATION (NON-FORMULARY) (Dextroamphetamine/Amphetamine [Adderall Xr 20 Mg PO SCH (12:45)
[2023-01-14] MEDS ORDERED: VENLAFAXINE HCL 75 MG E.R. CAPSULES PO ONE (13:00)
[2023-01-14] MEDS ORDERED: CLINDAMYCIN HCL 150 MG CAPSULE (FP) PO SCH (14:00)
[2023-01-14] MEDS ORDERED: QUEtiapine FUMARATE 100 MG TABLET (FP) PO SCH (22:00)
[2023-01-15] MEDS ORDERED: methaDONE HCL 40 MG DISPERSABLE TABLET PO SCH (06:00)
== END 2023-01-14 16:23 | disposition other institution (70) | DRG 812 ==
LOC: JER 20:11 → JERBED 01-10 02:46 → OBSVTOIN 01-10 12:38 → J4W 01-10 14:47 → J8W 01-11 23:58
PROVIDERS: ADMIT Internal Medicine; ATTEND Nurse Practitioner Family
PROC: HZ2ZZZZ Detoxification Services for Substance Abuse Treatment (ICD-10-PCS; principal; 2023-01-09)
DX: T43.624A Poisoning by amphetamines, undetermined, initial encounter (principal); T42.4X4A Poisoning by benzodiazepines, undetermined, initial encounter; T40.714A Poisoning by cannabis, undetermined, initial encounter; F11.229 Opioid dependence with intoxication, unspecified; F90.9 Attention-deficit hyperactivity disorder, unspecified type; L03.114 Cellulitis of left upper limb; R00.1 Bradycardia, unspecified; F43.10 Post-traumatic stress disorder, unspecified; G92.8 Other toxic encephalopathy; F41.8 Other specified anxiety disorders; J69.0 Pneumonitis due to inhalation of food and vomit; D50.9 Iron deficiency anemia, unspecified; F31.9 Bipolar disorder, unspecified; F19.90 Other psychoactive substance use, unspecified, uncomplicated; L02.414 Cutaneous abscess of left upper limb; R94.31 Abnormal electrocardiogram [ECG] [EKG]; E83.42 Hypomagnesemia; Z59.00 Homelessness unspecified
CPT/HCPCS: 0241U-QW; 36415; 70450-TC; 71045-TC-FY; 76882-TC-RT-FY; 80053; 80061; 80307; 81003; 82728; 82803; 82962; 83036; 83540; 83550; 83735; 83880; 84100; 84443; 84484; 84703; 85025; 85027; 87040; 87081; 87086; 93005; 93010; 93306-TC; 99291; G0378; G0480

== ENCOUNTER 2024-09-28 11:21 | Inpatient (IN) | payer OTHER ==
[2024-09-28 11:54] VITALS: BMI 17.3
[2024-09-28] MEDS ORDERED: chlordiazePOXIDE HCL 25 MG CAPSULE PO PRN (12:13)
[2024-09-28] MEDS ORDERED: NICOTINE POLACRILEX 2 MG GUM BUC PRN (12:16)
[2024-09-28] MEDS ORDERED: POLYETHYLENE GLYCOL (HEALTHYLAX) 3350 17 GM PACKET PO PRN (12:16)
[2024-09-28] MEDS ORDERED: guaiFENesin 600 MG TABLET.ER (FP) PO PRN (12:16)
[2024-09-28] MEDS ORDERED: IBUPROFEN 600 MG TABLET (FP) PO PRN (12:16)
[2024-09-28] MEDS ORDERED: NALOXONE (NARCAN) HCL 4 MG/0.1 ML SPRAY NS PRN (12:16)
[2024-09-28] MEDS ORDERED: LOPERAMIDE HCL 2 MG CAPSULE PO PRN (12:16)
[2024-09-28] MEDS ORDERED: MAGNESIUM HYDROX 2400MG/30ML ORAL SUSPENSION 30 ML CUP PO PRN (12:16)
[2024-09-28] MEDS ORDERED: METHOCARBAMOL 500 MG TABLET PO PRN (12:16)
[2024-09-28] MEDS ORDERED: hydrOXYzine PAMOATE 25 MG CAPSULE (FP) PO PRN (12:16)
[2024-09-28] MEDS ORDERED: BISMUTH SUBSALICYLATE 262 MG/15 ML BTL PO PRN (12:16)
[2024-09-28] MEDS ORDERED: BENZOCAINE/MENTHOL (CHLORASEPTIC ) LOZENGE MM PRN (12:16)
[2024-09-28] MEDS ORDERED: NICOTINE POLACRILEX 2 MG LOZENGE BC PRN (12:16)
[2024-09-28] MEDS ORDERED: ONDANSETRON *ODT* 4 MG TABLET SL PRN (12:16)
[2024-09-28] MEDS ORDERED: P-EPHED 60MG/TRIPROLIDI 2.5MG TABLET PO PRN (12:16)
[2024-09-28] MEDS ORDERED: IBUPROFEN 400 MG TABLET (FP) PO PRN (12:16)
[2024-09-28] MEDS ORDERED: ACETAMINOPHEN 325 MG TABLET (FP) PO PRN (12:16)
[2024-09-28] MEDS ORDERED: BENZONATATE 200 MG CAPSULE PO PRN (12:16)
[2024-09-28] MEDS ORDERED: MAG HYDROX/AL HYDROX/SIMETH 30 ML UNIT-DOSE CUP PO PRN (12:16)
[2024-09-28] MEDS ORDERED: DICYCLOMINE HCL 10 MG CAPSULE PO PRN (12:16)
[2024-09-28] MEDS ORDERED: chlordiazePOXIDE HCL 25 MG CAPSULE PO ONE (13:00)
[2024-09-28] MEDS ORDERED: levETIRAcetam 500 MG TABLET (FP) PO ONE (14:43)
[2024-09-28] MEDS ORDERED: chlordiazePOXIDE HCL 25 MG CAPSULE ONE (14:43)
[2024-09-28] MEDS: levETIRAcetam 500 MG TABLET (FP) PO SCH (14:46)
[2024-09-28] MEDS: chlordiazePOXIDE HCL 25 MG CAPSULE PO ONE (15:02)
[2024-09-28] MEDS: CLINDAMYCIN HCL 150 MG CAPSULE (FP) PO SCH (17:31)
[2024-09-28] MEDS: chlordiazePOXIDE HCL 25 MG CAPSULE PO SCH (17:31)
[2024-09-28] MEDS: MELATONIN 5 MG TABLETS PO SCH (22:38)
[2024-09-28] MEDS: THIAMINE 100 MG TABLET PO SCH (22:38)
[2024-09-29] MEDS: methaDONE HCL 40 MG DISPERSABLE TABLET PO SCH (07:31)
[2024-09-29 09:21] LABS: POTASSIUM 3.9 mmol/L (3.5-5.1)
[2024-09-29 09:25] LABS: HEMOGLOBIN 11.1 GM/dL (10.7-15.3); MCH 28.1 pg (25.7-33.7); MCHC 32.7 g/dl (32.0-36.0); MEAN CELL VOLUME 85.9 fl (80-96); MEAN PLT VOLUME 9.9 fl (7.5-11.1); PLATELET COUNT 247 10^3/uL (134-434); RBC 3.96 M/mm3 (3.60-5.2); RDW 17.3 % (11.6-15.6); WHITE BLOOD COUNT 5.6 K/mm3 (4.0-10.0)
[2024-09-29 09:29] LABS: ALBUMIN 3.3 g/dl (3.4-5.0); CALCIUM 9.5 mg/dL (8.5-10.1)
[2024-09-29 09:30] LABS: BLOOD UREA NITROGEN 9.2 mg/dL (7-18); CREATININE 0.7 mg/dL (0.55-1.3)
[2024-09-29 09:31] LABS: BILIRUBIN,TOTAL 0.6 mg/dL (0.2-1)
[2024-09-29 09:32] LABS: TOT PROT 6.8 g/dl (6.4-8.2)
[2024-09-29] MEDS: FOLIC ACID 1 MG TABLET (FP) PO SCH (10:12)
[2024-09-29] MEDS: PRENATAL VITAMINS W/ FOLIC ACID TABLET (FP) PO SCH (10:12)
[2024-09-29] MEDS: hydrOXYzine PAMOATE 25 MG CAPSULE (FP) PO PRN (10:12)
[2024-09-29] MEDS: VENLAFAXINE HCL 75 MG E.R. CAPSULES PO SCH (10:45)
[2024-09-29] MEDS: BACLOFEN 10 MG TABLET (FP) PO SCH (13:47)
[2024-09-29] MEDS: MINERAL OIL/PETROLAT/WATER TOPICAL CREAM 113 GM JAR TP SCH (14:20)
[2024-09-29] MEDS: QUEtiapine FUMARATE 50 MG TABLET PO SCH (22:33)
[2024-09-30] MEDS: chlordiazePOXIDE HCL 25 MG CAPSULE PO SCH (05:41)
[2024-09-30] MEDS: VITAMINS A AND D TOPICAL OINTMENT TP SCH (17:46)
[2024-09-30] MEDS ORDERED: levETIRAcetam 250 MG TABLET PO ONE (21:43)
[2024-09-30] MEDS: BACITRACIN 0.9 GM PACKET TP SCH (22:20)
[2024-09-30] MEDS: DOCUSATE SODIUM 100 MG CAPSULE (FP) PO PRN (22:22)
[2024-10-01] MEDS: chlordiazePOXIDE HCL 10 MG CAPSULE PO SCH (05:53)
[2024-10-01] MEDS: VENLAFAXINE HCL 150 MG E.R. CAPSULE PO SCH (10:46)
[2024-10-01] MEDS: chlordiazePOXIDE HCL 10 MG CAPSULE PO PRN (14:55)
[2024-10-01] MEDS: GABAPENTIN 100 MG CAPSULE PO SCH (22:11)
[2024-10-02] MEDS: chlordiazePOXIDE HCL 10 MG CAPSULE PO SCH (05:51)
[2024-10-02] MEDS: GABAPENTIN 100 MG CAPSULE PO SCH (22:14)
[2024-10-03] MEDS: chlordiazePOXIDE HCL 10 MG CAPSULE PO ONE (05:51)
[2024-10-03 09:23] VITALS: BP 108/75; PULSE 76; RESP 18; TEMP 98.4
== END 2024-10-03 11:55 | disposition home or self-care (01) | DRG 773 ==
LOC: YASAS 11:21 → Y3N 14:12 → Y6N 09-30 09:56
PROVIDERS: ADMIT Allergy & Immunology; ATTEND Allergy & Immunology
PROC: HZ2ZZZZ Detoxification Services for Substance Abuse Treatment (ICD-10-PCS; principal; 2024-09-28)
DX: F13.230 Sedative, hypnotic or anxiolytic dependence with withdrawal, uncomplicated (principal); F11.20 Opioid dependence, uncomplicated; F14.10 Cocaine abuse, uncomplicated; F12.20 Cannabis dependence, uncomplicated; F15.10 Other stimulant abuse, uncomplicated; F17.213 Nicotine dependence, cigarettes, with withdrawal; F19.282 Other psychoactive substance dependence with psychoactive substance-induced sleep disorder; F19.280 Other psychoactive substance dependence with psychoactive substance-induced anxiety disorder; F19.24 Other psychoactive substance dependence with psychoactive substance-induced mood disorder; L03.114 Cellulitis of left upper limb; F41.8 Other specified anxiety disorders; B18.2 Chronic viral hepatitis C; R63.4 Abnormal weight loss; Z68.1 Body mass index [BMI] 19.9 or less, adult; Z62.810 Personal history of physical and sexual abuse in childhood; Z86.14 Personal history of Methicillin resistant Staphylococcus aureus infection
CPT/HCPCS: 36415; 80053; 80305; 80307; 81025; 85027; 86780; 93005; 93010; J0475

== ENCOUNTER 2024-11-08 10:32 | Inpatient (IN) | payer OTHER ==
[2024-11-08 11:21] VITALS: BMI 20.5
[2024-11-08 12:53] LABS: BASO % 0.8 % (0-2.0); EOS % 1.5 % (0-4.5); HEMATOCRIT 36.2 % (32.4-45.2); LYMPH % 41.4 % (8-40); MCH 28.3 pg (25.7-33.7); MCHC 33.3 g/dl (32.0-36.0); MEAN PLT VOLUME 7.5 fl (7.5-11.1); MONO % 9.2 % (3.8-10.2); NEUT % 47.1 % (42.8-82.8); PLATELET COUNT 265 10^3/uL (134-434); RBC 4.26 M/mm3 (3.60-5.2); WHITE BLOOD COUNT 6.5 K/mm3 (4.0-10.0)
[2024-11-08 13:15] LABS: CHLORIDE 100 mmol/L (98-107); POTASSIUM 3.7 mmol/L (3.5-5.1); SODIUM 136 mmol/L (136-145)
[2024-11-08 13:17] LABS: ALBUMIN 4.6 g/dl (3.4-5.0); ANION GAP 7 mmol/L (4-13); BLOOD UREA NITROGEN 12.8 mg/dL (7-18); CALCIUM 9.8 mg/dL (8.5-10.1); CO2 30 mmol/L (21-32)
[2024-11-08 13:18] LABS: GLUCOSE,RANDOM 74 mg/dL (74-106)
[2024-11-08 13:20] LABS: CREATININE 0.7 mg/dL (0.55-1.3); SGOT/AST 25 U/L (15-37); SGPT/ALT 21 U/L (13-61)
[2024-11-08 13:22] LABS: BILIRUBIN,TOTAL 0.6 mg/dL (0.2-1); TOT PROT 8.2 g/dl (6.4-8.2)
[2024-11-08 13:23] LABS: ALK PHOS 65 U/L (45-117)
[2024-11-08 13:34] LABS: URINE BARBITURATES NEGATIVE (NEGATIVE)
[2024-11-08 13:35] LABS: OPIATES, URI NEGATIVE (NEGATIVE); PHENCYCLIDINE,URINE NEGATIVE (NEGATIVE)
[2024-11-08 13:40] LABS: COCAINE, UR POSITIVE (NEGATIVE); METHADONE, UR POSITIVE (NEGATIVE); URINE AMPHETAMINES POSITIVE (NEGATIVE); URINE BENZODIAZEPINES POSITIVE (NEGATIVE)
[2024-11-08] MEDS: NALOXONE (NYS OPIOID OVERDOSE PROGRAM) 4 MG/0.1 ML SPRAY NS ONE (16:42)
[2024-11-08] MEDS ORDERED: LORazepam 2 MG/ML SDV VIAL ONE (18:02)
[2024-11-08] MEDS: LORazepam 2 MG/ML SDV VIAL IM ONE (18:07)
[2024-11-08] MEDS ORDERED: LORazepam 2 MG/ML SDV VIAL IVPUSH PRN (23:10)
[2024-11-08] MEDS ORDERED: LORazepam 2 MG/ML SDV VIAL IM PRN (23:19)
[2024-11-09] MEDS ORDERED: methaDONE HCL 40 MG DISPERSABLE TABLET PO SCH (10:00)
[2024-11-09 10:17] VITALS: BP 110/75; PULSE 89; RESP 18; TEMP 98.6
== END 2024-11-09 10:35 | disposition left against medical advice (07) | DRG 770 ==
LOC: JER 10:32 → JERBED 17:34 → OBSVTOIN 17:34 → J7W 21:38
DX: F11.23 Opioid dependence with withdrawal (principal); R64 Cachexia; B19.20 Unspecified viral hepatitis C without hepatic coma; F12.90 Cannabis use, unspecified, uncomplicated; F39 Unspecified mood [affective] disorder; F90.9 Attention-deficit hyperactivity disorder, unspecified type; K76.9 Liver disease, unspecified; Z68.22 Body mass index [BMI] 22.0-22.9, adult
CPT/HCPCS: 36415; 70450-TC; 80053; 80307; 82140; 84703; 85025; 93005; 93010; 99285-25

== ENCOUNTER 2024-11-17 11:28 | Observation (INO) | payer OTHER ==
[2024-11-17 15:01] LABS: BASO % 0.6 % (0-2.0); EOS % 3.1 % (0-4.5); HEMATOCRIT 31.7 % (32.4-45.2); HEMOGLOBIN 10.5 GM/dL (10.7-15.3); MCH 28.4 pg (25.7-33.7); MCHC 33.1 g/dl (32.0-36.0); MEAN CELL VOLUME 85.8 fl (80-96); MEAN PLT VOLUME 8.8 fl (7.5-11.1); MONO % 7.5 % (3.8-10.2); NEUT % 49.8 % (42.8-82.8); PLATELET COUNT 225 10^3/uL (134-434); RDW 15.2 % (11.6-15.6); WHITE BLOOD COUNT 7.2 K/mm3 (4.0-10.0)
[2024-11-17 15:22] LABS: CHLORIDE 104 mmol/L (98-107); POTASSIUM 4.9 mmol/L (3.5-5.1); SODIUM 139 mmol/L (136-145)
[2024-11-17 15:26] LABS: CALCIUM 8.9 mg/dL (8.5-10.1)
[2024-11-17 15:27] LABS: ANION GAP 2 mmol/L (4-13); CO2 34 mmol/L (21-32); GLUCOSE,RANDOM 82 mg/dL (74-106); MAGNESIUM 2.3 mg/dL (1.8-2.4)
[2024-11-17 15:30] LABS: CREATININE 0.6 mg/dL (0.55-1.3); PHOSPHOROUS 4.8 mg/dL (2.5-4.9); SGOT/AST 74 U/L (15-37); SGPT/ALT 48 U/L (13-61)
[2024-11-17 15:31] LABS: BILIRUBIN,TOTAL 0.6 mg/dL (0.2-1); TOT PROT 6.5 g/dl (6.4-8.2)
[2024-11-17 15:33] LABS: ALK PHOS 62 U/L (45-117)
[2024-11-17 15:47] LABS: ALBUMIN 3.3 g/dl (3.4-5.0)
[2024-11-17 16:01] LABS: PH,URINE 6.5 (5.0-8.0); URINE APPEARANCE CLEAR; URINE BILIRUBIN NEGATIVE (NEGATIVE); URINE COLOR YELLOW; URINE GLUCOSE (UA) NEGATIVE (NEGATIVE); URINE KETONE NEGATIVE (NEGATIVE); URINE LEUK ESTERASE 2+ (NEGATIVE); URINE NITRITE POSITIVE (NEGATIVE); URINE PROTEIN NEGATIVE (NEGATIVE)
[2024-11-17 16:08] LABS: EPI CELLS 1.2 /uL (0-25.1); HYALINE CASTS 0.13 /uL (0-3.1); URINE RBC 34.8 /uL (0-23.9); URINE WBC 252.2 /uL (0-25.8)
[2024-11-17 16:32] LABS: COCAINE, UR POSITIVE (NEGATIVE); URINE BENZODIAZEPINES POSITIVE (NEGATIVE)
[2024-11-17 16:33] LABS: URINE BARBITURATES NEGATIVE (NEGATIVE)
[2024-11-17 16:36] LABS: METHADONE, UR POSITIVE (NEGATIVE); OPIATES, URI POSITIVE (NEGATIVE); PHENCYCLIDINE,URINE POSITIVE (NEGATIVE); URINE AMPHETAMINES POSITIVE (NEGATIVE)
[2024-11-17] MEDS ORDERED: CEFTRIAXONE 1 G/50 ML PREMIX 50 ML IVPB ONE (16:44)
[2024-11-17] MEDS: SODIUM CHLORIDE 0.9% 500 ML INFUS.BAG IV ONE (17:48)
[2024-11-17] MEDS: CEFTRIAXONE 1,000 MG in DEXTROSE 5%-WATER - 50 ML IVPB ONE (17:48)
[2024-11-17 19:08] LABS: VENOUS BASE EXCESS -0.9 mmol/L (-2-2); VENOUS O2 SATURATION 87.4 % (70-80); VENOUS PCO2 46.7 mmHg (38-52); VENOUS PH 7.346 (7.310-7.410)
[2024-11-17] MEDS: SODIUM CHLORIDE 1,000 ML IV STA (20:53)
[2024-11-17] MEDS: levETIRAcetam 500 MG/5 ML INJECTION VIAL IVPB SCH (22:57)
[2024-11-17] MEDS: SODIUM CHLORIDE 1,000 ML IV SCH (22:57)
[2024-11-18] MEDS ORDERED: methaDONE HCL 40 MG DISPERSABLE TABLET PO ONE (06:33)
[2024-11-18 07:57] LABS: HEMATOCRIT 31.5 % (32.4-45.2); HEMOGLOBIN 10.7 GM/dL (10.7-15.3); MCH 28.9 pg (25.7-33.7); MCHC 34.1 g/dl (32.0-36.0); MEAN CELL VOLUME 84.7 fl (80-96); MEAN PLT VOLUME 8.8 fl (7.5-11.1); PLATELET COUNT 199 10^3/uL (134-434); RBC 3.72 M/mm3 (3.60-5.2); RDW 15.7 % (11.6-15.6); WHITE BLOOD COUNT 7.5 K/mm3 (4.0-10.0)
[2024-11-18 08:10] LABS: POTASSIUM 3.8 mmol/L (3.5-5.1)
[2024-11-18 08:20] LABS: CALCIUM 8.5 mg/dL (8.5-10.1)
[2024-11-18 08:21] LABS: BLOOD UREA NITROGEN 7.7 mg/dL (7-18)
[2024-11-18 08:23] LABS: CREATININE 0.6 mg/dL (0.55-1.3)
[2024-11-18 08:24] LABS: PHOSPHOROUS 3.4 mg/dL (2.5-4.9)
[2024-11-18 08:25] LABS: BILIRUBIN,TOTAL 0.4 mg/dL (0.2-1); TOT PROT 5.7 g/dl (6.4-8.2)
[2024-11-18] MEDS: CEFTRIAXONE 1 G/50 ML PREMIX 50 ML IVPB SCH (09:22)
[2024-11-18] MEDS: ENOXAPARIN NA (PORCINE) 40 MG/0.4 ML DISP.SYRIN SQ SCH (09:22)
[2024-11-18 09:48] LABS: HIV INTERPRETATION NEGATIVE (NEGATIVE)
[2024-11-18 09:55] LABS: HCV DIAGNOSTIC IN-HOUSE W/RFLX REACTIVE (NONREACTIVE)
[2024-11-18] MEDS: SULFAMETHOXAZOLE/TRIMETHOPRIM 800MG/160MG D.S. TABLET PO SCH (17:49)
[2024-11-18] MEDS: ACETAMINOPHEN 325 MG TABLET (FP) PO PRN (17:50)
[2024-11-18] MEDS: MELATONIN 5 MG TABLETS PO ONE (22:22)
[2024-11-19 07:38] LABS: HEMATOCRIT 30.1 % (32.4-45.2); HEMOGLOBIN 10.2 GM/dL (10.7-15.3); MCH 28.6 pg (25.7-33.7); MCHC 33.8 g/dl (32.0-36.0); MEAN CELL VOLUME 84.4 fl (80-96); MEAN PLT VOLUME 8.9 fl (7.5-11.1); PLATELET COUNT 192 10^3/uL (134-434); RBC 3.56 M/mm3 (3.60-5.2); RDW 15.4 % (11.6-15.6); WHITE BLOOD COUNT 6.2 K/mm3 (4.0-10.0)
[2024-11-19] MEDS: methaDONE HCL 40 MG DISPERSABLE TABLET PO SCH (07:42)
[2024-11-19 07:56] LABS: POTASSIUM 4.3 mmol/L (3.5-5.1)
[2024-11-19 08:23] LABS: CALCIUM 8.8 mg/dL (8.5-10.1)
[2024-11-19 08:24] LABS: ALBUMIN 2.8 g/dl (3.4-5.0); BLOOD UREA NITROGEN 4.8 mg/dL (7-18)
[2024-11-19 08:27] LABS: CREATININE 0.5 mg/dL (0.55-1.3)
[2024-11-19 08:28] LABS: BILIRUBIN,TOTAL 0.4 mg/dL (0.2-1)
[2024-11-19 08:29] LABS: TOT PROT 5.4 g/dl (6.4-8.2)
[2024-11-19] MEDS: ACETAMINOPHEN 325 MG TABLET (FP) PO ONE (11:20)
[2024-11-19] MEDS: NITROFURANTOIN MONOHYD/M-CRYST 100 MG CAPSULE PO SCH ×2 (14:24→21:30)
[2024-11-19 14:51] VITALS: BMI 18.2
[2024-11-19] MEDS: NICOTINE 7 MG/24 HOURS TOPICAL PATCH TD SCH (16:44)
[2024-11-19] MEDS: ACETAMINOPHEN 325 MG TABLET (FP) PO PRN (17:05)
[2024-11-19] MEDS ORDERED: QUEtiapine FUMARATE 100 MG TABLET (FP) ONE (21:06)
[2024-11-19] MEDS: SULFAMETHOXAZOLE/TRIMETHOPRIM 800MG/160MG D.S. TABLET PO SCH (21:28)
[2024-11-19] MEDS: levETIRAcetam 500 MG/5 ML INJECTION VIAL IVPB SCH (21:28)
[2024-11-19] MEDS: QUEtiapine FUMARATE 300 MG TABLET PO SCH (21:28)
[2024-11-20 08:30] LABS: HEMATOCRIT 36.2 % (32.4-45.2); HEMOGLOBIN 11.8 GM/dL (10.7-15.3); MCHC 32.5 g/dl (32.0-36.0); MEAN CELL VOLUME 86.1 fl (80-96); MEAN PLT VOLUME 8.8 fl (7.5-11.1); PLATELET COUNT 252 10^3/uL (134-434); RBC 4.21 M/mm3 (3.60-5.2); RDW 15.7 % (11.6-15.6); WHITE BLOOD COUNT 4.8 K/mm3 (4.0-10.0)
[2024-11-20 08:48] LABS: POTASSIUM 4.8 mmol/L (3.5-5.1)
[2024-11-20 08:54] LABS: ALBUMIN 3.4 g/dl (3.4-5.0); BLOOD UREA NITROGEN 4.9 mg/dL (7-18)
[2024-11-20 08:57] LABS: CREATININE 0.7 mg/dL (0.55-1.3)
[2024-11-20 08:58] LABS: BILIRUBIN,TOTAL 0.3 mg/dL (0.2-1); TOT PROT 6.4 g/dl (6.4-8.2)
[2024-11-20] MEDS ORDERED: QUEtiapine FUMARATE 100 MG TABLET (FP) ONE ×2 (09:00→21:06)
[2024-11-20] MEDS: DOXYCYCLINE HYCLATE 100 MG CAPSULE PO SCH (12:07)
[2024-11-21] MEDS: POLYETHYLENE GLYCOL (HEALTHYLAX) 3350 17 GM PACKET PO SCH (12:53)
[2024-11-21] MEDS ORDERED: QUEtiapine FUMARATE 100 MG TABLET (FP) ONE (21:12)
[2024-11-22 07:45] LABS: HEMATOCRIT 42.2 % (34.1-44.9); HEMOGLOBIN 13.7 g/dL (11.2-15.7); MCHC 32.5 g/dl (32.2-35.5); MEAN CELL VOLUME 85.6 fl (79.4-94.8); MEAN PLT VOLUME 10.1 fl (9.4-12.3); PLATELET COUNT 322 x10^3/uL (182-369); RDW 15.3 % (12.1-16.8)
[2024-11-22] MEDS: NITROFURANTOIN MONOHYD/M-CRYST 100 MG CAPSULE PO ONE (16:23)
[2024-11-22] MEDS ORDERED: QUEtiapine FUMARATE 100 MG TABLET (FP) ONE ×2 (21:44→22:02)
[2024-11-22] MEDS ORDERED: NITROFURANTOIN MONOHYD/M-CRYST 100 MG CAPSULE PO SCH (22:00)
[2024-11-23] MEDS: NITROFURANTOIN MONOHYD/M-CRYST 100 MG CAPSULE PO SCH (09:41)
[2024-11-25 08:43] LABS: HEMATOCRIT 35.5 % (34.1-44.9); HEMOGLOBIN 11.5 g/dL (11.2-15.7); MCHC 32.4 g/dl (32.2-35.5); MEAN CELL VOLUME 85.7 fl (79.4-94.8); MEAN PLT VOLUME 9.8 fl (9.4-12.3); PLATELET COUNT 369 x10^3/uL (182-369); RDW 15.3 % (12.1-16.8)
[2024-11-25 08:59] LABS: POTASSIUM 4.5 mmol/L (3.5-5.1)
[2024-11-25 09:06] LABS: ALBUMIN 3.5 g/dl (3.4-5.0)
[2024-11-25 09:07] LABS: BLOOD UREA NITROGEN 15.9 mg/dL (7-18)
[2024-11-25 09:08] LABS: CALCIUM 9.2 mg/dL (8.5-10.1)
[2024-11-25 09:09] LABS: BILIRUBIN,TOTAL 0.3 mg/dL (0.2-1); TOT PROT 6.8 g/dl (6.4-8.2)
[2024-11-25 09:10] LABS: CREATININE 0.6 mg/dL (0.55-1.3)
[2024-11-25] MEDS ORDERED: COD LIVER OIL/ZINC OXIDE PASTE 56 GM TUBE TP PRN (14:18)
[2024-11-25] MEDS ORDERED: QUEtiapine FUMARATE 100 MG TABLET (FP) ONE (21:34)
[2024-11-26] MEDS ORDERED: QUEtiapine FUMARATE 100 MG TABLET (FP) ONE (20:56)
[2024-11-27] MEDS: methaDONE HCL 40 MG DISPERSABLE TABLET PO ONE (10:03)
[2024-11-27] MEDS ORDERED: QUEtiapine FUMARATE 100 MG TABLET (FP) ONE (21:17)
[2024-11-27] MEDS: DOXYCYCLINE HYCLATE 100 MG CAPSULE PO SCH (21:40)
[2024-11-28 01:35] VITALS: RESP 18
[2024-11-28] MEDS ORDERED: methaDONE HCL 40 MG DISPERSABLE TABLET PO ONE (06:00)
[2024-11-28 08:53] VITALS: BP 112/79; PULSE 88; TEMP 98.6
== END 2024-11-28 12:25 | disposition home or self-care (01) ==
LOC: JER 11:28 → JERBED 18:14 → J4W 21:24 → J4S 11-19 13:36
PROVIDERS: ADMIT Internal Medicine; ATTEND Allergy & Immunology
PROC: 0H98XZZ Drainage of Buttock Skin, External Approach (ICD-10-PCS; principal; 2024-11-17)
PROC: 3E03329 Introduction of Other Anti-infective into Peripheral Vein, Percutaneous Approach (ICD-10-PCS; 2024-11-17)
PROC: 3E023GC Introduction of Other Therapeutic Substance into Muscle, Percutaneous Approach (ICD-10-PCS; 2024-11-17)
PROC: 3E033GC Introduction of Other Therapeutic Substance into Peripheral Vein, Percutaneous Approach (ICD-10-PCS; 2024-11-17)
PROC: 3E0337Z Introduction of Electrolytic and Water Balance Substance into Peripheral Vein, Percutaneous Approach (ICD-10-PCS; 2024-11-17)
DX: G92.8 Other toxic encephalopathy (principal); N39.0 Urinary tract infection, site not specified; B96.20 Unspecified Escherichia coli [E. coli] as the cause of diseases classified elsewhere; F31.9 Bipolar disorder, unspecified; F90.9 Attention-deficit hyperactivity disorder, unspecified type; L02.416 Cutaneous abscess of left lower limb; Z86.14 Personal history of Methicillin resistant Staphylococcus aureus infection; G40.89 Other seizures; F19.99 Other psychoactive substance use, unspecified with unspecified psychoactive substance-induced disorder; Z86.19 Personal history of other infectious and parasitic diseases; T68.XXXA Hypothermia, initial encounter; X58.XXXA Exposure to other specified factors, initial encounter
CPT/HCPCS: 0241U-QW; 10060; 36415; 70450-TC; 71045-TC-FY; 80053; 80307; 81003; 82550; 82553; 82803; 82962; 83735; 84100; 84703; 85025; 85027; 86480; 86780; 86803; 86850; 86900; 86901; 87070; 87086; 87186; 87205; 87389; 87522; 93005; 93010; 96361; 96365; 96366; 96372; 96375; 96376; 99285-25; G0378